=== PATIENT | female | born 1935 | race Hispanic/Latino ===

== ENCOUNTER 2017-01-03 10:09 | Emergency (ER) | payer MEDICARE, MEDICAID ==
[~2017-01-03] VITALS: Ht 160 cm; Wt 59.0 kg
[2017-01-03 09:50] VITALS: BP 125/68
[~2017-01-03 10:09] MED LIST: ACETAMINOP160 MG/5 M GT; ALBUTEROL2.5 MG/3 M INH; AMLODIPINE BESY10 MG GT; ARICEPT5 MG GT; ARICEPT5 MG ORAL; ASCORBIC ACID500 MG GT; ASPIRIN325 MG ORAL; ATIVAN0.5 MG GT; ATIVAN0.5 MG ORAL; ATROVENT HFA12.9 GM IH; BACTRIM-DS1 EA GT; BENADRYL25 MG ORAL; CATAPRES0.1 MG ORAL; CLONIDINE0.1 MG GT; COLACE100 MG GT; ENALAPRIL MALEA20 MG GT; FERROUS SULFAT325 MG GT; FUROSEMIDE20 M1 ORAL; HYDROCHLOROTHIA25 MG ORAL; KEFLEX500 MG ORAL; LIDOCAINE HCL; METOPROLOL SUCC50 MG GT; METOPROLOL TART50 MG ORAL; MILK OF MA400 MG/51 GT; MILK OF MA400 MG/51 ORAL; MULTI VITAMIN1 EACH GT; MULTIVITAMINS1 EAC8 PO; NORCO 5-325 TA1 EAC1 GT; NORCO1 EA ORAL; NORVASC10 MG ORAL; POTASSIUM CHLO20 ME1 ORAL; PROCARDIA XL30 MG PO; PROTONIX40 M2 GT; TYLENOL100 MG/11 PO; TYLENOL500 MG ORAL; VASOTEC20 MG ORAL; VASOTEC20 MG PO; VITAMIN C500 M1 PO
[2017-01-03] MEDS ORDERED: VITAMIN C500 M1 ORAL (10:21)
[2017-01-03] MEDS ORDERED: MILK OF MA400 MG/51 ORAL (10:21)
[2017-01-03] MEDS ORDERED: FERROUS SU220 MG/51 PO (10:21)
[2017-01-03] MEDS ORDERED: ENALAPRIL MALEA20 MG ORAL (10:21)
[2017-01-03] MEDS ORDERED: DONEPEZIL HCL10 MG ORAL (10:34)
[2017-01-03] MEDS ORDERED: NEXIUM40 MG ORAL (10:34)
[2017-01-03] MEDS ORDERED: DOCUSATE SODIU100 M2 GT (10:34)
[2017-01-03] MEDS ORDERED: CRANBERRY450 M3 GT (10:34)
--- NOTE | 2017-01-03 11:45 | Diagnostic Imaging Report ---
Indication: TUBE PLCMT Technique: Supine view of the abdomen after injection of water-soluble contrast into gastrostomy Comparison: Were 17/01/2014 Findings: Contrast opacifies the stomach. No contrast extravasation is demonstrated. The bowel gas pattern is unremarkable. A gastrostomy is a new finding since the previous exam. Previously demonstrated nasogastric tube is no longer evident Impression: Satisfactory position of gastrostomy tube
[2017-01-03 12:16] VITALS: BP 149/77
--- NOTE | 2017-01-03 12:27 | GI Initial Consult Note ---
History of Present Illness General Date patient seen: Jan 03, 2017 Time patient seen: 12:00 Reason for Hospitalization: Malfunctioning Gastric Tube Referring physician: LEIA GOMEZ Reason for Consultation: GT MALFUNCTION Present Illness HPI This is a 78-year-old female from [facility] who presents with GT malfunction and thus we were consulted. Currently, calm in bed and slightly confused. No complaints. REVIEW OF SYSTEMS: Unable to obtain secondary to the patient's confusion. PAST MEDICAL HISTORY: Failure to thrive, weakness, dehydration, UTI, and sepsis. PAST SURGICAL HISTORY: Unknown. Home Meds Active Scripts Cephalexin* (KEFLEX*) 500 Mg Capsule, 500 MG ORAL Q6H, #28 CAP Prov:MARY BURT M.D. 02/02/15 Reported Medications Docusate Sodium (DOCUSATE SODIUM) 100 Mg Tablet, 100 MG GT BID, #30 TAB 0 Refills 01/03/17 Cranberry Fruit Concentrate (CRANBERRY) 450 Mg Tablet, 450 MG GT DAILY, TAB 01/03/17 Donepezil Hcl* (DONEPEZIL HCL*) 10 Mg Tablet, 10 MG ORAL BEDTIME, TAB 01/03/17 Esomeprazole Magnesium (NEXIUM) 40 Mg Capsule.dr, 40 MG ORAL DAILY, CAP 01/03/17 Ascorbic Acid* (VITAMIN C*) 500 Mg Tablet, 500 MG ORAL DAILY, #30 TAB 0 Refills 01/03/17 Ferrous Sulfate (FERROUS SULFATE) 220 Mg/5 Ml Solution, 220 MG PO DAILY 01/03/17 Enalapril Maleate* (ENALAPRIL MALEATE*) 20 Mg Tablet, 20 MG ORAL EVERY 12 HOURS , TAB 01/03/17 Magnesium Hydroxide* (MILK OF MAGNESIA*) 400 Mg/5 Ml Oral.susp, 30 ML ORAL PRN, ML 01/03/17 Trimethoprim/Sulfamethoxazole (Bactrim Ds Tablet) 1 Ea Tab, 1 TAB GT TWICE A DAY for 7 Days, TAB 09/01/13 Pantoprazole Sodium (Protonix) 40 Mg Suspdr.pkt, 40 MG GT ACBREAKFAST, PKT 09/01/13 Magnesium Hydroxide* (MILK OF MAGNESIA*) 400 Mg/5 Ml Oral.susp, 30 ML GT DAILY, ML 09/01/13 Ferrous Sulfate* (FERROUS SULFATE*) 325 Mg Tablet, 325 MG GT DAILY, #30 TAB 0 Refills 08/25/13 Hydrocodone Bit/Acetaminophen 5-325* (NORCO 5-325 TABLET*) 1 Each Tablet, 1 TAB GT Q4H Y for For Pain, TAB 08/25/13 Docusate Sodium* (COLACE*) 100 Mg Capsule, 100 MG GT TWICE A DAY, CAP 08/25/13 Clonidine HCl (Clonidine HCl) 0.1 Mg Tab, 0.1 MG GT q6h PRN for For High Blood Pressure, TAB for SBP>160 or DBP>100 08/25/13 Amlodipine Besylate* (AMLODIPINE BESYLATE*) 10 Mg Tablet, 10 MG GT DAILY, TAB 08/25/13 Lorazepam* (ATIVAN*) 0.5 Mg Tablet, 0.5 MG ORAL Q6HR Y for For Anxiety, TAB 01/15/13 Diphenhydramine Hcl* (BENADRYL*) 25 Mg Capsule, 25 MG ORAL Q4HR Y for Itching, CAP 01/15/13 Hydrocodone/Acetaminophen 5-325* (NORCO 5-325*) 1 Ea Tab, 1 TAB ORAL Q4H Y for For Pain, #30 TAB 01/15/13 Acetaminophen* (TYLENOL*) 500 Mg Tab, 500 MG ORAL Q4HR Y for For Pain, #10 TAB 0 Refills 01/15/13 Clonidine Hcl* (CATAPRES*) 0.1 Mg Tablet, 0.1 MG ORAL EVERY 6 HOURS Y for bp, TAB 01/15/13 Multivitamin With Minerals (MULTIVITAMINS WITH MINERALS*) 1 Each Tablet, 1 EACH PO DAILY, TAB 0 Refills 01/15/13 Amlodipine Besylate (Norvasc) 10 Mg Tab, 10 MG ORAL DAILY, TAB 01/15/13 Metoprolol Tartrate* (METOPROLOL TARTRATE*) 50 Mg Tablet, 50 MG ORAL DAILY, TAB 0 Refills 01/15/13 Furosemide* (LASIX*) 20 Mg Tablet, 20 MG ORAL DAILY, TAB 01/15/13 Enalapril Maleate* (VASOTEC*) 20 Mg Tablet, 40 MG ORAL DAILY, TAB 01/15/13 Donepezil Hcl* (ARICEPT*) 5 Mg Tablet, 5 MG ORAL DAILY for dementia, TAB 01/15/13 Potassium Chloride* (K-DUR*) 20 Meq Tab.er.prt, 20 MEQ ORAL TWICE A DAY for supplement, #14 TAB 0 Refills 01/15/13 Ascorbic Acid* (VITAMIN C*) 500 Mg Tablet, 500 MG PO DAILY for supplement, #30 TAB 0 Refills 01/15/13 Aspirin* (ASPIRIN*) 325 Mg Tablet, 325 MG ORAL DAILY for cva prophylaxis, TAB 01/15/13 Acetaminophen 160MG/5ML* (ACETAMINOPHEN*) 160 Mg/5 Ml Elixir, 500 TAB GT q6h PRN , ML 10/09/12 Lorazepam* (ATIVAN*) 0.5 Mg Tablet, 0.5 MG GT BID Y for For Anxiety, TAB 10/09/12 Multivitamin (MULTI VITAMIN DAILY) 1 Each Tablet, 1 EACH GT DAILY 10/09/12 Metoprolol Succinate* (METOPROLOL SUCCINATE*) 50 Mg Tab.er.24h, 50 MG GT DAILY 10/09/12 Enalapril Maleate* (ENALAPRIL MALEATE*) 20 Mg Tablet, 20 MG GT EVERY 12 HOURS, # 60 TAB 10/09/12 Ascorbic Acid* (ASCORBIC ACID*) 500 Mg Tablet, 500 MG GT DAILY 10/09/12 Donepezil Hcl* (ARICEPT*) 5 Mg Tablet, 5 MG GT BEDTIME, TAB 10/09/12 Med list reviewed/reconciled: Yes Allergies: Coded Allergies: No Known Allergies (Unverified , 10/09/12) Patient History Limited by: medical condition History Provided By: Medical Record Review of Systems All Other Systems: negative except mentioned in HPI Physical Exam Vital Signs Date Time Temp Pulse Resp B/P (MAP) Pulse Ox O2 Delivery O2 Flow Rate FiO2 01/03/17 09:50 98.4 66 20 125/68 97 Room Air Sp02 EP Interpretation: reviewed General Appearance: well appearing, no apparent distress, alert Head: normocephalic EENT: normal ENT inspection Neck: supple Respiratory: normal breath sounds, no respiratory distress Cardiovascular: normal rate Gastrointestinal: gt - non functional Neurologic: alert, responsive Skin: normal inspection, normal color, no rash, warm/dry Lymphatic: normal inspection, no adenopathy GI: Plan Problems: (1) Malfunction of gastrostomy tube (2) Episode of generalized weakness (3) Failure to thrive (4) Anemia Plan GT 20fr replaced at bedside by MD >> okay to use GT site care daily/prn GTFs per dietary last colonoscopy in 2013, repeat in 2018. Seen with Dr. Christian. Thank you for referring this patient. Lalita Bedoya N.P. Jan 03, 2017 12:27
--- NOTE | 2017-01-03 13:00 | Emergency Room Report ---
History of Present Illness General Chief Complaint: Malfunctioning Gastric Tube Source: Medical Record Present Illness HPI Patient 81-year-old female brought in by EMS after G-tube malfunctioning patient was noted to have leaking for G-tube tubing.. There is no recent fever. Patient not been vomiting. The patient G-tube dependent. The patient was sent for G-tube replacement. Allergies: Coded Allergies: No Known Allergies (Unverified , 10/09/12) Patient History Past Medical History: see triage record Reviewed Nursing Documentation: PMH: Agreed, PSxH: Agreed Nursing Documentation-PMH Past Medical History Deferred: Pt Cognitively Impaired Hx Cardiac Problems: Yes Hx Hypertension: Yes Hx Pacemaker: No Hx COPD: No - chf Hx Cancer: No Hx Gastrointestinal Problems: Yes - G TUBE Hx Neurological Problems: No - ENCEPHALOPATHY Hx Cerebrovascular Accident: Yes Hx Transient Ischemic Attacks: Yes Hx Dementia: Yes Hx Alzheimer's Disease: No Hx Parkinson's Disease: No Hx Meningitis: No Hx Encephalitis: No Hx Seizures: No Hx Epilepsy: No Hx Multiple Sclerosis: No Hx Cerebral Palsy: No Hx Amyotrophic Lat Sclerosis: No Hx Guillian-[place]aur[place] Syndrome: No Hx Paralysis: No Hx Peripheral Neuropathy: No Hx Spinal Cord Injury: No Hx Head Trauma: No Hx Traumatic Brain Injury: No Hx Memory Loss: No Hx Concentration Difficulty: No Hx Speech Problem: No Hx Tremors: No Hx Vertigo: No Hx Dizziness: No Hx Syncope: No Hx Headaches: No Hx Aphasia: No Hx Dysphasia: No Hx Numbness: No Hx Weakness: No Hx Fatigue: No Hx Neurologic Surgery: No Hx Brain Shunt: No Review of Systems All Other Systems: limited - by mental status Physical Exam Vital Signs Date Time Temp Pulse Resp B/P (MAP) Pulse Ox O2 Delivery O2 Flow Rate FiO2 01/03/17 09:50 98.4 66 20 125/68 97 Room Air General Appearance: no apparent distress, alert, non-toxic Neck: limited range of motion Respiratory: lungs clear, normal breath sounds Cardiovascular #1: normal peripheral pulses, regular rate, rhythm Gastrointestinal: non tender, soft, no mass, other - gtube site without erythema Neurologic: normal inspection, alert, oriented x3, responsive, sales professional III-XII nml as tested Skin: normal inspection, normal color, no rash Medical Decision Making Diagnostic Impression: Primary Impression: Malfunction of gastrostomy tube ER Course Patient presented for G-tube replacement. I was initially unable to remove the G-tube inject consult was obtained . Gastrostomy tube was replaced with sterile technique by GI. Post procedure x-ray showed adequate gastrostomy tube placement. Patient tolerated well without complications. The patient was discharged back to long term. Patient was return for persistent vomiting, other concerns. Last Vital Signs Date Time Temp Pulse Resp B/P (MAP) Pulse Ox O2 Delivery O2 Flow Rate FiO2 01/03/17 12:16 98.4 64 20 149/77 100 Room Air Status: improved Disposition: [facility] Condition: Improved Referrals: DARA WHITTAKER (PCP) Patient Instructions: Gastrostomy Tube Home Guide, Adult Jeremiah Friedman Jan 03, 2017 13:00
== END 2017-01-03 12:18 ==
LOC: MERGE 10:09 → EDBD 10:09 → EMR 11:08
DX: K94.23 Gastrostomy malfunction (principal); I10 Essential (primary) hypertension; F03.90 Unspecified dementia, unspecified severity, without behavioral disturbance, psychotic disturbance, mood disturbance, and anxiety; Z86.73 Personal history of transient ischemic attack (TIA), and cerebral infarction without residual deficits
CPT/HCPCS: 43760; 74000; 99284; Q9963

== ENCOUNTER 2018-09-08 08:02 | Inpatient (IN) | payer MEDICARE, MEDICAID ==
[~2018-09-08] VITALS: Ht 157.5 cm; Wt 55.5 kg
[~2018-09-08 08:02] MED LIST changes: +CRANBERRY450 M3 GT; +DOCUSATE SODIU100 M2 GT; +DONEPEZIL HCL10 MG ORAL; +ENALAPRIL MALEA20 MG ORAL; +FERROUS SU220 MG/51 PO; +NEXIUM40 MG ORAL; +VITAMIN C500 M1 ORAL
[2018-09-08 08:10] VITALS: BP 96/70
--- NOTE | 2018-09-08 08:22 | NUR ---
ED Nurse Note: Pt KATIAA from [facility] due to fever since this morning, 650mg of Tylenol given by facility staffs. Temperature 101.2F rectal upon arrival. Pt AOx1 baseline, responds to pain, other VSS troy. Pt came in with G-tube. Open wound noted on R sided 2nd toe,bandaged. Will cont to monitor.
--- NOTE | 2018-09-08 08:50 | Emergency Room Report ---
History of Present Illness General Chief Complaint: Fever Source: Medical Record, EMS Present Illness HPI Patient was sent from nursing facility with reports of fever Patient herself has significant dementia and is not able to provide history This does limit the history of present illness significantly unknown regarding vomiting or diarrhea There was no reports of cough Patient has had bladder infections in the past Also appears debilitated with contractures And consideration for deep ulcerations Allergies: Coded Allergies: No Known Allergies (Unverified , 10/09/12) Patient History Limited by: medical condition Past Medical History: see triage record Pertinent Family History: unable to obtain Last Menstrual Period: menopause Now: No Reviewed Nursing Documentation: PMH: Agreed; PSxH: Agreed Nursing Documentation-PMH Hx Cardiac Problems: Yes Hx Hypertension: Yes Hx Pacemaker: No Hx COPD: No - chf Hx Cancer: No Hx Gastrointestinal Problems: Yes - wt loss, failure to thrive with GI Tube Hx Dialysis: Yes - KIDNEY PROBLEM Hx Neurological Problems: Yes Hx Transient Ischemic Attacks: Yes Hx Dementia: Yes Hx Alzheimer's Disease: No Hx Parkinson's Disease: No Hx Meningitis: No Hx Encephalitis: No Hx Seizures: No Hx Epilepsy: No Hx Multiple Sclerosis: No Hx Cerebral Palsy: No Hx Amyotrophic Lat Sclerosis: No Hx Guillian-[place] Syndrome: No Hx Paralysis: No Hx Peripheral Neuropathy: No Hx Spinal Cord Injury: No Hx Head Trauma: No Hx Traumatic Brain Injury: No Hx Memory Loss: Yes Hx Concentration Difficulty: No Hx Speech Problem: No Hx Tremors: No Hx Vertigo: No Hx Dizziness: No Hx Syncope: Yes Hx Headaches: No Hx Aphasia: No Hx Dysphasia: No Hx Numbness: No Hx Weakness: No Hx Fatigue: No Hx Neurologic Surgery: No Hx Brain Shunt: No Review of Systems All Other Systems: limited - Other than the ones mentioned in the history of present illness all others are reviewed however they do stay limited due to the patient's mental status Physical Exam Vital Signs Date Time Temp Pulse Resp B/P (MAP) Pulse Ox O2 Delivery O2 Flow Rate FiO2 09/08/18 08:02 101.1 88 21 97 Room Air 09/08/18 08:10 96/70 Sp02 EP Interpretation: reviewed, normal General Appearance: no apparent distress Head: normocephalic, atraumatic Eyes: bilateral eye PERRL, bilateral eye EOMI ENT: dry mucus membranes Neck: supple Respiratory: no retraction, no accessory muscle use, crackles - Bilaterally Cardiovascular #1: regular rate, rhythm Gastrointestinal: non tender, other - Feeding tube in place Musculoskeletal: other - Patient contracted moves upper extremity towards stimuli Neurologic: responsive Skin: other - Several areas of breakdown also involving left dorsal second toe Lymphatic: no adenopathy Medical Decision Making Diagnostic Impression: Primary Impression: Fever Additional Impressions: Sepsis Elevated troponin ER Course Patient is a fairly complex patient with multiple differential to consideration including but not limited to cardiac cardiopulmonary , infectious , sepsis and vascular emergencies Patient's urine sample that show infectious process Troponin is mildly elevated Patient is initiated on IV hydration and antibiotics And will have further inpatient care Labs Test 09/08/18 08:45 09/08/18 09:00 White Blood Count 11.9 K/UL (4.8-10.8) Red Blood Count 3.99 M/UL (4.20-5.40) Hemoglobin 10.8 G/DL (12.0-16.0) Hematocrit 33.7 % (37.0-47.0) Mean Corpuscular Volume 85 FL (80-99) Mean Corpuscular Hemoglobin 27.1 PG (27.0-31.0) Mean Corpuscular Hemoglobin Concent 32.1 G/DL (32.0-36.0) Red Cell Distribution Width 15.2 % (11.6-14.8) Platelet Count 261 K/UL (150-450) Mean Platelet Volume 7.2 FL (6.5-10.1) Neutrophils (%) (Auto) 74.2 % (45.0-75.0) Lymphocytes (%) (Auto) 12.5 % (20.0-45.0) Monocytes (%) (Auto) 12.2 % (1.0-10.0) Eosinophils (%) (Auto) 0.3 % (0.0-3.0) Basophils (%) (Auto) 0.8 % (0.0-2.0) Sodium Level 138 MMOL/L (136-145) Potassium Level 4.4 MMOL/L (3.5-5.1) Chloride Level 104 MMOL/L (98-107) Carbon Dioxide Level 24 MMOL/L (21-32) Anion Gap 10 mmol/L (5-15) Blood Urea Nitrogen 46 mg/dL (7-18) Creatinine 1.4 MG/DL (0.55-1.30) Estimat Glomerular Filtration Rate mL/min (>60) Glucose Level 124 MG/DL (74-106) Lactic Acid Level 1.40 mmol/L (0.4-2.0) Calcium Level 8.7 MG/DL (8.5-10.1) Total Bilirubin 0.5 MG/DL (0.2-1.0) Aspartate Amino Transf (AST/SGOT) 25 U/L (15-37) Alanine Aminotransferase (ALT/SGPT) 18 U/L (12-78) Alkaline Phosphatase 113 U/L (46-116) Total Creatine Kinase 70 U/L (26-308) Creatine Kinase MB 0.8 NG/ML (0.0-3.6) Creatine Kinase MB Relative Index 1.1 Troponin I 0.058 ng/mL (0.000-0.056) Total Protein 7.6 G/DL (6.4-8.2) Albumin 2.5 G/DL (3.4-5.0) Globulin 5.1 g/dL Albumin/Globulin Ratio 0.5 (1.0-2.7) Urine Color Yellow Urine Appearance Clear Urine pH 6.5 (4.5-8.0) Urine Specific [place] 1.010 (1.005-1.035) Urine Protein 2+ (NEGATIVE) Urine Glucose (UA) Negative (NEGATIVE) Urine Ketones Negative (NEGATIVE) Urine Blood 3+ (NEGATIVE) Urine Nitrite Positive (NEGATIVE) Urine Bilirubin Negative (NEGATIVE) Urine Urobilinogen Normal MG/DL (0.0-1.0) Urine Leukocyte Esterase 3+ (NEGATIVE) Urine RBC 2-4 /HPF (0 - 2) Urine WBC 20-30 /HPF (0 - 2) Urine Squamous Epithelial Cells Few /LPF (NONE/OCC) Urine Bacteria Moderate /HPF (NONE) Rhythm Strip Diag. Results EP Interpretation: yes Rate: 80 Rhythm: NSR, no PVC's, no ectopy Chest X-Ray Diagnostic Results Chest X-Ray Diagnostic Results : Chest X-Ray Ordered: Yes # of Views/Limited/Complete: 1 View Indication: Chest Pain EP Interpretation: Yes Interpretation: no consolidation, no pneumothorax, other - Some congestion bilateral lower lobe mildly increased in the left side Impression: Other - Question mild congestion versus other increased marking left lower lobe Electronically Signed by: Chris Zurita DO Last Vital Signs Date Time Temp Pulse Resp B/P (MAP) Pulse Ox O2 Delivery O2 Flow Rate FiO2 09/08/18 08:22 90 20 Room Air 09/08/18 08:10 101.2 96/70 98 Status: improved Disposition: ADMITTED INPATIENT Condition: Serious Referrals: Guevara Lala DO (PCP) Chris Zurita DO September 08, 2018 08:49
--- NOTE | 2018-09-08 08:50 | NUR ---
ED Nurse Note: X-ray tech at bedside for imaging.
--- NOTE | 2018-09-08 09:00 | NUR ---
ED Nurse Note: Blood, urine, and swabs collected and sent to lab.
[2018-09-08 09:09] LABS: BASOPHILS % (AUTO) 0.8 % (0.0-2.0); EOSINOPHILS % (AUTO) 0.3 % (0.0-3.0); HEMATOCRIT 33.7 % (37.0-47.0); HEMOGLOBIN 10.8 G/DL (12.0-16.0); LYMPHOCYTES % (AUTO) 12.5 % (20.0-45.0); MEAN CORPUSCULAR VOLUME 85 FL (80-99); MONOCYTES % (AUTO) 12.2 % (1.0-10.0); NEUTROPHILS % (AUTO) 74.2 % (45.0-75.0); PLATELET COUNT 261 K/UL (150-450); RED BLOOD COUNT 3.99 M/UL (4.20-5.40); RED CELL DISTRIBUTION WIDTH 15.2 % (11.6-14.8); WHITE BLOOD COUNT 11.9 K/UL (4.8-10.8)
[2018-09-08 09:19] LABS: ANION GAP 10 mmol/L (5-15); BLOOD UREA NITROGEN 46 mg/dL (7-18); CALCIUM 8.7 MG/DL (8.5-10.1); CARBON DIOXIDE 24 MMOL/L (21-32); CHLORIDE 104 MMOL/L (98-107); CREATININE 1.4 MG/DL (0.55-1.30); POTASSIUM 4.4 MMOL/L (3.5-5.1); SODIUM 138 MMOL/L (136-145)
[2018-09-08 09:28] LABS: APPEARANCE,URINE CLEAR; BILIRUBIN, URINE NEGATIVE (NEGATIVE); GLUCOSE, URINE (UA) NEGATIVE (NEGATIVE); KETONES,URINE NEGATIVE (NEGATIVE); LEUKOCYTE ESTERASE ,URINE 3+ (NEGATIVE); NITRITE,URINE POSITIVE (NEGATIVE); PH,URINE 6.5 (4.5-8.0); PROTEIN,URINE 2+ (NEGATIVE); UROBILINOGEN,URINE NORMAL MG/DL (0.0-1.0)
[2018-09-08 09:33] LABS: ALANINE AMINOTRANSFERASE 18 U/L (12-78); ALBUMIN 2.5 G/DL (3.4-5.0); ALBUMIN/GLOBULIN RATIO 0.5 (1.0-2.7); ALKALINE PHOSPHATASE 113 U/L (46-116); ASPARTATE AMINO TRANSFERASE 25 U/L (15-37); BILIRUBIN,TOTAL 0.5 MG/DL (0.2-1.0); CKMB 0.8 NG/ML (0.0-3.6); CREATINE KINASE 70 U/L (26-308)
[2018-09-08 09:36] LABS: COLOR,URINE YELLOW
[2018-09-08] MEDS ORDERED: cefTRIAXone 1 GM in D5W 55 ML IVPB ONE (10:00)
--- NOTE | 2018-09-08 10:04 | NUR ---
ED Nurse Note: Grand daughter called and got update on patients: Kingsley Mihir [phone]
[2018-09-08 10:14] VITALS: BP 110/42
[2018-09-08] MEDS ORDERED: Acetaminophen 650 MG SUPP RECTAL PRN (10:15)
--- NOTE | 2018-09-08 10:16 | NUR ---
ED Nurse Note: Report givent to MARCELINA Hays. VSS. Tylenol per rectum given. Patient transpoted to 236-2 via gurney. On Room air, sating at 100%. No signs of distress.
--- NOTE | 2018-09-08 10:34 | Diagnostic Imaging Report ---
EXAM: XR Chest, 1 View CLINICAL HISTORY: Chest pain TECHNIQUE: Frontal view of the chest. COMPARISON: Chest x-ray dated 02/02/15 FINDINGS: Lungs: Mildly increased perihilar interstitial markings. The lungs are otherwise clear without focal consolidation. Pleural space: Unremarkable. The costophrenic angles are sharp. No visible pneumothorax. Heart: Unremarkable. No cardiomegaly. Mediastinum: Unremarkable. Bones/joints: Unremarkable. Vasculature: Atherosclerotic calcifications are noted within the aortic arch. Tubes, lines and devices: EKG leads overlie the thorax. IMPRESSION: Mildly increased perihilar interstitial markings. This is nonspecific but may suggest mild bronchitis or a mild interstitial pneumonitis. No focal consolidation.
--- NOTE | 2018-09-08 10:40 | NUR ---
NURSE NOTES: Report received from MARCELINA Craft from ED. Patient arrived to unit via gurney accompanied with RN. Patient is alert and awake but just mumbling. No s/s of pain at this time. No distress noted in room air. No belonging noted. IV site intact and patent. Vitals checked. Skin assessment done and noted with sacral redness, right 2nd toe open wound, and bilateral heels DTI. Wound photo taken and uploaded. traffic monitor specialist applied to the patient. Bed in lowest position. Call light within reach. Will continue to monitor. Called and left message to Dr. Lala for admission orders.
--- NOTE | 2018-09-08 11:14 | NUR ---
CASE MANAGEMENT: INITIAL REVIEW 83 YO F BIBA FROM [facility] CC: FEVER PMHx: HTN. GTUBE. DEMENTIA. SI:SEPSIS. T 101.1 HR 88 RR 21 B/P 96/70 SATS 97% ON RA WBC 11.9 BUN 46 CR 1.4 GLU 124 TROPONIN 0.058 IS:CEFTRIAXONE IV X1 NS BOLUS X1 PATIENT ADMITTED TO SDU 09/08/2018 @ 0911 DCP: PATIENT TO BE DISCHARGED TO SNF ONCE MEDICALLY CLEARED. PLAN OF CARE: ID CONSULT
[2018-09-08 11:27] VITALS: BP 128/48
[2018-09-08] MEDS ORDERED: LORazepam 0.5mg tab ORAL PRN (12:00)
[2018-09-08] MEDS ORDERED: Miralax 17gm pkt ORAL PRN (12:00)
[2018-09-08] MEDS ORDERED: Albuterol/Ipratropium 3ml neb HHN PRN (12:00)
[2018-09-08] MEDS ORDERED: Morphine Sulfate 2mg/ml Inj(IV/IM USE ONLY) IVP PRN (12:00)
[2018-09-08] MEDS ORDERED: Nitroglycerin Subl 0.4mg tab SL PRN (12:15)
--- NOTE | 2018-09-08 12:30 | History and Physical Report ---
DATE OF ADMISSION: 09/08/2018 TIME SEEN: 8 a.m. CONSULTANTS: 1. Russell Ferraro M.D. 2. Dajuan Lam M.D. CHIEF COMPLAINTS: Fever, sepsis, shock, lethargy, altered mental status. BRIEF HISTORY: This is an 83-year-old female from [facility], presents this morning with history of increased fever, lethargy, and confusion. The patient was given Tylenol one dose and transferred to [facility]. Currently, lethargic in bed, not really responding to questions. REVIEW OF SYSTEMS: Unavailable. PAST MEDICAL HISTORY: Include altered mental status, failure to thrive, dementia, and anemia. PAST SURGICAL HISTORY: G-tube. MEDICATIONS: I will obtain med list shortly. ALLERGIES: Denies. SOCIAL HISTORY: No smoking. No alcohol. No intravenous drug abuse. FAMILY HISTORY: Noncontributory. PHYSICAL EXAMINATION: GENERAL: Lethargic in bed, not responding to questions. VITAL SIGNS: Temperature is 101.2, pulse 90, respirations 20, and blood pressure 96/70. CARDIOVASCULAR: No murmur. LUNGS: Poor air exchange. ABDOMEN: Bowel sounds distant. EXTREMITIES: No cyanosis, clubbing, or edema. NEUROLOGIC: The patient is flaccid in bed, not really follow directions. LABORATORY DATA: Laboratories at this time are pending. ASSESSMENT: Fever, sepsis, shock, altered mental status, lethargy, dementia, anemia, and history of G-tube. PLAN: Considering the patient's age and condition, we will admit. We will check the laboratories shortly and consult ID and Pulmonary. Antibiotics per Infectious Disease. Dietary followup. Resume home medications. CBC and BMP in the morning. PT and dietary evaluation. We will continue to follow this patient medically. Guevara Lala D.O. DR: MERCEDES JOB#: [id number] CC:
[2018-09-08] MEDS ORDERED: Vancomycin 1gm/D5W 275ml IVPB ONE ×2 (13:00)
[2018-09-08] MEDS: Cefepime 1gm/D5W 55ml IVPB SCH ×2 (15:10)
[2018-09-08 15:55] VITALS: BP 142/66
--- NOTE | 2018-09-08 18:34 | Consultation ---
History of Present Illness General Date patient seen: September 08, 2018 Chief Complaint: Fever Present Illness HPI 83 year old female with multiple medical comorbidities who is a assisted resident recently noted to be febrile, change in mental status, more unresponsive, abnormal labs and admitted to [facility] [place] for care and management. On admission noted to have multiple wounds requiring care. noted to have leukocytosis. noted to have open wound of foot/toe. surgery called to evaluate and assist with care/management. patient seen, chart reviewed, patient examined. Allergies: Coded Allergies: No Known Allergies (Unverified , 10/09/12) Medication History Scheduled Acetaminophen 160MG/5ML* (Acetaminophen*), 500 TAB GT q6h PRN, (Reported) Amlodipine Besylate (Norvasc), 10 MG ORAL DAILY, (Reported) Amlodipine Besylate* (Amlodipine Besylate*), 10 MG GT DAILY, (Reported) Ascorbic Acid* (Ascorbic Acid*), 500 MG GT DAILY, (Reported) Ascorbic Acid* (Vitamin C*), 500 MG PO DAILY, (Reported) Ascorbic Acid* (Vitamin C*), 500 MG ORAL DAILY, (Reported) Aspirin* (Aspirin*), 325 MG ORAL DAILY, (Reported) Cephalexin* (Keflex*), 500 MG ORAL Q6H Clonidine HCl (Clonidine HCl), 0.1 MG GT q6h PRN, (Reported) Cranberry Fruit Concentrate (Cranberry), 450 MG GT DAILY, (Reported) Docusate Sodium (Docusate Sodium), 100 MG GT BID, (Reported) Docusate Sodium* (Colace*), 100 MG GT TWICE A DAY, (Reported) Donepezil Hcl* (Aricept*), 5 MG GT BEDTIME, (Reported) Donepezil Hcl* (Aricept*), 5 MG ORAL DAILY, (Reported) Donepezil Hcl* (Donepezil Hcl*), 10 MG ORAL BEDTIME, (Reported) Enalapril Maleate* (Enalapril Maleate*), 20 MG GT EVERY 12 HOURS, (Reported) Enalapril Maleate* (Vasotec*), 40 MG ORAL DAILY, (Reported) Enalapril Maleate* (Enalapril Maleate*), 20 MG ORAL EVERY 12 HOURS, (Reported) Esomeprazole Magnesium (Nexium), 40 MG ORAL DAILY, (Reported) Ferrous Sulfate (Ferrous Sulfate), 220 MG PO DAILY, (Reported) Ferrous Sulfate* (Ferrous Sulfate*), 325 MG GT DAILY, (Reported) Furosemide* (Lasix*), 20 MG ORAL DAILY, (Reported) Magnesium Hydroxide* (Milk Of Magnesia*), 30 ML GT DAILY, (Reported) Magnesium Hydroxide* (Milk Of Magnesia*), 30 ML ORAL PRN, (Reported) Metoprolol Succinate* (Metoprolol Succinate*), 50 MG GT DAILY, (Reported) Metoprolol Tartrate* (Metoprolol Tartrate*), 50 MG ORAL DAILY, (Reported) Multivitamin (Multi Vitamin Daily), 1 EACH GT DAILY, (Reported) Multivitamin With Minerals (Multivitamins With Minerals*), 1 EACH PO DAILY, ( Reported) Pantoprazole Sodium (Protonix), 40 MG GT ACBREAKFAST, (Reported) Potassium Chloride* (K-Dur*), 20 MEQ ORAL TWICE A DAY, (Reported) Trimethoprim/Sulfamethoxazole (Bactrim Ds Tablet), 1 TAB GT TWICE A DAY, ( Reported) Scheduled PRN Acetaminophen* (Tylenol*), 500 MG ORAL Q4HR PRN for For Pain, (Reported) Clonidine Hcl* (Catapres*), 0.1 MG ORAL EVERY 6 HOURS PRN for bp, (Reported) Diphenhydramine Hcl* (Benadryl*), 25 MG ORAL Q4HR PRN for Itching, (Reported) Hydrocodone Bit/Acetaminophen 5-325* (Rainbow 5-325 Tablet*), 1 TAB GT Q4H PRN for For Pain, (Reported) Hydrocodone/Acetaminophen 5-325* (Rainbow 5-325*), 1 TAB ORAL Q4H PRN for For Pain , (Reported) Lorazepam* (Ativan*), 0.5 MG GT BID PRN for For Anxiety, (Reported) Lorazepam* (Ativan*), 0.5 MG ORAL Q6HR PRN for For Anxiety, (Reported) Patient History Limited by: medical condition History Provided By: Medical Record, PMD Healthcare decision maker Resuscitation status Full Code Advanced Directive on File Past Medical/Surgical History Past Medical/Surgical History: (1) ams (2) r/o cva vs tia (3) Weakness (4) UTI (urinary tract infection) (5) Altered level of consciousness (6) Failure to thrive (7) Weakness (8) Migration of GT (9) Dehydration (10) Dementia (11) Hyponatremia (12) Diverticulosis (13) BENJAMIN (acute kidney injury) (14) Anemia (15) Failure to thrive (16) Episode of generalized weakness (17) Malfunction of gastrostomy tube (18) Fever (19) Sepsis (20) Elevated troponin Review of Systems ROS Narrative cannot obtain given medical condition Physical Exam General Appearance: no apparent distress Lines, tubes and drains: peripheral HEENT: mucous membranes moist Neck: normal inspection Respiratory/Chest: no respiratory distress, no accessory muscle use, decreased breath sounds Cardiovascular/Chest: normal rate Abdomen: soft, no organomegaly, no mass, other Extremities: normal capillary refill, other Skin Exam: warm/dry Last 24 Hour Vital Signs Date Time Temp Pulse Resp B/P (MAP) Pulse Ox O2 Delivery O2 Flow Rate FiO2 09/08/18 15:55 99.0 88 20 142/66 (91) 100 09/08/18 15:39 83 09/08/18 12:00 79 09/08/18 11:47 Room Air 09/08/18 11:27 98.2 82 20 128/48 (74) 98 09/08/18 10:40 81 09/08/18 10:16 83 20 110/42 97 Room Air 09/08/18 10:14 83 20 110/42 97 Room Air 09/08/18 08:22 90 20 Room Air 09/08/18 08:10 101.2 90 20 96/70 98 Room Air 09/08/18 08:02 101.1 88 21 97 Room Air Laboratory Tests Test 09/08/18 08:45 09/08/18 09:00 White Blood Count 11.9 K/UL (4.8-10.8) H Red Blood Count 3.99 M/UL (4.20-5.40) L Hemoglobin 10.8 G/DL (12.0-16.0) L Hematocrit 33.7 % (37.0-47.0) L Mean Corpuscular Volume 85 FL (80-99) Mean Corpuscular Hemoglobin 27.1 PG (27.0-31.0) Mean Corpuscular Hemoglobin Concent 32.1 G/DL (32.0-36.0) Red Cell Distribution Width 15.2 % (11.6-14.8) H Platelet Count 261 K/UL (150-450) Mean Platelet Volume 7.2 FL (6.5-10.1) Neutrophils (%) (Auto) 74.2 % (45.0-75.0) Lymphocytes (%) (Auto) 12.5 % (20.0-45.0) L Monocytes (%) (Auto) 12.2 % (1.0-10.0) H Eosinophils (%) (Auto) 0.3 % (0.0-3.0) Basophils (%) (Auto) 0.8 % (0.0-2.0) Sodium Level 138 MMOL/L (136-145) Potassium Level 4.4 MMOL/L (3.5-5.1) Chloride Level 104 MMOL/L (98-107) Carbon Dioxide Level 24 MMOL/L (21-32) Anion Gap 10 mmol/L (5-15) Blood Urea Nitrogen 46 mg/dL (7-18) H Creatinine 1.4 MG/DL (0.55-1.30) H Estimat Glomerular Filtration Rate mL/min (>60) Glucose Level 124 MG/DL (74-106) H Lactic Acid Level 1.40 mmol/L (0.4-2.0) Calcium Level 8.7 MG/DL (8.5-10.1) Total Bilirubin 0.5 MG/DL (0.2-1.0) Aspartate Amino Transf (AST/SGOT) 25 U/L (15-37) Alanine Aminotransferase (ALT/SGPT) 18 U/L (12-78) Alkaline Phosphatase 113 U/L (46-116) Total Creatine Kinase 70 U/L (26-308) Creatine Kinase MB 0.8 NG/ML (0.0-3.6) Creatine Kinase MB Relative Index 1.1 Troponin I 0.058 ng/mL (0.000-0.056) Total Protein 7.6 G/DL (6.4-8.2) Albumin 2.5 G/DL (3.4-5.0) L Globulin 5.1 g/dL Albumin/Globulin Ratio 0.5 (1.0-2.7) L Urine Color Yellow Urine Appearance Clear Urine pH 6.5 (4.5-8.0) Urine Specific [place] 1.010 (1.005-1.035) Urine Protein 2+ (NEGATIVE) H Urine Glucose (UA) Negative (NEGATIVE) Urine Ketones Negative (NEGATIVE) Urine Blood 3+ (NEGATIVE) H Urine Nitrite Positive (NEGATIVE) H Urine Bilirubin Negative (NEGATIVE) Urine Urobilinogen Normal MG/DL (0.0-1.0) Urine Leukocyte Esterase 3+ (NEGATIVE) H Urine RBC 2-4 /HPF (0 - 2) H Urine WBC 20-30 /HPF (0 - 2) H Urine Squamous Epithelial Cells Few /LPF (NONE/OCC) Urine Bacteria Moderate /HPF (NONE) H Height (Feet): 5 Height (Inches): 2.00 Weight (Pounds): 120 Medications Current Medications Medications (Trade) Dose Ordered Sig/Khoa Route PRN Reason Start Time Stop Time Status Last Admin Dose Admin Acetaminophen (Tylenol) 650 mg Q4H PRN ORAL T>100.5 09/08/18 12:00 10/08/18 11:59 Albuterol/ Ipratropium (Albuterol/ Ipratropium) 3 ml Q4H PRN HHN Shortness of Breath 09/08/18 12:00 09/13/18 11:59 Cefepime HCl 1 gm/ Dextrose 55 ml @ 110 mls/hr Q24H IVPB 09/08/18 14:00 09/15/18 13:59 09/08/18 15:10 Donepezil HCl (Aricept) 5 mg BEDTIME ORAL 09/08/18 21:00 10/08/18 20:59 Heparin Sodium (Porcine) (Heparin 5000 units/ml) 5,000 units EVERY 12 HOURS SUBQ 09/08/18 21:00 10/08/18 20:59 Lorazepam (Ativan) 0.5 mg Q6H PRN ORAL For Anxiety 09/08/18 12:00 09/15/18 11:59 Morphine Sulfate (Morphine Sulfate) 2 mg Q4H PRN IVP PAIN 4-10 09/08/18 12:00 09/15/18 11:59 Nitroglycerin (Ntg) 0.4 mg Q5MIN X 3 DOSES PRN SL Prn Chest Pain 09/08/18 12:15 10/08/18 12:14 Ondansetron HCl (Zofran) 4 mg Q6H PRN IVP Nausea & Vomiting 09/08/18 12:00 10/08/18 11:59 Polyethylene Glycol (Miralax) 17 gm DAILYPRN PRN ORAL Constipation 09/08/18 12:00 10/08/18 11:59 Temazepam (Restoril) 15 mg HSPRN PRN ORAL Insomnia 09/08/18 21:00 09/15/18 20:59 Vancomycin HCl (Vanco rx to dose) 1 ea DAILY PRN MISC . 09/08/18 12:00 10/08/18 11:59 Vancomycin HCl 500 mg/Dextrose 110 ml @ 110 mls/hr Q24H IVPB 09/09/18 13:00 09/14/18 12:59 Assessment/Plan Problem List: (1) Fever Assessment & Plan: low grade fevers leukocytosis on Abx as per ID trend labs ICD Codes: R50.9 - Fever, unspecified SNOMED: 001235294 (2) Sepsis ICD Codes: A41.9 - Sepsis SNOMED: 79261347 (3) Elevated troponin ICD Codes: R74.8 - Abnormal levels of other serum enzymes SNOMED: 905245796, 985989074, 036246318 (4) Dehydration (5) Anemia ICD Codes: D64.9 - Anemia SNOMED: 547991190 (6) Dementia ICD Codes: F03.90 - Dementia SNOMED: 48688927 (7) Diverticulosis ICD Codes: K57.90 - Diverticulosis SNOMED: 496435232 (8) Failure to thrive (9) Failure to thrive Assessment & Plan: cont feeds as per nutritional guide ICD Codes: R62.51 - Failure to thrive (child) SNOMED: 26609017 (10) Hyponatremia (11) Weakness (12) Weakness ICD Codes: R53.1 - Weakness SNOMED: 29563058 (13) UTI (urinary tract infection) (14) Altered level of consciousness ICD Codes: R40.4 - Transient alteration of awareness SNOMED: 0242549 (15) BENJAMIN (acute kidney injury) Assessment & Plan: IV fluids seems dehydrated hold nephrotoxic meds ICD Codes: N17.9 - BENJAMIN (acute kidney injury) SNOMED: 78851537 (16) Malfunction of gastrostomy tube ICD Codes: K94.23 - Gastrostomy malfunction SNOMED: 292766477 (17) Episode of generalized weakness ICD Codes: R53.1 - Weakness SNOMED: 13943218 (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 -plain films ordered -Xeroform dressing and gauze followed by kerlix wrap for now ICD Codes: L03.119 - Cellulitis of unspecified part of limb; L02.619 - Cutaneous abscess of unspecified foot SNOMED: 608992336, 453325414, 911811664 (22) Decubitus skin ulcer Assessment & Plan: patient presented from assisted with multiple wounds sacral / buttock erythema identified right second ray with open wound and cellulitis right and left heel boggy and soft Tx plan: apply skin protectant to sacral / buttock area, cover with foam dressing, change q3days Xeroform dressing and gauze followed by kerlix wrap to right toe heel protectors off load heels with pillow turn q2 air mattress ICD Codes: L89.90 - Pressure ulcer of unspecified site, unspecified stage SNOMED: 079774255 Pb Ojeda September 08, 2018 18:34
--- NOTE | 2018-09-08 19:05 | NUR ---
NURSE NOTES: Pt report received from Lis HEWITT. Pt appears to be resting comfortably in bed, no signs and symptoms of distress noted. Pt is alert and oriented times 1. Pt has a hall monitor on active and working, no signs and symptoms of acute cardiac distress noted. Pt saturating well at 99% on room air, no acute sign and symptoms of acute respiratory distress noted at the moment. Pt has a G tube noted running at 30cc/hr patent and able to flush, no complications noted to site or tubing. Pt has a L hand 20 G noted, able to flush no abnormalities noted. Pt has a pure wick, able to suction, no complications noted to site or tubing. All safety precautions are in place, such as bed is at lowest position, call light is within easy reach, bed rails are up times 3, bed alarm active and armed. will continue plan of care.
--- NOTE | 2018-09-08 19:17 | NUR ---
HAND-OFF: Report given to MARCELINA Lua. patient is in stable condition.
[2018-09-08 20:00] VITALS: BP 122/47
[2018-09-08] MEDS: Heparin 5000 units/ml inj SUBQ SCH (20:19)
[2018-09-08] MEDS: Donepezil 5mg Tab ORAL SCH (20:19)
[2018-09-08] MEDS ORDERED: Cefepime HCl 2 GM in D5W 110 ML IV SCH (21:00)
[2018-09-09] VITALS: BP 142/66
[2018-09-09] MEDS ORDERED: Vancomycin 1 GM in D5W 275 ML IV SCH (00:30)
[2018-09-09 04:00] VITALS: BP 133/55
[2018-09-09 04:56] LABS: BASOPHILS % (AUTO) 0.8 % (0.0-2.0); EOSINOPHILS % (AUTO) 1.3 % (0.0-3.0); HEMATOCRIT 34.8 % (37.0-47.0); HEMOGLOBIN 11.4 G/DL (12.0-16.0); LYMPHOCYTES % (AUTO) 16.2 % (20.0-45.0); MEAN CORPUSCULAR VOLUME 85 FL (80-99); MONOCYTES % (AUTO) 9.7 % (1.0-10.0); NEUTROPHILS % (AUTO) 72.1 % (45.0-75.0); PLATELET COUNT 255 K/UL (150-450); RED CELL DISTRIBUTION WIDTH 15.5 % (11.6-14.8); WHITE BLOOD COUNT 10.8 K/UL (4.8-10.8)
[2018-09-09 05:23] LABS: ALANINE AMINOTRANSFERASE 18 U/L (12-78); ALBUMIN 2.4 G/DL (3.4-5.0); ALBUMIN/GLOBULIN RATIO 0.5 (1.0-2.7); ALKALINE PHOSPHATASE 120 U/L (46-116); ANION GAP 8 mmol/L (5-15); ASPARTATE AMINO TRANSFERASE 29 U/L (15-37); BILIRUBIN,TOTAL 0.5 MG/DL (0.2-1.0); BLOOD UREA NITROGEN 31 mg/dL (7-18); CALCIUM 8.5 MG/DL (8.5-10.1); CARBON DIOXIDE 24 MMOL/L (21-32); CHLORIDE 103 MMOL/L (98-107); CREATININE 1.1 MG/DL (0.55-1.30); POTASSIUM 4.4 MMOL/L (3.5-5.1); SODIUM 135 MMOL/L (136-145)
--- NOTE | 2018-09-09 07:15 | NUR ---
NURSE NOTES: RECEIVED BED SIDE REPORT FROM ELYSIA HEWITT OF NOC SHIFT.RECEIVED PT WITH HOB ELEVATED 45 DEGREE ,,EYES OPENS WITH VERBAL COMMANDS.PT WITH GT PATENT RECEIVING GEVITY 1.2 @ 50CC/HRS TOLERATING WELL ,NO RESIDUAL NOTED AT THIS TIME. FULL BODY ASSESSMENT DONE.PT REPOSITIONED IN BED Q 2HRS TO PROVIDE COMFORT AND TO PREVENT FURTHER SKIN BREAK DOWN.NO ACUTE DISTRESS NOTED AT THIS TIME.WILL CONT TO MONITOR.
--- NOTE | 2018-09-09 07:42 | NUR ---
HAND-OFF: Report given to STACEY HEWITT.
[2018-09-09 08:00] VITALS: BP 123/61
--- NOTE | 2018-09-09 08:50 | NUR ---
RADIOLOGY DEPT.,CHEST X-RAY DONE.-P.DYE
[2018-09-09] MEDS: Heparin 5000 units/ml inj SUBQ SCH ×2 (09:41→21:03)
--- NOTE | 2018-09-09 09:44 | NUR ---
RD ASSESSMENT & RECOMMENDATIONS SEE CARE ACTIVITY FOR COMPLETE ASSESSMENT DAILY ESTIMATED NEEDS: Needs based on Sepsis, wounds 54.5kg 25-35 kcals/kg 9710-8508 total kcals 1.25-2 g protein/kg 68-109 g total protein 25-30 mL/kg 5831-3855 total fluid mLs NUTRITION DIAGNOSIS: 1) Increased kcal and pro needs r/t wound healing as evidenced by pt w/ open R toe wound, bone exposed, sacral / buttock erythema, and BL heel boggy. 2) Swallowing difficulty r/t dysphagia as evidenced by pt is GT dep. ENTERAL NUTRITION RECOMMENDATIONS: Maintain Jevity 1.2 @60ml/hr x24 hrs as tolerated to provide 1440ml, 1728 kcal, 80g pro, 1163ml free H2O - As tolerated advance TF 10ml/hr q4-6 hrs to goal - Flush per MD/ HOB over 30 degrees ------- ADDITIONAL RECOMMENDATIONS: 1) Obtain a CALIBRATED bed scale wt 2) TF recs as above 3) Monitor lytes daily, replete as needed 4) Monitor BG, need for carb control formula 5) Wound care: add STEPHANIE BID via GT + Vit C 250mg daily
[2018-09-09 12:00] VITALS: BP 138/71
--- NOTE | 2018-09-09 12:07 | Diagnostic Imaging Report ---
Indication: Dyspnea Comparison: 09/08/2018 A single view chest radiograph was obtained. Findings: There is no significant change. The heart is enlarged. Pulmonary vascularity is within normal limits. There is some prominence of the pulmonary interstitium again demonstrated. This may be chronic. Mild degree of pneumonitis or interstitial edema is not excluded. Please correlate clinically IMPRESSION: Some interstitial prominence, acuity indeterminate. No change from the prior exam
--- NOTE | 2018-09-09 12:20 | General Progress Note ---
Assessment/Plan Problem List: (1) Fever ICD Codes: R50.9 - Fever, unspecified SNOMED: 837105999 (2) Sepsis ICD Codes: A41.9 - Sepsis SNOMED: 63421965 (3) Dementia ICD Codes: F03.90 - Dementia SNOMED: 57085616 (4) Weakness ICD Codes: R53.1 - Weakness SNOMED: 93811257 (5) ams Status: unchanged Assessment/Plan: pt diet abx resume med psyc and neuro eval Subjective Constitutional: Reports: weakness Allergies: Coded Allergies: No Known Allergies (Unverified , 10/09/12) All Systems: reviewed and negative except above Subjective sleepy calm in bed Objective Last 24 Hour Vital Signs Date Time Temp Pulse Resp B/P (MAP) Pulse Ox O2 Delivery O2 Flow Rate FiO2 09/09/18 09:00 82 09/09/18 09:00 Room Air 09/09/18 08:36 84 18 Room Air 21 09/09/18 08:00 97.5 83 18 123/61 (81) 98 09/09/18 04:00 98.2 80 16 133/55 (81) 99 09/09/18 04:00 78 09/09/18 00:00 97.9 82 16 142/66 (91) 100 09/09/18 00:00 77 09/08/18 21:00 Room Air 09/08/18 20:00 98.0 92 17 122/47 (72) 100 09/08/18 20:00 86 09/08/18 19:39 88 20 Room Air 21 09/08/18 15:55 99.0 88 20 142/66 (91) 100 09/08/18 15:39 83 Intake and Output 09/08/18 09/09/18 19:00 07:00 Intake Total 640.000 ml 800 ml Output Total 600 ml Balance 640.000 ml 200 ml Intake Free Water 130 ml 300 ml IV Total 330.000 ml Tube Feeding 180 ml 500 ml Output Urine Total 600 ml # Voids 4 Laboratory Tests 09/09/18 03:45: White Blood Count 10.8, Red Blood Count 4.10L, Hemoglobin 11.4L, Hematocrit 34.8L, Mean Corpuscular Volume 85, Mean Corpuscular Hemoglobin 27.7, Mean Corpuscular Hemoglobin Concent 32.7, Red Cell Distribution Width 15.5H, Platelet Count 255, Mean Platelet Volume 6.9, Neutrophils (%) (Auto) 72.1, Lymphocytes (%) (Auto) 16.2L, Monocytes (%) (Auto) 9.7, Eosinophils (%) (Auto) 1.3, Basophils (%) (Auto) 0.8, Sodium Level 135L, Potassium Level 4.4, Chloride Level 103, Carbon Dioxide Level 24, Anion Gap 8, Blood Urea Nitrogen 31H, Creatinine 1.1, Estimat Glomerular Filtration Rate , Glucose Level 106, Calcium Level 8.5, Total Bilirubin 0.5, Aspartate Amino Transf (AST/SGOT) 29, Alanine Aminotransferase (ALT/SGPT) 18, Alkaline Phosphatase 120H, Total Protein 7.5, Albumin 2.4L, Globulin 5.1, Albumin/Globulin Ratio 0.5L Height (Feet): 5 Height (Inches): 2.00 Weight (Pounds): 120 General Appearance: lethargic EENT: normal ENT inspection Neck: normal alignment Cardiovascular: normal peripheral pulses, normal rate, regular rhythm Respiratory/Chest: chest wall non-tender, lungs clear, normal breath sounds Abdomen: normal bowel sounds, non tender, soft Extremities: normal inspection Edema: no edema noted Arm (L), no edema noted Arm (R), no edema noted Leg (L), no edema noted Leg (R), no edema noted Pedal (L), no edema noted Pedal (R), no edema noted Generalized Neurologic: motor weakness Skin: normal pigmentation, warm/dry Guevara Lala DO September 09, 2018 12:20
[2018-09-09] MEDS: Vancomycin 500mg/D5W 110ml IVPB SCH ×2 (12:31)
--- NOTE | 2018-09-09 12:53 | Consultation ---
History of Present Illness General Date patient seen: September 09, 2018 Chief Complaint: Fever Reason for Consultation: inpatient management Present Illness HPI 83 year old female with hx of HTN, CHF, on Laisx, advanced Dementia, Gtube feeding, contracted, snf resident brought in from nursing facility with reports of fever Patient herself has significant dementia and is not able to provide history. Also appears debilitated with contractures. She was febrile and had ATN as well. She is admitted to [facility] b/o sepsis. Allergies: Coded Allergies: No Known Allergies (Unverified , 10/09/12) Medication History Scheduled Acetaminophen 160MG/5ML* (Acetaminophen*), 500 TAB GT q6h PRN, (Reported) Amlodipine Besylate (Norvasc), 10 MG ORAL DAILY, (Reported) Amlodipine Besylate* (Amlodipine Besylate*), 10 MG GT DAILY, (Reported) Ascorbic Acid* (Ascorbic Acid*), 500 MG GT DAILY, (Reported) Ascorbic Acid* (Vitamin C*), 500 MG PO DAILY, (Reported) Ascorbic Acid* (Vitamin C*), 500 MG ORAL DAILY, (Reported) Aspirin* (Aspirin*), 325 MG ORAL DAILY, (Reported) Cephalexin* (Keflex*), 500 MG ORAL Q6H Clonidine HCl (Clonidine HCl), 0.1 MG GT q6h PRN, (Reported) Cranberry Fruit Concentrate (Cranberry), 450 MG GT DAILY, (Reported) Docusate Sodium (Docusate Sodium), 100 MG GT BID, (Reported) Docusate Sodium* (Colace*), 100 MG GT TWICE A DAY, (Reported) Donepezil Hcl* (Aricept*), 5 MG GT BEDTIME, (Reported) Donepezil Hcl* (Aricept*), 5 MG ORAL DAILY, (Reported) Donepezil Hcl* (Donepezil Hcl*), 10 MG ORAL BEDTIME, (Reported) Enalapril Maleate* (Enalapril Maleate*), 20 MG GT EVERY 12 HOURS, (Reported) Enalapril Maleate* (Vasotec*), 40 MG ORAL DAILY, (Reported) Enalapril Maleate* (Enalapril Maleate*), 20 MG ORAL EVERY 12 HOURS, (Reported) Esomeprazole Magnesium (Nexium), 40 MG ORAL DAILY, (Reported) Ferrous Sulfate (Ferrous Sulfate), 220 MG PO DAILY, (Reported) Ferrous Sulfate* (Ferrous Sulfate*), 325 MG GT DAILY, (Reported) Furosemide* (Lasix*), 20 MG ORAL DAILY, (Reported) Magnesium Hydroxide* (Milk Of Magnesia*), 30 ML GT DAILY, (Reported) Magnesium Hydroxide* (Milk Of Magnesia*), 30 ML ORAL PRN, (Reported) Metoprolol Succinate* (Metoprolol Succinate*), 50 MG GT DAILY, (Reported) Metoprolol Tartrate* (Metoprolol Tartrate*), 50 MG ORAL DAILY, (Reported) Multivitamin (Multi Vitamin Daily), 1 EACH GT DAILY, (Reported) Multivitamin With Minerals (Multivitamins With Minerals*), 1 EACH PO DAILY, ( Reported) Pantoprazole Sodium (Protonix), 40 MG GT ACBREAKFAST, (Reported) Potassium Chloride* (K-Dur*), 20 MEQ ORAL TWICE A DAY, (Reported) Trimethoprim/Sulfamethoxazole (Bactrim Ds Tablet), 1 TAB GT TWICE A DAY, ( Reported) Scheduled PRN Acetaminophen* (Tylenol*), 500 MG ORAL Q4HR PRN for For Pain, (Reported) Clonidine Hcl* (Catapres*), 0.1 MG ORAL EVERY 6 HOURS PRN for bp, (Reported) Diphenhydramine Hcl* (Benadryl*), 25 MG ORAL Q4HR PRN for Itching, (Reported) Hydrocodone Bit/Acetaminophen 5-325* ([place] 5-325 Tablet*), 1 TAB GT Q4H PRN for For Pain, (Reported) Hydrocodone/Acetaminophen 5-325* ([place] 5-325*), 1 TAB ORAL Q4H PRN for For Pain , (Reported) Lorazepam* (Ativan*), 0.5 MG GT BID PRN for For Anxiety, (Reported) Lorazepam* (Ativan*), 0.5 MG ORAL Q6HR PRN for For Anxiety, (Reported) Patient History Healthcare decision maker Resuscitation status Full Code Advanced Directive on File Past Medical/Surgical History Past Medical/Surgical History: (1) History of hypertension (2) Limited mobility in bed (3) Flexion contractures (4) Severe protein-calorie malnutrition (5) Feeding by G-tube (6) Dementia Review of Systems All Other Systems: negative except mentioned in HPI Physical Exam General Appearance: cachetic, thin Lines, tubes and drains: peripheral HEENT: normocephalic, atraumatic Neck: non-tender, supple Respiratory/Chest: chest wall non-tender, lungs clear Breasts: no masses Cardiovascular/Chest: normal peripheral pulses Abdomen: normal bowel sounds Genitourinary/Rectal: normal genital exam Last 24 Hour Vital Signs Date Time Temp Pulse Resp B/P (MAP) Pulse Ox O2 Delivery O2 Flow Rate FiO2 09/09/18 09:00 82 09/09/18 09:00 Room Air 09/09/18 08:36 84 18 Room Air 21 09/09/18 08:00 97.5 83 18 123/61 (81) 98 09/09/18 04:00 98.2 80 16 133/55 (81) 99 09/09/18 04:00 78 09/09/18 00:00 97.9 82 16 142/66 (91) 100 09/09/18 00:00 77 09/08/18 21:00 Room Air 09/08/18 20:00 98.0 92 17 122/47 (72) 100 09/08/18 20:00 86 09/08/18 19:39 88 20 Room Air 21 09/08/18 15:55 99.0 88 20 142/66 (91) 100 09/08/18 15:39 83 Intake and Output 09/08/18 09/09/18 19:00 07:00 Intake Total 640.000 ml 800 ml Output Total 600 ml Balance 640.000 ml 200 ml Intake Free Water 130 ml 300 ml IV Total 330.000 ml Tube Feeding 180 ml 500 ml Output Urine Total 600 ml # Voids 4 Laboratory Tests Test 09/09/18 03:45 White Blood Count 10.8 K/UL (4.8-10.8) Red Blood Count 4.10 M/UL (4.20-5.40) L Hemoglobin 11.4 G/DL (12.0-16.0) L Hematocrit 34.8 % (37.0-47.0) L Mean Corpuscular Volume 85 FL (80-99) Mean Corpuscular Hemoglobin 27.7 PG (27.0-31.0) Mean Corpuscular Hemoglobin Concent 32.7 G/DL (32.0-36.0) Red Cell Distribution Width 15.5 % (11.6-14.8) H Platelet Count 255 K/UL (150-450) Mean Platelet Volume 6.9 FL (6.5-10.1) Neutrophils (%) (Auto) 72.1 % (45.0-75.0) Lymphocytes (%) (Auto) 16.2 % (20.0-45.0) L Monocytes (%) (Auto) 9.7 % (1.0-10.0) Eosinophils (%) (Auto) 1.3 % (0.0-3.0) Basophils (%) (Auto) 0.8 % (0.0-2.0) Sodium Level 135 MMOL/L (136-145) L Potassium Level 4.4 MMOL/L (3.5-5.1) Chloride Level 103 MMOL/L (98-107) Carbon Dioxide Level 24 MMOL/L (21-32) Anion Gap 8 mmol/L (5-15) Blood Urea Nitrogen 31 mg/dL (7-18) H Creatinine 1.1 MG/DL (0.55-1.30) Estimat Glomerular Filtration Rate mL/min (>60) Glucose Level 106 MG/DL (74-106) Calcium Level 8.5 MG/DL (8.5-10.1) Total Bilirubin 0.5 MG/DL (0.2-1.0) Aspartate Amino Transf (AST/SGOT) 29 U/L (15-37) Alanine Aminotransferase (ALT/SGPT) 18 U/L (12-78) Alkaline Phosphatase 120 U/L (46-116) H Total Protein 7.5 G/DL (6.4-8.2) Albumin 2.4 G/DL (3.4-5.0) L Globulin 5.1 g/dL Albumin/Globulin Ratio 0.5 (1.0-2.7) L Height (Feet): 5 Height (Inches): 2.00 Weight (Pounds): 120 Medications Current Medications Medications (Trade) Dose Ordered Sig/Khoa Route PRN Reason Start Time Stop Time Status Last Admin Dose Admin Acetaminophen (Tylenol) 650 mg Q4H PRN ORAL T>100.5 09/08/18 12:00 10/08/18 11:59 Albuterol/ Ipratropium (Albuterol/ Ipratropium) 3 ml Q4H PRN HHN Shortness of Breath 09/08/18 12:00 09/13/18 11:59 Cefepime HCl 1 gm/ Dextrose 55 ml @ 110 mls/hr Q24H IVPB 09/08/18 14:00 09/15/18 13:59 09/08/18 15:10 Donepezil HCl (Aricept) 5 mg BEDTIME ORAL 09/08/18 21:00 10/08/18 20:59 09/08/18 20:19 Heparin Sodium (Porcine) (Heparin 5000 units/ml) 5,000 units EVERY 12 HOURS SUBQ 09/08/18 21:00 10/08/18 20:59 09/09/18 09:41 Lorazepam (Ativan) 0.5 mg Q6H PRN ORAL For Anxiety 09/08/18 12:00 09/15/18 11:59 Morphine Sulfate (Morphine Sulfate) 2 mg Q4H PRN IVP PAIN 4-10 09/08/18 12:00 09/15/18 11:59 Nitroglycerin (Ntg) 0.4 mg Q5MIN X 3 DOSES PRN SL Prn Chest Pain 09/08/18 12:15 10/08/18 12:14 Ondansetron HCl (Zofran) 4 mg Q6H PRN IVP Nausea & Vomiting 09/08/18 12:00 10/08/18 11:59 Polyethylene Glycol (Miralax) 17 gm DAILYPRN PRN ORAL Constipation 09/08/18 12:00 10/08/18 11:59 Temazepam (Restoril) 15 mg HSPRN PRN ORAL Insomnia 09/08/18 21:00 09/15/18 20:59 Vancomycin HCl (Vanco rx to dose) 1 ea DAILY PRN MISC . 09/08/18 12:00 10/08/18 11:59 Vancomycin HCl 500 mg/Dextrose 110 ml @ 110 mls/hr Q24H IVPB 09/09/18 13:00 09/14/18 12:59 09/09/18 12:31 Assessment/Plan Problem List: (1) Sepsis ICD Codes: A41.9 - Sepsis SNOMED: 33006132 (2) ATN (acute tubular necrosis) ICD Codes: N17.0 - Acute kidney failure with tubular necrosis SNOMED: 53428838 (3) UTI (urinary tract infection) (4) Decubitus skin ulcer ICD Codes: L89.90 - Pressure ulcer of unspecified site, unspecified stage SNOMED: 672596177 (5) Severe protein-calorie malnutrition ICD Codes: E43 - Unspecified severe protein-calorie malnutrition SNOMED: 547291213, 377818343, 785928732 (6) Dementia ICD Codes: F03.90 - Dementia SNOMED: 14187199 (7) Limited mobility in bed SNOMED: 010514075 (8) Feeding by G-tube ICD Codes: Z93.1 - Gastrostomy status SNOMED: 033888057, 721402290, 925798728 (9) History of hypertension ICD Codes: Z86.79 - Personal history of other diseases of the circulatory system SNOMED: 526701863 (10) Flexion contractures ICD Codes: M24.50 - Contracture, unspecified joint SNOMED: 55096055, 400135371 Assessment/Plan: thomas culture IV fluids check electrolytes ID evaluation dvt prophylaxis resume Gtube feeding dvt prophylaxis. Dajuan Lam MD September 09, 2018 12:53
--- NOTE | 2018-09-09 13:50 | NUR ---
NURSE NOTES:WOUND CARE NOTES:Pt presented on admission with ulcer R 2nd metatarsal. R 2nd metatarsal noted to have dark brown discoloration and toe is clubbed . full thickness ulcer noted to dorsal aspect (L)1cm x (W)1.7cm. Base of wound moist -viable ,(+) maceration at borders .No odor or exudate noted. Non-blanchable erythema with fluctuance extending from posterior R heel into plantar aspect .Pt yells out when heel minimally palpated .Periwound without erythema induration or fluctuance.(L)4.5cm x (W)5cm. L heel is boggy with non-blanchable erythema .Pt did not exhibit any distress when L heel palpated(L)3cm x (W)4cm. Sacrum presents with pink epithelial that is dry and non-tender when minimally palpated. Tx.Plan: Cleanse wound R 2nd metatarsal with Saline. Apply Xeroform .Cover with Optifoam drsg. Change Daily and prn. Apply Moisture Barrier paste to sacrum . Cover with Optifoam drsg. Change every 3 days and prn. Apply Cavilon Skin Barrier to R and L heels. Cover each heel with Optifoam drsgs .Change every 7 days and prn. Reposition at least every 2hours or as tolerated. Off-load heels with pillow.
[2018-09-09] MEDS: Cefepime 1gm/D5W 55ml IVPB SCH ×2 (14:25)
--- NOTE | 2018-09-09 14:31 | NUR ---
P.T Note: Order received. Chart reviewed. P.T evaluation completed. Pt is alert, O x 1, inconsistently follows simple one step commands. Pt presented tightness and mild contractures of shoulders, B hands, hips and knees. Pt is completely dependent with ADL's /functional mobilities and self care tasks. Pt already baseline dependent with functional mobilities and not a candidate for skilled P.T services. Recommend DC to prior living arrangement for comfort and care. DC P.T services. Thank you for this referral.
[2018-09-09 16:00] VITALS: BP 132/68
--- NOTE | 2018-09-09 17:15 | Surgery Progress Note ---
Surgery Progress Note Subjective Additional Comments no acute events. resting comfortable. labs noted. exam unchanged. Objective Last 24 Hour Vital Signs Date Time Temp Pulse Resp B/P (MAP) Pulse Ox O2 Delivery O2 Flow Rate FiO2 09/09/18 16:00 93 09/09/18 12:00 100 09/09/18 12:00 98.8 89 19 138/71 (93) 98 09/09/18 09:00 82 09/09/18 09:00 Room Air 09/09/18 08:36 84 18 Room Air 21 09/09/18 08:00 97.5 83 18 123/61 (81) 98 09/09/18 04:00 98.2 80 16 133/55 (81) 99 09/09/18 04:00 78 09/09/18 00:00 97.9 82 16 142/66 (91) 100 09/09/18 00:00 77 09/08/18 21:00 Room Air 09/08/18 20:00 98.0 92 17 122/47 (72) 100 09/08/18 20:00 86 09/08/18 19:39 88 20 Room Air 21 I&O Intake and Output 09/08/18 09/09/18 19:00 07:00 Intake Total 640.000 ml 800 ml Output Total 600 ml Balance 640.000 ml 200 ml Intake Free Water 130 ml 300 ml IV Total 330.000 ml Tube Feeding 180 ml 500 ml Output Urine Total 600 ml # Voids 4 Dressing: dry Wound: clean Drains: other Cardiovascular: RSR Respiratory: clear Abdomen: flat, present bowel sounds, non-distended Extremities: no tenderness, no cyanosis Laboratory Tests Test 09/09/18 03:45 White Blood Count 10.8 K/UL (4.8-10.8) Red Blood Count 4.10 M/UL (4.20-5.40) L Hemoglobin 11.4 G/DL (12.0-16.0) L Hematocrit 34.8 % (37.0-47.0) L Mean Corpuscular Volume 85 FL (80-99) Mean Corpuscular Hemoglobin 27.7 PG (27.0-31.0) Mean Corpuscular Hemoglobin Concent 32.7 G/DL (32.0-36.0) Red Cell Distribution Width 15.5 % (11.6-14.8) H Platelet Count 255 K/UL (150-450) Mean Platelet Volume 6.9 FL (6.5-10.1) Neutrophils (%) (Auto) 72.1 % (45.0-75.0) Lymphocytes (%) (Auto) 16.2 % (20.0-45.0) L Monocytes (%) (Auto) 9.7 % (1.0-10.0) Eosinophils (%) (Auto) 1.3 % (0.0-3.0) Basophils (%) (Auto) 0.8 % (0.0-2.0) Sodium Level 135 MMOL/L (136-145) L Potassium Level 4.4 MMOL/L (3.5-5.1) Chloride Level 103 MMOL/L (98-107) Carbon Dioxide Level 24 MMOL/L (21-32) Anion Gap 8 mmol/L (5-15) Blood Urea Nitrogen 31 mg/dL (7-18) H Creatinine 1.1 MG/DL (0.55-1.30) Estimat Glomerular Filtration Rate mL/min (>60) Glucose Level 106 MG/DL (74-106) Calcium Level 8.5 MG/DL (8.5-10.1) Total Bilirubin 0.5 MG/DL (0.2-1.0) Aspartate Amino Transf (AST/SGOT) 29 U/L (15-37) Alanine Aminotransferase (ALT/SGPT) 18 U/L (12-78) Alkaline Phosphatase 120 U/L (46-116) H Total Protein 7.5 G/DL (6.4-8.2) Albumin 2.4 G/DL (3.4-5.0) L Globulin 5.1 g/dL Albumin/Globulin Ratio 0.5 (1.0-2.7) L Plan Problems: (1) Sepsis Assessment & Plan: on IV Abx labs improved AM labs ordered (2) Anemia (3) Dementia (4) Diverticulosis (5) Failure to thrive Assessment & Plan: cont feeds as per nutritional guide (6) Hyponatremia (7) UTI (urinary tract infection) (8) Cellulitis and abscess of foot Assessment & Plan: right foot second ray with distal open wound with exposed bone, periwound erythema and cellulitis. -plain films ordered -Xeroform dressing and gauze followed by kerlix wrap for now (9) Decubitus skin ulcer Assessment & Plan: patient presented from longterm with multiple wounds sacral / buttock erythema identified right second ray with open wound and cellulitis right and left heel boggy and soft Tx plan: apply skin protectant to sacral / buttock area, cover with foam dressing, change q3days Xeroform dressing and gauze followed by kerlix wrap to right toe heel protectors off load heels with pillow turn q2 air mattress Pb Ojeda September 09, 2018 17:15
--- NOTE | 2018-09-09 19:16 | Consultation ---
History of Present Illness General Date patient seen: September 09, 2018 Chief Complaint: Fever Reason for Consultation: inpatient management Present Illness HPI 83 y/o F with hx of HTN, CHF, advanced Dementia, TIA, dysphagia/FTT s/p Gtube, contracted, multiple decubiti wounds, care home resident presents to ED On with fever, leukocytosis, lethargy and BENJAMIN. No cough Allergies: Coded Allergies: No Known Allergies (Unverified , 10/09/12) Medication History Scheduled Acetaminophen 160MG/5ML* (Acetaminophen*), 500 TAB GT q6h PRN, (Reported) Amlodipine Besylate (Norvasc), 10 MG ORAL DAILY, (Reported) Amlodipine Besylate* (Amlodipine Besylate*), 10 MG GT DAILY, (Reported) Ascorbic Acid* (Ascorbic Acid*), 500 MG GT DAILY, (Reported) Ascorbic Acid* (Vitamin C*), 500 MG PO DAILY, (Reported) Ascorbic Acid* (Vitamin C*), 500 MG ORAL DAILY, (Reported) Aspirin* (Aspirin*), 325 MG ORAL DAILY, (Reported) Cephalexin* (Keflex*), 500 MG ORAL Q6H Clonidine HCl (Clonidine HCl), 0.1 MG GT q6h PRN, (Reported) Cranberry Fruit Concentrate (Cranberry), 450 MG GT DAILY, (Reported) Docusate Sodium (Docusate Sodium), 100 MG GT BID, (Reported) Docusate Sodium* (Colace*), 100 MG GT TWICE A DAY, (Reported) Donepezil Hcl* (Aricept*), 5 MG GT BEDTIME, (Reported) Donepezil Hcl* (Aricept*), 5 MG ORAL DAILY, (Reported) Donepezil Hcl* (Donepezil Hcl*), 10 MG ORAL BEDTIME, (Reported) Enalapril Maleate* (Enalapril Maleate*), 20 MG GT EVERY 12 HOURS, (Reported) Enalapril Maleate* (Vasotec*), 40 MG ORAL DAILY, (Reported) Enalapril Maleate* (Enalapril Maleate*), 20 MG ORAL EVERY 12 HOURS, (Reported) Esomeprazole Magnesium (Nexium), 40 MG ORAL DAILY, (Reported) Ferrous Sulfate (Ferrous Sulfate), 220 MG PO DAILY, (Reported) Ferrous Sulfate* (Ferrous Sulfate*), 325 MG GT DAILY, (Reported) Furosemide* (Lasix*), 20 MG ORAL DAILY, (Reported) Magnesium Hydroxide* (Milk Of Magnesia*), 30 ML GT DAILY, (Reported) Magnesium Hydroxide* (Milk Of Magnesia*), 30 ML ORAL PRN, (Reported) Metoprolol Succinate* (Metoprolol Succinate*), 50 MG GT DAILY, (Reported) Metoprolol Tartrate* (Metoprolol Tartrate*), 50 MG ORAL DAILY, (Reported) Multivitamin (Multi Vitamin Daily), 1 EACH GT DAILY, (Reported) Multivitamin With Minerals (Multivitamins With Minerals*), 1 EACH PO DAILY, ( Reported) Pantoprazole Sodium (Protonix), 40 MG GT ACBREAKFAST, (Reported) Potassium Chloride* (K-Dur*), 20 MEQ ORAL TWICE A DAY, (Reported) Trimethoprim/Sulfamethoxazole (Bactrim Ds Tablet), 1 TAB GT TWICE A DAY, ( Reported) Scheduled PRN Acetaminophen* (Tylenol*), 500 MG ORAL Q4HR PRN for For Pain, (Reported) Clonidine Hcl* (Catapres*), 0.1 MG ORAL EVERY 6 HOURS PRN for bp, (Reported) Diphenhydramine Hcl* (Benadryl*), 25 MG ORAL Q4HR PRN for Itching, (Reported) Hydrocodone Bit/Acetaminophen 5-325* ([place] 5-325 Tablet*), 1 TAB GT Q4H PRN for For Pain, (Reported) Hydrocodone/Acetaminophen 5-325* ([place] 5-325*), 1 TAB ORAL Q4H PRN for For Pain , (Reported) Lorazepam* (Ativan*), 0.5 MG GT BID PRN for For Anxiety, (Reported) Lorazepam* (Ativan*), 0.5 MG ORAL Q6HR PRN for For Anxiety, (Reported) Patient History Healthcare decision maker Resuscitation status Full Code Advanced Directive on File Patient History Narrative Pmhx: as above Shx: No smoking. No alcohol. No intravenous drug abuse. Fhx: non contributory Review of Systems All Other Systems: negative except mentioned in HPI Physical Exam Physical Exam Narrative GENERAL: Lethargic in bed, not responding to questions. CARDIOVASCULAR: No murmur. LUNGS: Poor air exchange. ABDOMEN: Bowel sounds distant. EXTREMITIES: No cyanosis, clubbing, or edema. NEUROLOGIC: The patient is flaccid in bed, not really follow directions. Last 24 Hour Vital Signs Date Time Temp Pulse Resp B/P (MAP) Pulse Ox O2 Delivery O2 Flow Rate FiO2 09/09/18 16:00 99.5 97 18 132/68 (89) 99 09/09/18 16:00 93 09/09/18 12:00 100 09/09/18 12:00 98.8 89 19 138/71 (93) 98 09/09/18 09:00 82 09/09/18 09:00 Room Air 09/09/18 08:36 84 18 Room Air 21 09/09/18 08:00 97.5 83 18 123/61 (81) 98 09/09/18 04:00 98.2 80 16 133/55 (81) 99 09/09/18 04:00 78 09/09/18 00:00 97.9 82 16 142/66 (91) 100 09/09/18 00:00 77 09/08/18 21:00 Room Air 09/08/18 20:00 98.0 92 17 122/47 (72) 100 09/08/18 20:00 86 09/08/18 19:39 88 20 Room Air 21 Intake and Output 09/08/18 09/09/18 19:00 07:00 Intake Total 640.000 ml 800 ml Output Total 600 ml Balance 640.000 ml 200 ml Intake Free Water 130 ml 300 ml IV Total 330.000 ml Tube Feeding 180 ml 500 ml Output Urine Total 600 ml # Voids 4 Laboratory Tests Test 09/09/18 03:45 White Blood Count 10.8 K/UL (4.8-10.8) Red Blood Count 4.10 M/UL (4.20-5.40) L Hemoglobin 11.4 G/DL (12.0-16.0) L Hematocrit 34.8 % (37.0-47.0) L Mean Corpuscular Volume 85 FL (80-99) Mean Corpuscular Hemoglobin 27.7 PG (27.0-31.0) Mean Corpuscular Hemoglobin Concent 32.7 G/DL (32.0-36.0) Red Cell Distribution Width 15.5 % (11.6-14.8) H Platelet Count 255 K/UL (150-450) Mean Platelet Volume 6.9 FL (6.5-10.1) Neutrophils (%) (Auto) 72.1 % (45.0-75.0) Lymphocytes (%) (Auto) 16.2 % (20.0-45.0) L Monocytes (%) (Auto) 9.7 % (1.0-10.0) Eosinophils (%) (Auto) 1.3 % (0.0-3.0) Basophils (%) (Auto) 0.8 % (0.0-2.0) Sodium Level 135 MMOL/L (136-145) L Potassium Level 4.4 MMOL/L (3.5-5.1) Chloride Level 103 MMOL/L (98-107) Carbon Dioxide Level 24 MMOL/L (21-32) Anion Gap 8 mmol/L (5-15) Blood Urea Nitrogen 31 mg/dL (7-18) H Creatinine 1.1 MG/DL (0.55-1.30) Estimat Glomerular Filtration Rate mL/min (>60) Glucose Level 106 MG/DL (74-106) Calcium Level 8.5 MG/DL (8.5-10.1) Total Bilirubin 0.5 MG/DL (0.2-1.0) Aspartate Amino Transf (AST/SGOT) 29 U/L (15-37) Alanine Aminotransferase (ALT/SGPT) 18 U/L (12-78) Alkaline Phosphatase 120 U/L (46-116) H Total Protein 7.5 G/DL (6.4-8.2) Albumin 2.4 G/DL (3.4-5.0) L Globulin 5.1 g/dL Albumin/Globulin Ratio 0.5 (1.0-2.7) L Height (Feet): 5 Height (Inches): 2.00 Weight (Pounds): 120 Medications Current Medications Medications (Trade) Dose Ordered Sig/Khoa Route PRN Reason Start Time Stop Time Status Last Admin Dose Admin Acetaminophen (Tylenol) 650 mg Q4H PRN ORAL T>100.5 09/08/18 12:00 10/08/18 11:59 Albuterol/ Ipratropium (Albuterol/ Ipratropium) 3 ml Q4H PRN HHN Shortness of Breath 09/08/18 12:00 09/13/18 11:59 Cefepime HCl 1 gm/ Dextrose 55 ml @ 110 mls/hr Q24H IVPB 09/08/18 14:00 09/15/18 13:59 09/09/18 14:25 Donepezil HCl (Aricept) 5 mg BEDTIME ORAL 09/08/18 21:00 10/08/18 20:59 09/08/18 20:19 Heparin Sodium (Porcine) (Heparin 5000 units/ml) 5,000 units EVERY 12 HOURS SUBQ 09/08/18 21:00 10/08/18 20:59 09/09/18 09:41 Lorazepam (Ativan) 0.5 mg Q6H PRN ORAL For Anxiety 09/08/18 12:00 09/15/18 11:59 Morphine Sulfate (Morphine Sulfate) 2 mg Q4H PRN IVP PAIN 4-10 09/08/18 12:00 09/15/18 11:59 Nitroglycerin (Ntg) 0.4 mg Q5MIN X 3 DOSES PRN SL Prn Chest Pain 09/08/18 12:15 10/08/18 12:14 Ondansetron HCl (Zofran) 4 mg Q6H PRN IVP Nausea & Vomiting 09/08/18 12:00 10/08/18 11:59 Polyethylene Glycol (Miralax) 17 gm DAILYPRN PRN ORAL Constipation 09/08/18 12:00 10/08/18 11:59 Temazepam (Restoril) 15 mg HSPRN PRN ORAL Insomnia 09/08/18 21:00 09/15/18 20:59 Vancomycin HCl (Vanco rx to dose) 1 ea DAILY PRN MISC . 09/08/18 12:00 10/08/18 11:59 Vancomycin HCl 500 mg/Dextrose 110 ml @ 110 mls/hr Q24H IVPB 09/09/18 13:00 09/14/18 12:59 09/09/18 12:31 Assessment/Plan Assessment/Plan: Abx: IV Vancomcyin 09/08- Cefepime 09/08- Ceftriaxone x1 09/08 Assessment: Sepsis- likely 2ry to UTI -u/a wbc 20-30, nit +, leuk +3; ucx p -CXR: Mildly increased perihilar interstitial markings. This is nonspecific but may suggest mild bronchitis or a mild interstitial pneumonitis. No focal consolidation. Fever, improving Leukocytosis, SP R 2nd toe open wound w/ exposed bone- likely chronic OM HTN CHF advanced Dementia TIA dysphagia/FTT s/p Gtube contracted multiple decubiti wounds care home resident Plan: -Continue empiric Cefepime #2 and IV Vancomycin #2 pending cultures -f/u cx -Monitor CBC/CMP, temperatures -wound care per surgical team -aspiration precautions -ESR, CRP am Thank you for this consultation. Will continue to follow along with you. Discussed with MARCELINA. Salud Atwood M.D. September 09, 2018 19:16
--- NOTE | 2018-09-09 19:20 | NUR ---
HAND-OFF: Report given to .DIVYA HEWITT.
--- NOTE | 2018-09-09 19:23 | Consultation ---
History of Present Illness General Date patient seen: September 09, 2018 Chief Complaint: AMS Present Illness HPI Marian Katz an 83-year-old female from [facility], with a history of dementia and LE contracture, who presents with history of increased fever, lethargy, and confusion. The patient was given Tylenol one dose and transferred to [facility]. She is currently lethargic and disoriented but follows midline commands in [place]. Allergies: Coded Allergies: No Known Allergies (Unverified , 10/09/12) Medication History Scheduled Acetaminophen 160MG/5ML* (Acetaminophen*), 500 TAB GT q6h PRN, (Reported) Amlodipine Besylate (Norvasc), 10 MG ORAL DAILY, (Reported) Amlodipine Besylate* (Amlodipine Besylate*), 10 MG GT DAILY, (Reported) Ascorbic Acid* (Ascorbic Acid*), 500 MG GT DAILY, (Reported) Ascorbic Acid* (Vitamin C*), 500 MG PO DAILY, (Reported) Ascorbic Acid* (Vitamin C*), 500 MG ORAL DAILY, (Reported) Aspirin* (Aspirin*), 325 MG ORAL DAILY, (Reported) Cephalexin* (Keflex*), 500 MG ORAL Q6H Clonidine HCl (Clonidine HCl), 0.1 MG GT q6h PRN, (Reported) Cranberry Fruit Concentrate (Cranberry), 450 MG GT DAILY, (Reported) Docusate Sodium (Docusate Sodium), 100 MG GT BID, (Reported) Docusate Sodium* (Colace*), 100 MG GT TWICE A DAY, (Reported) Donepezil Hcl* (Aricept*), 5 MG GT BEDTIME, (Reported) Donepezil Hcl* (Aricept*), 5 MG ORAL DAILY, (Reported) Donepezil Hcl* (Donepezil Hcl*), 10 MG ORAL BEDTIME, (Reported) Enalapril Maleate* (Enalapril Maleate*), 20 MG GT EVERY 12 HOURS, (Reported) Enalapril Maleate* (Vasotec*), 40 MG ORAL DAILY, (Reported) Enalapril Maleate* (Enalapril Maleate*), 20 MG ORAL EVERY 12 HOURS, (Reported) Esomeprazole Magnesium (Nexium), 40 MG ORAL DAILY, (Reported) Ferrous Sulfate (Ferrous Sulfate), 220 MG PO DAILY, (Reported) Ferrous Sulfate* (Ferrous Sulfate*), 325 MG GT DAILY, (Reported) Furosemide* (Lasix*), 20 MG ORAL DAILY, (Reported) Magnesium Hydroxide* (Milk Of Magnesia*), 30 ML GT DAILY, (Reported) Magnesium Hydroxide* (Milk Of Magnesia*), 30 ML ORAL PRN, (Reported) Metoprolol Succinate* (Metoprolol Succinate*), 50 MG GT DAILY, (Reported) Metoprolol Tartrate* (Metoprolol Tartrate*), 50 MG ORAL DAILY, (Reported) Multivitamin (Multi Vitamin Daily), 1 EACH GT DAILY, (Reported) Multivitamin With Minerals (Multivitamins With Minerals*), 1 EACH PO DAILY, ( Reported) Pantoprazole Sodium (Protonix), 40 MG GT ACBREAKFAST, (Reported) Potassium Chloride* (K-Dur*), 20 MEQ ORAL TWICE A DAY, (Reported) Trimethoprim/Sulfamethoxazole (Bactrim Ds Tablet), 1 TAB GT TWICE A DAY, ( Reported) Scheduled PRN Acetaminophen* (Tylenol*), 500 MG ORAL Q4HR PRN for For Pain, (Reported) Clonidine Hcl* (Catapres*), 0.1 MG ORAL EVERY 6 HOURS PRN for bp, (Reported) Diphenhydramine Hcl* (Benadryl*), 25 MG ORAL Q4HR PRN for Itching, (Reported) Hydrocodone Bit/Acetaminophen 5-325* ([place] 5-325 Tablet*), 1 TAB GT Q4H PRN for For Pain, (Reported) Hydrocodone/Acetaminophen 5-325* ([place] 5-325*), 1 TAB ORAL Q4H PRN for For Pain , (Reported) Lorazepam* (Ativan*), 0.5 MG GT BID PRN for For Anxiety, (Reported) Lorazepam* (Ativan*), 0.5 MG ORAL Q6HR PRN for For Anxiety, (Reported) Patient History Limited by: medical condition History Provided By: Medical Record Healthcare decision maker Resuscitation status Full Code Advanced Directive on File Review of Systems All Other Systems: negative except mentioned in HPI Physical Exam General Appearance: WD/WN, no apparent distress, lethargic, thin Lines, tubes and drains: peripheral HEENT: normocephalic, atraumatic, anicteric, mucous membranes moist, PERRL, EOMI, pharynx normal, supple, no JVD Neck: non-tender, normal alignment, normal inspection Respiratory/Chest: no respiratory distress, no accessory muscle use Extremities: no calf tenderness, normal capillary refill, non-pitting, no edema , no cyanosis, other Skin Exam: normal pigmentation, warm/dry Neurologic: disoriented, other Physical Exam Narrative Dementia and contracture at baseline. Exam is lethargic but patient is able to w /d, even minimally in all four extremities with no apparent focal weakness. She follows midline commands currently but does not track or follow other commands at this time. Pupils PERRL. Last 24 Hour Vital Signs Date Time Temp Pulse Resp B/P (MAP) Pulse Ox O2 Delivery O2 Flow Rate FiO2 09/09/18 16:00 99.5 97 18 132/68 (89) 99 09/09/18 16:00 93 09/09/18 12:00 100 09/09/18 12:00 98.8 89 19 138/71 (93) 98 09/09/18 09:00 82 09/09/18 09:00 Room Air 09/09/18 08:36 84 18 Room Air 21 09/09/18 08:00 97.5 83 18 123/61 (81) 98 09/09/18 04:00 98.2 80 16 133/55 (81) 99 09/09/18 04:00 78 09/09/18 00:00 97.9 82 16 142/66 (91) 100 09/09/18 00:00 77 09/08/18 21:00 Room Air 09/08/18 20:00 98.0 92 17 122/47 (72) 100 09/08/18 20:00 86 09/08/18 19:39 88 20 Room Air 21 Intake and Output 09/08/18 09/09/18 19:00 07:00 Intake Total 640.000 ml 800 ml Output Total 600 ml Balance 640.000 ml 200 ml Intake Free Water 130 ml 300 ml IV Total 330.000 ml Tube Feeding 180 ml 500 ml Output Urine Total 600 ml # Voids 4 Laboratory Tests Test 09/09/18 03:45 White Blood Count 10.8 K/UL (4.8-10.8) Red Blood Count 4.10 M/UL (4.20-5.40) L Hemoglobin 11.4 G/DL (12.0-16.0) L Hematocrit 34.8 % (37.0-47.0) L Mean Corpuscular Volume 85 FL (80-99) Mean Corpuscular Hemoglobin 27.7 PG (27.0-31.0) Mean Corpuscular Hemoglobin Concent 32.7 G/DL (32.0-36.0) Red Cell Distribution Width 15.5 % (11.6-14.8) H Platelet Count 255 K/UL (150-450) Mean Platelet Volume 6.9 FL (6.5-10.1) Neutrophils (%) (Auto) 72.1 % (45.0-75.0) Lymphocytes (%) (Auto) 16.2 % (20.0-45.0) L Monocytes (%) (Auto) 9.7 % (1.0-10.0) Eosinophils (%) (Auto) 1.3 % (0.0-3.0) Basophils (%) (Auto) 0.8 % (0.0-2.0) Sodium Level 135 MMOL/L (136-145) L Potassium Level 4.4 MMOL/L (3.5-5.1) Chloride Level 103 MMOL/L (98-107) Carbon Dioxide Level 24 MMOL/L (21-32) Anion Gap 8 mmol/L (5-15) Blood Urea Nitrogen 31 mg/dL (7-18) H Creatinine 1.1 MG/DL (0.55-1.30) Estimat Glomerular Filtration Rate mL/min (>60) Glucose Level 106 MG/DL (74-106) Calcium Level 8.5 MG/DL (8.5-10.1) Total Bilirubin 0.5 MG/DL (0.2-1.0) Aspartate Amino Transf (AST/SGOT) 29 U/L (15-37) Alanine Aminotransferase (ALT/SGPT) 18 U/L (12-78) Alkaline Phosphatase 120 U/L (46-116) H Total Protein 7.5 G/DL (6.4-8.2) Albumin 2.4 G/DL (3.4-5.0) L Globulin 5.1 g/dL Albumin/Globulin Ratio 0.5 (1.0-2.7) L Height (Feet): 5 Height (Inches): 2.00 Weight (Pounds): 120 Medications Current Medications Medications (Trade) Dose Ordered Sig/Khoa Route PRN Reason Start Time Stop Time Status Last Admin Dose Admin Acetaminophen (Tylenol) 650 mg Q4H PRN ORAL T>100.5 09/08/18 12:00 10/08/18 11:59 Albuterol/ Ipratropium (Albuterol/ Ipratropium) 3 ml Q4H PRN HHN Shortness of Breath 09/08/18 12:00 09/13/18 11:59 Cefepime HCl 1 gm/ Dextrose 55 ml @ 110 mls/hr Q24H IVPB 09/08/18 14:00 09/15/18 13:59 09/09/18 14:25 Donepezil HCl (Aricept) 5 mg BEDTIME ORAL 09/08/18 21:00 10/08/18 20:59 09/08/18 20:19 Heparin Sodium (Porcine) (Heparin 5000 units/ml) 5,000 units EVERY 12 HOURS SUBQ 09/08/18 21:00 10/08/18 20:59 09/09/18 09:41 Lorazepam (Ativan) 0.5 mg Q6H PRN ORAL For Anxiety 09/08/18 12:00 09/15/18 11:59 Morphine Sulfate (Morphine Sulfate) 2 mg Q4H PRN IVP PAIN 4-10 09/08/18 12:00 09/15/18 11:59 Nitroglycerin (Ntg) 0.4 mg Q5MIN X 3 DOSES PRN SL Prn Chest Pain 09/08/18 12:15 10/08/18 12:14 Ondansetron HCl (Zofran) 4 mg Q6H PRN IVP Nausea & Vomiting 09/08/18 12:00 10/08/18 11:59 Polyethylene Glycol (Miralax) 17 gm DAILYPRN PRN ORAL Constipation 09/08/18 12:00 10/08/18 11:59 Temazepam (Restoril) 15 mg HSPRN PRN ORAL Insomnia 09/08/18 21:00 09/15/18 20:59 Vancomycin HCl (Vanco rx to dose) 1 ea DAILY PRN MISC . 09/08/18 12:00 10/08/18 11:59 Vancomycin HCl 500 mg/Dextrose 110 ml @ 110 mls/hr Q24H IVPB 09/09/18 13:00 09/14/18 12:59 09/09/18 12:31 Assessment/Plan Problem List: (1) History of hypertension ICD Codes: Z86.79 - Personal history of other diseases of the circulatory system SNOMED: 075471925 (2) Flexion contractures ICD Codes: M24.50 - Contracture, unspecified joint SNOMED: 52693569, 355611859 (3) Limited mobility in bed SNOMED: 636969846 (4) ATN (acute tubular necrosis) ICD Codes: N17.0 - Acute kidney failure with tubular necrosis SNOMED: 62710213 (5) Sepsis ICD Codes: A41.9 - Sepsis SNOMED: 92406648 (6) Anemia ICD Codes: D64.9 - Anemia SNOMED: 661906537 (7) Dementia ICD Codes: F03.90 - Dementia SNOMED: 32283449 (8) Diverticulosis ICD Codes: K57.90 - Diverticulosis SNOMED: 731420922 (9) Failure to thrive ICD Codes: R62.51 - Failure to thrive (child) SNOMED: 90055970 (10) Hyponatremia (11) UTI (urinary tract infection) (12) Cellulitis and abscess of foot ICD Codes: L03.119 - Cellulitis of unspecified part of limb; L02.619 - Cutaneous abscess of unspecified foot SNOMED: 054277052, 740300596, 519242336 Status: stable Assessment/Plan: Recommend Q4 hour neuro obs Na 135-145 IVH Evaluate ability to feed self PEG/NG? Abx for UTI OOB as able with PT- even in chair HgB>8 recommended and treat causes of anemia Swallow study MRI Brain Cassandra Chang N.P. September 09, 2018 19:23
--- NOTE | 2018-09-09 19:30 | NUR ---
NURSE NOTES: Received pt in no acute distress;awake,alert but non verbal. Opens eyes spontaneously. HOB elevated, all four extremities contracted. Localizes pain. No respiratory distress, on RA, sats 99%. No cough chest sounds diminished. GT intact with TF of Jevity running at 50ml/h with 0 residuals. skin sl hot to touch, temp 100.1 axillary. PIV site on left hand dislodged. Purewick in place, urine light nellie. NSR, BP stable. Neuro GIS PROFESSOR here, saw pt as well ID , Dr Atwood.
[2018-09-09 20:00] VITALS: BP 128/53
--- NOTE | 2018-09-09 20:00 | NUR ---
NURSE NOTES: Reinserted a new HL on RFA using g22 angiocath. Janelle called and updated on pt's condition.
[2018-09-09] MEDS: Donepezil 5mg Tab ORAL SCH (21:03)
[2018-09-10] VITALS: BP 131/66
--- NOTE | 2018-09-10 | NUR ---
NURSE NOTES: Sleeping, HOB elevated. HL intact. Temp 100.2 axillary. GTF continues at 50ml/h. BP stable.
[2018-09-10 04:00] VITALS: BP 127/59
--- NOTE | 2018-09-10 04:00 | NUR ---
NURSE NOTES: Had 1 mod amt of soft stools. Complete bath given. Replaced optifoam at the buttock area. Skin intact but sl reddish, blanchable. GT site dressing changed. small bleeding noted on the exit site. HL patent. GTF increased to goal of 60ml/h.
[2018-09-10 04:57] LABS: BASOPHILS % (AUTO) 1.2 % (0.0-2.0); EOSINOPHILS % (AUTO) 1.3 % (0.0-3.0); HEMATOCRIT 33.1 % (37.0-47.0); HEMOGLOBIN 10.8 G/DL (12.0-16.0); LYMPHOCYTES % (AUTO) 15.1 % (20.0-45.0); MEAN CORPUSCULAR VOLUME 84 FL (80-99); MONOCYTES % (AUTO) 7.4 % (1.0-10.0); NEUTROPHILS % (AUTO) 74.9 % (45.0-75.0); PLATELET COUNT 271 K/UL (150-450); RED BLOOD COUNT 3.92 M/UL (4.20-5.40); WHITE BLOOD COUNT 9.8 K/UL (4.8-10.8)
[2018-09-10 05:17] LABS: ANION GAP 11 mmol/L (5-15); BLOOD UREA NITROGEN 35 mg/dL (7-18); CALCIUM 8.8 MG/DL (8.5-10.1); CARBON DIOXIDE 23 MMOL/L (21-32); CHLORIDE 102 MMOL/L (98-107); CREATININE 1.1 MG/DL (0.55-1.30); POTASSIUM 4.5 MMOL/L (3.5-5.1); SODIUM 136 MMOL/L (136-145)
--- NOTE | 2018-09-10 07:24 | NUR ---
HAND-OFF: Report given to Ashley Avila RN.
--- NOTE | 2018-09-10 07:25 | NUR ---
NURSE NOTES: Report received from Danilo Rivera RN.Pt resting in bed asleep,noted no resp distress,on RA,no signs of pain or discomfort,SR loon the monitor ,GTF Jevity 1.2 at 60 ml/hr,no residual noted,with Pure wick in placed,draining yellow urine,HL to RFA intact,skin warm and dry,SR up x2 HOB elevated ,bed lock in lowest position,will continue with plans of care.
[2018-09-10 08:00] VITALS: BP 122/55
--- NOTE | 2018-09-10 09:00 | NUR ---
NURSE NOTES: Pt turned and repositioned,oral care done,kept dry and clean.
--- NOTE | 2018-09-10 09:08 | NUR ---
RADIOLOGY DEPT., RIGHT FOOT X-RAY DONE.-P.DYE
[2018-09-10] MEDS: Heparin 5000 units/ml inj SUBQ SCH ×2 (09:10→21:19)
--- NOTE | 2018-09-10 09:46 | Diagnostic Imaging Report ---
Indication: Abscess and infection. Foot pain Comparison: None Findings: 2 views of the right foot were obtained. Limited evaluation of the toes. There are bandages over the second ray. There is severe osteopenia. No obvious soft tissue air identified. There is soft tissue swelling of the second toe. No obvious erosion identified. Hammertoe deformities noted. IMPRESSION: Very limited evaluation. No obvious plain film evidence for osteomyelitis or gas gangrene. Consider MRI.
--- NOTE | 2018-09-10 10:38 | Pulmonology Progress Note ---
Assessment/Plan Problems: (1) Sepsis (2) ATN (acute tubular necrosis) (3) UTI (urinary tract infection) (4) Decubitus skin ulcer (5) Severe protein-calorie malnutrition (6) Dementia (7) Limited mobility in bed (8) Feeding by G-tube (9) History of hypertension (10) Flexion contractures Assessment/Plan thomas culture IV fluids check electrolytes ID evaluation dvt prophylaxis resume Gtube feeding dvt prophylaxis. Subjective ROS Limited/Unobtainable: No Constitutional: Reports: no symptoms HEENT: Repors: no symptoms Respiratory: Reports: no symptoms Allergies: Coded Allergies: No Known Allergies (Unverified , 10/09/12) Objective Last 24 Hour Vital Signs Date Time Temp Pulse Resp B/P (MAP) Pulse Ox O2 Delivery O2 Flow Rate FiO2 09/10/18 08:00 98.6 92 26 122/55 (77) 97 09/10/18 04:00 98 09/10/18 04:00 Room Air 09/10/18 04:00 99.1 97 24 127/59 (81) 99 09/10/18 04:00 96 09/10/18 00:00 100.2 101 24 131/66 (87) 98 09/10/18 00:00 Room Air 09/10/18 00:00 101 09/09/18 20:00 96 09/09/18 20:00 100.1 96 20 128/53 (78) 99 09/09/18 20:00 90 18 Room Air 21 09/09/18 20:00 Room Air 09/09/18 16:00 99.5 97 18 132/68 (89) 99 09/09/18 16:00 93 09/09/18 12:00 100 09/09/18 12:00 98.8 89 19 138/71 (93) 98 Intake and Output 09/09/18 09/10/18 19:00 07:00 Intake Total 1015 ml 510 ml Output Total 1000 ml 300 ml Balance 15 ml 210 ml Intake Free Water 250 ml 0 ml IV Total 165 ml Tube Feeding 600 ml 510 ml Output Urine Total 1000 ml 300 ml # Bowel Movements 3 General Appearance: WD/WN HEENT: normocephalic, atraumatic Respiratory/Chest: chest wall non-tender, lungs clear Breasts: no masses Cardiovascular: normal rate Abdomen: normal bowel sounds, soft, non tender Genitourinary: normal external genitalia Extremities: no clubbing Skin: no rash Neurologic/Psychiatric: hris coordinator II-XII grossly normal Microbiology Date/Time Source Procedure Growth Status 09/08/18 09:00 Blood Blood Culture - Preliminary NO GROWTH AFTER 24 HOURS Resulted 09/08/18 08:45 Blood Blood Culture - Preliminary NO GROWTH AFTER 24 HOURS Resulted 09/08/18 08:45 Nasal Nares MRSA Culture - Final NO METHICILLIN RESISTANT STAPH AUREUS... Complete 09/08/18 09:00 Urine,Clean Catch Urine Culture - Preliminary Gram Negative Bacillus 1 Gram Positive Cocci Resulted 09/08/18 08:45 Rectum VRE Culture - Final NO VANCOMYCIN RESISTANT ENTEROCOCCUS ... Complete 09/08/18 08:45 Rectum - Final NO CARBAPENEM-RESISTANT ENTEROBACTERI... Complete Laboratory Tests 09/10/18 03:30: White Blood Count 9.8, Red Blood Count 3.92L, Hemoglobin 10.8L, Hematocrit 33.1L , Mean Corpuscular Volume 84, Mean Corpuscular Hemoglobin 27.6, Mean Corpuscular Hemoglobin Concent 32.7, Red Cell Distribution Width 15.0H, Platelet Count 271, Mean Platelet Volume 7.3, Neutrophils (%) (Auto) 74.9, Lymphocytes (%) (Auto) 15.1L, Monocytes (%) (Auto) 7.4, Eosinophils (%) (Auto) 1.3, Basophils (%) (Auto) 1.2, Erythrocyte Sedimentation Rate 105H, Sodium Level 136, Potassium Level 4.5, Chloride Level 102, Carbon Dioxide Level 23, Anion Gap 11, Blood Urea Nitrogen 35H, Creatinine 1.1, Estimat Glomerular Filtration Rate , Glucose Level 124H, Calcium Level 8.8, C-Reactive Protein, Quantitative 14.7H Current Medications Medications (Trade) Dose Ordered Sig/Khoa Route PRN Reason Start Time Stop Time Status Last Admin Dose Admin Acetaminophen (Tylenol) 650 mg Q4H PRN ORAL T>100.5 09/08/18 12:00 10/08/18 11:59 Albuterol/ Ipratropium (Albuterol/ Ipratropium) 3 ml Q4H PRN HHN Shortness of Breath 09/08/18 12:00 09/13/18 11:59 Cefepime HCl 1 gm/ Dextrose 55 ml @ 110 mls/hr Q24H IVPB 09/08/18 14:00 09/15/18 13:59 09/09/18 14:25 Donepezil HCl (Aricept) 5 mg BEDTIME ORAL 09/08/18 21:00 10/08/18 20:59 09/09/18 21:03 Heparin Sodium (Porcine) (Heparin 5000 units/ml) 5,000 units EVERY 12 HOURS SUBQ 09/08/18 21:00 10/08/18 20:59 09/10/18 09:10 Lorazepam (Ativan) 0.5 mg Q6H PRN ORAL For Anxiety 09/08/18 12:00 09/15/18 11:59 Morphine Sulfate (Morphine Sulfate) 2 mg Q4H PRN IVP PAIN 4-10 09/08/18 12:00 09/15/18 11:59 Nitroglycerin (Ntg) 0.4 mg Q5MIN X 3 DOSES PRN SL Prn Chest Pain 09/08/18 12:15 10/08/18 12:14 Ondansetron HCl (Zofran) 4 mg Q6H PRN IVP Nausea & Vomiting 09/08/18 12:00 10/08/18 11:59 Polyethylene Glycol (Miralax) 17 gm DAILYPRN PRN ORAL Constipation 09/08/18 12:00 10/08/18 11:59 Temazepam (Restoril) 15 mg HSPRN PRN ORAL Insomnia 09/08/18 21:00 09/15/18 20:59 Vancomycin HCl (Vanco rx to dose) 1 ea DAILY PRN MISC . 09/08/18 12:00 10/08/18 11:59 Vancomycin HCl 500 mg/Dextrose 110 ml @ 110 mls/hr Q24H IVPB 09/09/18 13:00 09/14/18 12:59 09/09/18 12:31 Dajuan Lam MD September 10, 2018 10:38
--- NOTE | 2018-09-10 11:02 | Infectious Diseases Prog Note ---
Assessment/Plan Assessment/Plan Abx: IV Vancomcyin 09/08- Cefepime 09/08- Ceftriaxone x1 09/08 Assessment: Sepsis- likely 2ry to UTI -u/a wbc 20-30, nit +, leuk +3; ucx >100k GNR, >100k GPC -CXR: Mildly increased perihilar interstitial markings. This is nonspecific but may suggest mild bronchitis or a mild interstitial pneumonitis. No focal consolidation. 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 No obvious plain film evidence for osteomyelitis or gas gangrene. Consider MRI. HTN CHF advanced Dementia TIA dysphagia/FTT s/p Gtube contracted multiple decubiti wounds alf resident Plan: -Continue empiric Cefepime #3 and IV Vancomycin #3 pending cultures -09/08 SP Ceftriaxone x1 -f/u cx -Monitor CBC/CMP, temperatures -wound care per surgical team -aspiration precautions Thank you for this consultation. Will continue to follow along with you. Discussed with RN. Subjective Allergies: Coded Allergies: No Known Allergies (Unverified , 10/09/12) Subjective Tm 100.2 no leuokocytosis Bcx NTD Objective Vital Signs Last 24 Hour Vital Signs Date Time Temp Pulse Resp B/P (MAP) Pulse Ox O2 Delivery O2 Flow Rate FiO2 09/10/18 08:00 98.6 92 26 122/55 (77) 97 09/10/18 04:00 98 09/10/18 04:00 Room Air 09/10/18 04:00 99.1 97 24 127/59 (81) 99 09/10/18 04:00 96 09/10/18 00:00 100.2 101 24 131/66 (87) 98 09/10/18 00:00 Room Air 09/10/18 00:00 101 09/09/18 20:00 96 09/09/18 20:00 100.1 96 20 128/53 (78) 99 09/09/18 20:00 90 18 Room Air 21 09/09/18 20:00 Room Air 09/09/18 16:00 99.5 97 18 132/68 (89) 99 09/09/18 16:00 93 09/09/18 12:00 100 09/09/18 12:00 98.8 89 19 138/71 (93) 98 Height (Feet): 5 Height (Inches): 2.00 Weight (Pounds): 120 Objective GENERAL: Lethargic in bed, not responding to questions. CARDIOVASCULAR: No murmur. LUNGS: Poor air exchange. ABDOMEN: Bowel sounds distant. EXTREMITIES: No cyanosis, clubbing, or edema. NEUROLOGIC: The patient is flaccid in bed, not really follow directions. Microbiology Date/Time Source Procedure Growth Status 09/08/18 09:00 Blood Blood Culture - Preliminary NO GROWTH AFTER 24 HOURS Resulted 09/08/18 08:45 Blood Blood Culture - Preliminary NO GROWTH AFTER 24 HOURS Resulted 09/08/18 08:45 Nasal Nares MRSA Culture - Final NO METHICILLIN RESISTANT STAPH AUREUS... Complete 09/08/18 09:00 Urine,Clean Catch Urine Culture - Preliminary Gram Negative Bacillus 1 Gram Positive Cocci Resulted 09/08/18 08:45 Rectum VRE Culture - Final NO VANCOMYCIN RESISTANT ENTEROCOCCUS ... Complete 09/08/18 08:45 Rectum - Final NO CARBAPENEM-RESISTANT ENTEROBACTERI... Complete Laboratory Tests Test 09/10/18 03:30 White Blood Count 9.8 K/UL (4.8-10.8) Red Blood Count 3.92 M/UL (4.20-5.40) L Hemoglobin 10.8 G/DL (12.0-16.0) L Hematocrit 33.1 % (37.0-47.0) L Mean Corpuscular Volume 84 FL (80-99) Mean Corpuscular Hemoglobin 27.6 PG (27.0-31.0) Mean Corpuscular Hemoglobin Concent 32.7 G/DL (32.0-36.0) Red Cell Distribution Width 15.0 % (11.6-14.8) H Platelet Count 271 K/UL (150-450) Mean Platelet Volume 7.3 FL (6.5-10.1) Neutrophils (%) (Auto) 74.9 % (45.0-75.0) Lymphocytes (%) (Auto) 15.1 % (20.0-45.0) L Monocytes (%) (Auto) 7.4 % (1.0-10.0) Eosinophils (%) (Auto) 1.3 % (0.0-3.0) Basophils (%) (Auto) 1.2 % (0.0-2.0) Erythrocyte Sedimentation Rate 105 MM/HR (0-30) H Sodium Level 136 MMOL/L (136-145) Potassium Level 4.5 MMOL/L (3.5-5.1) Chloride Level 102 MMOL/L (98-107) Carbon Dioxide Level 23 MMOL/L (21-32) Anion Gap 11 mmol/L (5-15) Blood Urea Nitrogen 35 mg/dL (7-18) H Creatinine 1.1 MG/DL (0.55-1.30) Estimat Glomerular Filtration Rate mL/min (>60) Glucose Level 124 MG/DL (74-106) H Calcium Level 8.8 MG/DL (8.5-10.1) Troponin I 0.019 ng/mL (0.000-0.056) C-Reactive Protein, Quantitative 14.7 mg/dL (0.00-0.90) H Current Medications Medications (Trade) Dose Ordered Sig/Khoa Route PRN Reason Start Time Stop Time Status Last Admin Dose Admin Acetaminophen (Tylenol) 650 mg Q4H PRN ORAL T>100.5 09/08/18 12:00 10/08/18 11:59 Albuterol/ Ipratropium (Albuterol/ Ipratropium) 3 ml Q4H PRN HHN Shortness of Breath 09/08/18 12:00 09/13/18 11:59 Cefepime HCl 1 gm/ Dextrose 55 ml @ 110 mls/hr Q24H IVPB 09/08/18 14:00 09/15/18 13:59 09/09/18 14:25 Donepezil HCl (Aricept) 5 mg BEDTIME ORAL 09/08/18 21:00 10/08/18 20:59 09/09/18 21:03 Heparin Sodium (Porcine) (Heparin 5000 units/ml) 5,000 units EVERY 12 HOURS SUBQ 09/08/18 21:00 10/08/18 20:59 09/10/18 09:10 Lorazepam (Ativan) 0.5 mg Q6H PRN ORAL For Anxiety 09/08/18 12:00 09/15/18 11:59 Morphine Sulfate (Morphine Sulfate) 2 mg Q4H PRN IVP PAIN 4-10 09/08/18 12:00 09/15/18 11:59 Nitroglycerin (Ntg) 0.4 mg Q5MIN X 3 DOSES PRN SL Prn Chest Pain 09/08/18 12:15 10/08/18 12:14 Ondansetron HCl (Zofran) 4 mg Q6H PRN IVP Nausea & Vomiting 09/08/18 12:00 10/08/18 11:59 Polyethylene Glycol (Miralax) 17 gm DAILYPRN PRN ORAL Constipation 09/08/18 12:00 10/08/18 11:59 Temazepam (Restoril) 15 mg HSPRN PRN ORAL Insomnia 09/08/18 21:00 09/15/18 20:59 Vancomycin HCl (Vanco rx to dose) 1 ea DAILY PRN MISC . 09/08/18 12:00 10/08/18 11:59 Vancomycin HCl 500 mg/Dextrose 110 ml @ 110 mls/hr Q24H IVPB 09/09/18 13:00 09/14/18 12:59 09/09/18 12:31 Salud Atwood M.D. September 10, 2018 11:02
[2018-09-10 12:00] VITALS: BP 105/56
--- NOTE | 2018-09-10 13:00 | NUR ---
NURSE NOTES: Pt stable noted distress family members at bedside.
[2018-09-10] MEDS: Cefepime 1gm/D5W 55ml IVPB SCH ×2 (14:18)
[2018-09-10] MEDS: Vancomycin 500mg/D5W 110ml IVPB SCH ×2 (14:18)
--- NOTE | 2018-09-10 14:40 | Neurology Progress Note ---
Interim History Interim History ROS Limited/Unobtainable: Yes Complaints: AMS Events: None reported Review of Systems Neuro Review of Systems Less responsive today to examination. All Systems: reviewed and negative except above Objective Physical Exam Last Vital Signs Date Time Temp Pulse Resp B/P (MAP) Pulse Ox O2 Delivery O2 Flow Rate FiO2 09/10/18 12:00 Room Air 09/10/18 08:00 98.6 92 26 122/55 (77) 97 09/09/18 20:00 21 Laboratory Tests Test 09/10/18 03:30 09/10/18 12:00 White Blood Count 9.8 K/UL (4.8-10.8) Red Blood Count 3.92 M/UL (4.20-5.40) L Hemoglobin 10.8 G/DL (12.0-16.0) L Hematocrit 33.1 % (37.0-47.0) L Mean Corpuscular Volume 84 FL (80-99) Mean Corpuscular Hemoglobin 27.6 PG (27.0-31.0) Mean Corpuscular Hemoglobin Concent 32.7 G/DL (32.0-36.0) Red Cell Distribution Width 15.0 % (11.6-14.8) H Platelet Count 271 K/UL (150-450) Mean Platelet Volume 7.3 FL (6.5-10.1) Neutrophils (%) (Auto) 74.9 % (45.0-75.0) Lymphocytes (%) (Auto) 15.1 % (20.0-45.0) L Monocytes (%) (Auto) 7.4 % (1.0-10.0) Eosinophils (%) (Auto) 1.3 % (0.0-3.0) Basophils (%) (Auto) 1.2 % (0.0-2.0) Erythrocyte Sedimentation Rate 105 MM/HR (0-30) H Sodium Level 136 MMOL/L (136-145) Potassium Level 4.5 MMOL/L (3.5-5.1) Chloride Level 102 MMOL/L (98-107) Carbon Dioxide Level 23 MMOL/L (21-32) Anion Gap 11 mmol/L (5-15) Blood Urea Nitrogen 35 mg/dL (7-18) H Creatinine 1.1 MG/DL (0.55-1.30) Estimat Glomerular Filtration Rate mL/min (>60) Glucose Level 124 MG/DL (74-106) H Calcium Level 8.8 MG/DL (8.5-10.1) Troponin I 0.019 ng/mL (0.000-0.056) C-Reactive Protein, Quantitative 14.7 mg/dL (0.00-0.90) H Vancomycin Level Trough 9.3 ug/mL (5.0-12.0) Neurologic Exam Mental Status: other Speech: other Language: other Cranial Nerve II: no papilledema, other Cranial Nerves III, IV, : PERRLA Cranial Nerve VII: no facial asymmetry Cranial Nerve VIII: normal hearing Cranial Nerve IX: normal palate elevation Cranial Nerve XI: SCM symmetric Cranial Nerve XII: tongue midline Motor System: other Sensory: other Impression/Recommendations Problems: (1) History of hypertension (2) Flexion contractures (3) Limited mobility in bed (4) ATN (acute tubular necrosis) (5) Sepsis (6) Anemia (7) Dementia Assessment & Plan: Continue home dose of Aricept (8) Diverticulosis (9) Failure to thrive (10) Hyponatremia (11) UTI (urinary tract infection) (12) Cellulitis and abscess of foot Status: stable Recommendations MRI pending results release - taken today Continue Q4 hour obs IV Hydration Empiric Abx for UTI Culture Urine SBP<140 Consider NG/Enteral feeding Maintain normoglycemia with ISS - commence enteral feeding Cassandra Chang N.P. September 10, 2018 14:40
--- NOTE | 2018-09-10 15:08 | General Progress Note ---
Assessment/Plan Problem List: (1) Sepsis ICD Codes: A41.9 - Sepsis SNOMED: 06415297 (2) Dementia ICD Codes: F03.90 - Dementia SNOMED: 17408240 Status: unchanged Assessment/Plan: pt diet abx resume med psyc and neuro eval cbc bmp am Subjective Constitutional: Reports: weakness Allergies: Coded Allergies: No Known Allergies (Unverified , 10/09/12) All Systems: reviewed and negative except above Subjective sleepy calm in bed Objective Last 24 Hour Vital Signs Date Time Temp Pulse Resp B/P (MAP) Pulse Ox O2 Delivery O2 Flow Rate FiO2 09/10/18 12:00 Room Air 09/10/18 08:00 Room Air 09/10/18 08:00 98.6 92 26 122/55 (77) 97 09/10/18 08:00 86 09/10/18 04:00 98 09/10/18 04:00 Room Air 09/10/18 04:00 99.1 97 24 127/59 (81) 99 09/10/18 04:00 96 09/10/18 00:00 100.2 101 24 131/66 (87) 98 09/10/18 00:00 Room Air 09/10/18 00:00 101 09/09/18 20:00 96 09/09/18 20:00 100.1 96 20 128/53 (78) 99 09/09/18 20:00 90 18 Room Air 21 09/09/18 20:00 Room Air 09/09/18 16:00 99.5 97 18 132/68 (89) 99 09/09/18 16:00 93 Intake and Output 09/09/18 09/10/18 19:00 07:00 Intake Total 1015 ml 510 ml Output Total 1000 ml 300 ml Balance 15 ml 210 ml Intake Free Water 250 ml 0 ml IV Total 165 ml Tube Feeding 600 ml 510 ml Output Urine Total 1000 ml 300 ml # Bowel Movements 3 Laboratory Tests 09/10/18 03:30: White Blood Count 9.8, Red Blood Count 3.92L, Hemoglobin 10.8L, Hematocrit 33.1L , Mean Corpuscular Volume 84, Mean Corpuscular Hemoglobin 27.6, Mean Corpuscular Hemoglobin Concent 32.7, Red Cell Distribution Width 15.0H, Platelet Count 271, Mean Platelet Volume 7.3, Neutrophils (%) (Auto) 74.9, Lymphocytes (%) (Auto) 15.1L, Monocytes (%) (Auto) 7.4, Eosinophils (%) (Auto) 1.3, Basophils (%) (Auto) 1.2, Erythrocyte Sedimentation Rate 105H, Sodium Level 136, Potassium Level 4.5, Chloride Level 102, Carbon Dioxide Level 23, Anion Gap 11, Blood Urea Nitrogen 35H, Creatinine 1.1, Estimat Glomerular Filtration Rate , Glucose Level 124H, Calcium Level 8.8, Troponin I 0.019, C- Reactive Protein, Quantitative 14.7H 09/10/18 12:00: Vancomycin Level Trough 9.3 Height (Feet): 5 Height (Inches): 2.00 Weight (Pounds): 120 General Appearance: lethargic EENT: normal ENT inspection Neck: normal alignment Cardiovascular: normal peripheral pulses, normal rate, regular rhythm Respiratory/Chest: chest wall non-tender, lungs clear, normal breath sounds Abdomen: normal bowel sounds, non tender, soft Extremities: normal inspection Edema: no edema noted Arm (L), no edema noted Arm (R), no edema noted Leg (L), no edema noted Leg (R), no edema noted Pedal (L), no edema noted Pedal (R), no edema noted Generalized Neurologic: motor weakness Skin: normal pigmentation, warm/dry Guevara Lala DO September 10, 2018 15:08
--- NOTE | 2018-09-10 15:29 | Surgery Progress Note ---
Surgery Progress Note Subjective Additional Comments no acute events. comfortable. labs noted. Objective Last 24 Hour Vital Signs Date Time Temp Pulse Resp B/P (MAP) Pulse Ox O2 Delivery O2 Flow Rate FiO2 09/10/18 12:00 Room Air 09/10/18 08:00 Room Air 09/10/18 08:00 98.6 92 26 122/55 (77) 97 09/10/18 08:00 86 09/10/18 04:00 98 09/10/18 04:00 Room Air 09/10/18 04:00 99.1 97 24 127/59 (81) 99 09/10/18 04:00 96 09/10/18 00:00 100.2 101 24 131/66 (87) 98 09/10/18 00:00 Room Air 09/10/18 00:00 101 09/09/18 20:00 96 09/09/18 20:00 100.1 96 20 128/53 (78) 99 09/09/18 20:00 90 18 Room Air 21 09/09/18 20:00 Room Air 09/09/18 16:00 99.5 97 18 132/68 (89) 99 09/09/18 16:00 93 I&O Intake and Output 09/09/18 09/10/18 19:00 07:00 Intake Total 1015 ml 510 ml Output Total 1000 ml 300 ml Balance 15 ml 210 ml Intake Free Water 250 ml 0 ml IV Total 165 ml Tube Feeding 600 ml 510 ml Output Urine Total 1000 ml 300 ml # Bowel Movements 3 Drains: none Cardiovascular: RSR Respiratory: clear, decreased breath sounds Abdomen: soft, non-tender, non-distended, decreased bowel sounds Extremities: no cyanosis Laboratory Tests Test 09/10/18 03:30 09/10/18 12:00 White Blood Count 9.8 K/UL (4.8-10.8) Red Blood Count 3.92 M/UL (4.20-5.40) L Hemoglobin 10.8 G/DL (12.0-16.0) L Hematocrit 33.1 % (37.0-47.0) L Mean Corpuscular Volume 84 FL (80-99) Mean Corpuscular Hemoglobin 27.6 PG (27.0-31.0) Mean Corpuscular Hemoglobin Concent 32.7 G/DL (32.0-36.0) Red Cell Distribution Width 15.0 % (11.6-14.8) H Platelet Count 271 K/UL (150-450) Mean Platelet Volume 7.3 FL (6.5-10.1) Neutrophils (%) (Auto) 74.9 % (45.0-75.0) Lymphocytes (%) (Auto) 15.1 % (20.0-45.0) L Monocytes (%) (Auto) 7.4 % (1.0-10.0) Eosinophils (%) (Auto) 1.3 % (0.0-3.0) Basophils (%) (Auto) 1.2 % (0.0-2.0) Erythrocyte Sedimentation Rate 105 MM/HR (0-30) H Sodium Level 136 MMOL/L (136-145) Potassium Level 4.5 MMOL/L (3.5-5.1) Chloride Level 102 MMOL/L (98-107) Carbon Dioxide Level 23 MMOL/L (21-32) Anion Gap 11 mmol/L (5-15) Blood Urea Nitrogen 35 mg/dL (7-18) H Creatinine 1.1 MG/DL (0.55-1.30) Estimat Glomerular Filtration Rate mL/min (>60) Glucose Level 124 MG/DL (74-106) H Calcium Level 8.8 MG/DL (8.5-10.1) Troponin I 0.019 ng/mL (0.000-0.056) C-Reactive Protein, Quantitative 14.7 mg/dL (0.00-0.90) H Vancomycin Level Trough 9.3 ug/mL (5.0-12.0) Plan Problems: (1) Sepsis Assessment & Plan: on IV Abx labs improved AM labs ordered (2) Anemia (3) Dementia (4) Diverticulosis (5) Failure to thrive Assessment & Plan: DAILY ESTIMATED NEEDS: Needs based on Sepsis, wounds 54.5kg 25-35 kcals/kg 2551-6950 total kcals 1.25-2 g protein/kg 68-109 g total protein 25-30 mL/kg 7086-8583 total fluid mLs NUTRITION DIAGNOSIS: 1) Increased kcal and pro needs r/t wound healing as evidenced by pt w/ open R toe wound, bone exposed, sacral / buttock erythema, and BL heel boggy. 2) Swallowing difficulty r/t dysphagia as evidenced by pt is GT dep. ENTERAL NUTRITION RECOMMENDATIONS: Maintain Jevity 1.2 @60ml/hr x24 hrs as tolerated to provide 1440ml, 1728 kcal, 80g pro, 1163ml free H2O - As tolerated advance TF 10ml/hr q4-6 hrs to goal - Flush per MD/ HOB over 30 degrees ------- ADDITIONAL RECOMMENDATIONS: 1) Obtain a CALIBRATED bed scale wt 2) TF recs as above 3) Monitor lytes daily, replete as needed 4) Monitor BG, need for carb control formula 5) Wound care: add STEPHANIE BID via GT + Vit C 250mg daily (6) Hyponatremia (7) UTI (urinary tract infection) (8) Cellulitis and abscess of foot Assessment & Plan: right foot second ray with distal open wound with exposed bone, periwound erythema and cellulitis. -plain films ordered -Xeroform dressing and gauze followed by kerlix wrap for now (9) Decubitus skin ulcer Assessment & Plan: patient presented from [facility] with multiple wounds sacral / buttock erythema identified right second ray with open wound and cellulitis right and left heel boggy and soft Tx plan: apply skin protectant to sacral / buttock area, cover with foam dressing, change q3days Xeroform dressing and gauze followed by kerlix wrap to right toe heel protectors off load heels with pillow turn q2 air mattress Pb Ojeda September 10, 2018 15:28
[2018-09-10 16:00] VITALS: BP 114/59
[2018-09-10] MEDS ORDERED: Nitroglycerin Subl 0.4mg tab SL PRN (17:50)
[2018-09-10] MEDS ORDERED: Miralax 17gm pkt ORAL PRN (17:50)
[2018-09-10] MEDS ORDERED: Albuterol/Ipratropium 3ml neb HHN PRN (17:50)
[2018-09-10] MEDS ORDERED: LORazepam 0.5mg tab ORAL PRN (17:50)
[2018-09-10] MEDS ORDERED: Morphine Sulfate 2mg/ml Inj(IV/IM USE ONLY) IVP PRN (17:50)
--- NOTE | 2018-09-10 18:00 | NUR ---
TRANSFER TO FLOOR: Patient transferred to [facility] [id number], per bed awake,alert in no resp distress. Report given to Fiona ORELLANA RN. Belongings and medications given to receiving RN. . Family and or S/O informed of transfer.
--- NOTE | 2018-09-10 18:45 | NUR ---
NURSE NOTES: Received patient from [facility]. skin assessment done and piture taken, no belongings, GT intact, patent and IV intact. Bed is in lowest position AND LOCKED. cALL LIGHT WITHIN REACH. Will continue plan of care.
--- NOTE | 2018-09-10 19:22 | NUR ---
NURSE NOTES: RN endorsed to the next shift to follow up with MRI for MRI of brain.
--- NOTE | 2018-09-10 19:22 | NUR ---
HAND-OFF: Report given to Amy.
--- NOTE | 2018-09-10 19:57 | NUR ---
NURSE NOTES: Received report from Fiona Soto RN. Patient A&Ox1. On room air, no signs of distress or labored breathing. IV intact, patent, and running TKO. G-tube intact , patent, and infusing fluids. Bed in lowest position. Will continue with plan of care.
[2018-09-10 20:00] VITALS: BP 116/54
[2018-09-10] MEDS: Donepezil 5mg Tab ORAL SCH (21:19)
[2018-09-11] VITALS (8 sets, daily range): BP systolic 98–125; BP diastolic 49–71
--- NOTE | 2018-09-11 02:58 | Neurology Progress Note ---
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 Review of Systems All Systems: reviewed and negative except above Objective Physical Exam Last Vital Signs Date Time Temp Pulse Resp B/P (MAP) Pulse Ox O2 Delivery O2 Flow Rate FiO2 09/10/18 21:00 Room Air 09/10/18 20:00 99.2 83 20 116/54 (74) 98 09/09/18 20:00 21 Laboratory Tests Test 09/10/18 03:30 09/10/18 12:00 White Blood Count 9.8 K/UL (4.8-10.8) Red Blood Count 3.92 M/UL (4.20-5.40) L Hemoglobin 10.8 G/DL (12.0-16.0) L Hematocrit 33.1 % (37.0-47.0) L Mean Corpuscular Volume 84 FL (80-99) Mean Corpuscular Hemoglobin 27.6 PG (27.0-31.0) Mean Corpuscular Hemoglobin Concent 32.7 G/DL (32.0-36.0) Red Cell Distribution Width 15.0 % (11.6-14.8) H Platelet Count 271 K/UL (150-450) Mean Platelet Volume 7.3 FL (6.5-10.1) Neutrophils (%) (Auto) 74.9 % (45.0-75.0) Lymphocytes (%) (Auto) 15.1 % (20.0-45.0) L Monocytes (%) (Auto) 7.4 % (1.0-10.0) Eosinophils (%) (Auto) 1.3 % (0.0-3.0) Basophils (%) (Auto) 1.2 % (0.0-2.0) Erythrocyte Sedimentation Rate 105 MM/HR (0-30) H Sodium Level 136 MMOL/L (136-145) Potassium Level 4.5 MMOL/L (3.5-5.1) Chloride Level 102 MMOL/L (98-107) Carbon Dioxide Level 23 MMOL/L (21-32) Anion Gap 11 mmol/L (5-15) Blood Urea Nitrogen 35 mg/dL (7-18) H Creatinine 1.1 MG/DL (0.55-1.30) Estimat Glomerular Filtration Rate mL/min (>60) Glucose Level 124 MG/DL (74-106) H Calcium Level 8.8 MG/DL (8.5-10.1) Troponin I 0.019 ng/mL (0.000-0.056) C-Reactive Protein, Quantitative 14.7 mg/dL (0.00-0.90) H Vancomycin Level Trough 9.3 ug/mL (5.0-12.0) Neurologic Exam Mental Status: other Speech: other Language: other Cranial Nerve II: no papilledema, other Cranial Nerves III, IV, : PERRLA Cranial Nerve VII: no facial asymmetry Cranial Nerve VIII: normal hearing Cranial Nerve IX: normal palate elevation Cranial Nerve XI: SCM symmetric Cranial Nerve XII: tongue midline Motor System: other Sensory: other Impression/Recommendations Problems: (1) History of hypertension (2) Flexion contractures (3) Limited mobility in bed (4) ATN (acute tubular necrosis) (5) Sepsis (6) Anemia (7) Dementia Assessment & Plan: Continue home dose of Aricept (8) Diverticulosis (9) Failure to thrive (10) Hyponatremia (11) UTI (urinary tract infection) (12) Cellulitis and abscess of foot Status: unchanged Recommendations 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 Moderate generalized atrophy of the brain. Continue Q4 hour obs IV Hydration Empiric Abx for UTI Culture Urine SBP<140 Maintain normoglycemia with ISS - commence enteral feeding Start ASA 81mg per NG Start Atrovastatin 40mg NG QD Check lipids Cassandra Chang N.P. September 11, 2018 02:58
[2018-09-11 07:11] LABS: BASOPHILS % (AUTO) 1.5 % (0.0-2.0); EOSINOPHILS % (AUTO) 5.2 % (0.0-3.0); HEMATOCRIT 31.5 % (37.0-47.0); HEMOGLOBIN 10.3 G/DL (12.0-16.0); LYMPHOCYTES % (AUTO) 17.8 % (20.0-45.0); MEAN CORPUSCULAR VOLUME 85 FL (80-99); MONOCYTES % (AUTO) 9.8 % (1.0-10.0); NEUTROPHILS % (AUTO) 65.9 % (45.0-75.0); PLATELET COUNT 280 K/UL (150-450); RED BLOOD COUNT 3.72 M/UL (4.20-5.40); RED CELL DISTRIBUTION WIDTH 15.3 % (11.6-14.8); WHITE BLOOD COUNT 7.9 K/UL (4.8-10.8)
[2018-09-11 07:35] LABS: ANION GAP 10 mmol/L (5-15); BLOOD UREA NITROGEN 42 mg/dL (7-18); CALCIUM 8.8 MG/DL (8.5-10.1); CARBON DIOXIDE 24 MMOL/L (21-32); CHLORIDE 103 MMOL/L (98-107); CREATININE 1.1 MG/DL (0.55-1.30); POTASSIUM 4.4 MMOL/L (3.5-5.1); SODIUM 137 MMOL/L (136-145)
--- NOTE | 2018-09-11 07:47 | NUR ---
HAND-OFF: Report given to Fiona Soto RN.
--- NOTE | 2018-09-11 07:50 | NUR ---
NURSE NOTES: Received patient in bed, arousable to shaking, breathing is even and unlabored. No s/s of pain or discomfort per FLACC.GT intact, patient. Tolerating with GT feeding. HOB elevated. IV intact, bed is in lowest position and locked. Will continue plan of care.
--- NOTE | 2018-09-11 08:00 | Consultation ---
DATE OF CONSULTATION: 09/10/2018 PSYCHOTHERAPY CONSULTATION PROGRESS NOTE CONSULTING PHYSICIAN: Taz Dennis PsyD. TREATING ATTENDING PHYSICIAN: Guevara Lala D.O. HISTORY OF PRESENT ILLNESS: The patient is an 83-year-old female patient. She is from [facility]. The patient was brought into the hospital for sepsis. The patient's family member was at her bedside and was able to provide an extensive history for this patient including an extensive chart. The patient is a very poor historian. At this time, the patient is unable to provide any logical viable information. The patient's family member states the patient does have a possible history of dementia and for these reasons, she has been unable to provide information. She is very confused and disorganized. There is no indication of suicidal or homicidal thoughts of ideation. There is no indication for auditory or visual hallucinations for this patient. The patient is mumbling to herself and is able to recognize the family member. Family member states that the patient has had a history of dementia and this is her baseline at this time. The patient has no logical or viable plan for self-care, requires assistance with nursing staff. The patient is very confused, disorganized, alert and oriented to person only. PAST MEDICAL HISTORY: History of hypertension, CHF, TIA, G-tube. ALLERGIES: No known drug allergies. SUBSTANCE ABUSE HISTORY: The patient denies history of alcohol use, illicit substance use, or smoking cigarettes. PSYCHIATRIC HISTORY: The patient has a history of dementia and has been treated with psychotropic medications in the past. According to family members, family could not recall the specific medications. MENTAL STATUS EXAMINATION: The patient is alert and oriented to person. Mood is dysphoric. Affect blunted. Thought process, disoriented. Content confused. She has poor attention and concentration. Poor insight and judgment, impulse control. DIAGNOSIS: Rule out major neurocognitive disorder, Alzheimer's type without behavioral disturbances. PLAN: I assessed this patient: 1. I provided the patient with reality orientation, which is focused on improving cognitive function of the patient who is confused and disorganized. Oriented to person, place, time, and situation. 2. Provided the patient with supportive psychotherapy the patient is very confused, disorganized, and poor historian at this time. Family member is at the bedside. Plan is to maintain compliance and reality orientation. This clinician has reviewed the patient's chart. Discussed treatment with treatment team. Psychotherapy provided to this patient, 45 minutes. Taz Dennis PsyD. DR: Pavan JOB#: [id number] CC:
[2018-09-11] MEDS: Heparin 5000 units/ml inj SUBQ SCH ×2 (09:26→20:58)
--- NOTE | 2018-09-11 11:30 | NUR ---
NURSE NOTES: inserted new IV on right hand. No s/ s of infection on IV removal site.
--- NOTE | 2018-09-11 12:35 | NUR ---
CHARGE NURSE NOTES: RELAYED MRI RESULT VERBALIZED BY ZARA AYERS, 2 MM INFARCT IN BRAIN TO DR. WHITTAKER AND DR. ALVAREZ. NO NEW ORDER AT THIS TIME
--- NOTE | 2018-09-11 12:52 | Pulmonology Progress Note ---
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 Subjective ROS Limited/Unobtainable: No Constitutional: Reports: no symptoms HEENT: Repors: no symptoms Allergies: Coded Allergies: No Known Allergies (Unverified , 10/09/12) Objective Last 24 Hour Vital Signs Date Time Temp Pulse Resp B/P (MAP) Pulse Ox O2 Delivery O2 Flow Rate FiO2 09/11/18 12:00 98.9 85 24 124/59 (80) 97 09/11/18 09:00 Room Air 09/11/18 08:00 99.4 88 22 122/65 (84) 99 09/11/18 06:30 89 117/55 (75) 09/11/18 04:00 98.1 88 21 98/49 (65) 99 09/11/18 00:00 98.8 87 20 105/56 (72) 97 09/10/18 21:00 Room Air 09/10/18 20:00 99.2 83 20 116/54 (74) 98 09/10/18 16:00 92 09/10/18 16:00 Room Air 09/10/18 16:00 99.0 88 22 114/59 (77) 98 Intake and Output 09/10/18 09/11/18 19:00 07:00 Intake Total 920 ml 805 ml Output Total 400 ml Balance 520 ml 805 ml Intake Free Water 200 ml 145 ml Tube Feeding 720 ml 660 ml Output Urine Total 400 ml # Voids 2 # Bowel Movements 2 General Appearance: WD/WN HEENT: normocephalic, atraumatic Respiratory/Chest: chest wall non-tender, lungs clear Cardiovascular: normal peripheral pulses, normal rate Abdomen: normal bowel sounds, no organomegaly Genitourinary: normal external genitalia Extremities: no cyanosis Skin: no lesions Laboratory Tests 09/11/18 05:50: White Blood Count 7.9, Red Blood Count 3.72L, Hemoglobin 10.3L, Hematocrit 31.5L , Mean Corpuscular Volume 85, Mean Corpuscular Hemoglobin 27.7, Mean Corpuscular Hemoglobin Concent 32.7, Red Cell Distribution Width 15.3H, Platelet Count 280, Mean Platelet Volume 7.1, Neutrophils (%) (Auto) 65.9, Lymphocytes (%) (Auto) 17.8L, Monocytes (%) (Auto) 9.8, Eosinophils (%) (Auto) 5.2H, Basophils (%) (Auto) 1.5, Sodium Level 137, Potassium Level 4.4, Chloride Level 103, Carbon Dioxide Level 24, Anion Gap 10, Blood Urea Nitrogen 42H, Creatinine 1.1, Estimat Glomerular Filtration Rate , Glucose Level 126H, Hemoglobin A1c 5.1, Calcium Level 8.8, Thyroid Stimulating Hormone (TSH) 2.369 Current Medications Medications (Trade) Dose Ordered Sig/Khoa Route PRN Reason Start Time Stop Time Status Last Admin Dose Admin Acetaminophen (Tylenol) 650 mg Q4H PRN ORAL T>100.5 09/10/18 17:49 10/10/18 17:48 Albuterol/ Ipratropium (Albuterol/ Ipratropium) 3 ml Q4H PRN HHN Shortness of Breath 09/10/18 17:50 09/15/18 17:49 Cefepime HCl 1 gm/ Dextrose 55 ml @ 110 mls/hr Q24H IVPB 09/11/18 14:00 09/15/18 13:59 Donepezil HCl (Aricept) 5 mg BEDTIME ORAL 09/10/18 21:00 10/08/18 20:59 09/10/18 21:19 Heparin Sodium (Porcine) (Heparin 5000 units/ml) 5,000 units EVERY 12 HOURS SUBQ 09/10/18 21:00 10/08/18 20:59 09/11/18 09:26 Lorazepam (Ativan) 0.5 mg Q6H PRN ORAL For Anxiety 09/10/18 17:50 09/17/18 17:49 09/10/18 19:49 Morphine Sulfate (Morphine Sulfate) 2 mg Q4H PRN IVP PAIN 4-10 09/10/18 17:50 09/17/18 17:49 Nitroglycerin (Ntg) 0.4 mg Q5MIN X 3 DOSES PRN SL Prn Chest Pain 09/10/18 17:50 10/10/18 17:49 Ondansetron HCl (Zofran) 4 mg Q6H PRN IVP Nausea & Vomiting 09/10/18 17:50 10/10/18 17:49 Polyethylene Glycol (Miralax) 17 gm DAILYPRN PRN ORAL Constipation 09/10/18 17:50 10/10/18 17:49 Temazepam (Restoril) 15 mg HSPRN PRN ORAL Insomnia 09/10/18 17:50 09/17/18 17:49 Vancomycin HCl (Vanco rx to dose) 1 ea DAILY PRN MISC . 09/11/18 09:00 10/08/18 11:59 Vancomycin HCl 500 mg/Dextrose 110 ml @ 110 mls/hr Q24H IVPB 09/11/18 13:00 09/14/18 12:59 Dajuan Lam MD September 11, 2018 12:52
[2018-09-11] MEDS ORDERED: Vancomycin 500 MG in D5W 110 ML IVPB SCH (13:00)
--- NOTE | 2018-09-11 13:53 | Diagnostic Imaging Report ---
Indication: Altered mental status Technique: The head was imaged in a 1.5 Jerrica magnet. Sequences obtained include sagittal and axial T1 FLAIR, axial T2 fast spin echo with fat saturation, axial T2 FLAIR, diffusion and ADC map. Comparison: None There is a punctate 2 mm focus of diffusion restriction in the right caudate consistent with the small vessel infarct acute in age. There is no associated edema. Moderate global atrophy of the cerebrum and cerebellum noted with prominence of the CSF spaces within the brain. There is no abnormal extra-axial collection, edema, mass effect or hemorrhage. Corpus callosum and sella appear unremarkable. Osseous bone marrow signal appears normal for age. 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 Moderate generalized atrophy of the brain. Findings conveyed to the floor nurse on 4 E. at 09/11/18, 11:00 am. The consulting neurologist will be notified. The study was ordered as a routine examination.
[2018-09-11] MEDS ORDERED: Cefepime HCl 1 GM in D5W 55 ML IVPB SCH (14:00)
--- NOTE | 2018-09-11 14:24 | NUR ---
S[employer] SI:SEPSIS . ANEMIA . 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
--- NOTE | 2018-09-11 14:41 | General Progress Note ---
Assessment/Plan Problem List: (1) Sepsis ICD Codes: A41.9 - Sepsis SNOMED: 26846974 (2) Dementia ICD Codes: F03.90 - Dementia SNOMED: 93344530 (3) CVA (cerebral vascular accident) ICD Codes: I63.9 - Cerebral infarction, unspecified SNOMED: 652871478 (4) Fever ICD Codes: R50.9 - Fever, unspecified SNOMED: 496818211 (5) Shock ICD Codes: R57.9 - Shock, unspecified SNOMED: 61951609 Status: unchanged Assessment/Plan: pt diet abx resume med psyc and neuro eval cbc bmp am Subjective Constitutional: Reports: weakness Allergies: Coded Allergies: No Known Allergies (Unverified , 10/09/12) All Systems: reviewed and negative except above Subjective sleepy calm in bed Objective Last 24 Hour Vital Signs Date Time Temp Pulse Resp B/P (MAP) Pulse Ox O2 Delivery O2 Flow Rate FiO2 09/11/18 12:00 98.9 85 24 124/59 (80) 97 09/11/18 09:00 Room Air 09/11/18 08:00 99.4 88 22 122/65 (84) 99 09/11/18 06:30 89 117/55 (75) 09/11/18 04:00 98.1 88 21 98/49 (65) 99 09/11/18 00:00 98.8 87 20 105/56 (72) 97 09/10/18 21:00 Room Air 09/10/18 20:00 99.2 83 20 116/54 (74) 98 09/10/18 16:00 92 09/10/18 16:00 Room Air 09/10/18 16:00 99.0 88 22 114/59 (77) 98 Intake and Output 09/10/18 09/11/18 19:00 07:00 Intake Total 920 ml 805 ml Output Total 400 ml Balance 520 ml 805 ml Intake Free Water 200 ml 145 ml Tube Feeding 720 ml 660 ml Output Urine Total 400 ml # Voids 2 # Bowel Movements 2 Laboratory Tests 09/11/18 05:50: White Blood Count 7.9, Red Blood Count 3.72L, Hemoglobin 10.3L, Hematocrit 31.5L , Mean Corpuscular Volume 85, Mean Corpuscular Hemoglobin 27.7, Mean Corpuscular Hemoglobin Concent 32.7, Red Cell Distribution Width 15.3H, Platelet Count 280, Mean Platelet Volume 7.1, Neutrophils (%) (Auto) 65.9, Lymphocytes (%) (Auto) 17.8L, Monocytes (%) (Auto) 9.8, Eosinophils (%) (Auto) 5.2H, Basophils (%) (Auto) 1.5, Sodium Level 137, Potassium Level 4.4, Chloride Level 103, Carbon Dioxide Level 24, Anion Gap 10, Blood Urea Nitrogen 42H, Creatinine 1.1, Estimat Glomerular Filtration Rate , Glucose Level 126H, Hemoglobin A1c 5.1, Calcium Level 8.8, Thyroid Stimulating Hormone (TSH) 2.369 Height (Feet): 5 Height (Inches): 2.00 Weight (Pounds): 122 General Appearance: lethargic EENT: normal ENT inspection Neck: normal alignment Cardiovascular: normal peripheral pulses, normal rate, regular rhythm Respiratory/Chest: chest wall non-tender, lungs clear, normal breath sounds Abdomen: normal bowel sounds, non tender, soft Extremities: normal inspection Edema: no edema noted Arm (L), no edema noted Arm (R), no edema noted Leg (L), no edema noted Leg (R), no edema noted Pedal (L), no edema noted Pedal (R), no edema noted Generalized Neurologic: motor weakness Skin: normal pigmentation, warm/dry Guevara Lala DO September 11, 2018 14:41
--- NOTE | 2018-09-11 15:32 | NUR ---
ST NOTE: BEDSIDE SWALLOW EVAL RECEIVED BEDSIDE SWALLOW EVAL ORDER CHART REVIEWED PRIOR THE EVALUATION REFERRED BY NEURO Everardo MYESHA PT IS A 83-YEAR-OLD FEMALE WHO WAS ADMITTED FOR AMS AND FEVER(101). PT RESIDES AT [facility], PER PT'S CHART, PT WAS RECEIVING G-TUBE FEEDING WELL PUREE DIET(ORAL GRAT) TID. PER BRAIN MRI ON 09/10/18: 2MM ACUTE SMALL VESSEL CVA INVOLVING THE R CAUDATE; AND MODERATE GENERALIZED ATROPHY OF THE BRAIN. MEDICAL HISTORY RELATED TO DYSPHAGIA, INCLUDED: VAS DEMENTIA, GERD, HTN, TIA/CVA, FAILURE TO THRIVE, CARDIAC DISORDER. PER PT'S POLST: FULL CODE, FULL TREATMENT, OKAY FOR LONG-TERM ARTIFICIAL NUTRITION, INCLUDING FEEDING TUBES. CURRENT STATUS: PT SEEN AT BEDSIDE IN PM. PT LETHARGIC EVEN GIVEN MAX CUES(CHEST RUB), UNABLE TO FOLLOW DIRECTION. AT LEAST MILD TO MODERATE OR WORSENED OROPHARYNGEAL DYSPHAGIA HAS HIGH RISK FOR (SILENT)ASPIRATION SECONDARY TO PT HAS H/O CVA, VAS DEMENTIA AND ACUTE CVA. RECOMMENDATIONS: 1. CONTINUE LONG-TERM NONORAL FEEDING MEANS TO MEET NUTRITION AND HYDRATION NEEDS. 2. CONTINUE NPO WITH AGGRESSIVE ORAL CARE 3. MODIFIED BARIUM SWALLOW STUDY WHEN PT IS MORE ALERT. POSTED NPO SIGN. D/W RNJOHN
--- NOTE | 2018-09-11 16:49 | Surgery Progress Note ---
Surgery Progress Note Subjective Additional Comments no acute events. comfortable. stable. dressings changed. labs noted Objective Last 24 Hour Vital Signs Date Time Temp Pulse Resp B/P (MAP) Pulse Ox O2 Delivery O2 Flow Rate FiO2 09/11/18 12:00 98.9 85 24 124/59 (80) 97 09/11/18 09:00 Room Air 09/11/18 08:11 85 18 Room Air 21 09/11/18 08:00 99.4 88 22 122/65 (84) 99 09/11/18 06:30 89 117/55 (75) 09/11/18 04:00 98.1 88 21 98/49 (65) 99 09/11/18 00:00 98.8 87 20 105/56 (72) 97 09/10/18 21:00 Room Air 09/10/18 20:00 99.2 83 20 116/54 (74) 98 I&O Intake and Output 09/10/18 09/11/18 19:00 07:00 Intake Total 920 ml 805 ml Output Total 400 ml Balance 520 ml 805 ml Intake Free Water 200 ml 145 ml Tube Feeding 720 ml 660 ml Output Urine Total 400 ml # Voids 2 # Bowel Movements 2 Dressing: other Wound: clean, other Drains: other Cardiovascular: RSR Respiratory: decreased breath sounds Abdomen: soft, present bowel sounds, non-distended Extremities: no cyanosis Laboratory Tests Test 09/11/18 05:50 White Blood Count 7.9 K/UL (4.8-10.8) Red Blood Count 3.72 M/UL (4.20-5.40) L Hemoglobin 10.3 G/DL (12.0-16.0) L Hematocrit 31.5 % (37.0-47.0) L Mean Corpuscular Volume 85 FL (80-99) Mean Corpuscular Hemoglobin 27.7 PG (27.0-31.0) Mean Corpuscular Hemoglobin Concent 32.7 G/DL (32.0-36.0) Red Cell Distribution Width 15.3 % (11.6-14.8) H Platelet Count 280 K/UL (150-450) Mean Platelet Volume 7.1 FL (6.5-10.1) Neutrophils (%) (Auto) 65.9 % (45.0-75.0) Lymphocytes (%) (Auto) 17.8 % (20.0-45.0) L Monocytes (%) (Auto) 9.8 % (1.0-10.0) Eosinophils (%) (Auto) 5.2 % (0.0-3.0) H Basophils (%) (Auto) 1.5 % (0.0-2.0) Sodium Level 137 MMOL/L (136-145) Potassium Level 4.4 MMOL/L (3.5-5.1) Chloride Level 103 MMOL/L (98-107) Carbon Dioxide Level 24 MMOL/L (21-32) Anion Gap 10 mmol/L (5-15) Blood Urea Nitrogen 42 mg/dL (7-18) H Creatinine 1.1 MG/DL (0.55-1.30) Estimat Glomerular Filtration Rate mL/min (>60) Glucose Level 126 MG/DL (74-106) H Hemoglobin A1c 5.1 % (4.3-6.0) Calcium Level 8.8 MG/DL (8.5-10.1) Thyroid Stimulating Hormone (TSH) 2.369 uiU/mL (0.358-3.740) Plan Problems: (1) Sepsis Assessment & Plan: on IV Abx labs improved AM labs ordered (2) Anemia (3) Dementia (4) Diverticulosis (5) Failure to thrive Assessment & Plan: DAILY ESTIMATED NEEDS: Needs based on Sepsis, wounds 54.5kg 25-35 kcals/kg 4780-7296 total kcals 1.25-2 g protein/kg 68-109 g total protein 25-30 mL/kg 5027-0757 total fluid mLs NUTRITION DIAGNOSIS: 1) Increased kcal and pro needs r/t wound healing as evidenced by pt w/ open R toe wound, bone exposed, sacral / buttock erythema, and BL heel boggy. 2) Swallowing difficulty r/t dysphagia as evidenced by pt is GT dep. ENTERAL NUTRITION RECOMMENDATIONS: Maintain Jevity 1.2 @60ml/hr x24 hrs as tolerated to provide 1440ml, 1728 kcal, 80g pro, 1163ml free H2O - As tolerated advance TF 10ml/hr q4-6 hrs to goal - Flush per MD/ HOB over 30 degrees ------- ADDITIONAL RECOMMENDATIONS: 1) Obtain a CALIBRATED bed scale wt 2) TF recs as above 3) Monitor lytes daily, replete as needed 4) Monitor BG, need for carb control formula 5) Wound care: add STEPHANIE BID via GT + Vit C 250mg daily (6) Hyponatremia (7) UTI (urinary tract infection) (8) Cellulitis and abscess of foot Assessment & Plan: right foot second ray with distal open wound with exposed bone, periwound erythema and cellulitis. -plain films ordered - Very limited evaluation. No obvious plain film evidence for osteomyelitis or gas gangrene. Consider MRI. -Xeroform dressing and gauze followed by kerlix wrap for now (9) Decubitus skin ulcer Assessment & Plan: patient [facility] with multiple wounds sacral / buttock erythema identified right second ray with open wound and cellulitis right and left heel boggy and soft Tx plan: apply skin protectant to sacral / buttock area, cover with foam dressing, change q3days Xeroform dressing and gauze followed by kerlix wrap to right toe heel protectors off load heels with pillow turn q2 air mattress Pb Ojeda September 11, 2018 16:49
--- NOTE | 2018-09-11 18:41 | Infectious Diseases Prog Note ---
Assessment/Plan Assessment/Plan Abx: IV Vancomcyin 09/08- Cefepime 09/08- Ceftriaxone x1 09/08 Assessment: Sepsis- likely 2ry to UTI -u/a wbc 20-30, nit +, leuk +3; ucx >100k K. pna (R amp; I nitro; otherwise S) , >100k GBS -CXR: Mildly increased perihilar interstitial markings. This is nonspecific but may suggest mild bronchitis or a mild interstitial pneumonitis. No focal consolidation. -Bcx NTD Fever, improving Leukocytosis, SP Encephalopathy: -Brain MRI: 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 Moderate generalized atrophy of the brain. R 2nd toe open wound w/ exposed bone- likely chronic OM -xray R foot: Very limited evaluation. No obvious plain film evidence for osteomyelitis or gas gangrene. Consider MRI. HTN CHF advanced Dementia TIA dysphagia/FTT s/p Gtube contracted multiple decubiti wounds [facility] Plan: -Switch empiric Cefepime # /-10 to Ceftriaxone for UTI -D/c empiric IV Vancomycin #4 -09/08 SP Ceftriaxone x1 -f/u cx -Monitor CBC/CMP, temperatures -wound care per surgical team -aspiration precautions Thank you for this consultation. Will continue to follow along with you. Discussed with RN. Subjective Allergies: Coded Allergies: No Known Allergies (Unverified , 10/09/12) Subjective afebrile >36hrs no leuokocytosis Bcx NTD Objective Vital Signs Last 24 Hour Vital Signs Date Time Temp Pulse Resp B/P (MAP) Pulse Ox O2 Delivery O2 Flow Rate FiO2 09/11/18 16:00 98.5 93 20 125/71 (89) 96 09/11/18 12:00 98.9 85 24 124/59 (80) 97 09/11/18 09:00 Room Air 09/11/18 08:11 85 18 Room Air 21 09/11/18 08:00 99.4 88 22 122/65 (84) 99 09/11/18 06:30 89 117/55 (75) 09/11/18 04:00 98.1 88 21 98/49 (65) 99 09/11/18 00:00 98.8 87 20 105/56 (72) 97 09/10/18 21:00 Room Air 09/10/18 20:00 99.2 83 20 116/54 (74) 98 Height (Feet): 5 Height (Inches): 2.00 Weight (Pounds): 122 Objective GENERAL: Lethargic in bed, not responding to questions. CARDIOVASCULAR: No murmur. LUNGS: Poor air exchange. ABDOMEN: Bowel sounds distant. EXTREMITIES: No cyanosis, clubbing, or edema. NEUROLOGIC: The patient is flaccid in bed, not really follow directions. Laboratory Tests Test 09/11/18 05:50 White Blood Count 7.9 K/UL (4.8-10.8) Red Blood Count 3.72 M/UL (4.20-5.40) L Hemoglobin 10.3 G/DL (12.0-16.0) L Hematocrit 31.5 % (37.0-47.0) L Mean Corpuscular Volume 85 FL (80-99) Mean Corpuscular Hemoglobin 27.7 PG (27.0-31.0) Mean Corpuscular Hemoglobin Concent 32.7 G/DL (32.0-36.0) Red Cell Distribution Width 15.3 % (11.6-14.8) H Platelet Count 280 K/UL (150-450) Mean Platelet Volume 7.1 FL (6.5-10.1) Neutrophils (%) (Auto) 65.9 % (45.0-75.0) Lymphocytes (%) (Auto) 17.8 % (20.0-45.0) L Monocytes (%) (Auto) 9.8 % (1.0-10.0) Eosinophils (%) (Auto) 5.2 % (0.0-3.0) H Basophils (%) (Auto) 1.5 % (0.0-2.0) Sodium Level 137 MMOL/L (136-145) Potassium Level 4.4 MMOL/L (3.5-5.1) Chloride Level 103 MMOL/L (98-107) Carbon Dioxide Level 24 MMOL/L (21-32) Anion Gap 10 mmol/L (5-15) Blood Urea Nitrogen 42 mg/dL (7-18) H Creatinine 1.1 MG/DL (0.55-1.30) Estimat Glomerular Filtration Rate mL/min (>60) Glucose Level 126 MG/DL (74-106) H Hemoglobin A1c 5.1 % (4.3-6.0) Calcium Level 8.8 MG/DL (8.5-10.1) Thyroid Stimulating Hormone (TSH) 2.369 uiU/mL (0.358-3.740) Current Medications Medications (Trade) Dose Ordered Sig/Khoa Route PRN Reason Start Time Stop Time Status Last Admin Dose Admin Acetaminophen (Tylenol) 650 mg Q4H PRN ORAL T>100.5 09/10/18 17:49 10/10/18 17:48 Albuterol/ Ipratropium (Albuterol/ Ipratropium) 3 ml Q4H PRN HHN Shortness of Breath 09/10/18 17:50 09/15/18 17:49 Cefepime HCl 1 gm/ Dextrose 55 ml @ 110 mls/hr Q24H IVPB 09/11/18 14:00 09/15/18 13:59 09/11/18 16:13 Donepezil HCl (Aricept) 5 mg BEDTIME ORAL 09/10/18 21:00 10/08/18 20:59 09/10/18 21:19 Heparin Sodium (Porcine) (Heparin 5000 units/ml) 5,000 units EVERY 12 HOURS SUBQ 09/10/18 21:00 10/08/18 20:59 09/11/18 09:26 Lorazepam (Ativan) 0.5 mg Q6H PRN ORAL For Anxiety 09/10/18 17:50 09/17/18 17:49 09/10/18 19:49 Morphine Sulfate (Morphine Sulfate) 2 mg Q4H PRN IVP PAIN 4-10 09/10/18 17:50 09/17/18 17:49 Nitroglycerin (Ntg) 0.4 mg Q5MIN X 3 DOSES PRN SL Prn Chest Pain 09/10/18 17:50 10/10/18 17:49 Ondansetron HCl (Zofran) 4 mg Q6H PRN IVP Nausea & Vomiting 09/10/18 17:50 10/10/18 17:49 Polyethylene Glycol (Miralax) 17 gm DAILYPRN PRN ORAL Constipation 09/10/18 17:50 10/10/18 17:49 Temazepam (Restoril) 15 mg HSPRN PRN ORAL Insomnia 09/10/18 17:50 09/17/18 17:49 Vancomycin HCl (Vanco rx to dose) 1 ea DAILY PRN MISC . 09/11/18 09:00 10/08/18 11:59 Vancomycin HCl 500 mg/Dextrose 110 ml @ 110 mls/hr Q24H IVPB 09/11/18 13:00 09/14/18 12:59 09/11/18 14:10 Salud Atwood M.D. September 11, 2018 18:41
[2018-09-11] MEDS ORDERED: METOPROLOL TART50 M1 GT (19:21)
[2018-09-11] MEDS ORDERED: DONEPEZIL HCL10 MG GT (19:21)
[2018-09-11] MEDS ORDERED: FERROUS SU220 MG/53 GT (19:21)
[2018-09-11] MEDS ORDERED: ACETAMINOPHEN325 M1 GT (19:21)
[2018-09-11] MEDS ORDERED: AMLODIPINE BESYL5 MG GT (19:21)
--- NOTE | 2018-09-11 19:29 | NUR ---
HAND-OFF: Report given to Amy.
--- NOTE | 2018-09-11 19:40 | NUR ---
NURSE NOTES: Received report from Fiona Soto RN. Patient sleeping. IV intact, patent, and saline locked. On room air, no signs of distress or labored breathing. G-tube patent, intact, and infusing fluids. HOB above 30 degrees. Bed in lowest position. Will continue with plan of care.
[2018-09-11] MEDS: Donepezil 5mg Tab ORAL SCH (20:57)
[2018-09-12] VITALS: BP 109/59
[2018-09-12 04:00] VITALS: BP 120/68
[2018-09-12 07:03] LABS: ANION GAP 9 mmol/L (5-15); BLOOD UREA NITROGEN 42 mg/dL (7-18); CARBON DIOXIDE 26 MMOL/L (21-32); CHLORIDE 101 MMOL/L (98-107); CREATININE 1.1 MG/DL (0.55-1.30); POTASSIUM 4.6 MMOL/L (3.5-5.1); SODIUM 136 MMOL/L (136-145)
[2018-09-12 07:13] LABS: BASOPHILS % (AUTO) 0.9 % (0.0-2.0); EOSINOPHILS % (AUTO) 5.5 % (0.0-3.0); HEMATOCRIT 32.4 % (37.0-47.0); HEMOGLOBIN 10.6 G/DL (12.0-16.0); LYMPHOCYTES % (AUTO) 15.7 % (20.0-45.0); MEAN CORPUSCULAR VOLUME 84 FL (80-99); MONOCYTES % (AUTO) 8.8 % (1.0-10.0); PLATELET COUNT 310 K/UL (150-450); RED BLOOD COUNT 3.85 M/UL (4.20-5.40); RED CELL DISTRIBUTION WIDTH 15.5 % (11.6-14.8); WHITE BLOOD COUNT 9.4 K/UL (4.8-10.8)
--- NOTE | 2018-09-12 07:26 | NUR ---
HAND-OFF: Report given to MARCELINA Herrera.
[2018-09-12 08:00] VITALS: BP 117/60
--- NOTE | 2018-09-12 08:02 | NUR ---
NURSE NOTES: Patient is arousable to name. Patient has garbled speech. Patient is on room air. HOB is elevated. Tube feeding is running at 60 ml/hr. Side rails upx2, bed is locked, and in lowest position. Will continue to monitor.
[2018-09-12] MEDS: Heparin 5000 units/ml inj SUBQ SCH ×3 (09:00→20:21)
[2018-09-12] MEDS: cefTRIAXone 1 GM in D5W 55 ML IVPB SCH (09:06)
--- NOTE | 2018-09-12 11:57 | Pulmonology Progress Note ---
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 Subjective ROS Limited/Unobtainable: Yes Interval Events: comfortable, not talking Allergies: Coded Allergies: No Known Allergies (Unverified , 10/09/12) Objective Last 24 Hour Vital Signs Date Time Temp Pulse Resp B/P (MAP) Pulse Ox O2 Delivery O2 Flow Rate FiO2 09/12/18 08:30 Room Air 09/12/18 08:00 98.2 86 20 117/60 (79) 97 09/12/18 04:00 98.3 87 19 120/68 (85) 97 09/12/18 00:00 99.6 92 19 109/59 (76) 98 09/11/18 21:00 Room Air 09/11/18 20:24 90 18 Room Air 21 09/11/18 20:00 98.3 91 19 117/62 (80) 97 09/11/18 16:00 98.5 93 20 125/71 (89) 96 09/11/18 12:00 98.9 85 24 124/59 (80) 97 Intake and Output 09/11/18 09/12/18 18:59 06:59 Intake Total 925 ml 830 ml Output Total 250 ml Balance 925 ml 580 ml Intake Free Water 150 ml 110 ml IV Total 55 ml Tube Feeding 720 ml 720 ml Output Urine Total 250 ml # Voids 4 # Bowel Movements 1 General Appearance: WD/WN HEENT: normocephalic, atraumatic Respiratory/Chest: chest wall non-tender, lungs clear Cardiovascular: normal peripheral pulses, normal rate Abdomen: normal bowel sounds, soft, non tender Extremities: no cyanosis, no clubbing Skin: no rash, no lesions Laboratory Tests 09/12/18 05:48: White Blood Count 9.4, Red Blood Count 3.85L, Hemoglobin 10.6L, Hematocrit 32.4L , Mean Corpuscular Volume 84, Mean Corpuscular Hemoglobin 27.6, Mean Corpuscular Hemoglobin Concent 32.7, Red Cell Distribution Width 15.5H, Platelet Count 310, Mean Platelet Volume 6.8, Neutrophils (%) (Auto) 69.0, Lymphocytes (%) (Auto) 15.7L, Monocytes (%) (Auto) 8.8, Eosinophils (%) (Auto) 5.5H, Basophils (%) (Auto) 0.9, Sodium Level 136, Potassium Level 4.6, Chloride Level 101, Carbon Dioxide Level 26, Anion Gap 9, Blood Urea Nitrogen 42H, Creatinine 1.1, Estimat Glomerular Filtration Rate , Glucose Level 105, Calcium Level 9.0 Current Medications Medications (Trade) Dose Ordered Sig/Khoa Route PRN Reason Start Time Stop Time Status Last Admin Dose Admin Acetaminophen (Tylenol) 650 mg Q4H PRN ORAL T>100.5 09/10/18 17:49 10/10/18 17:48 Albuterol/ Ipratropium (Albuterol/ Ipratropium) 3 ml Q4H PRN HHN Shortness of Breath 09/10/18 17:50 09/15/18 17:49 Ceftriaxone Sodium 1 gm/ Dextrose 55 ml @ 110 mls/hr DAILY IVPB 09/12/18 09:00 09/19/18 08:59 09/12/18 09:06 Donepezil HCl (Aricept) 5 mg BEDTIME ORAL 09/10/18 21:00 10/08/18 20:59 09/11/18 20:57 Heparin Sodium (Porcine) (Heparin 5000 units/ml) 5,000 units EVERY 12 HOURS SUBQ 09/10/18 21:00 10/08/18 20:59 09/11/18 20:58 Lorazepam (Ativan) 0.5 mg Q6H PRN ORAL For Anxiety 09/10/18 17:50 09/17/18 17:49 09/10/18 19:49 Morphine Sulfate (Morphine Sulfate) 2 mg Q4H PRN IVP PAIN 4-10 09/10/18 17:50 09/17/18 17:49 Nitroglycerin (Ntg) 0.4 mg Q5MIN X 3 DOSES PRN SL Prn Chest Pain 09/10/18 17:50 10/10/18 17:49 Ondansetron HCl (Zofran) 4 mg Q6H PRN IVP Nausea & Vomiting 5/14/19 17:50 10/10/18 17:49 Polyethylene Glycol (Miralax) 17 gm DAILYPRN PRN ORAL Constipation 09/10/18 17:50 10/10/18 17:49 Temazepam (Restoril) 15 mg HSPRN PRN ORAL Insomnia 09/10/18 17:50 09/17/18 17:49 Dajuan Lam MD September 12, 2018 11:57
[2018-09-12 12:00] VITALS: BP 114/71
--- NOTE | 2018-09-12 12:02 | Infectious Diseases Prog Note ---
Assessment/Plan Assessment/Plan Abx: IV Vancomcyin 09/08- Cefepime 09/08- Ceftriaxone x1 09/08 Assessment: Sepsis; imrpovnig- likely 2ry to UTI -u/a wbc 20-30, nit +, leuk +3; ucx >100k K. pna (R amp; I nitro; otherwise S) , >100k GBS -CXR: Mildly increased perihilar interstitial markings. This is nonspecific but may suggest mild bronchitis or a mild interstitial pneumonitis. No focal consolidation. -Bcx NTD Fever, improving Leukocytosis, SP Encephalopathy: -Brain MRI: 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 Moderate generalized atrophy of the brain. R 2nd toe open wound w/ exposed bone- likely chronic OM -xray R foot: Very limited evaluation. No obvious plain film evidence for osteomyelitis or gas gangrene. Consider MRI. HTN CHF advanced Dementia TIA dysphagia/FTT s/p Gtube contracted multiple decubiti wounds halfway resident Plan: -Cont Ceftriaxone #2 (abx d#09/03-) for UTI -09/11 SP IV Vancomycin #4 , Cefepime #4 -09/08 SP Ceftriaxone x1 -f/u cx -Monitor CBC/CMP, temperatures -wound care per surgical team -aspiration precautions Thank you for this consultation. Will continue to follow along with you. Discussed with RN. Subjective Allergies: Coded Allergies: No Known Allergies (Unverified , 10/09/12) Subjective afebrile >48hrs no leuokocytosis Bcx NTD Objective Vital Signs Last 24 Hour Vital Signs Date Time Temp Pulse Resp B/P (MAP) Pulse Ox O2 Delivery O2 Flow Rate FiO2 09/12/18 08:30 Room Air 09/12/18 08:00 98.2 86 20 117/60 (79) 97 09/12/18 04:00 98.3 87 19 120/68 (85) 97 09/12/18 00:00 99.6 92 19 109/59 (76) 98 09/11/18 21:00 Room Air 09/11/18 20:24 90 18 Room Air 21 09/11/18 20:00 98.3 91 19 117/62 (80) 97 09/11/18 16:00 98.5 93 20 125/71 (89) 96 09/11/18 12:00 98.9 85 24 124/59 (80) 97 Height (Feet): 5 Height (Inches): 2.00 Weight (Pounds): 122 Objective GENERAL: Lethargic in bed, not responding to questions. CARDIOVASCULAR: No murmur. LUNGS: Poor air exchange. ABDOMEN: Bowel sounds distant. EXTREMITIES: No cyanosis, clubbing, or edema. NEUROLOGIC: The patient is flaccid in bed, not really follow directions. Laboratory Tests Test 09/12/18 05:48 White Blood Count 9.4 K/UL (4.8-10.8) Red Blood Count 3.85 M/UL (4.20-5.40) L Hemoglobin 10.6 G/DL (12.0-16.0) L Hematocrit 32.4 % (37.0-47.0) L Mean Corpuscular Volume 84 FL (80-99) Mean Corpuscular Hemoglobin 27.6 PG (27.0-31.0) Mean Corpuscular Hemoglobin Concent 32.7 G/DL (32.0-36.0) Red Cell Distribution Width 15.5 % (11.6-14.8) H Platelet Count 310 K/UL (150-450) Mean Platelet Volume 6.8 FL (6.5-10.1) Neutrophils (%) (Auto) 69.0 % (45.0-75.0) Lymphocytes (%) (Auto) 15.7 % (20.0-45.0) L Monocytes (%) (Auto) 8.8 % (1.0-10.0) Eosinophils (%) (Auto) 5.5 % (0.0-3.0) H Basophils (%) (Auto) 0.9 % (0.0-2.0) Sodium Level 136 MMOL/L (136-145) Potassium Level 4.6 MMOL/L (3.5-5.1) Chloride Level 101 MMOL/L (98-107) Carbon Dioxide Level 26 MMOL/L (21-32) Anion Gap 9 mmol/L (5-15) Blood Urea Nitrogen 42 mg/dL (7-18) H Creatinine 1.1 MG/DL (0.55-1.30) Estimat Glomerular Filtration Rate mL/min (>60) Glucose Level 105 MG/DL (74-106) Calcium Level 9.0 MG/DL (8.5-10.1) Current Medications Medications (Trade) Dose Ordered Sig/Khoa Route PRN Reason Start Time Stop Time Status Last Admin Dose Admin Acetaminophen (Tylenol) 650 mg Q4H PRN ORAL T>100.5 09/10/18 17:49 10/10/18 17:48 Albuterol/ Ipratropium (Albuterol/ Ipratropium) 3 ml Q4H PRN HHN Shortness of Breath 09/10/18 17:50 09/15/18 17:49 Ceftriaxone Sodium 1 gm/ Dextrose 55 ml @ 110 mls/hr DAILY IVPB 09/12/18 09:00 09/19/18 08:59 09/12/18 09:06 Donepezil HCl (Aricept) 5 mg BEDTIME ORAL 09/10/18 21:00 10/08/18 20:59 09/11/18 20:57 Heparin Sodium (Porcine) (Heparin 5000 units/ml) 5,000 units EVERY 12 HOURS SUBQ 09/10/18 21:00 10/08/18 20:59 09/11/18 20:58 Lorazepam (Ativan) 0.5 mg Q6H PRN ORAL For Anxiety 09/10/18 17:50 09/17/18 17:49 09/10/18 19:49 Morphine Sulfate (Morphine Sulfate) 2 mg Q4H PRN IVP PAIN 4-10 09/10/18 17:50 09/17/18 17:49 Nitroglycerin (Ntg) 0.4 mg Q5MIN X 3 DOSES PRN SL Prn Chest Pain 09/10/18 17:50 10/10/18 17:49 Ondansetron HCl (Zofran) 4 mg Q6H PRN IVP Nausea & Vomiting 09/10/18 17:50 10/10/18 17:49 Polyethylene Glycol (Miralax) 17 gm DAILYPRN PRN ORAL Constipation 09/10/18 17:50 10/10/18 17:49 Temazepam (Restoril) 15 mg HSPRN PRN ORAL Insomnia 09/10/18 17:50 09/17/18 17:49 Salud Atwood M.D. September 12, 2018 12:02
--- NOTE | 2018-09-12 13:56 | NUR ---
RD ASSESSMENT & RECOMMENDATIONS SEE CARE ACTIVITY FOR COMPLETE ASSESSMENT DAILY ESTIMATED NEEDS: Needs based on Sepsis, wounds 54.5kg 25-35 kcals/kg 9527-8462 total kcals 1.25-2 g protein/kg 68-109 g total protein 25-30 mL/kg 8920-7802 total fluid mLs NUTRITION DIAGNOSIS: 1) Increased kcal and pro needs r/t wound healing as evidenced by pt w/ open R toe wound, bone exposed, sacral / buttock erythema, and BL heel boggy. 2) Swallowing difficulty r/t dysphagia as evidenced by pt is GT dep. CURRENT TF: Jevity 1.2 @60ml ENTERAL NUTRITION RECOMMENDATIONS: Maintain Jevity 1.2 @60ml/hr x24 hrs as tolerated to provide 1440ml, 1728 kcal, 80g pro, 1163ml free H2O - Maintain current TF order as tolerated - Flush per MD/ HOB over 30 degrees ADDITIONAL RECOMMENDATIONS: 1) Obtain a CALIBRATED bed scale wt, monitor wt trend 2) TF recs as above 3) Monitor lytes daily, replete as needed 4) Monitor BG, need for carb control formula 5) Wound care: add STEPHANIE BID via GT + Vit C 250mg daily
--- NOTE | 2018-09-12 14:03 | NUR ---
NURSE NOTES:WOUND CARE FOLLOW-UP NOTES: Hyperpigmentation without erythema noted to sacrum . Wound R 2nd metatarsal moist -viable,(+) maceration along edges . Small amt non-odorous serous exudate noted. Dark discoloration periwound. R and L heels resolved -both heels are boggy but blanchable.Pt did not exhibit any distress when R or L heel palpated. Tx.Plan:Cleanse R 2nd metatarsal with Saline. Apply Silvasorb Gel.Apply Calcium Alginate.Cover with Optifoam drsg. Change every 3 days and prn.(Confirmed new orders with ) Apply Moisture Barrier to sacrum .Cover with Optifoam drsg. Change every 3 days and prn. Apply Cavilon Skin barrier to R and L heels .Cover each heel with Optifoam drsg. Change every 7 days and prn. Reposition at least every 2hours or as tolerated. Off-load heels with pillow.
--- NOTE | 2018-09-12 14:10 | Neurology Progress Note ---
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 Interim History More alert today and intermittently following commands Review of Systems All Systems: reviewed and negative except above Objective Physical Exam Last Vital Signs Date Time Temp Pulse Resp B/P (MAP) Pulse Ox O2 Delivery O2 Flow Rate FiO2 09/12/18 12:00 97.2 90 20 114/71 (85) 98 09/12/18 08:30 Room Air 09/11/18 20:24 21 Laboratory Tests Test 09/12/18 05:48 White Blood Count 9.4 K/UL (4.8-10.8) Red Blood Count 3.85 M/UL (4.20-5.40) L Hemoglobin 10.6 G/DL (12.0-16.0) L Hematocrit 32.4 % (37.0-47.0) L Mean Corpuscular Volume 84 FL (80-99) Mean Corpuscular Hemoglobin 27.6 PG (27.0-31.0) Mean Corpuscular Hemoglobin Concent 32.7 G/DL (32.0-36.0) Red Cell Distribution Width 15.5 % (11.6-14.8) H Platelet Count 310 K/UL (150-450) Mean Platelet Volume 6.8 FL (6.5-10.1) Neutrophils (%) (Auto) 69.0 % (45.0-75.0) Lymphocytes (%) (Auto) 15.7 % (20.0-45.0) L Monocytes (%) (Auto) 8.8 % (1.0-10.0) Eosinophils (%) (Auto) 5.5 % (0.0-3.0) H Basophils (%) (Auto) 0.9 % (0.0-2.0) Sodium Level 136 MMOL/L (136-145) Potassium Level 4.6 MMOL/L (3.5-5.1) Chloride Level 101 MMOL/L (98-107) Carbon Dioxide Level 26 MMOL/L (21-32) Anion Gap 9 mmol/L (5-15) Blood Urea Nitrogen 42 mg/dL (7-18) H Creatinine 1.1 MG/DL (0.55-1.30) Estimat Glomerular Filtration Rate mL/min (>60) Glucose Level 105 MG/DL (74-106) Calcium Level 9.0 MG/DL (8.5-10.1) Neurologic Exam Mental Status: other Speech: other Language: other Cranial Nerve II: no papilledema, other Cranial Nerves III, IV, : PERRLA Cranial Nerve VII: no facial asymmetry Cranial Nerve VIII: normal hearing Cranial Nerve IX: normal palate elevation Cranial Nerve XI: SCM symmetric Cranial Nerve XII: tongue midline Motor System: other Sensory: other Objective Remains aphasic, but is making noises now. She is contracted at baseline but showing partial strength without obvious focal weakness in both UEs. 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 Moderate generalized atrophy of the brain. Continue Q4 hour obs IV Hydration Empiric Abx for UTI Culture Urine SBP<140 Maintain normoglycemia with ISS -continue enteral feeding TTE Carotid Doppler Bilaterally studies pending Cassandra Chang N.P. September 12, 2018 14:09
--- NOTE | 2018-09-12 14:29 | General Progress Note ---
Assessment/Plan Problem List: (1) Sepsis ICD Codes: A41.9 - Sepsis SNOMED: 32053336 (2) Dementia ICD Codes: F03.90 - Dementia SNOMED: 45385939 (3) CVA (cerebral vascular accident) ICD Codes: I63.9 - Cerebral infarction, unspecified SNOMED: 303978751 (4) Fever ICD Codes: R50.9 - Fever, unspecified SNOMED: 769096093 (5) Shock ICD Codes: R57.9 - Shock, unspecified SNOMED: 00143966 Status: stable, progressing, unchanged Assessment/Plan: pt diet abx resume med psyc and neuro eval cbc bmp am dc plan Subjective Constitutional: Reports: weakness Allergies: Coded Allergies: No Known Allergies (Unverified , 10/09/12) All Systems: reviewed and negative except above Subjective sleepy calm in bed Objective Last 24 Hour Vital Signs Date Time Temp Pulse Resp B/P (MAP) Pulse Ox O2 Delivery O2 Flow Rate FiO2 09/12/18 12:00 97.2 90 20 114/71 (85) 98 09/12/18 08:30 Room Air 09/12/18 08:00 98.2 86 20 117/60 (79) 97 09/12/18 04:00 98.3 87 19 120/68 (85) 97 09/12/18 00:00 99.6 92 19 109/59 (76) 98 09/11/18 21:00 Room Air 09/11/18 20:24 90 18 Room Air 21 09/11/18 20:00 98.3 91 19 117/62 (80) 97 09/11/18 16:00 98.5 93 20 125/71 (89) 96 Intake and Output 09/11/18 09/12/18 19:00 07:00 Intake Total 925 ml 830 ml Output Total 250 ml Balance 925 ml 580 ml Intake Free Water 150 ml 110 ml IV Total 55 ml Tube Feeding 720 ml 720 ml Output Urine Total 250 ml # Voids 4 # Bowel Movements 1 Laboratory Tests 09/12/18 05:48: White Blood Count 9.4, Red Blood Count 3.85L, Hemoglobin 10.6L, Hematocrit 32.4L , Mean Corpuscular Volume 84, Mean Corpuscular Hemoglobin 27.6, Mean Corpuscular Hemoglobin Concent 32.7, Red Cell Distribution Width 15.5H, Platelet Count 310, Mean Platelet Volume 6.8, Neutrophils (%) (Auto) 69.0, Lymphocytes (%) (Auto) 15.7L, Monocytes (%) (Auto) 8.8, Eosinophils (%) (Auto) 5.5H, Basophils (%) (Auto) 0.9, Sodium Level 136, Potassium Level 4.6, Chloride Level 101, Carbon Dioxide Level 26, Anion Gap 9, Blood Urea Nitrogen 42H, Creatinine 1.1, Estimat Glomerular Filtration Rate , Glucose Level 105, Calcium Level 9.0 Height (Feet): 5 Height (Inches): 2.00 Weight (Pounds): 122 General Appearance: lethargic EENT: normal ENT inspection Neck: normal alignment Cardiovascular: normal peripheral pulses, normal rate, regular rhythm Respiratory/Chest: chest wall non-tender, lungs clear, normal breath sounds Abdomen: normal bowel sounds, non tender, soft Extremities: normal inspection Edema: no edema noted Arm (L), no edema noted Arm (R), no edema noted Leg (L), no edema noted Leg (R), no edema noted Pedal (L), no edema noted Pedal (R), no edema noted Generalized Neurologic: motor weakness Skin: normal pigmentation, warm/dry Guevara Lala DO September 12, 2018 14:29
--- NOTE | 2018-09-12 14:38 | Surgery Progress Note ---
Surgery Progress Note Subjective Additional Comments no acute events. exam unchanged. resting comfortable. labs noted. Objective Last 24 Hour Vital Signs Date Time Temp Pulse Resp B/P (MAP) Pulse Ox O2 Delivery O2 Flow Rate FiO2 09/12/18 12:00 97.2 90 20 114/71 (85) 98 09/12/18 08:30 Room Air 09/12/18 08:00 98.2 86 20 117/60 (79) 97 09/12/18 04:00 98.3 87 19 120/68 (85) 97 09/12/18 00:00 99.6 92 19 109/59 (76) 98 09/11/18 21:00 Room Air 09/11/18 20:24 90 18 Room Air 21 09/11/18 20:00 98.3 91 19 117/62 (80) 97 09/11/18 16:00 98.5 93 20 125/71 (89) 96 I&O Intake and Output 09/11/18 09/12/18 19:00 07:00 Intake Total 925 ml 830 ml Output Total 250 ml Balance 925 ml 580 ml Intake Free Water 150 ml 110 ml IV Total 55 ml Tube Feeding 720 ml 720 ml Output Urine Total 250 ml # Voids 4 # Bowel Movements 1 Laboratory Tests Test 09/12/18 05:48 White Blood Count 9.4 K/UL (4.8-10.8) Red Blood Count 3.85 M/UL (4.20-5.40) L Hemoglobin 10.6 G/DL (12.0-16.0) L Hematocrit 32.4 % (37.0-47.0) L Mean Corpuscular Volume 84 FL (80-99) Mean Corpuscular Hemoglobin 27.6 PG (27.0-31.0) Mean Corpuscular Hemoglobin Concent 32.7 G/DL (32.0-36.0) Red Cell Distribution Width 15.5 % (11.6-14.8) H Platelet Count 310 K/UL (150-450) Mean Platelet Volume 6.8 FL (6.5-10.1) Neutrophils (%) (Auto) 69.0 % (45.0-75.0) Lymphocytes (%) (Auto) 15.7 % (20.0-45.0) L Monocytes (%) (Auto) 8.8 % (1.0-10.0) Eosinophils (%) (Auto) 5.5 % (0.0-3.0) H Basophils (%) (Auto) 0.9 % (0.0-2.0) Sodium Level 136 MMOL/L (136-145) Potassium Level 4.6 MMOL/L (3.5-5.1) Chloride Level 101 MMOL/L (98-107) Carbon Dioxide Level 26 MMOL/L (21-32) Anion Gap 9 mmol/L (5-15) Blood Urea Nitrogen 42 mg/dL (7-18) H Creatinine 1.1 MG/DL (0.55-1.30) Estimat Glomerular Filtration Rate mL/min (>60) Glucose Level 105 MG/DL (74-106) Hemoglobin A1c Pending Calcium Level 9.0 MG/DL (8.5-10.1) Triglycerides Level Pending Cholesterol Level Pending LDL Cholesterol Pending HDL Cholesterol Pending Cholesterol/HDL Ratio Pending Plan Problems: (1) Sepsis Assessment & Plan: on IV Abx labs improved AM labs ordered (2) Anemia (3) Dementia (4) Diverticulosis (5) Failure to thrive Assessment & Plan: DAILY ESTIMATED NEEDS: Needs based on Sepsis, wounds 54.5kg 25-35 kcals/kg 5235-4606 total kcals 1.25-2 g protein/kg 68-109 g total protein 25-30 mL/kg 2747-3730 total fluid mLs NUTRITION DIAGNOSIS: 1) Increased kcal and pro needs r/t wound healing as evidenced by pt w/ open R toe wound, bone exposed, sacral / buttock erythema, and BL heel boggy. 2) Swallowing difficulty r/t dysphagia as evidenced by pt is GT dep. ENTERAL NUTRITION RECOMMENDATIONS: Maintain Jevity 1.2 @60ml/hr x24 hrs as tolerated to provide 1440ml, 1728 kcal, 80g pro, 1163ml free H2O - As tolerated advance TF 10ml/hr q4-6 hrs to goal - Flush per MD/ HOB over 30 degrees ------- ADDITIONAL RECOMMENDATIONS: 1) Obtain a CALIBRATED bed scale wt 2) TF recs as above 3) Monitor lytes daily, replete as needed 4) Monitor BG, need for carb control formula 5) Wound care: add STEPHANIE BID via GT + Vit C 250mg daily (6) Hyponatremia (7) UTI (urinary tract infection) (8) Cellulitis and abscess of foot Assessment & Plan: right foot second ray with distal open wound with exposed bone, periwound erythema and cellulitis. -plain films ordered - Very limited evaluation. No obvious plain film evidence for osteomyelitis or gas gangrene. Hyperpigmentation without erythema noted to sacrum . Wound R 2nd metatarsal moist -viable,(+) maceration along edges . Small amt non- odorous serous exudate noted. Dark discoloration periwound. R and L heels resolved -both heels are boggy but blanchable.Pt did not exhibit any distress when R or L heel palpated. Tx.Plan: Cleanse R 2nd metatarsal with Saline. Apply Silvasorb Gel.Apply Calcium Alginate.Cover with Optifoam drsg. Change every 3 days and prn. (9) Decubitus skin ulcer Assessment & Plan: patient presented from [facility] with multiple wounds sacral / buttock erythema identified right second ray with open wound and cellulitis right and left heel boggy and soft Tx plan: apply skin protectant to sacral / buttock area, cover with foam dressing, change q3days Xeroform dressing and gauze followed by kerlix wrap to right toe heel protectors off load heels with pillow turn q2 air mattress Pb Ojeda September 12, 2018 14:38
[2018-09-12 14:43] LABS: CHOLESTEROL 124 MG/DL (< 200); HDL CHOLESTEROL 36 MG/DL (40-60); TRIGLYCERIDES 114 MG/DL (30-150)
[2018-09-12 16:00] VITALS: BP 118/70
--- NOTE | 2018-09-12 19:25 | NUR ---
HAND-OFF: Report given to AUDREY Jorgensen.
--- NOTE | 2018-09-12 19:30 | NUR ---
NURSE NOTES: RECEIVED PATIENT LYING IN BED, NON VERBAL/MUMBLING, ALL NEEDS ANTICIPATED AND MET BY NURSING STAFF, NO SIGNS AND SYMPTOMS OF ACUTE CARDIO RESPIRATORY DISTRESS/SHORTNESS OF BREATH, NO PERIPHERAL EDEMA NOTED. SKIN ASSESSMENT; REDNESS NOTED TO BILATERAL HEELS, RIGHT GREAT TOE REDNESS, RIGHT 2ND TOE OPEN WOUND (OPTIFOAM NOTED TO SACRAL/HEELS/RIGHT 2ND TOE), REPOSITIONED FOR COMFORT/PRESSURE RELIEF. G TUBE INTACT TO MID ABDOMEN, TOLERATING FEEDING, NO GASTRIC RESIDUAL ASPIRATED. ASPIRATION PRECAUTIONS OBSERVED AT ALL TIMES. SIDE RAILS UP X3/BED IN LOWEST POSITION FOR SAFETY. CALL LIGHT WITHIN REACH. FREQUENT ROUNDS FOR SAFETY/NEEDS. NAD.
[2018-09-12 20:00] VITALS: BP 135/70
[2018-09-12] MEDS: Atorvastatin 20mg tab NG SCH (20:18)
[2018-09-12] MEDS: Donepezil 5mg Tab ORAL SCH (20:18)
[2018-09-13] VITALS: BP 93/60
--- NOTE | 2018-09-13 03:46 | Neurology Progress Note ---
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 Interim History Alert and with poorly formed speech due to lack of dentation and prior facial droop. Likely back to baseline at this time. Objective Physical Exam Last Vital Signs Date Time Temp Pulse Resp B/P (MAP) Pulse Ox O2 Delivery O2 Flow Rate FiO2 09/13/18 00:00 99.9 98 20 93/60 (71) 98 09/12/18 22:14 Room Air 21 Laboratory Tests Test 09/12/18 05:48 White Blood Count 9.4 K/UL (4.8-10.8) Red Blood Count 3.85 M/UL (4.20-5.40) L Hemoglobin 10.6 G/DL (12.0-16.0) L Hematocrit 32.4 % (37.0-47.0) L Mean Corpuscular Volume 84 FL (80-99) Mean Corpuscular Hemoglobin 27.6 PG (27.0-31.0) Mean Corpuscular Hemoglobin Concent 32.7 G/DL (32.0-36.0) Red Cell Distribution Width 15.5 % (11.6-14.8) H Platelet Count 310 K/UL (150-450) Mean Platelet Volume 6.8 FL (6.5-10.1) Neutrophils (%) (Auto) 69.0 % (45.0-75.0) Lymphocytes (%) (Auto) 15.7 % (20.0-45.0) L Monocytes (%) (Auto) 8.8 % (1.0-10.0) Eosinophils (%) (Auto) 5.5 % (0.0-3.0) H Basophils (%) (Auto) 0.9 % (0.0-2.0) Sodium Level 136 MMOL/L (136-145) Potassium Level 4.6 MMOL/L (3.5-5.1) Chloride Level 101 MMOL/L (98-107) Carbon Dioxide Level 26 MMOL/L (21-32) Anion Gap 9 mmol/L (5-15) Blood Urea Nitrogen 42 mg/dL (7-18) H Creatinine 1.1 MG/DL (0.55-1.30) Estimat Glomerular Filtration Rate mL/min (>60) Glucose Level 105 MG/DL (74-106) Hemoglobin A1c 5.1 % (4.3-6.0) Calcium Level 9.0 MG/DL (8.5-10.1) Triglycerides Level 114 MG/DL (30-150) Cholesterol Level 124 MG/DL (< 200) LDL Cholesterol 75 mg/dL (<100) HDL Cholesterol 36 MG/DL (40-60) L Cholesterol/HDL Ratio 3.4 (3.3-4.4) Neurologic Exam Mental Status: other Speech: other Language: other Cranial Nerve II: no papilledema, other Cranial Nerves III, IV, : PERRLA Cranial Nerve VII: no facial asymmetry Cranial Nerve VIII: normal hearing Cranial Nerve IX: normal palate elevation Cranial Nerve XI: SCM symmetric Cranial Nerve XII: tongue midline Motor System: other Sensory: other Objective Remains aphasic, but is making noises now. She is contracted at baseline but showing partial strength without obvious focal weakness in both UEs. 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 Moderate generalized atrophy of the brain. Continue Q4 hour obs IV Hydration Empiric Abx for UTI Culture Urine SBP<140 Maintain normoglycemia with ISS -continue enteral feeding TTE Carotid Doppler Bilaterally studies pending Cassandra Chang N.P. September 13, 2018 03:46
[2018-09-13 04:00] VITALS: BP 105/61
--- NOTE | 2018-09-13 06:18 | NUR ---
NURSE NOTES: RESTED WELL, NO SIGNIFICANT CHANGE OF CONDITION NOTED THROUGHOUT THE NIGHT. SAFETY MAINTAINED. NAD.
--- NOTE | 2018-09-13 07:30 | NUR ---
HAND-OFF: Report given to AUDREY STEWART.
[2018-09-13 07:33] LABS: ANION GAP 8 mmol/L (5-15); BLOOD UREA NITROGEN 41 mg/dL (7-18); CALCIUM 9.3 MG/DL (8.5-10.1); CARBON DIOXIDE 27 MMOL/L (21-32); CHLORIDE 102 MMOL/L (98-107); CREATININE 1.1 MG/DL (0.55-1.30); SODIUM 137 MMOL/L (136-145)
[2018-09-13 07:35] LABS: EOSINOPHILS % (AUTO) 4.6 % (0.0-3.0); HEMATOCRIT 34.9 % (37.0-47.0); HEMOGLOBIN 11.4 G/DL (12.0-16.0); LYMPHOCYTES % (AUTO) 13.1 % (20.0-45.0); MEAN CORPUSCULAR VOLUME 84 FL (80-99); MONOCYTES % (AUTO) 9.7 % (1.0-10.0); NEUTROPHILS % (AUTO) 71.6 % (45.0-75.0); PLATELET COUNT 346 K/UL (150-450); RED BLOOD COUNT 4.14 M/UL (4.20-5.40); RED CELL DISTRIBUTION WIDTH 15.3 % (11.6-14.8); WHITE BLOOD COUNT 9.8 K/UL (4.8-10.8)
[2018-09-13 08:00] VITALS: BP 123/60
--- NOTE | 2018-09-13 08:00 | NUR ---
NURSE NOTES: RECEIVED PATIENT LYING IN BED, NON VERBAL, EPISODES OF MUMBLED SPEECH. NO SIGNS AND SYMPTOMS OF ACUTE CARDIO-RESPIRATORY DISTRESS/SHORTNESS OF BREATH, NO PERIPHERAL EDEMA NOTED. REPOSITIONED FOR COMFORT/PRESSURE RELIEF. G TUBE INTACT AND NO GASTRIC RESIDUAL NOTED. TOLERATING FEEDING. ASPIRATION PRECAUTIONS OBSERVED AT ALL TIMES. SIDE RAILS UP X3/BED IN LOWEST POSITION FOR SAFETY. CALL LIGHT WITHIN REACH. FREQUENT ROUNDS FOR SAFETY/NEEDS. WILL CONT TO MONITOR.
--- NOTE | 2018-09-13 08:08 | General Progress Note ---
Assessment/Plan Problem List: (1) Sepsis ICD Codes: A41.9 - Sepsis SNOMED: 22056723 (2) Dementia ICD Codes: F03.90 - Dementia SNOMED: 66064217 (3) CVA (cerebral vascular accident) ICD Codes: I63.9 - Cerebral infarction, unspecified SNOMED: 794830320 (4) Fever ICD Codes: R50.9 - Fever, unspecified SNOMED: 155379228 (5) Shock ICD Codes: R57.9 - Shock, unspecified SNOMED: 81162629 Status: stable, progressing, unchanged Assessment/Plan: pt diet abx resume med psyc and neuro eval dc if clear Subjective Constitutional: Reports: weakness Allergies: Coded Allergies: No Known Allergies (Unverified , 10/09/12) All Systems: reviewed and negative except above Subjective sleepy calm in bed Objective Last 24 Hour Vital Signs Date Time Temp Pulse Resp B/P (MAP) Pulse Ox O2 Delivery O2 Flow Rate FiO2 09/13/18 04:00 98.6 89 18 105/61 (76) 94 09/13/18 00:00 99.9 98 20 93/60 (71) 98 09/12/18 22:14 95 20 Room Air 21 09/12/18 21:00 Room Air 09/12/18 20:00 98.2 97 18 135/70 (91) 98 09/12/18 16:00 98.2 100 20 118/70 (86) 97 09/12/18 12:00 97.2 90 20 114/71 (85) 98 09/12/18 08:30 Room Air Intake and Output 09/12/18 09/13/18 18:59 06:59 Intake Total 920 ml 840 ml Output Total 801 ml 400 ml Balance 119 ml 440 ml Intake Free Water 200 ml 120 ml Tube Feeding 720 ml 720 ml Output Urine Total 800 ml 400 ml Stool Total 1 ml # Voids 6 Laboratory Tests 09/13/18 06:49: White Blood Count 9.8, Red Blood Count 4.14L, Hemoglobin 11.4L, Hematocrit 34.9L , Mean Corpuscular Volume 84, Mean Corpuscular Hemoglobin 27.6, Mean Corpuscular Hemoglobin Concent 32.7, Red Cell Distribution Width 15.3H, Platelet Count 346, Mean Platelet Volume 6.6, Neutrophils (%) (Auto) 71.6, Lymphocytes (%) (Auto) 13.1L, Monocytes (%) (Auto) 9.7, Eosinophils (%) (Auto) 4.6H, Basophils (%) (Auto) 1.0, Sodium Level 137, Potassium Level 5.0, Chloride Level 102, Carbon Dioxide Level 27, Anion Gap 8, Blood Urea Nitrogen 41H, Creatinine 1.1, Estimat Glomerular Filtration Rate , Glucose Level 119H, Calcium Level 9.3 Height (Feet): 5 Height (Inches): 2.00 Weight (Pounds): 122 General Appearance: lethargic EENT: normal ENT inspection Neck: normal alignment Cardiovascular: normal peripheral pulses, normal rate, regular rhythm Respiratory/Chest: chest wall non-tender, lungs clear, normal breath sounds Abdomen: normal bowel sounds, non tender, soft Extremities: normal inspection Edema: no edema noted Arm (L), no edema noted Arm (R), no edema noted Leg (L), no edema noted Leg (R), no edema noted Pedal (L), no edema noted Pedal (R), no edema noted Generalized Neurologic: motor weakness Skin: normal pigmentation, warm/dry Guevara Lala DO September 13, 2018 08:08
[2018-09-13] MEDS: Aspirin EC 81mg tab ORAL SCH (09:02)
[2018-09-13] MEDS: Heparin 5000 units/ml inj SUBQ SCH ×2 (09:11→21:49)
[2018-09-13] MEDS: cefTRIAXone 1 GM in D5W 55 ML IVPB SCH (09:55)
[2018-09-13 12:00] VITALS: BP 120/65
--- NOTE | 2018-09-13 12:56 | Pulmonology Progress Note ---
Assessment/Plan Problems: (1) Sepsis (2) ATN (acute tubular necrosis) (3) UTI (urinary tract infection) (4) Decubitus skin ulcer (5) Severe protein-calorie malnutrition (6) Dementia (7) Limited mobility in bed (8) Feeding by G-tube (9) History of hypertension (10) Flexion contractures Assessment/Plan all reviewed looks comfortable thomas culture, urine has Klebsiella IV fluids check electrolytes dvt prophylaxis resume Gtube feeding dvt prophylaxis. Subjective ROS Limited/Unobtainable: No Constitutional: Reports: no symptoms HEENT: Repors: no symptoms Respiratory: Reports: no symptoms Cardiovascular: Reports: no symptoms Allergies: Coded Allergies: No Known Allergies (Unverified , 10/09/12) Objective Last 24 Hour Vital Signs Date Time Temp Pulse Resp B/P (MAP) Pulse Ox O2 Delivery O2 Flow Rate FiO2 09/13/18 12:00 98.0 82 18 120/65 (83) 95 09/13/18 08:37 Room Air 09/13/18 08:00 97.8 86 18 123/60 (81) 95 09/13/18 04:00 98.6 89 18 105/61 (76) 94 09/13/18 00:00 99.9 98 20 93/60 (71) 98 09/12/18 22:14 95 20 Room Air 21 09/12/18 21:00 Room Air 09/12/18 20:00 98.2 97 18 135/70 (91) 98 09/12/18 16:00 98.2 100 20 118/70 (86) 97 Intake and Output 09/12/18 09/13/18 18:59 06:59 Intake Total 920 ml 840 ml Output Total 801 ml 400 ml Balance 119 ml 440 ml Intake Free Water 200 ml 120 ml Tube Feeding 720 ml 720 ml Output Urine Total 800 ml 400 ml Stool Total 1 ml # Voids 6 General Appearance: WD/WN HEENT: normocephalic, atraumatic Respiratory/Chest: chest wall non-tender, lungs clear Breasts: no masses Cardiovascular: normal peripheral pulses, normal rate Abdomen: normal bowel sounds, soft, non tender Genitourinary: normal external genitalia Extremities: no cyanosis Skin: no rash Neurologic/Psychiatric: insurance examiner II-XII grossly normal Lymphatic: no neck adenopathy Musculoskeletal: normal muscle bulk Laboratory Tests 09/13/18 06:49: White Blood Count 9.8, Red Blood Count 4.14L, Hemoglobin 11.4L, Hematocrit 34.9L , Mean Corpuscular Volume 84, Mean Corpuscular Hemoglobin 27.6, Mean Corpuscular Hemoglobin Concent 32.7, Red Cell Distribution Width 15.3H, Platelet Count 346, Mean Platelet Volume 6.6, Neutrophils (%) (Auto) 71.6, Lymphocytes (%) (Auto) 13.1L, Monocytes (%) (Auto) 9.7, Eosinophils (%) (Auto) 4.6H, Basophils (%) (Auto) 1.0, Sodium Level 137, Potassium Level 5.0, Chloride Level 102, Carbon Dioxide Level 27, Anion Gap 8, Blood Urea Nitrogen 41H, Creatinine 1.1, Estimat Glomerular Filtration Rate , Glucose Level 119H, Calcium Level 9.3 Current Medications Medications (Trade) Dose Ordered Sig/Khoa Route PRN Reason Start Time Stop Time Status Last Admin Dose Admin Acetaminophen (Tylenol) 650 mg Q4H PRN ORAL T>100.5 09/10/18 17:49 10/10/18 17:48 Albuterol/ Ipratropium (Albuterol/ Ipratropium) 3 ml Q4H PRN HHN Shortness of Breath 09/10/18 17:50 09/15/18 17:49 Aspirin (Ecotrin) 81 mg DAILY ORAL 09/13/18 09:00 10/13/18 08:59 09/13/18 09:02 Atorvastatin Calcium (Lipitor) 40 mg BEDTIME NG 09/12/18 21:00 10/12/18 20:59 09/12/18 20:18 Ceftriaxone Sodium 1 gm/ Dextrose 55 ml @ 110 mls/hr DAILY IVPB 09/12/18 09:00 09/19/18 08:59 09/13/18 09:55 Donepezil HCl (Aricept) 5 mg BEDTIME ORAL 09/10/18 21:00 10/08/18 20:59 09/12/18 20:18 Heparin Sodium (Porcine) (Heparin 5000 units/ml) 5,000 units EVERY 12 HOURS SUBQ 09/10/18 21:00 10/08/18 20:59 09/13/18 09:11 Lorazepam (Ativan) 0.5 mg Q6H PRN ORAL For Anxiety 09/10/18 17:50 09/17/18 17:49 09/10/18 19:49 Morphine Sulfate (Morphine Sulfate) 2 mg Q4H PRN IVP PAIN 4-10 09/10/18 17:50 09/17/18 17:49 Nitroglycerin (Ntg) 0.4 mg Q5MIN X 3 DOSES PRN SL Prn Chest Pain 09/10/18 17:50 10/10/18 17:49 Ondansetron HCl (Zofran) 4 mg Q6H PRN IVP Nausea & Vomiting 09/10/18 17:50 10/10/18 17:49 Polyethylene Glycol (Miralax) 17 gm DAILYPRN PRN ORAL Constipation 09/10/18 17:50 10/10/18 17:49 Temazepam (Restoril) 15 mg HSPRN PRN ORAL Insomnia 09/10/18 17:50 09/17/18 17:49 Dajuan Lam MD September 13, 2018 12:56
--- NOTE | 2018-09-13 14:02 | NUR ---
ST NOTE: SWALLOW/SPEECH/LANGUAGE/COGNITIONS STATUS: FOLLOWED UP PT'S CONDITIONS. REVIEWED PT'S CHART. PT SEEN AT BEDSIDE IN PM. MORE AWAKE BUT UNABLE TO MAINTAIN ALERTNESS A PERIOD OF THE TIME(IN AND OUT). PT DID NOT FOLLOW SIMPLE DIRECTIONS. DRY MOUTH WAS NOTED, REDUCED LINGUAL MOVEMENT, SEEMS FLACCID. NOT APPROPRIATE FOR PO TRIAL AT THIS TIME. DISCUSSED WITH CHARGE NURSE, YEIMI AND PT'S NURSEGELY RE: PT'S CONDITIONS. RECOMMENDATIONS: 1. CONTINUE STRICT NPO WITH ORAL CARE 2. CONTINUE LONG-TERM NONORAL FEEDING MEANS TO MEET NUTRITION AND HYDRATION NEEDS. 3. REFER PT TO EVENING OR NIGHT NURSE SUPERVISOR AT DISCHARGE FACILITY RE: SWALLOW TX 4. MODIFIED BARIUM SWALLOW STUDY OP(IF D/C) WHEN PT IS READY TO R/O ANY SILENT ASPIRATION RISK. D/W THE STAFF.
--- NOTE | 2018-09-13 14:25 | NUR ---
NURSE NOTES: Gtube got pulled out by patient. informed Dr. Lam. awaits for a call back. Addendum: 09/13/18 at 1438 by TRISTEN ROTHMAN LVN spoke with Dr Christian and obtained new order. will cont to monitor.
--- NOTE | 2018-09-13 14:47 | NUR ---
DISCHARGE PLANNING DISCHARGE ORDER NOTED Patient has been accepted to; [facility] [address] [place] [address] Bed:306-A Skilled [phone] for Nurse to Nurse report [facility] ETA for transportation: 15:30 Family notify of discharge plans, Lisa Van ( Granddaughter) [phone]
--- NOTE | 2018-09-13 14:52 | NUR ---
NURSE NOTES: patient managed to pulled out gtube. Dr Christian and Dr Lam notified and obtained new order from Dr. christian. patient no acute resp distress noted. kept hob elevated for aspiration precaution. siderails are up x3. kept bed in the lowest position. call light is within reach. will cont to monitor.
[2018-09-13] MEDS ORDERED: Tubing IV Secondary IV ONE (15:58)
[2018-09-13] MEDS ORDERED: NS 275ml ONE (15:58)
[2018-09-13 16:00] VITALS: BP 125/72
--- NOTE | 2018-09-13 16:08 | Surgery Progress Note ---
Surgery Progress Note Subjective Additional Comments no acute events comfortable exam stable labs improved micro with Urine Kleb Objective Last 24 Hour Vital Signs Date Time Temp Pulse Resp B/P (MAP) Pulse Ox O2 Delivery O2 Flow Rate FiO2 09/13/18 12:00 98.0 82 18 120/65 (83) 95 09/13/18 08:37 Room Air 09/13/18 08:00 97.8 86 18 123/60 (81) 95 09/13/18 04:00 98.6 89 18 105/61 (76) 94 09/13/18 00:00 99.9 98 20 93/60 (71) 98 09/12/18 22:14 95 20 Room Air 21 09/12/18 21:00 Room Air 09/12/18 20:00 98.2 97 18 135/70 (91) 98 I&O Intake and Output 09/12/18 09/13/18 19:00 07:00 Intake Total 980 ml 780 ml Output Total 801 ml 400 ml Balance 179 ml 380 ml Intake Free Water 260 ml 60 ml Tube Feeding 720 ml 720 ml Output Urine Total 800 ml 400 ml Stool Total 1 ml # Voids 6 Dressing: saturated Wound: other Drains: other Cardiovascular: RSR Respiratory: decreased breath sounds Abdomen: soft, non-tender, present bowel sounds, non-distended Extremities: no tenderness, no cyanosis Laboratory Tests Test 09/13/18 06:49 White Blood Count 9.8 K/UL (4.8-10.8) Red Blood Count 4.14 M/UL (4.20-5.40) L Hemoglobin 11.4 G/DL (12.0-16.0) L Hematocrit 34.9 % (37.0-47.0) L Mean Corpuscular Volume 84 FL (80-99) Mean Corpuscular Hemoglobin 27.6 PG (27.0-31.0) Mean Corpuscular Hemoglobin Concent 32.7 G/DL (32.0-36.0) Red Cell Distribution Width 15.3 % (11.6-14.8) H Platelet Count 346 K/UL (150-450) Mean Platelet Volume 6.6 FL (6.5-10.1) Neutrophils (%) (Auto) 71.6 % (45.0-75.0) Lymphocytes (%) (Auto) 13.1 % (20.0-45.0) L Monocytes (%) (Auto) 9.7 % (1.0-10.0) Eosinophils (%) (Auto) 4.6 % (0.0-3.0) H Basophils (%) (Auto) 1.0 % (0.0-2.0) Sodium Level 137 MMOL/L (136-145) Potassium Level 5.0 MMOL/L (3.5-5.1) Chloride Level 102 MMOL/L (98-107) Carbon Dioxide Level 27 MMOL/L (21-32) Anion Gap 8 mmol/L (5-15) Blood Urea Nitrogen 41 mg/dL (7-18) H Creatinine 1.1 MG/DL (0.55-1.30) Estimat Glomerular Filtration Rate mL/min (>60) Glucose Level 119 MG/DL (74-106) H Calcium Level 9.3 MG/DL (8.5-10.1) Plan Problems: (1) Sepsis Assessment & Plan: on IV Abx labs improved AM labs ordered (2) Anemia (3) Dementia (4) Diverticulosis (5) Failure to thrive Assessment & Plan: DAILY ESTIMATED NEEDS: Needs based on Sepsis, wounds 54.5kg 25-35 kcals/kg 5098-3692 total kcals 1.25-2 g protein/kg 68-109 g total protein 25-30 mL/kg 7978-1947 total fluid mLs NUTRITION DIAGNOSIS: 1) Increased kcal and pro needs r/t wound healing as evidenced by pt w/ open R toe wound, bone exposed, sacral / buttock erythema, and BL heel boggy. 2) Swallowing difficulty r/t dysphagia as evidenced by pt is GT dep. ENTERAL NUTRITION RECOMMENDATIONS: Maintain Jevity 1.2 @60ml/hr x24 hrs as tolerated to provide 1440ml, 1728 kcal, 80g pro, 1163ml free H2O - As tolerated advance TF 10ml/hr q4-6 hrs to goal - Flush per MD/ HOB over 30 degrees ------- ADDITIONAL RECOMMENDATIONS: 1) Obtain a CALIBRATED bed scale wt 2) TF recs as above 3) Monitor lytes daily, replete as needed 4) Monitor BG, need for carb control formula 5) Wound care: add STEPHANIE BID via GT + Vit C 250mg daily (6) Hyponatremia (7) UTI (urinary tract infection) (8) Cellulitis and abscess of foot Assessment & Plan: right foot second ray with distal open wound with exposed bone, periwound erythema and cellulitis. -plain films ordered - Very limited evaluation. No obvious plain film evidence for osteomyelitis or gas gangrene. Hyperpigmentation without erythema noted to sacrum . Wound R 2nd metatarsal moist -viable,(+) maceration along edges . Small amt non- odorous serous exudate noted. Dark discoloration periwound. R and L heels resolved -both heels are boggy but blanchable.Pt did not exhibit any distress when R or L heel palpated. Tx.Plan: Cleanse R 2nd metatarsal with Saline. Apply Silvasorb Gel.Apply Calcium Alginate.Cover with Optifoam drsg. Change every 3 days and prn. (9) Decubitus skin ulcer Assessment & Plan: patient presented from [facility] with multiple wounds sacral / buttock erythema identified right second ray with open wound and cellulitis right and left heel boggy and soft Tx plan: apply skin protectant to sacral / buttock area, cover with foam dressing, change q3days Xeroform dressing and gauze followed by kerlix wrap to right toe heel protectors off load heels with pillow turn q2 air mattress Pb Ojeda September 13, 2018 16:08
--- NOTE | 2018-09-13 16:17 | Infectious Diseases Prog Note ---
Assessment/Plan Assessment/Plan Assessment: Sepsis; imrpovnig- likely 2ry to UTI -u/a wbc 20-30, nit +, leuk +3; ucx >100k K. pna (R amp; I nitro; otherwise S) , >100k GBS -CXR: Mildly increased perihilar interstitial markings. This is nonspecific but may suggest mild bronchitis or a mild interstitial pneumonitis. No focal consolidation. 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 Moderate generalized atrophy of the brain. R 2nd toe open wound w/ exposed bone- likely chronic OM -xray R foot: Very limited evaluation. No obvious plain film evidence for osteomyelitis or gas gangrene. Consider MRI. HTN CHF advanced Dementia TIA dysphagia/FTT s/p Gtube contracted multiple decubiti wounds longterm resident Plan: -Cont Ceftriaxone #3 (abx d#10/07) for UTI -upon discharge can be transitioned to PO Keflex 500mg bid -09/11 SP IV Vancomycin #4 , Cefepime #4 -09/08 SP Ceftriaxone x1 -f/u cx -Monitor CBC/CMP, temperatures -wound care per surgical team -aspiration precautions Thank you for this consultation. Will continue to follow along with you. Discussed with RN. Subjective Allergies: Coded Allergies: No Known Allergies (Unverified , 10/09/12) Subjective afebrile >72hrs no leuokocytosis Bcx NTD Objective Vital Signs Last 24 Hour Vital Signs Date Time Temp Pulse Resp B/P (MAP) Pulse Ox O2 Delivery O2 Flow Rate FiO2 09/13/18 12:00 98.0 82 18 120/65 (83) 95 09/13/18 08:37 Room Air 09/13/18 08:00 97.8 86 18 123/60 (81) 95 09/13/18 04:00 98.6 89 18 105/61 (76) 94 09/13/18 00:00 99.9 98 20 93/60 (71) 98 09/12/18 22:14 95 20 Room Air 21 09/12/18 21:00 Room Air 09/12/18 20:00 98.2 97 18 135/70 (91) 98 Height (Feet): 5 Height (Inches): 2.00 Weight (Pounds): 122 Objective GENERAL: Lethargic in bed, not responding to questions. CARDIOVASCULAR: No murmur. LUNGS: Poor air exchange. ABDOMEN: Bowel sounds distant. EXTREMITIES: No cyanosis, clubbing, or edema. NEUROLOGIC: The patient is flaccid in bed, not really follow directions. Laboratory Tests Test 09/13/18 06:49 White Blood Count 9.8 K/UL (4.8-10.8) Red Blood Count 4.14 M/UL (4.20-5.40) L Hemoglobin 11.4 G/DL (12.0-16.0) L Hematocrit 34.9 % (37.0-47.0) L Mean Corpuscular Volume 84 FL (80-99) Mean Corpuscular Hemoglobin 27.6 PG (27.0-31.0) Mean Corpuscular Hemoglobin Concent 32.7 G/DL (32.0-36.0) Red Cell Distribution Width 15.3 % (11.6-14.8) H Platelet Count 346 K/UL (150-450) Mean Platelet Volume 6.6 FL (6.5-10.1) Neutrophils (%) (Auto) 71.6 % (45.0-75.0) Lymphocytes (%) (Auto) 13.1 % (20.0-45.0) L Monocytes (%) (Auto) 9.7 % (1.0-10.0) Eosinophils (%) (Auto) 4.6 % (0.0-3.0) H Basophils (%) (Auto) 1.0 % (0.0-2.0) Sodium Level 137 MMOL/L (136-145) Potassium Level 5.0 MMOL/L (3.5-5.1) Chloride Level 102 MMOL/L (98-107) Carbon Dioxide Level 27 MMOL/L (21-32) Anion Gap 8 mmol/L (5-15) Blood Urea Nitrogen 41 mg/dL (7-18) H Creatinine 1.1 MG/DL (0.55-1.30) Estimat Glomerular Filtration Rate mL/min (>60) Glucose Level 119 MG/DL (74-106) H Calcium Level 9.3 MG/DL (8.5-10.1) Current Medications Medications (Trade) Dose Ordered Sig/Khoa Route PRN Reason Start Time Stop Time Status Last Admin Dose Admin Acetaminophen (Tylenol) 650 mg Q4H PRN ORAL T>100.5 09/10/18 17:49 10/10/18 17:48 Albuterol/ Ipratropium (Albuterol/ Ipratropium) 3 ml Q4H PRN HHN Shortness of Breath 09/10/18 17:50 09/15/18 17:49 Aspirin (Ecotrin) 81 mg DAILY ORAL 09/13/18 09:00 10/13/18 08:59 09/13/18 09:02 Atorvastatin Calcium (Lipitor) 40 mg BEDTIME NG 09/12/18 21:00 10/12/18 20:59 09/12/18 20:18 Ceftriaxone Sodium 1 gm/ Dextrose 55 ml @ 110 mls/hr DAILY IVPB 09/12/18 09:00 09/19/18 08:59 09/13/18 09:55 Donepezil HCl (Aricept) 5 mg BEDTIME ORAL 09/10/18 21:00 10/08/18 20:59 09/12/18 20:18 Heparin Sodium (Porcine) (Heparin 5000 units/ml) 5,000 units EVERY 12 HOURS SUBQ 09/10/18 21:00 10/08/18 20:59 09/13/18 09:11 Lorazepam (Ativan) 0.5 mg Q6H PRN ORAL For Anxiety 09/10/18 17:50 09/17/18 17:49 09/10/18 19:49 Morphine Sulfate (Morphine Sulfate) 2 mg Q4H PRN IVP PAIN 4-10 09/10/18 17:50 09/17/18 17:49 Nitroglycerin (Ntg) 0.4 mg Q5MIN X 3 DOSES PRN SL Prn Chest Pain 09/10/18 17:50 10/10/18 17:49 Ondansetron HCl (Zofran) 4 mg Q6H PRN IVP Nausea & Vomiting 09/10/18 17:50 10/10/18 17:49 Polyethylene Glycol (Miralax) 17 gm DAILYPRN PRN ORAL Constipation 09/10/18 17:50 10/10/18 17:49 Temazepam (Restoril) 15 mg HSPRN PRN ORAL Insomnia 09/10/18 17:50 09/17/18 17:49 Salud Atwood M.D. September 13, 2018 16:17
--- NOTE | 2018-09-13 18:03 | NUR ---
NURSE NOTES: IVF INITIATED. TEMP GTUBE INTACT AND KEPT CLAMPED UNTIL GI REPLACED GTUBE IN AM. NO GASTRIC DRAINAGE NOTED. KEPT HOB ELEVATED. NO ACUTE RESP DISTRESS NOTED. WILL CONT TO MONITOR.
--- NOTE | 2018-09-13 19:09 | NUR ---
HAND-OFF: Report given to Silvia.
[2018-09-13 20:00] VITALS: BP 122/65
--- NOTE | 2018-09-13 20:00 | NUR ---
NURSE NOTES: Received patient asleep in bed, no s/s of acute distress. Bilateral soft wrist restraints noted, peripheral pulses strong. G tube feeding stopped until approved by Dr Christian. Fall and safety precautions taken. Purewick draining well.
[2018-09-13] MEDS: Atorvastatin 20mg tab NG SCH (20:55)
[2018-09-13] MEDS: Donepezil 5mg Tab ORAL SCH (20:55)
[2018-09-14] VITALS: BP 133/71
[2018-09-14 04:00] VITALS: BP 132/76
--- NOTE | 2018-09-14 07:00 | NUR ---
NURSE NOTES: Received report from MARCELINA Vega. Pt in bed, nonverbal, A/O x0, awake, moaning, respirations unlabored, consoled by touch, G-tube to be changed by Dr. Christian in AM, bed in lowest position, call light within reach.
--- NOTE | 2018-09-14 07:39 | NUR ---
HAND-OFF: Report given to MARCELINA London.
[2018-09-14 08:00] VITALS: BP 142/75
--- NOTE | 2018-09-14 08:26 | Pulmonology Progress Note ---
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 Sepsis UTI Right second toe open wound with exposed bone, likely chronic osteomyelitis Carotid stenosis Encephalopathy Anemia Advanced dementia Acute tubular necrosis Multiply decub POA Severe protein calorie malnutrition Functional quadriplegia with flexion contracture and limited mobility in bed Dysphagia , feeding by G-tube PLAN OF CARE MS floor O2 prn , titrate to keep sat above 92% neuro follow MRI of the brain with 2 mm acute small vessel CVA involving the right Cadet carotid Doppler with bilateral moderate stenosis 5-60% ICA ASA and statin, lipid panel stable ECHO with pEF and RVSP of 21 Repeated troponin was negative, ECG revealed no acute ischemic changes. No signs of respiratory distress. Minimally elevated troponin was insignificant in this setting, possibly due to acute kidney injury initially versus small acute CVA due to demand ischemia. gentle IV fluids, monitor renal parameters, replete electrolytes as needed abx as per ID recommendation urine CX + Klebsiella, GRS, fever and leukocytosis resolved X-ray right foot no obvious evidence of osteomyelitis or gas gangrene per ID recommendation consider MRI O2 HHN PRN DVT prophylaxis Strict aspiration precaution , G-tube feeding Continue Aricept wound care as per surgeon recommendation dietary eval and protein supplements bowel regimen supportive care case discussed and evaluated by supervising physician Subjective Allergies: Coded Allergies: No Known Allergies (Unverified , 10/09/12) Subjective MRI brain + acute CVA no signs of resp distress . pulse ox stable on RA Objective Last 24 Hour Vital Signs Date Time Temp Pulse Resp B/P (MAP) Pulse Ox O2 Delivery O2 Flow Rate FiO2 09/14/18 08:00 98.2 83 18 142/75 (97) 95 09/14/18 04:00 97.4 75 18 132/76 (94) 98 09/14/18 00:00 97.3 80 18 133/71 (91) 98 09/13/18 23:11 78 20 Room Air 21 09/13/18 21:00 Room Air 09/13/18 20:00 98.2 81 18 122/65 (84) 96 09/13/18 16:00 97.8 85 18 125/72 (89) 95 09/13/18 12:00 98.0 82 18 120/65 (83) 95 09/13/18 08:37 Room Air Intake and Output 09/13/18 09/14/18 19:00 07:00 Intake Total 450 ml 400 ml Output Total 550 ml Balance 450 ml -150 ml Intake Free Water 90 ml IV Total 400 ml Tube Feeding 360 ml Output Urine Total 550 ml # Voids 4 General Appearance: no acute distress, other - elderly bedridden female , aphasic HEENT: normocephalic, atraumatic, anicteric, other Respiratory/Chest: lungs clear - with moderate air exchange Cardiovascular: normal peripheral pulses, normal rate Abdomen: soft, non tender, non distended Extremities: no edema, pedal pulses normal Neurologic/Psychiatric: abnormal gait - bedridden , other - partial strength without obvious focal weakness in both UEs, aphasic Musculoskeletal: atrophy - BLE Current Medications Medications (Trade) Dose Ordered Sig/Khoa Route PRN Reason Start Time Stop Time Status Last Admin Dose Admin Acetaminophen (Tylenol) 650 mg Q4H PRN ORAL T>100.5 09/10/18 17:49 10/10/18 17:48 Albuterol/ Ipratropium (Albuterol/ Ipratropium) 3 ml Q4H PRN HHN Shortness of Breath 09/10/18 17:50 09/15/18 17:49 Aspirin (Ecotrin) 81 mg DAILY ORAL 09/13/18 09:00 10/13/18 08:59 09/13/18 09:02 Atorvastatin Calcium (Lipitor) 40 mg BEDTIME NG 09/12/18 21:00 10/12/18 20:59 09/12/18 20:18 Ceftriaxone Sodium 1 gm/ Dextrose 55 ml @ 110 mls/hr DAILY IVPB 09/12/18 09:00 09/19/18 08:59 09/13/18 09:55 Donepezil HCl (Aricept) 5 mg BEDTIME ORAL 09/10/18 21:00 10/08/18 20:59 09/12/18 20:18 Heparin Sodium (Porcine) (Heparin 5000 units/ml) 5,000 units EVERY 12 HOURS SUBQ 09/10/18 21:00 10/08/18 20:59 09/13/18 21:49 Lorazepam (Ativan) 0.5 mg Q6H PRN ORAL For Anxiety 09/10/18 17:50 09/17/18 17:49 09/10/18 19:49 Morphine Sulfate (Morphine Sulfate) 2 mg Q4H PRN IVP PAIN 4-10 09/10/18 17:50 09/17/18 17:49 Nitroglycerin (Ntg) 0.4 mg Q5MIN X 3 DOSES PRN SL Prn Chest Pain 09/10/18 17:50 10/10/18 17:49 Ondansetron HCl (Zofran) 4 mg Q6H PRN IVP Nausea & Vomiting 09/10/18 17:50 10/10/18 17:49 Polyethylene Glycol (Miralax) 17 gm DAILYPRN PRN ORAL Constipation 09/10/18 17:50 10/10/18 17:49 Sodium Chloride 1,000 ml @ 50 mls/hr Q20H IV 09/13/18 17:45 10/13/18 17:44 09/13/18 17:36 Temazepam (Restoril) 15 mg HSPRN PRN ORAL Insomnia 09/10/18 17:50 09/17/18 17:49 Cherri Peterson NP September 14, 2018 08:26
[2018-09-14] MEDS: cefTRIAXone 1 GM in D5W 55 ML IVPB SCH (09:52)
[2018-09-14] MEDS: Aspirin EC 81mg tab ORAL SCH (09:52)
[2018-09-14] MEDS: Heparin 5000 units/ml inj SUBQ SCH (09:53)
--- NOTE | 2018-09-14 10:36 | Infectious Diseases Prog Note ---
Assessment/Plan Assessment/Plan Assessment: Sepsis; imrpovnig- likely 2ry to UTI -u/a wbc 20-30, nit +, leuk +3; ucx >100k K. pna (R amp; I nitro; otherwise S) , >100k GBS -CXR: Mildly increased perihilar interstitial markings. This is nonspecific but may suggest mild bronchitis or a mild interstitial pneumonitis. No focal consolidation. 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 Moderate generalized atrophy of the brain. R 2nd toe open wound w/ exposed bone- likely chronic OM -xray R foot: Very limited evaluation. No obvious plain film evidence for osteomyelitis or gas gangrene. Consider MRI. HTN CHF advanced Dementia TIA dysphagia/FTT s/p Gtube contracted multiple decubiti wounds [facility] resident Plan: -Cont Ceftriaxone #4 (abx d#11/06) for UTI -upon discharge can be transitioned to PO Keflex 500mg bid -09/11 SP IV Vancomycin #4 , Cefepime #4 -09/08 SP Ceftriaxone x1 -f/u cx -Monitor CBC/CMP, temperatures -wound care per surgical team -aspiration precautions Thank you for this consultation. Will continue to follow along with you. Discussed with RN. Subjective Allergies: Coded Allergies: No Known Allergies (Unverified , 10/09/12) Subjective afebrile no leuokocytosis Bcx Neg discharge planning Objective Vital Signs Last 24 Hour Vital Signs Date Time Temp Pulse Resp B/P (MAP) Pulse Ox O2 Delivery O2 Flow Rate FiO2 09/14/18 08:34 88 18 Room Air 21 09/14/18 08:00 98.2 83 18 142/75 (97) 95 09/14/18 04:00 97.4 75 18 132/76 (94) 98 09/14/18 00:00 97.3 80 18 133/71 (91) 98 09/13/18 23:11 78 20 Room Air 21 09/13/18 21:00 Room Air 09/13/18 20:00 98.2 81 18 122/65 (84) 96 09/13/18 16:00 97.8 85 18 125/72 (89) 95 09/13/18 12:00 98.0 82 18 120/65 (83) 95 Height (Feet): 5 Height (Inches): 2.00 Weight (Pounds): 122 Objective GENERAL: Lethargic in bed, not responding to questions. CARDIOVASCULAR: No murmur. LUNGS: Poor air exchange. ABDOMEN: Bowel sounds distant. EXTREMITIES: No cyanosis, clubbing, or edema. NEUROLOGIC: The patient is flaccid in bed, not really follow directions. Current Medications Medications (Trade) Dose Ordered Sig/Khoa Route PRN Reason Start Time Stop Time Status Last Admin Dose Admin Acetaminophen (Tylenol) 650 mg Q4H PRN ORAL T>100.5 09/10/18 17:49 10/10/18 17:48 Albuterol/ Ipratropium (Albuterol/ Ipratropium) 3 ml Q4H PRN HHN Shortness of Breath 09/10/18 17:50 09/15/18 17:49 Aspirin (Ecotrin) 81 mg DAILY ORAL 09/13/18 09:00 10/13/18 08:59 09/14/18 09:52 Atorvastatin Calcium (Lipitor) 40 mg BEDTIME NG 09/12/18 21:00 10/12/18 20:59 09/12/18 20:18 Ceftriaxone Sodium 1 gm/ Dextrose 55 ml @ 110 mls/hr DAILY IVPB 09/12/18 09:00 09/19/18 08:59 09/14/18 09:52 Donepezil HCl (Aricept) 5 mg BEDTIME ORAL 09/10/18 21:00 10/08/18 20:59 09/12/18 20:18 Heparin Sodium (Porcine) (Heparin 5000 units/ml) 5,000 units EVERY 12 HOURS SUBQ 09/10/18 21:00 10/08/18 20:59 09/14/18 09:53 Lorazepam (Ativan) 0.5 mg Q6H PRN ORAL For Anxiety 09/10/18 17:50 09/17/18 17:49 09/10/18 19:49 Morphine Sulfate (Morphine Sulfate) 2 mg Q4H PRN IVP PAIN 4-10 09/10/18 17:50 09/17/18 17:49 Nitroglycerin (Ntg) 0.4 mg Q5MIN X 3 DOSES PRN SL Prn Chest Pain 09/10/18 17:50 10/10/18 17:49 Ondansetron HCl (Zofran) 4 mg Q6H PRN IVP Nausea & Vomiting 09/10/18 17:50 10/10/18 17:49 Polyethylene Glycol (Miralax) 17 gm DAILYPRN PRN ORAL Constipation 09/10/18 17:50 10/10/18 17:49 Sodium Chloride 1,000 ml @ 50 mls/hr Q20H IV 09/13/18 17:45 10/13/18 17:44 09/13/18 17:36 Temazepam (Restoril) 15 mg HSPRN PRN ORAL Insomnia 09/10/18 17:50 09/17/18 17:49 Salud Atwood M.D. September 14, 2018 10:36
[2018-09-14] MEDS ORDERED: CEPHALEXIN500 MG GT (10:39)
--- NOTE | 2018-09-14 11:21 | Surgery Progress Note ---
Surgery Progress Note Subjective Additional Comments no acute events. comfortable. micro noted. Objective Last 24 Hour Vital Signs Date Time Temp Pulse Resp B/P (MAP) Pulse Ox O2 Delivery O2 Flow Rate FiO2 09/14/18 09:00 Room Air 09/14/18 08:34 88 18 Room Air 21 09/14/18 08:00 98.2 83 18 142/75 (97) 95 09/14/18 04:00 97.4 75 18 132/76 (94) 98 09/14/18 00:00 97.3 80 18 133/71 (91) 98 09/13/18 23:11 78 20 Room Air 21 09/13/18 21:00 Room Air 09/13/18 20:00 98.2 81 18 122/65 (84) 96 09/13/18 16:00 97.8 85 18 125/72 (89) 95 09/13/18 12:00 98.0 82 18 120/65 (83) 95 I&O Intake and Output 09/13/18 09/14/18 19:00 07:00 Intake Total 450 ml 400 ml Output Total 550 ml Balance 450 ml -150 ml Intake Free Water 90 ml IV Total 400 ml Tube Feeding 360 ml Output Urine Total 550 ml # Voids 4 Dressing: saturated Wound: other Drains: other Cardiovascular: RSR Respiratory: clear Abdomen: soft, non-tender, non-distended Extremities: no tenderness, no cyanosis Plan Problems: (1) Sepsis Assessment & Plan: on IV Abx labs improved AM labs ordered (2) Anemia (3) Dementia (4) Diverticulosis (5) Failure to thrive Assessment & Plan: DAILY ESTIMATED NEEDS: Needs based on Sepsis, wounds 54.5kg 25-35 kcals/kg 5289-2795 total kcals 1.25-2 g protein/kg 68-109 g total protein 25-30 mL/kg 5879-5618 total fluid mLs NUTRITION DIAGNOSIS: 1) Increased kcal and pro needs r/t wound healing as evidenced by pt w/ open R toe wound, bone exposed, sacral / buttock erythema, and BL heel boggy. 2) Swallowing difficulty r/t dysphagia as evidenced by pt is GT dep. ENTERAL NUTRITION RECOMMENDATIONS: Maintain Jevity 1.2 @60ml/hr x24 hrs as tolerated to provide 1440ml, 1728 kcal, 80g pro, 1163ml free H2O - As tolerated advance TF 10ml/hr q4-6 hrs to goal - Flush per MD/ HOB over 30 degrees ------- ADDITIONAL RECOMMENDATIONS: 1) Obtain a CALIBRATED bed scale wt 2) TF recs as above 3) Monitor lytes daily, replete as needed 4) Monitor BG, need for carb control formula 5) Wound care: add STEPHANIE BID via GT + Vit C 250mg daily (6) Hyponatremia (7) UTI (urinary tract infection) (8) Cellulitis and abscess of foot Assessment & Plan: right foot second ray with distal open wound with exposed bone, periwound erythema and cellulitis. -plain films ordered - Very limited evaluation. No obvious plain film evidence for osteomyelitis or gas gangrene. Hyperpigmentation without erythema noted to sacrum . Wound R 2nd metatarsal moist -viable,(+) maceration along edges . Small amt non- odorous serous exudate noted. Dark discoloration periwound. R and L heels resolved -both heels are boggy but blanchable.Pt did not exhibit any distress when R or L heel palpated. Tx.Plan: Cleanse R 2nd metatarsal with Saline. Apply Silvasorb Gel.Apply Calcium Alginate.Cover with Optifoam drsg. Change every 3 days and prn. (9) Decubitus skin ulcer Assessment & Plan: patient presented from group home with multiple wounds sacral / buttock erythema identified right second ray with open wound and cellulitis right and left heel boggy and soft Tx plan: apply skin protectant to sacral / buttock area, cover with foam dressing, change q3days Xeroform dressing and gauze followed by kerlix wrap to right toe heel protectors off load heels with pillow turn q2 air mattress Pb Ojeda September 14, 2018 11:21
[2018-09-14] MEDS ORDERED: Albuterol/Ipratropium 3ml neb HHN PRN (11:30)
--- NOTE | 2018-09-14 11:30 | Neurology Progress Note ---
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 Interim History No new events or changes in MS or exam. Now alert and following commands. Objective Physical Exam Last Vital Signs Date Time Temp Pulse Resp B/P (MAP) Pulse Ox O2 Delivery O2 Flow Rate FiO2 09/14/18 09:00 Room Air 09/14/18 08:34 88 18 21 09/14/18 08:00 98.2 142/75 (97) 95 Neurologic Exam Mental Status: other Speech: other Language: other Cranial Nerve II: no papilledema, other Cranial Nerves III, IV, : PERRLA Cranial Nerve VII: no facial asymmetry Cranial Nerve VIII: normal hearing Cranial Nerve IX: normal palate elevation Cranial Nerve XI: SCM symmetric Cranial Nerve XII: tongue midline Motor System: other Sensory: other Objective She is no longer aphasic. Can follow most commands - She is contracted at baseline but showing partial strength without obvious focal weakness in both UEs. 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 Moderate generalized atrophy of the brain. Returned to baselin mentation with significant contracture prior to this CVA Stable for discharge from a neurological standpoint Cassandra Chang N.P. September 14, 2018 11:30
--- NOTE | 2018-09-14 11:55 | NUR ---
NURSE NOTES: Called Report to AUDREY High at [facility]
[2018-09-14 12:00] VITALS: BP 138/72
--- NOTE | 2018-09-14 12:45 | Consultation ---
DATE OF CONSULTATION: 09/14/2018 CONSULTING PHYSICIAN: Garo Christian M.D. CHIEF COMPLAINT: Malfunctioning G-tube. HISTORY OF PRESENT ILLNESS: Most of the history per chart. This is an 83-year-old [facility] patient with past medical history of dementia, dysphagia with a G-tube, was transferred to the hospital with multiple decubital ulcerations. G-tube was malfunctioning, so GI consult was requested for evaluation. PAST MEDICAL HISTORY: 1. History of dementia. 2. 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 3. Hypertension. 4. GERD. 5. Anemia. 6. Anxiety. 7. Decubital ulcerations. ALLERGIES: No known allergies. MEDICATIONS: Please see medication reconciliation list. SOCIAL HISTORY: Currently lives in a [facility]pc. No history of tobacco, alcohol, or drug abuse. FAMILY HISTORY: Noncontributory. REVIEW OF SYSTEMS: Unable to obtain. PAST SURGICAL HISTORY: Unknown. PHYSICAL EXAMINATION: GENERAL: A well-developed female, in no acute distress. VITAL SIGNS: Temperature 97.4, pulse 75, respirations 18, blood pressure is 132/76. HEENT: Normocephalic and atraumatic. Sclerae anicteric. NECK: Supple. No evidence of lymphadenopathy. CARDIOVASCULAR: Regular rate and rhythm. Plus S1 and S2. LUNGS: Decreased breath sounds bilaterally based on supine exam. ABDOMEN: Soft and nontender. No rebound. No guarding. No peritoneal sign. EXTREMITIES: No cyanosis. No clubbing. BACK: There are multiple wounds. LABORATORY DATA: White count is 9.8, hemoglobin 11.4, hematocrit 34.9, platelet count is 346. Chem-7, sodium 137, potassium 5.0, BUN is 41, creatinine is 1.1, glucose is 119. ASSESSMENT AND PLAN: This is an 83-year-old female with numerous medical problems as dictated above. Currently, malfunctioning G-tube. There was an 18-Egyptian G-tube at the G-tube site. I removed that, cleaned the site, and put a 20-Egyptian balloon type of G-tube without any complication. The G-tube was flushed and was flushing really well, so we are going to go ahead and start feeding, start to using it for medication. Hep-Lock IV given the feeding is at the goal rate. The patient also having some mild anemia, we are going to order some anemia workup. I want to thank Dr. Guevara Lala, for this kind referral. Garo Christian M.D. DR: ARNULFO JOB#: [id number] CC: Guevara Lala D.O.
--- NOTE | 2018-09-14 14:30 | NUR ---
NURSE NOTES: Pt discharged back to [facility]. No belongings, nonverbal, accompanied by ambulance personnel, IV removed, G-tube clamped, pt stable for discharge.
--- NOTE | 2018-09-16 11:05 | Discharge Summary ---
Discharge Summary Discharge Summary _ DATE OF ADMISSION: 09/08/2018 DATE OF DISCHARGE: 09/14/2018 DISCHARGED BY: DR Lala REASON FOR ADMISSION: 83 years old female with past medical history of hypertension, congestive heart failure, advanced dementia, dysphagia, G-tube feeding, contractures, resident of [facility] facility, was brought for evaluation to emergency department due to fever. Patient was found to be febrile and with low blood pressure. Laboratory work-up revealed leukocytosis, hemoglobin 10.8, hematocrit 33.7. Lactic acid 1.4. BUN 46 , creatinine 1.4 . Stable LFT. Troponin minimally elevated 0.058 . Albumin 2.5. Urinalysis revealed evidence of urinary tract infection . EKG revealed sinus rhythm, no acute ischemic changes . Chest x-ray demonstrated mildly increased perihilar interstitial markings. Nonspecific but may suggest mild bronchitis or mild interstitial pneumonitis. No focal consolidation . Patient pancultured, started on the IV hydration and empiric antibiotic and admitted for further management. CONSULTANTS: neurologist Dr. Smith pulmonary Dr. Lam ID specialist Dr. Atwood GI specialist Dr. Christian surgery Dr. Ojeda [facility] COURSE: Patient admitted and started on the IV fluids and empiric antibiotics. ID specialist followed. Urine culture revealed Klebsiella pneumonia and Strep group B. Blood cultures were negative. Per ID specialist, patient has sepsis likely secondary to UTI. Upon discharge, ID specialist recommended, transition to oral Keflex to complete the course. Patient noted to have right second toe open wound with exposed bone, likely chronic osteomyelitis. X-ray of the right foot revealed no obvious evidence for osteomyelitis or gas gangrene. Leukocytosis and fever resolved. Supplemental oxygen provided as needed to keep pulse oximetry above 92%. Prior to discharge pulse oximetry was stable on room air. Echocardiogram revealed preserved ejection fraction of 65% , no evidence of wall motion abnormality. Right ventricular systolic pressure of 21. Repeated troponin was negative, ECG revealed no acute ischemic changes. No signs of respiratory distress. Minimally elevated troponin was insignificant in this setting, possibly due to acute kidney injury initially versus small acute CVA due to demand ischemia. Lipid panel was stable. Patient was continued on antiplatelet therapy with aspirin and statin. DVT prophylaxis provided. Neurologist consulted , since patient demonstrated alteration in mentation. Patient undergone MRI of the brain , which revealed 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 Patient was already on antiplatelet therapy with aspirin and statin. Carotid duplex revealed evidence of moderate stenosis in the internal carotid arteries bilaterally. Patient was closely observed with frequent neuro- checks. Physical therapist was working with the patient. Patient returned to baseline mentation. Neurologist cleared patient for discharge to the facility. Patient was on gentle IV hydration. Renal parameters and electrolytes were closely monitored , and electrolytes further corrected as needed. Acute kidney injury resolved. Prior to discharge BUN from 46 down to 41 and creatinine from 1.4 down to 1.1. Aricept was continued. Protein supplements implemented in plan of care as per registered public surveyor recommendation . Strict aspiration precautions were maintained. G-tube feeding continued with close monitoring of tolerance and G-tube site care. Surgeon followed . Wound care provided as per surgeon recommendation . Continue wound care at the facility as recommended by surgeon. GI specialist was consulted for malfunctioning NG tube. Subsequently 18 Belizean G-tube was removed at the bedside and the new 20 [place]an balloon type G-tube was inserted without any complication. Patient started on tube feeding with aspiration precautions, as tolerated. Hemoglobin and hematocrit were closely monitored with goal to keep hemoglobin above 7. Hemoglobin and hematocrit remained at baseline. Prior to discharge hemoglobin 11.4 . hematocrit 34.9. Patient clinically stabilized and was ready for transfer [facility] to [facility] for continuation of care. 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 DISCHARGE INSTRUCTIONS: Patient was discharged to the [facility] facility. Follow up with medical doctor at the facility. Cherri Peterson NP September 16, 2018 11:05
--- NOTE | 2018-09-16 19:55 | Cardiology Report ---
APPROVED REPORT EKG Measurement Heart [id number] Normal sinus rhythm Left axis deviation Anteroseptal infarct, age undetermined T wave abnormality, consider lateral ischemia Abnormal ECG
--- NOTE | 2018-09-16 20:27 | Cardiology Report ---
APPROVED REPORT EXAM: Two-dimensional and M-mode echocardiogram with Doppler and color Doppler. INDICATION CVA M-Mode DIMENSIONS IVSd1.3 (0.7-1.1cm)Left Atrium (MM)3.1 (1.6-4.0cm) LVDd3.4 (3.5-5.6cm)Aortic Root1.7 (2.0-3.7cm) PWd1.0 (0.7-1.1cm)Aortic Cusp Exc.1.0 (1.5-2.0cm) LVDs1.7 (2.5-4.0cm) PWs1.1 cm Technically difficult study due to combative patient. Study quality precludes accurate assessment of regional wall motion. Normal left ventricular chamber size, systolic function and wall motion. Left ventricular ejection fraction estimated to be 65 %. Mild left ventricular hypertrophy. Anterior Echo-free space, may be due to pericardial fat or effusion. All other cardiac chamber sizes are within normal limits. Severe aortic valve calcification with decreased cusp excursion. Mildly thickened mitral valve leaflets with normal excursion. Mild mitral annulus and aortic root calcification. Pulmonic valve not well visualized. Normal tricuspid valve structure. Subcostal views not obtainable due to GI tube. A color flow and spectral Doppler study was performed and revealed: Trace aortic insufficiency. Peak aortic valve gradient of 65 mmHg and a mean of 36 mmHg. Severe aortic stenosis with aortic valve area at 0.8 cm2 calculated by continuity equation. Trace mitral regurgitation. Mitral diastolic velocities suggest mild left ventricular diastolic dysfunction (Grade I). Trace tricuspid regurgitation. Tricuspid systolic velocities suggests peak right ventricular systolic pressure of 21 mmHg. No pulmonic regurgitation present.
--- NOTE | 2018-09-26 19:50 | Diagnostic Imaging Report ---
APPROVED REPORT CPT Code: 56259 Vascular Symptoms CVA/TIA: Doppler Spectral Velocity Analysis RightLeft RIGHT SIDE: CCA - Imaging reveals no significant plaque in the common carotid artery. ICA arteries. The Doppler signal indicates the degree of stenosis is moderate (50-60%) in the internal carotid, and in the external carotid arteries. VERTEBRAL/SUBCLAVIAN- The vertebral and subclavian arteries are within normal limits. LEFT SIDE: CCA - Imaging reveals no significant plaque in the common carotid artery. ICA arteries. The Doppler signal indicates the degree of stenosis is moderate (50-60%) in the internal carotid, and in the external carotid arteries. VERTEBRAL/SUBCLAVIAN- The vertebral and subclavian arteries are within normal limits.
== END 2018-09-14 14:30 | DRG 871 ==
LOC: EDBD 08:02 → EDUNIT# 08:02 → EMR 08:35 → 2W 09:11 → EDBEDREQ 09:28 → 4E 09-10 18:39
DX: A41.9 Sepsis, unspecified organism (principal); N17.0 Acute kidney failure with tubular necrosis; I63.9 Cerebral infarction, unspecified; E43 Unspecified severe protein-calorie malnutrition; R53.2 Functional quadriplegia; N39.0 Urinary tract infection, site not specified; E87.1 Hypo-osmolality and hyponatremia; M86.671 Other chronic osteomyelitis, right ankle and foot; G93.40 Encephalopathy, unspecified; K94.23 Gastrostomy malfunction; L03.115 Cellulitis of right lower limb; S91.301A Unspecified open wound, right foot, initial encounter; F03.90 Unspecified dementia, unspecified severity, without behavioral disturbance, psychotic disturbance, mood disturbance, and anxiety; L89.151 Pressure ulcer of sacral region, stage 1; B96.1 Klebsiella pneumoniae [K. pneumoniae] as the cause of diseases classified elsewhere; X58.XXXA Exposure to other specified factors, initial encounter; B95.1 Streptococcus, group B, as the cause of diseases classified elsewhere; R13.10 Dysphagia, unspecified; I65.29 Occlusion and stenosis of unspecified carotid artery; M24.50 Contracture, unspecified joint; Y83.3 Surgical operation with formation of external stoma as the cause of abnormal reaction of the patient, or of later complication, without mention of misadventure at the time of the procedure; K57.90 Diverticulosis of intestine, part unspecified, without perforation or abscess without bleeding; Z86.73 Personal history of transient ischemic attack (TIA), and cerebral infarction without residual deficits; I11.0 Hypertensive heart disease with heart failure; K21.9 Gastro-esophageal reflux disease without esophagitis; D64.9 Anemia, unspecified; F41.9 Anxiety disorder, unspecified; E86.0 Dehydration; R62.7 Adult failure to thrive
CPT/HCPCS: 36415; 70551; 71045; 80048; 80053; 80061; 80202; 81003; 82550; 82553; 83036; 83605; 84443; 84484; 85025; 85651; 86140; 87040; 87081; 87086; 87181; 93005; 93306; 93880; 94664; 96361; 96365; 97803; 99285

== ENCOUNTER 2018-11-12 05:11 | Inpatient (IN) | payer MEDICARE, MEDICAID ==
[~2018-11-12] VITALS: Ht 157.5 cm; Wt 49.6 kg
[~2018-11-12 05:11] MED LIST changes: +ACETAMINOPHEN325 M1 GT; +AMLODIPINE BESYL5 MG GT; +CEPHALEXIN500 MG GT; +DONEPEZIL HCL10 MG GT; +FERROUS SU220 MG/53 GT; +METOPROLOL TART50 M1 GT
[2018-11-12 05:30] VITALS: BP 117/58
--- NOTE | 2018-11-12 05:30 | NUR ---
ED Nurse Note: PATIENT WAS ASIF FIGUEREDO RA34 FROM [facility] C/O MOANING X 0000. AAOX0, VSS AT THIS TIME. PER FACILITY STUFF SHE STARTED MOANINNG AT 0000 TODAY, AND THEY WEREN'T ABLE T ASSESS HER. PATIENT WAS CLEANED, ALL LABS WERE COLLECTED SENT TO THE LAB.
[2018-11-12 05:56] LABS: EOSINOPHILS % (AUTO) 9.8 % (0.0-3.0); HEMATOCRIT 38.5 % (37.0-47.0); HEMOGLOBIN 12.4 G/DL (12.0-16.0); LYMPHOCYTES % (AUTO) 22.6 % (20.0-45.0); MEAN CORPUSCULAR VOLUME 88 FL (80-99); MONOCYTES % (AUTO) 10.5 % (1.0-10.0); NEUTROPHILS % (AUTO) 56.1 % (45.0-75.0); PLATELET COUNT 191 K/UL (150-450); RED BLOOD COUNT 4.36 M/UL (4.20-5.40); RED CELL DISTRIBUTION WIDTH 16.3 % (11.6-14.8); WHITE BLOOD COUNT 6.1 K/UL (4.8-10.8)
[2018-11-12 06:04] LABS: APPEARANCE,URINE CLEAR; BILIRUBIN, URINE NEGATIVE (NEGATIVE); COLOR,URINE PALE YELLOW; GLUCOSE, URINE (UA) NEGATIVE (NEGATIVE); KETONES,URINE NEGATIVE (NEGATIVE); LEUKOCYTE ESTERASE ,URINE 1+ (NEGATIVE); NITRITE,URINE NEGATIVE (NEGATIVE); PH,URINE 8 (4.5-8.0); PROTEIN,URINE NEGATIVE (NEGATIVE); UROBILINOGEN,URINE NORMAL MG/DL (0.0-1.0)
[2018-11-12 06:10] LABS: ANION GAP 7 mmol/L (5-15); BLOOD UREA NITROGEN 50 mg/dL (7-18); CALCIUM 8.8 MG/DL (8.5-10.1); CARBON DIOXIDE 27 MMOL/L (21-32); CHLORIDE 102 MMOL/L (98-107); CREATININE 1.1 MG/DL (0.55-1.30); POTASSIUM 4.5 MMOL/L (3.5-5.1); SODIUM 136 MMOL/L (136-145)
--- NOTE | 2018-11-12 06:13 | Emergency Room Report ---
History of Present Illness General Chief Complaint: General Complaint Source: EMS (Sam Levine MD) Present Illness HPI 83-year-old female presents ED for evaluation. Brought in by EMS from half-way facility. Per EMS nursing staff stated that patient has been moaning since midnight. Patient is nonverbal at baseline and does moan but according to nursing it is more frequent now. Unclear whether patient is having pain. No reported fevers or chills. No reported nausea or vomiting. Unable to provide any additional history at this time. No other aggravating relieving factors. Denies any other associated symptoms (Sam Levine MD) Allergies: Coded Allergies: No Known Allergies (Unverified , 10/09/12) Patient History Past Medical History: HTN, CVA/TIA, dementia Pertinent Family History: none Social History: Denies: smoking, alcohol use, drug use Now: No Immunizations: UTD Reviewed Nursing Documentation: PMH: Agreed; PSxH: Agreed (Sam Levine MD) Nursing Documentation-PMH Past Medical History: No History, Except For Hx Cardiac Problems: Yes Hx Hypertension: Yes Hx Pacemaker: No Hx COPD: No - chf Hx Cancer: No Hx Gastrointestinal Problems: Yes - failure to thrive with GI Tube Hx Dialysis: Yes - KIDNEY PROBLEM Hx Neurological Problems: Yes Hx Transient Ischemic Attacks: Yes Hx Dementia: Yes Hx Alzheimer's Disease: No Hx Parkinson's Disease: No Hx Meningitis: No Hx Encephalitis: No Hx Seizures: No Hx Epilepsy: No Hx Multiple Sclerosis: No Hx Cerebral Palsy: No Hx Amyotrophic Lat Sclerosis: No Hx Guillian-Mesa Syndrome: No Hx Paralysis: No Hx Peripheral Neuropathy: No Hx Spinal Cord Injury: No Hx Head Trauma: No Hx Traumatic Brain Injury: No Hx Memory Loss: Yes Hx Concentration Difficulty: No Hx Speech Problem: No Hx Tremors: No Hx Vertigo: No Hx Dizziness: No Hx Syncope: Yes Hx Headaches: No Hx Aphasia: No Hx Dysphasia: No Hx Numbness: No Hx Weakness: No Hx Fatigue: No Hx Neurologic Surgery: No Hx Brain Shunt: No (Sam Lveine MD) Review of Systems All Other Systems: limited (Sam Levine MD) Physical Exam Vital Signs Date Time Temp Pulse Resp B/P (MAP) Pulse Ox O2 Delivery O2 Flow Rate FiO2 11/12/18 05:15 98.4 93 14 117/58 (77) 99 Room Air Sp02 EP Interpretation: reviewed, normal General Appearance: cachetic, lethargic Head: normocephalic Eyes: bilateral eye normal inspection, bilateral eye PERRL ENT: normal ENT inspection Neck: normal inspection Respiratory: chest non-tender, lungs clear, normal breath sounds, speaking full sentences Cardiovascular #1: regular rate, rhythm, no edema Gastrointestinal: normal bowel sounds, non tender, soft, non-distended, no guarding, no rebound, other - Gtube Rectal: deferred Genitourinary: no CVA tenderness Musculoskeletal: normal inspection Neurologic: other - nonverbal Psychiatric: other - nonverbal Skin: normal color Lymphatic: normal inspection (Sam Levine MD) Medical Decision Making Diagnostic Impression: Primary Impression: Acute encephalopathy Additional Impressions: CVA (cerebral vascular accident) Severe protein-calorie malnutrition ER Course See this patient in signout pending CT scans, labs, work-up have been unremarkable, CT head and CT abdomen pelvis revealed no acute abnormalities other than compression fracture of L2 and fecal distention, patient is demented , is not in obvious distress right now, will be admitted to Dr. Guevara Lala on Med Surgery for constipation and compression fx. (FABIÁN DE PAZ EKG Diagnostic Results Rate: normal Rhythm: NSR ST Segments: other - twave inversions in lateral leads (Sam Levine MD) Rhythm Strip Diag. Results EP Interpretation: yes Rhythm: NSR, no PVC's, no ectopy (Sam Levine MD) Rhythm Strip Time: 08:32 EP Interpretation: yes Rate: 68 Rhythm: NSR, no PVC's, no ectopy (FABIÁN DE PAZ Chest X-Ray Diagnostic Results Chest X-Ray Diagnostic Results : Chest X-Ray Ordered: Yes # of Views/Limited/Complete: 1 View Indication: Other EP Interpretation: Yes Interpretation: no consolidation, no effusion, no pneumothorax, no acute cardiopulmonary disease Impression: No acute disease Electronically Signed by: Electronically signed by Sam Levine MD (Sam Levine MD) Last Vital Signs Date Time Temp Pulse Resp B/P (MAP) Pulse Ox O2 Delivery O2 Flow Rate FiO2 11/12/18 05:15 98.4 93 14 117/58 (77 99 Room Air Status: improved (Sam Levine MD) Disposition: ADMITTED INPATIENT Condition: Stable Referrals: Guevara Lala DO (PCP) Sam Levine MD Nov 12, 2018 06:13 FABIÁN DE APZ M.D Nov 12, 2018 08:32
[2018-11-12 06:28] LABS: ALANINE AMINOTRANSFERASE 18 U/L (12-78); ALBUMIN 3.3 G/DL (3.4-5.0); ALBUMIN/GLOBULIN RATIO 0.9 (1.0-2.7); ALKALINE PHOSPHATASE 115 U/L (46-116); ASPARTATE AMINO TRANSFERASE 29 U/L (15-37); BILIRUBIN,TOTAL 0.4 MG/DL (0.2-1.0); CKMB 2.3 NG/ML (0.0-3.6); CREATINE KINASE 94 U/L (26-308)
[2018-11-12] MEDS ORDERED: Isovue-300 100ml vial INJ PRN (06:30)
--- NOTE | 2018-11-12 06:30 | NUR ---
ED Nurse Note: PATIENT PRESENTED WITH PRESSURE ULCER ON HER SACRAL AREA, AND SMALL NECROTIC AREA UNKNOWN ETIOLOGY ON HER RIGHT PINKY. PICTURES WERE TAKEN AND UPLOADED.
--- NOTE | 2018-11-12 07:15 | NUR ---
HAND-OFF: Report given to MARCELINA Mendoza.
--- NOTE | 2018-11-12 08:20 | NUR ---
ED Nurse Note: checked with Dr. Valenzuela if it's ok to send the patient up, Dr. Valenzuela is checking CT result
--- NOTE | 2018-11-12 08:33 | Diagnostic Imaging Report ---
Indications: Altered mental status Technique: Spiral acquisitions obtained through the brain. Angled axial and coronal 5 x 5 mm slices were reconstructed. Total dose length product 1365.53 mGycm. CTDI vol(s) 70.38 mGy. Dose reduction achieved using automated exposure control Comparison: 10/28/2013 Findings: Again demonstrated is age-related enlargement of ventricles and extra-axial CSF spaces. There is considerable periventricular deep white matter low-attenuation consistent with chronic microvascular ischemic change. No acute intracranial hemorrhage or edema, mass effect, nor midline shift. Otherwise normal melo-white differentiation. Visualized orbits and sinuses are unremarkable. The calvarium is intact. No significant interim change Impression: Chronic and age-related changes Negative for acute intracranial bleed or mass effect This agrees with the preliminary interpretation provided overnight by [employer] teleradiology service. The CT scanner at [facility] is accredited by the [employer] and the scans are performed using protocols designed to limit radiation exposure to as low as reasonably achievable to attain images of sufficient resolution adequate for diagnostic evaluation.
--- NOTE | 2018-11-12 08:39 | NUR ---
ED Nurse Note: called 4E and attempted to talk to júnior RN. at this time the nurse is busy, will call back
--- NOTE | 2018-11-12 08:50 | NUR ---
ED Nurse Note: report given to Nataliia HEWITT, endorsed all plan of care to Nataliia HEWITT Patient transferred via gurney with PHOTOENGRAVER in stable condition
--- NOTE | 2018-11-12 08:51 | Diagnostic Imaging Report ---
Clinical Indication: Abdominal pain for one day Technique: No oral contrast utilized, per emergency room physician request IV administration nonionic contrast. Venous phase spiral acquisition obtained through the abdomen and pelvis. Multiplanar reconstructions were generated. Total dose length product 1009 mGycm. CTDIvol(s) 19 mGy. Dose reduction achieved using automated exposure control Comparison: none Findings: There is a gastrostomy tube in good position. The stomach and duodenum are otherwise unremarkable. The rectum is mildly distended with feces, measures up to 7.65 cm transverse diameter. There is fairly extensive colonic diverticulosis. No evidence of diverticulitis. The appendix is normal. No small bowel distention. There is broad-based diastasis of the rectus abdominis tendon. No free or loculated intraperitoneal gas or fluid is evident. The liver, gallbladder, bile ducts are unremarkable. The pancreas is atrophic. The spleen demonstrates multiple calcifications. The right kidney demonstrates a subcentimeter low-attenuation lesion which is too small to characterize. The left kidney demonstrates mild fullness to the collecting system. No stones or ureteral dilatation. No pelvic mass or adenopathy. No retroperitoneal or mesenteric mass or adenopathy. There are degenerative changes of the lumbar spine noted. There is transitional lumbosacral anatomy with 6 nonrib-bearing lumbar-type vertebral bodies. The third from cephalad demonstrates a wedge/burst compression fracture deformity with approximately 50% height loss. The included lung bases demonstrate considerable opacification of both lower lobes and the inferior posterior left upper lobe. The heart is enlarged. Impression: Evidence of mild rectal fecal impaction Bilateral lower lobe pulmonary parenchymal infiltrates versus edema Age indeterminate vertebral body compression fracture. Consider MRI for better characterization if clinically indicated Colonic diverticulosis. No evidence of diverticulitis Cardiomegaly Subcentimeter right lobe lower pole renal lesion, too small to characterize, Other findings as noted, including diastasis of the rectus abdominis tendon, atrophic pancreas, old granulomatous calcifications within the spleen, transitional lumbosacral anatomy This essentially agrees with the preliminary interpretation provided overnight by [employer] teleradiology service. The CT scanner at [facility] is accredited by the [employer] [place] and the scans are performed using protocols designed to limit radiation exposure to as low as reasonably achievable to attain images of sufficient resolution adequate for diagnostic evaluation.
[2018-11-12] MEDS ORDERED: Zolpidem 5mg tab GT PRN (10:15)
--- NOTE | 2018-11-12 10:45 | NUR ---
NURSE NOTES: received report from MARCELINA Mendoza,ER. patient will be admitted to [facility] under Dr. Lala.
--- NOTE | 2018-11-12 10:46 | NUR ---
NURSE NOTES: patient admitted to [facility] Lala. patient alert. disoriented. non verbal. no respiratory distress noted. no facial grimacing during care. IV on RFA 18g intact. bed in the lowest position. call light within reach. alarm on. will continue to provide plan of care and admission orders
[2018-11-12 12:00] VITALS: BP 110/72
--- NOTE | 2018-11-12 13:10 | Diagnostic Imaging Report ---
Indication: Shortness of breath for 2 hours Technique: One view of the chest Comparison: 09/09/2018 Findings: Patient is rotated to the left. There is equivocal mild interstitial congestion, not evident previously if real. Lungs and pleural spaces are otherwise clear. The heart is borderline enlarged. Impression: Equivocal mild interstitial congestion Borderline cardiomegaly
--- NOTE | 2018-11-12 13:34 | Consultation ---
History of Present Illness General Date patient seen: Nov 12, 2018 Chief Complaint: General Complaint Present Illness HPI 83-year-old female with hx of HTN, CVA/TIA, dementia, [facility] resident presented to ED for evaluation of ALOC. Apparently she was moaning since midnight. No reported fevers or chills. No reported nausea or vomiting. Unable to provide any additional history at this time. Pt is admitted for ALOC. Allergies: Coded Allergies: No Known Allergies (Unverified , 10/09/12) Medication History Scheduled Acetaminophen* (Acetaminophen 325MG Tablet*), 650 MG GT Q6HR, (Reported) Ascorbic Acid* (Ascorbic Acid*), 500 MG GT DAILY, (Reported) Cephalexin* (Keflex*), 500 MG GT EVERY 12 HOURS, (Reported) Cranberry Fruit Concentrate (Cranberry), 450 MG GT DAILY, (Reported) Docusate Sodium* (Colace*), 100 MG GT TWICE A DAY, (Reported) Donepezil Hcl* (Donepezil Hcl*), 10 MG GT BEDTIME, (Reported) Esomeprazole Magnesium (Nexium), 40 MG ORAL DAILY, (Reported) Ferrous Sulfate (Ferrous Sulfate), 220 MG GT BIDPC, (Reported) Magnesium Hydroxide* (Milk Of Magnesia*), 30 ML GT DAILY, (Reported) Patient History Healthcare decision maker Lisa Chow/FELIPE Resuscitation status Full Code Advanced Directive on File No Past Medical/Surgical History Past Medical/Surgical History: (1) Dementia (2) History of hypertension (3) Feeding by G-tube (4) Limited mobility in bed (5) Severe protein-calorie malnutrition (6) CVA (cerebral vascular accident) Review of Systems All Other Systems: negative except mentioned in HPI Physical Exam General Appearance: cachetic, thin Lines, tubes and drains: peripheral HEENT: normocephalic, atraumatic Neck: non-tender, normal alignment Respiratory/Chest: chest wall non-tender, lungs clear, normal breath sounds, decreased breath sounds Cardiovascular/Chest: normal peripheral pulses, normal rate Abdomen: normal bowel sounds, non tender, hyperactive bowel sounds Genitourinary/Rectal: normal genital exam Extremities: normal range of motion Skin Exam: normal pigmentation, cyanotic Lymphatic: anterior cervical Last 24 Hour Vital Signs Date Time Temp Pulse Resp B/P (MAP) Pulse Ox O2 Delivery O2 Flow Rate FiO2 7/16/19 10:59 Room Air 11/12/18 10:42 Room Air 11/12/18 08:51 98.4 14 117/58 99 Room Air 11/12/18 05:30 93 14 Room Air 11/12/18 05:30 98.4 14 117/58 99 Room Air 11/12/18 05:15 98.4 93 14 117/58 (77) 99 Room Air Intake and Output 11/11/18 11/12/18 19:00 07:00 Output Total 20 ml Balance -20 ml Output Urine Total 20 ml Laboratory Tests Test 11/12/18 05:25 11/12/18 05:45 White Blood Count 6.1 K/UL (4.8-10.8) Red Blood Count 4.36 M/UL (4.20-5.40) Hemoglobin 12.4 G/DL (12.0-16.0) Hematocrit 38.5 % (37.0-47.0) Mean Corpuscular Volume 88 FL (80-99) Mean Corpuscular Hemoglobin 28.4 PG (27.0-31.0) Mean Corpuscular Hemoglobin Concent 32.2 G/DL (32.0-36.0) Red Cell Distribution Width 16.3 % (11.6-14.8) H Platelet Count 191 K/UL (150-450) Mean Platelet Volume 7.2 FL (6.5-10.1) Neutrophils (%) (Auto) 56.1 % (45.0-75.0) Lymphocytes (%) (Auto) 22.6 % (20.0-45.0) Monocytes (%) (Auto) 10.5 % (1.0-10.0) H Eosinophils (%) (Auto) 9.8 % (0.0-3.0) H Basophils (%) (Auto) 1.0 % (0.0-2.0) Sodium Level 136 MMOL/L (136-145) Potassium Level 4.5 MMOL/L (3.5-5.1) Chloride Level 102 MMOL/L (98-107) Carbon Dioxide Level 27 MMOL/L (21-32) Anion Gap 7 mmol/L (5-15) Blood Urea Nitrogen 50 mg/dL (7-18) H Creatinine 1.1 MG/DL (0.55-1.30) Estimat Glomerular Filtration Rate mL/min (>60) Glucose Level 104 MG/DL (74-106) Lactic Acid Level 1.40 mmol/L (0.4-2.0) Calcium Level 8.8 MG/DL (8.5-10.1) Total Bilirubin 0.4 MG/DL (0.2-1.0) Aspartate Amino Transf (AST/SGOT) 29 U/L (15-37) Alanine Aminotransferase (ALT/SGPT) 18 U/L (12-78) Alkaline Phosphatase 115 U/L (46-116) Total Creatine Kinase 94 U/L (26-308) Creatine Kinase MB 2.3 NG/ML (0.0-3.6) Creatine Kinase MB Relative Index 2.4 Troponin I 0.016 ng/mL (0.000-0.056) Pro-B-Type Natriuretic Peptide 1739 pg/mL (0-125) H Total Protein 7.1 G/DL (6.4-8.2) Albumin 3.3 G/DL (3.4-5.0) L Globulin 3.8 g/dL Albumin/Globulin Ratio 0.9 (1.0-2.7) L Urine Color Pale yellow Urine Appearance Clear Urine pH 8 (4.5-8.0) Urine Specific [place] 1.010 (1.005-1.035) Urine Protein Negative (NEGATIVE) Urine Glucose (UA) Negative (NEGATIVE) Urine Ketones Negative (NEGATIVE) Urine Blood 2+ (NEGATIVE) H Urine Nitrite Negative (NEGATIVE) Urine Bilirubin Negative (NEGATIVE) Urine Urobilinogen Normal MG/DL (0.0-1.0) Urine Leukocyte Esterase 1+ (NEGATIVE) H Urine RBC 5-10 /HPF (0 - 2) H Urine WBC 0-2 /HPF (0 - 2) Urine Squamous Epithelial Cells Few /LPF (NONE/OCC) Urine Bacteria None /HPF (NONE) Microbiology Date/Time Source Procedure Growth Status 11/12/18 05:45 Rectum Received Height (Feet): 5 Height (Inches): 2.00 Weight (Pounds): 110 Medications Current Medications Medications (Trade) Dose Ordered Sig/Khoa Route PRN Reason Start Time Stop Time Status Last Admin Dose Admin Acetaminophen (Tylenol) 650 mg Q4H PRN GT fever 11/12/18 10:15 12/12/18 10:14 Donepezil HCl (Aricept) 10 mg BEDTIME GT 11/12/18 21:00 12/12/18 20:59 Heparin Sodium (Porcine) (Heparin 5000 units/ml) 5,000 units EVERY 12 HOURS SUBQ 11/12/18 21:00 12/12/18 20:59 Iopamidol (Isovue-300 100ml) 100 ml NOW PRN INJ Radiology Procedure 11/12/18 06:30 Ondansetron HCl (Zofran) 4 mg Q6H PRN IVP Nausea & Vomiting 11/12/18 10:15 12/12/18 10:14 Zolpidem Tartrate (Ambien) 5 mg HSPRN PRN GT Insomnia 11/12/18 10:15 11/19/18 10:14 Assessment/Plan Problem List: (1) ATN (acute tubular necrosis) ICD Codes: N17.0 - Acute kidney failure with tubular necrosis SNOMED: 30134890 (2) Acute encephalopathy ICD Codes: G93.40 - Encephalopathy, unspecified SNOMED: 52200058, 493671831 (3) Severe protein-calorie malnutrition ICD Codes: E43 - Unspecified severe protein-calorie malnutrition SNOMED: 240882606, 577654951, 082944853 (4) Limited mobility in bed SNOMED: 863426190 (5) Feeding by G-tube ICD Codes: Z93.1 - Gastrostomy status SNOMED: 646357624, 461174791, 258970675 (6) Dementia ICD Codes: F03.90 - Dementia SNOMED: 87191636 Assessment/Plan: iv fluids check cultures wound care resume gtube feeding dvt propylaxis consider DNR, and comfort care Dajuan Lam MD Nov 12, 2018 13:34
[2018-11-12] MEDS: D5 1/2NS w/KCL 10meq 1,000 ML IV SCH (14:44)
[2018-11-12 16:00] VITALS: BP 128/76
--- NOTE | 2018-11-12 17:15 | History and Physical Report ---
DATE OF ADMISSION: 11/12/2018 TIME SEEN: 2 p.m. CONSULTANTS: 1. Dajuan Lam M.D. 2. Garo Christian M.D. 3. Bj Plummer M.D. CHIEF COMPLAINT: Weakness, constipation, chronic general pain. BRIEF HISTORY: This is 83-year-old female from nursing facility, presented with above-mentioned diagnoses. The patient was admitted to medical floor for further treatment. Currently, confused in bed, which is her baseline. The patient not talking much. REVIEW OF SYSTEMS: Unavailable. PAST MEDICAL HISTORY: Includes hypertension, dementia, decubitus, ATN, malnutrition, CVA, encephalopathy. PAST SURGICAL HISTORY: G-tube, right knee. MEDICATIONS: Include , heparin, Tylenol, Zofran, Ambien. ALLERGIES: Denies. SOCIAL HISTORY: No smoking. No alcohol. No intravenous drug abuse. FAMILY HISTORY: Noncontributory. PHYSICAL EXAMINATION: GENERAL: Calm in bed, nonverbal. VITAL SIGNS: Temperature 98, pulse 93, respiratory rate 14, blood pressure 117/58. CARDIOVASCULAR: No murmur. LUNGS: Distant and clear. ABDOMEN: Positive bowel sounds. Nontender. Nondistended. EXTREMITIES: No cyanosis or edema. NEUROLOGIC: The patient flaccid in bed, not following directions. LABORATORY AND DIAGNOSTIC DATA: CBC is normal. BMP shows BUN 50, otherwise normal. Troponin 0.016. BNP is 1739. Albumin 3.3. Urinalysis show 1+ leukocyte esterase. ASSESSMENT: 1. Constipation. 2. Weakness. 3. General pain. 4. Lumbar spine fracture history. 5. Hypertension. 6. Dementia. 7. Decubitus ulcer. 8. ATN. 9. Malnutrition. 10. CVA. 11. Encephalopathy. PLAN: PT/OT, dietary followup, blood pressure and pain control. Resume home medications. IV fluids. We will continue to follow the patient. Dr. Delatorre and Dr. Ferraro consult as well. Guevara Lala D.O. DR: Luiz JOB#: [id number] CC:
--- NOTE | 2018-11-12 17:51 | Consultation ---
History of Present Illness General Date patient seen: Nov 12, 2018 Chief Complaint: General Complaint Present Illness HPI 83 y/o F with hx of HTN, CVA/TIA, CHF, lumbar spine fracture, FTT s/p GT, dementia, non-verbal, NH resident presented to ED on 11/12 with ALOC and moaning. No reports of fevers/chills, n/v Allergies: Coded Allergies: No Known Allergies (Unverified , 10/09/12) Medication History Scheduled Acetaminophen* (Acetaminophen 325MG Tablet*), 650 MG GT Q6HR, (Reported) Ascorbic Acid* (Ascorbic Acid*), 500 MG GT DAILY, (Reported) Cephalexin* (Keflex*), 500 MG GT EVERY 12 HOURS, (Reported) Cranberry Fruit Concentrate (Cranberry), 450 MG GT DAILY, (Reported) Docusate Sodium* (Colace*), 100 MG GT TWICE A DAY, (Reported) Donepezil Hcl* (Donepezil Hcl*), 10 MG GT BEDTIME, (Reported) Esomeprazole Magnesium (Nexium), 40 MG ORAL DAILY, (Reported) Ferrous Sulfate (Ferrous Sulfate), 220 MG GT BIDPC, (Reported) Magnesium Hydroxide* (Milk Of Magnesia*), 30 ML GT DAILY, (Reported) Patient History Healthcare decision maker Lisa Chow/FELIPE Resuscitation status Full Code Advanced Directive on File No Patient History Narrative Pmhx: as above Shx: reviewed Fhx: non contributory Physical Exam Physical Exam Narrative GENERAL: Calm in bed, nonverbal. CARDIOVASCULAR: No murmur. LUNGS: Distant and clear. ABDOMEN: Positive bowel sounds. Nontender. Nondistended. EXTREMITIES: No cyanosis or edema. NEUROLOGIC: The patient flaccid in bed, not following directions. Last 24 Hour Vital Signs Date Time Temp Pulse Resp B/P (MAP) Pulse Ox O2 Delivery O2 Flow Rate FiO2 11/12/18 16:00 97.7 79 20 128/76 (93) 97 11/12/18 12:00 97.2 73 20 110/72 (85) 98 11/12/18 10:59 Room Air 11/12/18 10:42 Room Air 11/12/18 08:51 98.4 14 117/58 99 Room Air 11/12/18 05:30 93 14 Room Air 11/12/18 05:30 98.4 14 117/58 99 Room Air 11/12/18 05:15 98.4 93 14 117/58 (77) 99 Room Air Intake and Output 11/11/18 11/12/18 18:59 06:59 Output Total 20 ml Balance -20 ml Output Urine Total 20 ml Laboratory Tests Test 11/12/18 05:25 11/12/18 05:45 White Blood Count 6.1 K/UL (4.8-10.8) Red Blood Count 4.36 M/UL (4.20-5.40) Hemoglobin 12.4 G/DL (12.0-16.0) Hematocrit 38.5 % (37.0-47.0) Mean Corpuscular Volume 88 FL (80-99) Mean Corpuscular Hemoglobin 28.4 PG (27.0-31.0) Mean Corpuscular Hemoglobin Concent 32.2 G/DL (32.0-36.0) Red Cell Distribution Width 16.3 % (11.6-14.8) H Platelet Count 191 K/UL (150-450) Mean Platelet Volume 7.2 FL (6.5-10.1) Neutrophils (%) (Auto) 56.1 % (45.0-75.0) Lymphocytes (%) (Auto) 22.6 % (20.0-45.0) Monocytes (%) (Auto) 10.5 % (1.0-10.0) H Eosinophils (%) (Auto) 9.8 % (0.0-3.0) H Basophils (%) (Auto) 1.0 % (0.0-2.0) Sodium Level 136 MMOL/L (136-145) Potassium Level 4.5 MMOL/L (3.5-5.1) Chloride Level 102 MMOL/L (98-107) Carbon Dioxide Level 27 MMOL/L (21-32) Anion Gap 7 mmol/L (5-15) Blood Urea Nitrogen 50 mg/dL (7-18) H Creatinine 1.1 MG/DL (0.55-1.30) Estimat Glomerular Filtration Rate mL/min (>60) Glucose Level 104 MG/DL (74-106) Lactic Acid Level 1.40 mmol/L (0.4-2.0) Calcium Level 8.8 MG/DL (8.5-10.1) Total Bilirubin 0.4 MG/DL (0.2-1.0) Aspartate Amino Transf (AST/SGOT) 29 U/L (15-37) Alanine Aminotransferase (ALT/SGPT) 18 U/L (12-78) Alkaline Phosphatase 115 U/L (46-116) Total Creatine Kinase 94 U/L (26-308) Creatine Kinase MB 2.3 NG/ML (0.0-3.6) Creatine Kinase MB Relative Index 2.4 Troponin I 0.016 ng/mL (0.000-0.056) Pro-B-Type Natriuretic Peptide 1739 pg/mL (0-125) H Total Protein 7.1 G/DL (6.4-8.2) Albumin 3.3 G/DL (3.4-5.0) L Globulin 3.8 g/dL Albumin/Globulin Ratio 0.9 (1.0-2.7) L Urine Color Pale yellow Urine Appearance Clear Urine pH 8 (4.5-8.0) Urine Specific [place] 1.010 (1.005-1.035) Urine Protein Negative (NEGATIVE) Urine Glucose (UA) Negative (NEGATIVE) Urine Ketones Negative (NEGATIVE) Urine Blood 2+ (NEGATIVE) H Urine Nitrite Negative (NEGATIVE) Urine Bilirubin Negative (NEGATIVE) Urine Urobilinogen Normal MG/DL (0.0-1.0) Urine Leukocyte Esterase 1+ (NEGATIVE) H Urine RBC 5-10 /HPF (0 - 2) H Urine WBC 0-2 /HPF (0 - 2) Urine Squamous Epithelial Cells Few /LPF (NONE/OCC) Urine Bacteria None /HPF (NONE) Microbiology Date/Time Source Procedure Growth Status 11/12/18 05:45 Rectum Received Height (Feet): 5 Height (Inches): 2.00 Weight (Pounds): 110 Medications Current Medications Medications (Trade) Dose Ordered Sig/Khoa Route PRN Reason Start Time Stop Time Status Last Admin Dose Admin Acetaminophen (Tylenol) 650 mg Q4H PRN GT fever 11/12/18 10:15 12/12/18 10:14 Dextrose/ Electrolytes 1,000 ml @ 75 mls/hr [id number] IV 11/12/18 14:00 12/12/18 13:59 11/12/18 14:44 Donepezil HCl (Aricept) 10 mg BEDTIME GT 11/12/18 21:00 8/15/19 20:59 Heparin Sodium (Porcine) (Heparin 5000 units/ml) 5,000 units EVERY 12 HOURS SUBQ 11/12/18 21:00 12/12/18 20:59 Iopamidol (Isovue-300 100ml) 100 ml NOW PRN INJ Radiology Procedure 11/12/18 06:30 Ondansetron HCl (Zofran) 4 mg Q6H PRN IVP Nausea & Vomiting 11/12/18 10:15 12/12/18 10:14 Zolpidem Tartrate (Ambien) 5 mg HSPRN PRN GT Insomnia 11/12/18 10:15 11/19/18 10:14 Assessment/Plan Assessment/Plan: Abx: None Assessment: Acute on chronic encephalopathy -u/a neg -CXR: Equivocal mild interstitial congestion. Borderline cardiomegaly -Head CT: Chronic and age-related changes. Negative for acute intracranial bleed or mass effect -CT abd/p: Evidence of mild rectal fecal impaction. Bilateral lower lobe pulmonary parenchymal infiltrates versus edema. Age indeterminate vertebral body compression fracture. Consider MRI for better characterization if clinically indicated. Colonic diverticulosis. No evidence of diverticulitis. Cardiomegaly. Subcentimeter right lobe lower pole renal lesion, too small to characterize, Afebrile No leukocytosis HTN CVA/TIA CHF hx of lumbar spine fracture FTT s/p GT dementia non-verbal NH resident Plan: -Continue to monitor off abx -f/u cx -Monitor CBC/CMP, temperatures -aspiration precautions Thank you for this consultation. Will continue to follow along with you. Discussed with MARCELINA. Salud Atwood M.D. Nov 12, 2018 17:51
--- NOTE | 2018-11-12 18:49 | Cardiology Report ---
APPROVED REPORT EKG Measurement Heart [id number] Normal sinus rhythm Left axis deviation Anteroseptal infarct, age undetermined T wave abnormality, consider lateral ischemia Abnormal ECG
--- NOTE | 2018-11-12 19:32 | NUR ---
NURSE NOTES:Patient received in bed asleep patient non verbal..no s/s Distress noted . RFA g# 18 D5 1/2 ns with kcl 10 meq infusing well .GT Oon jevity1:2 at 60 cc/hr infusing well .Safety/ fall precaution . HOB elevated for comfort.call light within reach . bed in low position at all times bed alarm on .will continue to monitor.
--- NOTE | 2018-11-12 19:32 | NUR ---
HAND-OFF: Report given to AUDREY Yost.
[2018-11-12 20:00] VITALS: BP 129/59
[2018-11-12] MEDS: Donepezil 10mg tab GT SCH (21:38)
[2018-11-12] MEDS: Heparin 5000 units/ml inj SUBQ SCH (21:39)
[2018-11-13] VITALS: BP 124/62
[2018-11-13] MEDS: D5 1/2NS w/KCL 10meq 1,000 ML IV SCH ×2 (03:28→17:00)
[2018-11-13 04:00] VITALS: BP 117/54
[2018-11-13 06:50] LABS: ANION GAP 9 mmol/L (5-15); BLOOD UREA NITROGEN 31 mg/dL (7-18); CALCIUM 8.9 MG/DL (8.5-10.1); CARBON DIOXIDE 23 MMOL/L (21-32); CHLORIDE 103 MMOL/L (98-107); CREATININE 1.1 MG/DL (0.55-1.30); POTASSIUM 4.9 MMOL/L (3.5-5.1); SODIUM 135 MMOL/L (136-145)
[2018-11-13 06:58] LABS: BASOPHILS % (AUTO) 0.6 % (0.0-2.0); EOSINOPHILS % (AUTO) 1.4 % (0.0-3.0); HEMATOCRIT 36.4 % (37.0-47.0); HEMOGLOBIN 11.8 G/DL (12.0-16.0); LYMPHOCYTES % (AUTO) 8.5 % (20.0-45.0); MEAN CORPUSCULAR VOLUME 88 FL (80-99); MONOCYTES % (AUTO) 7.2 % (1.0-10.0); NEUTROPHILS % (AUTO) 82.3 % (45.0-75.0); PLATELET COUNT 185 K/UL (150-450); RED BLOOD COUNT 4.13 M/UL (4.20-5.40); RED CELL DISTRIBUTION WIDTH 16.1 % (11.6-14.8); WHITE BLOOD COUNT 7.2 K/UL (4.8-10.8)
--- NOTE | 2018-11-13 06:58 | General Progress Note ---
Assessment/Plan Problem List: (1) Constipation ICD Codes: K59.00 - Constipation, unspecified SNOMED: 70491321 (2) Weak ICD Codes: R53.1 - Weakness SNOMED: 19584621 (3) Dementia ICD Codes: F03.90 - Dementia SNOMED: 30196494 (4) ATN (acute tubular necrosis) ICD Codes: N17.0 - Acute kidney failure with tubular necrosis SNOMED: 35927461 (5) Severe protein-calorie malnutrition ICD Codes: E43 - Unspecified severe protein-calorie malnutrition SNOMED: 877914156, 937469744, 622310983 (6) CVA (cerebral vascular accident) ICD Codes: I63.9 - Cerebral infarction, unspecified SNOMED: 209783681 (7) Acute encephalopathy ICD Codes: G93.40 - Encephalopathy, unspecified SNOMED: 71698071, 572573971 (8) History of hypertension ICD Codes: Z86.79 - Personal history of other diseases of the circulatory system SNOMED: 005095432 Status: stable, progressing Assessment/Plan: pt ot diet abx bp pain control cbc bmp am Subjective Constitutional: Reports: weakness Allergies: Coded Allergies: No Known Allergies (Unverified , 10/09/12) All Systems: reviewed and negative except above Subjective sleepy calm Objective Last 24 Hour Vital Signs Date Time Temp Pulse Resp B/P (MAP) Pulse Ox O2 Delivery O2 Flow Rate FiO2 11/13/18 00:00 98.4 67 20 124/62 (82) 97 11/12/18 21:00 Room Air 11/12/18 20:00 98.4 93 20 129/59 (82) 97 11/12/18 16:00 97.7 79 20 128/76 (93) 97 11/12/18 12:00 97.2 73 20 110/72 (85) 98 11/12/18 10:59 Room Air 11/12/18 10:42 Room Air 11/12/18 08:51 98.4 14 117/58 99 Room Air Intake and Output 11/12/18 11/13/18 19:00 07:00 Intake Total 900 ml 1095 ml Balance 900 ml 1095 ml Intake Free Water 300 ml 300 ml IV Total 300 ml 675 ml Tube Feeding 300 ml 120 ml # Voids 2 4 Laboratory Tests 11/13/18 05:00: White Blood Count [Pending], Red Blood Count [Pending], Hemoglobin [Pending], Hematocrit [Pending], Mean Corpuscular Volume [Pending], Mean Corpuscular Hemoglobin [Pending], Mean Corpuscular Hemoglobin Concent [Pending], Red Cell Distribution Width [Pending], Platelet Count [Pending], Mean Platelet Volume [ Pending], Neutrophils (%) (Auto) [Pending], Lymphocytes (%) (Auto) [Pending], Monocytes (%) (Auto) [Pending], Eosinophils (%) (Auto) [Pending], Basophils (%) (Auto) [Pending], Sodium Level [Pending], Potassium Level [Pending], Chloride Level [Pending], Carbon Dioxide Level [Pending], Blood Urea Nitrogen [Pending], Creatinine [Pending], Estimat Glomerular Filtration Rate [Pending], Glucose Level [Pending], Calcium Level [Pending] Height (Feet): 5 Height (Inches): 2.00 Weight (Pounds): 110 General Appearance: lethargic EENT: normal ENT inspection Neck: normal alignment Cardiovascular: normal peripheral pulses, normal rate, regular rhythm Respiratory/Chest: chest wall non-tender, lungs clear, normal breath sounds Abdomen: normal bowel sounds, non tender, soft Extremities: normal inspection Edema: no edema noted Arm (L), no edema noted Arm (R), no edema noted Leg (L), no edema noted Leg (R), no edema noted Pedal (L), no edema noted Pedal (R), no edema noted Generalized Neurologic: motor weakness Skin: normal pigmentation, warm/dry Guevara Lala DO Nov 13, 2018 06:58
--- NOTE | 2018-11-13 07:15 | NUR ---
HAND-OFF: Report given to Nataliia Galdamez
[2018-11-13 08:00] VITALS: BP 140/85
--- NOTE | 2018-11-13 08:03 | NUR ---
NURSE NOTES: received report from AUDREY Yost. patient in bed. sleeping. no respiratory distress noted. breathing even and unlabored. GTF jevity 1.2 running @60. gt site intact. no s/sx of infection. IV [id number] running 1/2NS [id number] 75/hr. 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 PPE at all times. p200 mattress for wound management. bed in the lowest position. call light within reach. alarm on. will continue to provide plan of care.
[2018-11-13] MEDS: Heparin 5000 units/ml inj SUBQ SCH ×2 (08:53→20:01)
--- NOTE | 2018-11-13 09:59 | NUR ---
P.T Note: P.T evaluation completed . Pt is alert, non verbal and essentially not able to follow simple commands. Pt not able to engage in functional mobilities. Pt is at baseline dependent/total assist. in all areas of ADL/functional mobilities and not a candidate for skilled P.T services. Recommend DC to prior living arrangement to receive total care. D/C P.T services. Thank you for this referral.
--- NOTE | 2018-11-13 10:55 | NUR ---
NURSE NOTES: received call from Micro lab. blood culture with gram positive cocci in clusters in [address] Atwood and received order start IV vancomycin per pharmacy dose and two sets of blood culture. order noted and carried out.
[2018-11-13 12:00] VITALS: BP 122/73
--- NOTE | 2018-11-13 12:21 | Pulmonology Progress Note ---
Assessment/Plan Problems: (1) ATN (acute tubular necrosis) (2) Acute encephalopathy (3) Severe protein-calorie malnutrition (4) Limited mobility in bed (5) Feeding by G-tube (6) Dementia Assessment/Plan iv fluids check electrolytes tolerating feeding check cultures dvt prophylaxis Subjective ROS Limited/Unobtainable: Yes Interval Events: comfortable, not agitated Allergies: Coded Allergies: No Known Allergies (Unverified , 10/09/12) Objective Last 24 Hour Vital Signs Date Time Temp Pulse Resp B/P (MAP) Pulse Ox O2 Delivery O2 Flow Rate FiO2 11/13/18 12:00 98.1 96 18 122/73 (89) 97 11/13/18 09:00 Room Air 11/13/18 08:00 97.5 91 19 140/85 (103) 95 11/13/18 04:00 98.0 95 20 117/54 (75) 98 11/13/18 00:00 98.4 67 20 124/62 (82) 97 11/12/18 21:00 Room Air 11/12/18 20:00 98.4 93 20 129/59 (82) 97 11/12/18 16:00 97.7 79 20 128/76 (93) 97 Intake and Output 11/12/18 11/13/18 19:00 07:00 Intake Total 960 ml 2825 ml Balance 960 ml 2825 ml Intake Free Water 300 ml 1100 ml IV Total 300 ml 825 ml Tube Feeding 360 ml 900 ml # Voids 3 9 # Bowel Movements 2 General Appearance: cachetic HEENT: normocephalic, atraumatic Respiratory/Chest: chest wall non-tender, lungs clear Breasts: no masses Cardiovascular: normal peripheral pulses, normal rate Abdomen: normal bowel sounds, soft, non tender Genitourinary: normal external genitalia Extremities: no cyanosis Neurologic/Psychiatric: 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 II-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4, Basophils (%) (Auto) 0.6, Sodium Level 135L, Potassium Level 4.9, Chloride Level 103, Carbon Dioxide Level 23, Anion Gap 9, Blood Urea Nitrogen 31H, Creatinine 1.1, Estimat Glomerular Filtration Rate , Glucose Level 114H, Calcium Level 8.9 Current Medications Medications (Trade) Dose Ordered Sig/Khoa Route PRN Reason Start Time Stop Time Status Last Admin Dose Admin Acetaminophen (Tylenol) 650 mg Q4H PRN GT fever 11/12/18 10:15 12/12/18 10:14 Dextrose/ Electrolytes 1,000 ml @ 75 mls/hr [id number] IV 11/12/18 14:00 12/12/18 13:59 11/13/18 03:28 Donepezil HCl (Aricept) 10 mg BEDTIME GT 11/12/18 21:00 12/12/18 20:59 11/12/18 21:38 Heparin Sodium (Porcine) (Heparin 5000 units/ml) 5,000 units EVERY 12 HOURS SUBQ 11/12/18 21:00 12/12/18 20:59 11/13/18 08:53 Iopamidol (Isovue-300 100ml) 100 ml NOW PRN INJ Radiology Procedure 11/12/18 06:30 Ondansetron HCl (Zofran) 4 mg Q6H PRN IVP Nausea & Vomiting 11/12/18 10:15 12/12/18 10:14 Vancomycin HCl (Vanco rx to dose) 1 ea DAILY PRN MISC Per rx protocol 11/13/18 11:00 12/13/18 10:59 Vancomycin HCl 500 mg/Dextrose 110 ml @ 110 mls/hr Q24H IVPB 11/13/18 14:00 11/18/18 13:59 Zolpidem Tartrate (Ambien) 5 mg HSPRN PRN GT Insomnia 11/12/18 10:15 11/19/18 10:14 Dajuan Lam MD Nov 13, 2018 12:21
[2018-11-13] MEDS: Vancomycin 500mg/D5W 110ml IVPB SCH ×2 (13:08)
--- NOTE | 2018-11-13 13:20 | NUR ---
RD ASSESSMENT & RECOMMENDATIONS SEE CARE ACTIVITY FOR COMPLETE ASSESSMENT DAILY ESTIMATED NEEDS: Needs based on Wounds/ 53kg 25-30 kcals/kg 8516-7319 total kcals 1.25-1.5 g protein/kg 66-79 g total protein 25-30 mL/kg 5503-9226 total fluid mLs NUTRITION DIAGNOSIS: 1) Increased kcal and pro needs r/t wound healing as evidenced by pt w/ DTPI at rt heel, stage 2 at sacrum, necrotic ulcers R 2nd, 3rd, 4th toes 2) Swallowing difficulty r/t dysphagia as evidenced by pt is GT dep. CURRENT TF: Jevity 1.2 @60ml x 20hrs ENTERAL NUTRITION RECOMMENDATIONS: Jevity 1.2 @60ml/hr x 20 hrs + Prosource 1pkt QD to provide 1200ml, 1440kcal, 66g +11g prot, 968ml free water - Maintain current TF - Add Prosource 1pkt QD to better meet protein needs (Additional 11g prot) - Flush per MD/ HOB over 30 degrees ADDITIONAL RECOMMENDATIONS: 1) Obtain a CALIBRATED bed scale wt, monitor wt trend - Per SNF record: pt is 59", 116lbs 2) Monitor lytes daily, replete as needed 3) Wound healing: add Vit C 250mg QD, ZnSO4 220mg QD x 10 days : Silvano 1pkt BID . Addendum: 11/13/18 at [address] Pt also w/ stage 3 wound @ rt sacrum per WC specialist.
--- NOTE | 2018-11-13 13:40 | Infectious Diseases Prog Note ---
Assessment/Plan Assessment/Plan Abx: None Assessment: Gram positive bacteremia- real vs contaminant -11/12 BCx 1/2 GPC clusters Acute on chronic encephalopathy -u/a neg -CXR: Equivocal mild interstitial congestion. Borderline cardiomegaly -Head CT: Chronic and age-related changes. Negative for acute intracranial bleed or mass effect -CT abd/p: Evidence of mild rectal fecal impaction. Bilateral lower lobe pulmonary parenchymal infiltrates versus edema. Age indeterminate vertebral body compression fracture. Consider MRI for better characterization if clinically indicated. Colonic diverticulosis. No evidence of diverticulitis. Cardiomegaly. Subcentimeter right lobe lower pole renal lesion, too small to characterize, Afebrile No leukocytosis HTN CVA/TIA CHF hx of lumbar spine fracture FTT s/p GT dementia non-verbal NH resident Plan: -Start empiric IV Vancomycin pending BCx -f/u cx -Monitor CBC/CMP, temperatures -aspiration precautions -Bcx x2 Thank you for this consultation. Will continue to follow along with you. Discussed with RN. Subjective Allergies: Coded Allergies: No Known Allergies (Unverified , 10/09/12) Subjective afebrile no leukocytosis Objective Vital Signs Last 24 Hour Vital Signs Date Time Temp Pulse Resp B/P (MAP) Pulse Ox O2 Delivery O2 Flow Rate FiO2 11/13/18 12:00 98.1 96 18 122/73 (89) 97 11/13/18 09:00 Room Air 11/13/18 08:00 97.5 91 19 140/85 (103) 95 11/13/18 04:00 98.0 95 20 117/54 (75) 98 11/13/18 00:00 98.4 67 20 124/62 (82) 97 11/12/18 21:00 Room Air 11/12/18 20:00 98.4 93 20 129/59 (82) 97 11/12/18 16:00 97.7 79 20 128/76 (93) 97 Height (Feet): 5 Height (Inches): 2.00 Weight (Pounds): 109 Objective GENERAL: Calm in bed, nonverbal. CARDIOVASCULAR: No murmur. LUNGS: Distant and clear. ABDOMEN: Positive bowel sounds. Nontender. Nondistended. EXTREMITIES: No cyanosis or edema. NEUROLOGIC: The patient flaccid in bed, not following directions. Microbiology Date/Time Source Procedure Growth Status 11/12/18 05:25 Blood Blood Culture - Preliminary Resulted 11/12/18 05:45 Rectum Received Laboratory Tests Test 11/13/18 05:00 White Blood Count 7.2 K/UL (4.8-10.8) Red Blood Count 4.13 M/UL (4.20-5.40) L Hemoglobin 11.8 G/DL (12.0-16.0) L Hematocrit 36.4 % (37.0-47.0) L Mean Corpuscular Volume 88 FL (80-99) Mean Corpuscular Hemoglobin 28.6 PG (27.0-31.0) Mean Corpuscular Hemoglobin Concent 32.5 G/DL (32.0-36.0) Red Cell Distribution Width 16.1 % (11.6-14.8) H Platelet Count 185 K/UL (150-450) Mean Platelet Volume 7.7 FL (6.5-10.1) Neutrophils (%) (Auto) 82.3 % (45.0-75.0) H Lymphocytes (%) (Auto) 8.5 % (20.0-45.0) L Monocytes (%) (Auto) 7.2 % (1.0-10.0) Eosinophils (%) (Auto) 1.4 % (0.0-3.0) Basophils (%) (Auto) 0.6 % (0.0-2.0) Sodium Level 135 MMOL/L (136-145) L Potassium Level 4.9 MMOL/L (3.5-5.1) Chloride Level 103 MMOL/L (98-107) Carbon Dioxide Level 23 MMOL/L (21-32) Anion Gap 9 mmol/L (5-15) Blood Urea Nitrogen 31 mg/dL (7-18) H Creatinine 1.1 MG/DL (0.55-1.30) Estimat Glomerular Filtration Rate mL/min (>60) Glucose Level 114 MG/DL (74-106) H Calcium Level 8.9 MG/DL (8.5-10.1) Current Medications Medications (Trade) Dose Ordered Sig/Khoa Route PRN Reason Start Time Stop Time Status Last Admin Dose Admin Acetaminophen (Tylenol) 650 mg Q4H PRN GT fever 11/12/18 10:15 12/12/18 10:14 Dextrose/ Electrolytes 1,000 ml @ 75 mls/hr [id number] IV 11/12/18 14:00 12/12/18 13:59 11/13/18 03:28 Donepezil HCl (Aricept) 10 mg BEDTIME GT 11/12/18 21:00 12/12/18 20:59 11/12/18 21:38 Heparin Sodium (Porcine) (Heparin 5000 units/ml) 5,000 units EVERY 12 HOURS SUBQ 11/12/18 21:00 12/12/18 20:59 11/13/18 08:53 Iopamidol (Isovue-300 100ml) 100 ml NOW PRN INJ Radiology Procedure 11/12/18 06:30 Ondansetron HCl (Zofran) 4 mg Q6H PRN IVP Nausea & Vomiting 11/12/18 10:15 12/12/18 10:14 Vancomycin HCl (Vanco rx to dose) 1 ea DAILY PRN MISC Per rx protocol 11/13/18 11:00 12/13/18 10:59 Vancomycin HCl 500 mg/Dextrose 110 ml @ 110 mls/hr Q24H IVPB 11/13/18 14:00 11/18/18 13:59 11/13/18 13:08 Zolpidem Tartrate (Ambien) 5 mg HSPRN PRN GT Insomnia 11/12/18 10:15 11/19/18 10:14 Salud Atwood M.D. Nov 13, 2018 13:40
[2018-11-13] MEDS ORDERED: LORazepam 0.5mg tab GT PRN (14:15)
--- NOTE | 2018-11-13 14:32 | NUR ---
NURSE NOTES:WOUND CARE NOTES:Pt presented on admission with multiple pressure injuries and necrotic ulcers toes R foot. Full thickness pressure injury R Sacrum .Base of wound with small amt slough centrally with surrounding pink granulation (L)0.8cm x (W)0.5cm x (D)0.2cm. Edges adherent to base of wound. Non-blanchable erythema periwound. Partial thickness pressure injury L sacrum (L)2.5cm x (W)1cm. Base of wound is viable and moist. Non-blanchable erythema without induration/fluctuance periwound. DTPI R heel. Base of wound maroon in colour with fluctuance (L)5cm x (W)6cm. Pt verbalized tenderness when R heel minimally palpated. Non-blanching erythema with fluctuance L heel. Non-tender when miniamlly palpated. Clubbing of toes noted to both feet. Stable dry eschar noted to dorsal aspects of R 2nd, R 3rd, and R 4th metatarsals. Tx.Plan: Apply Triad Paste to wounds R and L sacrum. Cover with Optifoam drsg. Change every 3 days and prn. Swab R 2nd ,R 3rd and R 4th metatarsals with Betadine Daily. Apply Cavilon Skin Barrier to R and L heels. Cover each heel with Optifoam drsg. Change every 7 days and prn. Reposition at least every 2hours or as tolerated. Off-load heels with pillow.
[2018-11-13 16:00] VITALS: BP 118/63
--- NOTE | 2018-11-13 16:33 | NUR ---
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 SEVERE MALNUTRITION VS: BP 117/58, P 93, T 98.4, RR 14, SpO2 99 BUN 50 CXR: Equivocal mild interstitial congestion. Borderline cardiomegaly. IS:EKG TRACING XRAY CHEST CULTURE BLOOD ADMITTED TO MED/SURG DCP: RETURN TO [facility]
--- NOTE | 2018-11-13 18:00 | NUR ---
NURSE NOTES: patient has pressure injury on rt and lt sacral st 3. DTI on rt heel. abrasions on rt 2,3,4th toe. notifed Dr. ibrahim and received order of wound consult with Dr. Ojeda. order noted and carried out.
--- NOTE | 2018-11-13 18:06 | Consultation ---
History of Present Illness General Date patient seen: Nov 13, 2018 Chief Complaint: General Complaint Present Illness HPI 83 year old female with multiple medical comorbidities who is a intermediate resident presented with altered mental status and admitted for care. on admission noted to have multiple wounds requiring care. surgery called to evaluate and assist with care. patient seen, chart reviewed, patient examined. labs noted. exam as below Allergies: Coded Allergies: No Known Allergies (Unverified , 10/09/12) Medication History Scheduled Acetaminophen* (Acetaminophen 325MG Tablet*), 650 MG GT Q6HR, (Reported) Ascorbic Acid* (Ascorbic Acid*), 500 MG GT DAILY, (Reported) Cephalexin* (Keflex*), 500 MG GT EVERY 12 HOURS, (Reported) Cranberry Fruit Concentrate (Cranberry), 450 MG GT DAILY, (Reported) Docusate Sodium* (Colace*), 100 MG GT TWICE A DAY, (Reported) Donepezil Hcl* (Donepezil Hcl*), 10 MG GT BEDTIME, (Reported) Esomeprazole Magnesium (Nexium), 40 MG ORAL DAILY, (Reported) Ferrous Sulfate (Ferrous Sulfate), 220 MG GT BIDPC, (Reported) Magnesium Hydroxide* (Milk Of Magnesia*), 30 ML GT DAILY, (Reported) Patient History Limited by: medical condition History Provided By: Medical Record, PMD Healthcare decision maker Lisa Chow/FELIPE Resuscitation status Full Code Advanced Directive on File No Past Medical/Surgical History Past Medical/Surgical History: (1) Constipation (2) Weak (3) Sepsis (4) Anemia (5) Dementia (6) Hyponatremia (7) UTI (urinary tract infection) (8) Decubitus skin ulcer (9) Cellulitis and abscess of foot (10) History of hypertension (11) Feeding by G-tube (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 (13) Limited mobility in bed (14) ATN (acute tubular necrosis) (15) Shock (16) Severe protein-calorie malnutrition (17) CVA (cerebral vascular accident) (18) Acute encephalopathy Review of Systems ROS Narrative cannot obtain given medical condition Physical Exam General Appearance: no apparent distress Lines, tubes and drains: peripheral HEENT: mucous membranes moist Neck: normal inspection Respiratory/Chest: no respiratory distress, decreased breath sounds Cardiovascular/Chest: regular rhythm Abdomen: soft, no organomegaly, no mass Extremities: non-tender Skin Exam: warm/dry Neurologic: other Last 24 Hour Vital Signs Date Time Temp Pulse Resp B/P (MAP) Pulse Ox O2 Delivery O2 Flow Rate FiO2 11/13/18 16:00 98.2 85 18 118/63 (81) 97 11/13/18 12:00 98.1 96 18 122/73 (89) 97 11/13/18 09:00 Room Air 11/13/18 08:00 97.5 91 19 140/85 (103) 95 11/13/18 04:00 98.0 95 20 117/54 (75) 98 11/13/18 00:00 98.4 67 20 124/62 (82) 97 11/12/18 21:00 Room Air 11/12/18 20:00 98.4 93 20 129/59 (82) 97 Intake and Output 11/12/18 11/13/18 18:59 06:59 Intake Total 840 ml 2525 ml Balance 840 ml 2525 ml Intake Free Water 300 ml 800 ml IV Total 300 ml 825 ml Tube Feeding 240 ml 900 ml # Voids 12 # Bowel Movements 2 Laboratory Tests Test 11/13/18 05:00 White Blood Count 7.2 K/UL (4.8-10.8) Red Blood Count 4.13 M/UL (4.20-5.40) L Hemoglobin 11.8 G/DL (12.0-16.0) L Hematocrit 36.4 % (37.0-47.0) L Mean Corpuscular Volume 88 FL (80-99) Mean Corpuscular Hemoglobin 28.6 PG (27.0-31.0) Mean Corpuscular Hemoglobin Concent 32.5 G/DL (32.0-36.0) Red Cell Distribution Width 16.1 % (11.6-14.8) H Platelet Count 185 K/UL (150-450) Mean Platelet Volume 7.7 FL (6.5-10.1) Neutrophils (%) (Auto) 82.3 % (45.0-75.0) H Lymphocytes (%) (Auto) 8.5 % (20.0-45.0) L Monocytes (%) (Auto) 7.2 % (1.0-10.0) Eosinophils (%) (Auto) 1.4 % (0.0-3.0) Basophils (%) (Auto) 0.6 % (0.0-2.0) Sodium Level 135 MMOL/L (136-145) L Potassium Level 4.9 MMOL/L (3.5-5.1) Chloride Level 103 MMOL/L (98-107) Carbon Dioxide Level 23 MMOL/L (21-32) Anion Gap 9 mmol/L (5-15) Blood Urea Nitrogen 31 mg/dL (7-18) H Creatinine 1.1 MG/DL (0.55-1.30) Estimat Glomerular Filtration Rate mL/min (>60) Glucose Level 114 MG/DL (74-106) H Calcium Level 8.9 MG/DL (8.5-10.1) Height (Feet): 5 Height (Inches): 2.00 Weight (Pounds): 109 Medications Current Medications Medications (Trade) Dose Ordered Sig/Khoa Route PRN Reason Start Time Stop Time Status Last Admin Dose Admin Acetaminophen (Tylenol) 650 mg Q4H PRN GT fever 11/12/18 10:15 12/12/18 10:14 Dextrose/ Electrolytes 1,000 ml @ 75 mls/hr [id number] IV 11/12/18 14:00 12/12/18 13:59 11/13/18 17:00 Donepezil HCl (Aricept) 10 mg BEDTIME GT 11/12/18 21:00 12/12/18 20:59 11/12/18 21:38 Heparin Sodium (Porcine) (Heparin 5000 units/ml) 5,000 units EVERY 12 HOURS SUBQ 11/12/18 21:00 12/12/18 20:59 11/13/18 08:53 Iopamidol (Isovue-300 100ml) 100 ml NOW PRN INJ Radiology Procedure 11/12/18 06:30 Lorazepam (Ativan) 0.5 mg Q6H PRN GT For Anxiety 11/13/18 14:15 11/20/18 14:14 Ondansetron HCl (Zofran) 4 mg Q6H PRN IVP Nausea & Vomiting 11/12/18 10:15 12/12/18 10:14 Vancomycin HCl (Vanco rx to dose) 1 ea DAILY PRN MISC Per rx protocol 11/13/18 11:00 12/13/18 10:59 Vancomycin HCl 500 mg/Dextrose 110 ml @ 110 mls/hr Q24H IVPB 11/13/18 14:00 11/18/18 13:59 11/13/18 13:08 Zolpidem Tartrate (Ambien) 5 mg HSPRN PRN GT Insomnia 11/12/18 10:15 11/19/18 10:14 Assessment/Plan Problem List: (1) Constipation Assessment & Plan: bowel regimen ordered cont diet as tolerated ICD Codes: K59.00 - Constipation, unspecified SNOMED: 37037814 (2) Decubitus skin ulcer Assessment & Plan: Pt presented on admission with multiple pressure injuries and necrotic ulcers toes R foot. Full thickness pressure injury R Sacrum .Base of wound with small amt slough centrally with surrounding pink granulation (L)0.8cm x (W)0.5cm x (D)0.2cm. Edges adherent to base of wound. Non-blanchable erythema periwound. Partial thickness pressure injury L sacrum (L)2.5cm x (W)1cm. Base of wound is viable and moist. Non-blanchable erythema without induration/fluctuance periwound. DTPI R heel. Base of wound maroon in colour with fluctuance (L)5cm x (W)6cm. Pt verbalized tenderness when R heel minimally palpated. Non-blanching erythema with fluctuance L heel. Non-tender when miniamlly palpated. Clubbing of toes noted to both feet. Stable dry eschar noted to dorsal aspects of R 2nd, R 3rd, and R 4th metatarsals. Tx.Plan: Apply Triad Paste to wounds R and L sacrum. Cover with Optifoam drsg. Change every 3 days and prn. Swab R 2nd ,R 3rd and R 4th metatarsals with Betadine Daily. Apply Cavilon Skin Barrier to R and L heels. Cover each heel with Optifoam drsg. Change every 7 days and prn. Reposition at least every 2hours or as tolerated. Off-load heels with pillow. ICD Codes: L89.90 - Pressure ulcer of unspecified site, unspecified stage SNOMED: 450820200 (3) Severe protein-calorie malnutrition Assessment & Plan: DAILY ESTIMATED NEEDS: Needs based on Wounds/ 53kg 25-30 kcals/kg [id number] total kcals 1.25-1.5 g protein/kg 66-79 g total protein 25-30 mL/kg [id number] total fluid mLs NUTRITION DIAGNOSIS: 1) Increased kcal and pro needs r/t wound healing as evidenced by pt w/ DTPI at rt heel, stage 2 at sacrum, necrotic ulcers R 2nd, 3rd, 4th toes 2) Swallowing difficulty r/t dysphagia as evidenced by pt is GT dep. CURRENT TF: Jevity 1.2 @60ml x 20hrs ENTERAL NUTRITION RECOMMENDATIONS: Jevity 1.2 @60ml/hr x 20 hrs + Prosource 1pkt QD to provide 1200ml, 1440kcal, 66g +11g prot, 968ml free water - Maintain current TF - Add Prosource 1pkt QD to better meet protein needs (Additional 11g prot) - Flush per MD/ HOB over 30 degrees ADDITIONAL RECOMMENDATIONS: 1) Obtain a CALIBRATED bed scale wt, monitor wt trend - Per SNF record: pt is 59", 116lbs 2) Monitor lytes daily, replete as needed 3) Wound healing: add Vit C 250mg QD, ZnSO4 220mg QD x 10 days : Silvano 1pkt BID ICD Codes: E43 - Unspecified severe protein-calorie malnutrition SNOMED: [id number], [id number], [id number] Pb Ojeda Nov 13, 2018 18:06
--- NOTE | 2018-11-13 18:10 | NUR ---
NURSE NOTES: seen by Dr. Ojeda for wound consult. patient has pressure injury on rt and lt sacral st 3. DTI on rt heel. abrasions on rt 2,3,4th toe. received clarification orders for wounds. order noted and carried out.
--- NOTE | 2018-11-13 19:23 | NUR ---
HAND-OFF: Report given to MARCELINA Wynn.
[2018-11-13 20:00] VITALS: BP 135/82
[2018-11-13] MEDS: Donepezil 10mg tab GT SCH (20:00)
[2018-11-13] MEDS: Acetaminophen 650mg/20.3ml GT PRN (20:00)
--- NOTE | 2018-11-13 20:00 | NUR ---
NURSE NOTES: Patient received in bed, asleep, easily arousable. IV was already out and leaking. New IV access obtained, resumed IVF. Noted with fever, cooling measures and tylenol given. Will monitor.
[2018-11-14] VITALS: BP 98/47
--- NOTE | 2018-11-14 01:30 | Consultation ---
DATE OF CONSULTATION: 11/13/2018 HISTORY OF PRESENT ILLNESS: This is an 83-year-old female patient with encephalopathy. She is very confused and disorganized. She is actually transferred from [facility] with infection at the facility and then she had to be transferred to the acute hospital for that reason, and in doing so, she developed increased altered mental status and confusion and that is why her attending has requested daily psychiatric consultation. I saw the patient at bedside. She is confused and disorganized. She does have some mood lability and decline in cognition below baseline. That is why her attending has requested daily consultation. PAST MEDICAL HISTORY: The patient had a history of sepsis and encephalopathy. She has generalized weakness and altered mental status. ALLERGY HISTORY: She has no known drug allergies at this time. PSYCHOTROPIC MEDICATIONS: On admission, Aricept 10 mg p.o. at bedtime. SUBSTANCE ABUSE HISTORY: Denies. PAIN ASSESSMENT: A 0/10. DEVELOPMENTAL PROBLEMS: Denies. SOCIAL HISTORY: She lives in [facility]. She is financially supported by [employer] and Medicare. PSYCHIATRIC HISTORY: She has major depressive disorder, mild, recurrent with psychotic features, rule out dementia with psychosis. STRENGTHS: She is motivated to get better and she has a place to live. WEAKNESSES: She is impulsive. She has no support system. MENTAL STATUS EXAMINATION: An 83-year-old female. Her appearance is disheveled. Her attitude is irritable and agitated. Affect, guarded and restricted. Intellect is poor because she does not know the current President or the last four Presidents. Mood is depressed and anxious. Motor activity, psychomotor agitation. Attention span is poor because she cannot do serial sevens or spell world backwards. Orientation x1. She is only oriented to person and not time, place, and situation. Speech is mostly nonverbal. Thought process, disorganized and illogical. Thought content, she has auditory hallucinations and paranoid delusions. Perception is poor because of paranoid delusions. Insight and judgment is poor. She does not understand proverbs nor has cognitive thinking. Insight is poor. She has a decline in cognition, but judgment is poor and she is unable to make any medical decisions for herself. DIAGNOSES: Major depressive disorder, mild and recurrent with psychotic features, rule out dementia with psychosis secondary to medical encephalopathy, generalized weakness, altered mental status. Psychosocial stressors, financial. Function impairment is severe. PLAN: Plan for this patient is to treat her with a medication regimen consisting of Aricept 10 mg at bedtime, Ativan 0.5 mg every 6 hours p.r.n. anxiety and agitation. Also, 20 minutes of behavioral management provided. I also spoke to her granddaughter, who is at bedside explaining her history and getting the collateral information. Chart reviewed. Discussed with staff. The patient is seen and assessed at the bedside. I would like to thank Dr. Guevara Lala for this interesting psychiatric consultation. Bj Plummer M.D. DR: BRISEYDA JOB#: [id number] CC:
[2018-11-14 03:55] VITALS: BP 110/56
[2018-11-14] MEDS: D5 1/2NS w/KCL 10meq 1,000 ML IV SCH ×2 (06:00→17:21)
[2018-11-14 06:26] LABS: BASOPHILS % (AUTO) 1.1 % (0.0-2.0); EOSINOPHILS % (AUTO) 1.9 % (0.0-3.0); HEMATOCRIT 36.4 % (37.0-47.0); HEMOGLOBIN 11.7 G/DL (12.0-16.0); LYMPHOCYTES % (AUTO) 8.9 % (20.0-45.0); MEAN CORPUSCULAR VOLUME 89 FL (80-99); MONOCYTES % (AUTO) 10.7 % (1.0-10.0); NEUTROPHILS % (AUTO) 77.4 % (45.0-75.0); PLATELET COUNT 161 K/UL (150-450); RED BLOOD COUNT 4.09 M/UL (4.20-5.40); RED CELL DISTRIBUTION WIDTH 16.5 % (11.6-14.8); WHITE BLOOD COUNT 5.7 K/UL (4.8-10.8)
[2018-11-14 07:17] LABS: ANION GAP 10 mmol/L (5-15); BLOOD UREA NITROGEN 26 mg/dL (7-18); CALCIUM 8.4 MG/DL (8.5-10.1); CARBON DIOXIDE 22 MMOL/L (21-32); CHLORIDE 102 MMOL/L (98-107); CREATININE 1.1 MG/DL (0.55-1.30); POTASSIUM 4.5 MMOL/L (3.5-5.1); SODIUM 134 MMOL/L (136-145)
--- NOTE | 2018-11-14 07:25 | NUR ---
HAND-OFF: Report given to Aaron HEWITT.
[2018-11-14 08:00] VITALS: BP 114/59
[2018-11-14] MEDS: Zinc Sulfate 220mg cap ORAL SCH (08:40)
[2018-11-14] MEDS: Docusate 100mg cap ORAL SCH ×2 (08:40→17:21)
[2018-11-14] MEDS: Ascorbic Acid 500mg tab ORAL SCH ×2 (08:40→17:21)
[2018-11-14] MEDS: Acetaminophen 650mg/20.3ml GT PRN (08:41)
[2018-11-14] MEDS: Heparin 5000 units/ml inj SUBQ SCH ×2 (08:48→20:13)
--- NOTE | 2018-11-14 10:56 | NUR ---
NURSE NOTES: PT WAS GIVEN PRN TYLENOL FOR TEMPERATURE 10.1.1 AND ICE PACKS. UPON REASSESSMENT, TEMPERATURE 99.5 DEGREES FAHRENHEIT. RN REPLACED ICE PACKS. IN NO APPARENT DISTRESS AT THIS TIME. JEVITY 1.2 RUNNING AT 60CC/H, HELD FOR 1000HRS. IN HIGH-GARCIA'S POSITION WITH HOB ELEVATED FOR ASPIRATION PRECAUTIONS. WILL CONTINUE TO MONITOR.
[2018-11-14 12:00] VITALS: BP 108/54
--- NOTE | 2018-11-14 12:54 | Infectious Diseases Prog Note ---
Assessment/Plan Assessment/Plan Assessment: Gram positive bacteremia- real vs contaminant -11/12 BCx 1/2 GPC clusters; 11/13 Bcx p Acute on chronic encephalopathy -u/a neg -CXR: Equivocal mild interstitial congestion. Borderline cardiomegaly -Head CT: Chronic and age-related changes. Negative for acute intracranial bleed or mass effect -CT abd/p: Evidence of mild rectal fecal impaction. Bilateral lower lobe pulmonary parenchymal infiltrates versus edema. Age indeterminate vertebral body compression fracture. Consider MRI for better characterization if clinically indicated. Colonic diverticulosis. No evidence of diverticulitis. Cardiomegaly. Subcentimeter right lobe lower pole renal lesion, too small to characterize, Fever No leukocytosis HTN CVA/TIA CHF hx of lumbar spine fracture FTT s/p GT dementia non-verbal NH resident Plan: -Cont empiric IV Vancomycin #2 pending BCx -f/u cx -Monitor CBC/CMP, temperatures -aspiration precautions -f/u repeat Bcx x2 -2d Echo Thank you for this consultation. Will continue to follow along with you. Discussed with RN. Subjective Allergies: Coded Allergies: No Known Allergies (Unverified , 10/09/12) Subjective Tm 101.7 repeat Bcx p no leukocytosis Objective Vital Signs Last 24 Hour Vital Signs Date Time Temp Pulse Resp B/P (MAP) Pulse Ox O2 Delivery O2 Flow Rate FiO2 11/14/18 12:00 98.6 84 20 108/54 (72) 99 11/14/18 10:08 99.5 11/14/18 09:11 99.5 11/14/18 09:00 Room Air 11/14/18 08:00 101.1 93 20 114/59 (77) 99 11/14/18 03:55 98.8 72 20 110/56 (74) 99 11/14/18 00:00 99.1 69 20 98/47 (64) 96 11/13/18 21:00 Room Air 11/13/18 20:00 100.4 90 20 135/82 (99) 98 11/13/18 16:00 98.2 85 18 118/63 (81) 97 Height (Feet): 5 Height (Inches): 2.00 Weight (Pounds): 109 Objective GENERAL: Calm in bed, nonverbal. CARDIOVASCULAR: No murmur. LUNGS: Distant and clear. ABDOMEN: Positive bowel sounds. Nontender. Nondistended. EXTREMITIES: No cyanosis or edema. NEUROLOGIC: The patient flaccid in bed, not following directions. Microbiology Date/Time Source Procedure Growth Status 11/12/18 05:25 Blood Blood Culture - Preliminary Gram Positive Cocci Resulted 11/12/18 05:10 Blood Blood Culture - Preliminary NO GROWTH AFTER 24 HOURS Resulted 11/12/18 05:45 Nose MRSA Culture - Final Staphylococcus Aureus - Mrsa Complete 11/12/18 05:45 Rectum - Final NO CARBAPENEM-RESISTANT ENTEROBACTERI... Complete 11/12/18 05:45 Rectum VRE Culture - Final NO VANCOMYCIN RESISTANT ENTEROCOCCUS ... Complete Laboratory Tests Test 11/14/18 05:27 White Blood Count 5.7 K/UL (4.8-10.8) Red Blood Count 4.09 M/UL (4.20-5.40) L Hemoglobin 11.7 G/DL (12.0-16.0) L Hematocrit 36.4 % (37.0-47.0) L Mean Corpuscular Volume 89 FL (80-99) Mean Corpuscular Hemoglobin 28.5 PG (27.0-31.0) Mean Corpuscular Hemoglobin Concent 32.1 G/DL (32.0-36.0) Red Cell Distribution Width 16.5 % (11.6-14.8) H Platelet Count 161 K/UL (150-450) Mean Platelet Volume 7.3 FL (6.5-10.1) Neutrophils (%) (Auto) 77.4 % (45.0-75.0) H Lymphocytes (%) (Auto) 8.9 % (20.0-45.0) L Monocytes (%) (Auto) 10.7 % (1.0-10.0) H Eosinophils (%) (Auto) 1.9 % (0.0-3.0) Basophils (%) (Auto) 1.1 % (0.0-2.0) Sodium Level 134 MMOL/L (136-145) L Potassium Level 4.5 MMOL/L (3.5-5.1) Chloride Level 102 MMOL/L (98-107) Carbon Dioxide Level 22 MMOL/L (21-32) Anion Gap 10 mmol/L (5-15) Blood Urea Nitrogen 26 mg/dL (7-18) H Creatinine 1.1 MG/DL (0.55-1.30) Estimat Glomerular Filtration Rate mL/min (>60) Glucose Level 124 MG/DL (74-106) H Calcium Level 8.4 MG/DL (8.5-10.1) L Current Medications Medications (Trade) Dose Ordered Sig/Khoa Route PRN Reason Start Time Stop Time Status Last Admin Dose Admin Acetaminophen (Tylenol) 650 mg Q4H PRN GT fever 11/12/18 10:15 12/12/18 10:14 11/14/18 08:41 Ascorbic Acid (Vitamin C) 250 mg TWICE A DAY ORAL 11/14/18 09:00 12/14/18 08:59 11/14/18 08:40 Dextrose/ Electrolytes 1,000 ml @ 75 mls/hr [id number] IV 11/12/18 14:00 12/12/18 13:59 11/14/18 06:00 Docusate Sodium (Colace) 100 mg TWICE A DAY ORAL 11/14/18 09:00 12/14/18 08:59 11/14/18 08:40 Donepezil HCl (Aricept) 10 mg BEDTIME GT 11/12/18 21:00 12/12/18 20:59 11/13/18 20:00 Heparin Sodium (Porcine) (Heparin 5000 units/ml) 5,000 units EVERY 12 HOURS SUBQ 11/12/18 21:00 12/12/18 20:59 11/14/18 08:48 Iopamidol (Isovue-300 100ml) 100 ml NOW PRN INJ Radiology Procedure 11/12/18 06:30 Lorazepam (Ativan) 0.5 mg Q6H PRN GT For Anxiety 11/13/18 14:15 11/20/18 14:14 Ondansetron HCl (Zofran) 4 mg Q6H PRN IVP Nausea & Vomiting 11/12/18 10:15 12/12/18 10:14 Vancomycin HCl (Vanco rx to dose) 1 ea DAILY PRN MISC Per rx protocol 11/13/18 11:00 12/13/18 10:59 Vancomycin HCl 500 mg/Dextrose 110 ml @ 110 mls/hr Q24H IVPB 11/13/18 14:00 11/18/18 13:59 11/13/18 13:08 Zinc Sulfate (Zinc Sulfate) 220 mg DAILY ORAL 11/14/18 09:00 11/24/18 08:59 11/14/18 08:40 Zolpidem Tartrate (Ambien) 5 mg HSPRN PRN GT Insomnia 11/12/18 10:15 11/19/18 10:14 Salud Atwood M.D. Nov 14, 2018 12:54
[2018-11-14] MEDS: Vancomycin 500mg/D5W 110ml IVPB SCH ×2 (13:42)
--- NOTE | 2018-11-14 14:25 | General Progress Note ---
Assessment/Plan Problem List: (1) Constipation ICD Codes: K59.00 - Constipation, unspecified SNOMED: 88308422 (2) Weak ICD Codes: R53.1 - Weakness SNOMED: 23422227 (3) Dementia ICD Codes: F03.90 - Dementia SNOMED: 48452249 (4) ATN (acute tubular necrosis) ICD Codes: N17.0 - Acute kidney failure with tubular necrosis SNOMED: 27903778 (5) Severe protein-calorie malnutrition ICD Codes: E43 - Unspecified severe protein-calorie malnutrition SNOMED: 661981021, 300133369, 127149916 (6) CVA (cerebral vascular accident) ICD Codes: I63.9 - Cerebral infarction, unspecified SNOMED: 707373898 (7) Acute encephalopathy ICD Codes: G93.40 - Encephalopathy, unspecified SNOMED: 30357480, 991171672 (8) History of hypertension ICD Codes: Z86.79 - Personal history of other diseases of the circulatory system SNOMED: 474720008 Status: stable, progressing Assessment/Plan: pt ot diet abx bp pain control cbc bmp am dc plan Subjective Constitutional: Reports: weakness Allergies: Coded Allergies: No Known Allergies (Unverified , 10/09/12) All Systems: reviewed and negative except above Subjective sleepy calm Objective Last 24 Hour Vital Signs Date Time Temp Pulse Resp B/P (MAP) Pulse Ox O2 Delivery O2 Flow Rate FiO2 11/14/18 12:00 98.6 84 20 108/54 (72) 99 11/14/18 10:08 99.5 11/14/18 09:11 99.5 11/14/18 09:00 Room Air 11/14/18 08:00 101.1 93 20 114/59 (77) 99 11/14/18 03:55 98.8 72 20 110/56 (74) 99 11/14/18 00:00 99.1 69 20 98/47 (64) 96 11/13/18 21:00 Room Air 11/13/18 20:00 100.4 90 20 135/82 (99) 98 11/13/18 16:00 98.2 85 18 118/63 (81) 97 Intake and Output 11/13/18 11/14/18 19:00 07:00 Intake Total 2000 ml 2280 ml Balance 2000 ml 2280 ml Intake Free Water 600 ml 660 ml IV Total 860 ml 900 ml Tube Feeding 540 ml 720 ml # Voids 2 Laboratory Tests 11/14/18 05:27: White Blood Count 5.7, Red Blood Count 4.09L, Hemoglobin 11.7L, Hematocrit 36.4L , Mean Corpuscular Volume 89, Mean Corpuscular Hemoglobin 28.5, Mean Corpuscular Hemoglobin Concent 32.1, Red Cell Distribution Width 16.5H, Platelet Count 161, Mean Platelet Volume 7.3, Neutrophils (%) (Auto) 77.4H, Lymphocytes (%) (Auto) 8.9L, Monocytes (%) (Auto) 10.7H, Eosinophils (%) (Auto) 1.9, Basophils (%) (Auto) 1.1, Sodium Level 134L, Potassium Level 4.5, Chloride Level 102, Carbon Dioxide Level 22, Anion Gap 10, Blood Urea Nitrogen 26H, Creatinine 1.1, Estimat Glomerular Filtration Rate , Glucose Level 124H, Calcium Level 8.4L Height (Feet): 5 Height (Inches): 2.00 Weight (Pounds): 109 General Appearance: lethargic EENT: normal ENT inspection Neck: normal alignment Cardiovascular: normal peripheral pulses, normal rate, regular rhythm Respiratory/Chest: chest wall non-tender, lungs clear, normal breath sounds Abdomen: normal bowel sounds, non tender, soft Extremities: normal inspection Edema: no edema noted Arm (L), no edema noted Arm (R), no edema noted Leg (L), no edema noted Leg (R), no edema noted Pedal (L), no edema noted Pedal (R), no edema noted Generalized Neurologic: responsive, motor weakness Skin: normal pigmentation, warm/dry Guevara Lala DO Nov 14, 2018 14:25
--- NOTE | 2018-11-14 15:56 | Surgery Progress Note ---
Surgery Progress Note Subjective Symptoms: improved, tolerating diet, voiding well, passing flatus Objective Last 24 Hour Vital Signs Date Time Temp Pulse Resp B/P (MAP) Pulse Ox O2 Delivery O2 Flow Rate FiO2 11/14/18 12:00 98.6 84 20 108/54 (72) 99 11/14/18 10:08 99.5 11/14/18 09:11 99.5 11/14/18 09:00 Room Air 11/14/18 08:00 101.1 93 20 114/59 (77) 99 11/14/18 03:55 98.8 72 20 110/56 (74) 99 11/14/18 00:00 99.1 69 20 98/47 (64) 96 11/13/18 21:00 Room Air 11/13/18 20:00 100.4 90 20 135/82 (99) 98 11/13/18 16:00 98.2 85 18 118/63 (81) 97 I&O Intake and Output 11/13/18 11/14/18 19:00 07:00 Intake Total 2000 ml 2280 ml Balance 2000 ml 2280 ml Intake Free Water 600 ml 660 ml IV Total 860 ml 900 ml Tube Feeding 540 ml 720 ml # Voids 2 Dressing: saturated Wound: clean Cardiovascular: RSR Respiratory: clear Abdomen: soft, flat, present bowel sounds, non-distended Extremities: no tenderness, other Laboratory Tests Test 11/14/18 05:27 White Blood Count 5.7 K/UL (4.8-10.8) Red Blood Count 4.09 M/UL (4.20-5.40) L Hemoglobin 11.7 G/DL (12.0-16.0) L Hematocrit 36.4 % (37.0-47.0) L Mean Corpuscular Volume 89 FL (80-99) Mean Corpuscular Hemoglobin 28.5 PG (27.0-31.0) Mean Corpuscular Hemoglobin Concent 32.1 G/DL (32.0-36.0) Red Cell Distribution Width 16.5 % (11.6-14.8) H Platelet Count 161 K/UL (150-450) Mean Platelet Volume 7.3 FL (6.5-10.1) Neutrophils (%) (Auto) 77.4 % (45.0-75.0) H Lymphocytes (%) (Auto) 8.9 % (20.0-45.0) L Monocytes (%) (Auto) 10.7 % (1.0-10.0) H Eosinophils (%) (Auto) 1.9 % (0.0-3.0) Basophils (%) (Auto) 1.1 % (0.0-2.0) Sodium Level 134 MMOL/L (136-145) L Potassium Level 4.5 MMOL/L (3.5-5.1) Chloride Level 102 MMOL/L (98-107) Carbon Dioxide Level 22 MMOL/L (21-32) Anion Gap 10 mmol/L (5-15) Blood Urea Nitrogen 26 mg/dL (7-18) H Creatinine 1.1 MG/DL (0.55-1.30) Estimat Glomerular Filtration Rate mL/min (>60) Glucose Level 124 MG/DL (74-106) H Calcium Level 8.4 MG/DL (8.5-10.1) L Plan Problems: (1) Constipation Assessment & Plan: bowel regimen ordered cont diet as tolerated (2) Decubitus skin ulcer Assessment & Plan: Pt presented on admission with multiple pressure injuries and necrotic ulcers toes R foot. Full thickness pressure injury R Sacrum .Base of wound with small amt slough centrally with surrounding pink granulation (L)0.8cm x (W)0.5cm x (D)0.2cm. Edges adherent to base of wound. Non-blanchable erythema periwound. Partial thickness pressure injury L sacrum (L)2.5cm x (W)1cm. Base of wound is viable and moist. Non-blanchable erythema without induration/fluctuance periwound. DTPI R heel. Base of wound maroon in colour with fluctuance (L)5cm x (W)6cm. Pt verbalized tenderness when R heel minimally palpated. Non-blanching erythema with fluctuance L heel. Non-tender when miniamlly palpated. Clubbing of toes noted to both feet. Stable dry eschar noted to dorsal aspects of R 2nd, R 3rd, and R 4th metatarsals. Tx.Plan: Apply Triad Paste to wounds R and L sacrum. Cover with Optifoam drsg. Change every 3 days and prn. Swab R 2nd ,R 3rd and R 4th metatarsals with Betadine Daily. Apply Cavilon Skin Barrier to R and L heels. Cover each heel with Optifoam drsg. Change every 7 days and prn. Reposition at least every 2hours or as tolerated. Off-load heels with pillow. (3) Severe protein-calorie malnutrition Assessment & Plan: DAILY ESTIMATED NEEDS: Needs based on Wounds/ 53kg 25-30 kcals/kg 4706-4034 total kcals 1.25-1.5 g protein/kg 66-79 g total protein 25-30 mL/kg 5447-5810 total fluid mLs NUTRITION DIAGNOSIS: 1) Increased kcal and pro needs r/t wound healing as evidenced by pt w/ DTPI at rt heel, stage 2 at sacrum, necrotic ulcers R 2nd, 3rd, 4th toes 2) Swallowing difficulty r/t dysphagia as evidenced by pt is GT dep. CURRENT TF: Jevity 1.2 @60ml x 20hrs ENTERAL NUTRITION RECOMMENDATIONS: Jevity 1.2 @60ml/hr x 20 hrs + Prosource 1pkt QD to provide 1200ml, 1440kcal, 66g +11g prot, 968ml free water - Maintain current TF - Add Prosource 1pkt QD to better meet protein needs (Additional 11g prot) - Flush per MD/ HOB over 30 degrees ADDITIONAL RECOMMENDATIONS: 1) Obtain a CALIBRATED bed scale wt, monitor wt trend - Per SNF record: pt is 59", 116lbs 2) Monitor lytes daily, replete as needed 3) Wound healing: add Vit C 250mg QD, ZnSO4 220mg QD x 10 days : Silvano 1pkt BID Pb Ojeda Nov 14, 2018 15:56
[2018-11-14 16:00] VITALS: BP 133/96
--- NOTE | 2018-11-14 16:13 | NUR ---
NURSE NOTES: PT IN NO APPARENT DISTRESS AT THIS TIME. TEMPERATURE WITHIN NORMAL LIMITS. GTUBE FEEDING WAS RESUMED AT 1400HRS. WILL CONTINUE TO MONITOR.
--- NOTE | 2018-11-14 16:15 | Progress Note ---
DATE: 11/14/2018 SUBJECTIVE: This is an 83-year-old female patient. She has encephalopathy. She also has altered mental status and generalized weakness, so she is very confused and disorganized. MENTAL STATUS EXAMINATION: This is an 83-year-old female. Appearance is disheveled. Attitude, irritable and agitated. Affect, flat. Intellect, poor. Mood, depressed and anxious. Motor activity, psychomotor agitation. Insight and judgment is poor. DIAGNOSIS: Major depressive disorder, mild, recurrent with psychotic features, rule out dementia with psychosis. PLAN: Treat her with Aricept 10 mg at bedtime to prevent any further decline in cognition and Ativan 0.5 mg every 6 hours p.r.n. anxiety and agitation. Provided with 20 minutes of reality-based supportive psychotherapy. 20 minutes of behavioral management provided. Chart reviewed. Discussed with staff. Seen and assessed at bedside. Bj Plummer M.D. DR: SHELBI JOB#: [id number] CC:
--- NOTE | 2018-11-14 16:53 | Pulmonology Progress Note ---
Assessment/Plan Problems: (1) ATN (acute tubular necrosis) (2) Acute encephalopathy (3) Severe protein-calorie malnutrition (4) Limited mobility in bed (5) Feeding by G-tube (6) Dementia Assessment/Plan iv fluids check electrolytes tolerating feeding check cultures dvt prophylaxis Subjective ROS Limited/Unobtainable: Yes Allergies: Coded Allergies: No Known Allergies (Unverified , 10/09/12) Objective Last 24 Hour Vital Signs Date Time Temp Pulse Resp B/P (MAP) Pulse Ox O2 Delivery O2 Flow Rate FiO2 11/14/18 16:00 98.4 81 20 133/96 (108) 99 11/14/18 12:00 98.6 84 20 108/54 (72) 99 11/14/18 10:08 99.5 11/14/18 09:11 99.5 11/14/18 09:00 Room Air 11/14/18 08:00 101.1 93 20 114/59 (77) 99 11/14/18 03:55 98.8 72 20 110/56 (74) 99 11/14/18 00:00 99.1 69 20 98/47 (64) 96 11/13/18 21:00 Room Air 11/13/18 20:00 100.4 90 20 135/82 (99) 98 Intake and Output 11/13/18 11/14/18 19:00 07:00 Intake Total 2000 ml 2280 ml Balance 2000 ml 2280 ml Intake Free Water 600 ml 660 ml IV Total 860 ml 900 ml Tube Feeding 540 ml 720 ml # Voids 2 Objective General Appearance: WD/WN HEENT: normocephalic, atraumatic Respiratory/Chest: chest wall non-tender, lungs clear, normal breath sounds Breasts: no masses Cardiovascular: normal peripheral pulses, normal rate Abdomen: normal bowel sounds, soft, non tender Genitourinary: normal external genitalia Extremities: no cyanosis Microbiology Date/Time Source Procedure Growth Status 11/12/18 05:25 Blood Blood Culture - Preliminary Gram Positive Cocci Resulted 11/12/18 05:10 Blood Blood Culture - Preliminary NO GROWTH AFTER 24 HOURS Resulted 11/12/18 05:45 Nose MRSA Culture - Final Staphylococcus Aureus - Mrsa Complete 11/12/18 05:45 Rectum - Final NO CARBAPENEM-RESISTANT ENTEROBACTERI... Complete 11/12/18 05:45 Rectum VRE Culture - Final NO VANCOMYCIN RESISTANT ENTEROCOCCUS ... Complete Laboratory Tests 11/14/18 05:27: White Blood Count 5.7, Red Blood Count 4.09L, Hemoglobin 11.7L, Hematocrit 36.4L , Mean Corpuscular Volume 89, Mean Corpuscular Hemoglobin 28.5, Mean Corpuscular Hemoglobin Concent 32.1, Red Cell Distribution Width 16.5H, Platelet Count 161, Mean Platelet Volume 7.3, Neutrophils (%) (Auto) 77.4H, Lymphocytes (%) (Auto) 8.9L, Monocytes (%) (Auto) 10.7H, Eosinophils (%) (Auto) 1.9, Basophils (%) (Auto) 1.1, Sodium Level 134L, Potassium Level 4.5, Chloride Level 102, Carbon Dioxide Level 22, Anion Gap 10, Blood Urea Nitrogen 26H, Creatinine 1.1, Estimat Glomerular Filtration Rate , Glucose Level 124H, Calcium Level 8.4L Current Medications Medications (Trade) Dose Ordered Sig/Khoa Route PRN Reason Start Time Stop Time Status Last Admin Dose Admin Acetaminophen (Tylenol) 650 mg Q4H PRN GT fever 11/12/18 10:15 12/12/18 10:14 11/14/18 08:41 Ascorbic Acid (Vitamin C) 250 mg TWICE A DAY ORAL 11/14/18 09:00 12/14/18 08:59 11/14/18 08:40 Dextrose/ Electrolytes 1,000 ml @ 75 mls/hr [id number] IV 11/12/18 14:00 12/12/18 13:59 11/14/18 06:00 Docusate Sodium (Colace) 100 mg TWICE A DAY ORAL 11/14/18 09:00 12/14/18 08:59 11/14/18 08:40 Donepezil HCl (Aricept) 10 mg BEDTIME GT 11/12/18 21:00 12/12/18 20:59 11/13/18 20:00 Heparin Sodium (Porcine) (Heparin 5000 units/ml) 5,000 units EVERY 12 HOURS SUBQ 11/12/18 21:00 12/12/18 20:59 11/14/18 08:48 Iopamidol (Isovue-300 100ml) 100 ml NOW PRN INJ Radiology Procedure 11/12/18 06:30 Lorazepam (Ativan) 0.5 mg Q6H PRN GT For Anxiety 11/13/18 14:15 11/20/18 14:14 Ondansetron HCl (Zofran) 4 mg Q6H PRN IVP Nausea & Vomiting 11/12/18 10:15 12/12/18 10:14 Vancomycin HCl (Vanco rx to dose) 1 ea DAILY PRN MISC Per rx protocol 11/13/18 11:00 12/13/18 10:59 Vancomycin HCl 500 mg/Dextrose 110 ml @ 110 mls/hr Q24H IVPB 11/13/18 14:00 11/18/18 13:59 11/14/18 13:42 Zinc Sulfate (Zinc Sulfate) 220 mg DAILY ORAL 11/14/18 09:00 11/24/18 08:59 11/14/18 08:40 Zolpidem Tartrate (Ambien) 5 mg HSPRN PRN GT Insomnia 11/12/18 10:15 11/19/18 10:14 Dajuan Lam MD Nov 14, 2018 16:53
--- NOTE | 2018-11-14 18:45 | Consultation ---
DATE OF CONSULTATION: 11/13/2018 NOTE: POOR AUDIO HISTORY OF PRESENT ILLNESS: The patient is an 83-year-old female patient . The patient was brought into the hospital for weakness, constipation, general pain, . She has been confused . For these reasons, she was referred for psychotherapeutic services. The patient . The patient becomes very anxious and irritable at times when she becomes confused and with family members. She is less irritable. The patient is very confused and unable to provide any viable information even after the patient is very confused. Her mood fluctuates, confused, and restless. However, there is no indication of suicidal or homicidal thoughts of ideation for this patient. PAST MEDICAL HISTORY: Includes a history of hypertension, malnutrition, CVA, and encephalopathy. ALLERGIES: The patient has no known drug allergies. SUBSTANCE ABUSE HISTORY: There is no indication of alcohol use, illicit substances, or cigarettes. PSYCHIATRIC HISTORY: There is no indication of mental illness for this patient. SOCIAL HISTORY: The patient is an 83-year-old female patient. She is lives in [facility]. Financially sustained through [employer]. MENTAL STATUS EXAMINATION: She is alert and oriented to person. Mood is affect is blunted. Thought process, disorganized. She has poor attention and concentration. Poor insight, judgment, and impulse control. DIAGNOSIS: Rule out with behavioral disturbance, rule out major depressive disorder, recurrent without psychotic features and moderate. PLAN: Provide the patient with: 1. Reality orientation, which is focused on improving cognitive functioning. The patient is very confused and disoriented. Oriented to person, place, time, and situation. 2. Provide the patient with supportive psychotherapy, which helps the patient . The patient at this time is very confused and disorganized and disoriented. Plan is to maintain medication compliance positive coping skills and . This clinician has reviewed the patient's chart and discussed the treatment with treatment team. Psychotherapy provided 45 minutes review of records. The patient is a poor historian. Taz Dennis PsyD. DR: TASHA JOB#: [id number] CC:
--- NOTE | 2018-11-14 19:20 | NUR ---
HAND-OFF: Report given to Nany ARROYO RN.
[2018-11-14 20:00] VITALS: BP 93/58
--- NOTE | 2018-11-14 20:00 | NUR ---
NURSE NOTES: Patient received in bed, awake, calm but guarded. No acute distress noted at this time. Dressings are intact. IV is intact and patent. GT feeding tolerating well, no residual. HOB >45 degrees, aspiration precautions. Bed alarm on, will continue to monitor.
[2018-11-14] MEDS: Donepezil 10mg tab GT SCH (20:12)
[2018-11-15] VITALS: BP 114/55
--- NOTE | 2018-11-15 00:10 | NUR ---
NURSE NOTES: Bilateral buttock wound dressing changed.
[2018-11-15 04:00] VITALS: BP 108/92
[2018-11-15 04:47] LABS: BASOPHILS % (AUTO) 0.8 % (0.0-2.0); EOSINOPHILS % (AUTO) 2.9 % (0.0-3.0); HEMATOCRIT 36.9 % (37.0-47.0); HEMOGLOBIN 11.9 G/DL (12.0-16.0); LYMPHOCYTES % (AUTO) 23.1 % (20.0-45.0); MEAN CORPUSCULAR VOLUME 88 FL (80-99); MONOCYTES % (AUTO) 13.1 % (1.0-10.0); PLATELET COUNT 157 K/UL (150-450); RED BLOOD COUNT 4.22 M/UL (4.20-5.40); RED CELL DISTRIBUTION WIDTH 15.8 % (11.6-14.8); WHITE BLOOD COUNT 4.7 K/UL (4.8-10.8)
[2018-11-15 05:03] LABS: ANION GAP 10 mmol/L (5-15); BLOOD UREA NITROGEN 24 mg/dL (7-18); CARBON DIOXIDE 22 MMOL/L (21-32); CHLORIDE 100 MMOL/L (98-107); POTASSIUM 4.5 MMOL/L (3.5-5.1); SODIUM 132 MMOL/L (136-145)
--- NOTE | 2018-11-15 07:20 | NUR ---
HAND-OFF: Report given to Aaron HEWITT.
[2018-11-15 08:00] VITALS: BP 119/60
[2018-11-15] MEDS: Ascorbic Acid 500mg tab ORAL SCH ×2 (08:13→17:16)
[2018-11-15] MEDS: Zinc Sulfate 220mg cap ORAL SCH (08:13)
[2018-11-15] MEDS: Docusate 100mg cap ORAL SCH ×2 (08:13→17:15)
[2018-11-15] MEDS: D5 1/2NS w/KCL 10meq 1,000 ML IV SCH (08:16)
[2018-11-15] MEDS: Heparin 5000 units/ml inj SUBQ SCH ×2 (08:16→21:17)
--- NOTE | 2018-11-15 08:23 | General Progress Note ---
Assessment/Plan Problem List: (1) Constipation ICD Codes: K59.00 - Constipation, unspecified SNOMED: 22864001 (2) Weak ICD Codes: R53.1 - Weakness SNOMED: 24345510 (3) Dementia ICD Codes: F03.90 - Dementia SNOMED: 57298971 (4) ATN (acute tubular necrosis) ICD Codes: N17.0 - Acute kidney failure with tubular necrosis SNOMED: 96178977 (5) Severe protein-calorie malnutrition ICD Codes: E43 - Unspecified severe protein-calorie malnutrition SNOMED: 463698161, 910380295, 874514388 (6) CVA (cerebral vascular accident) ICD Codes: I63.9 - Cerebral infarction, unspecified SNOMED: 877971460 (7) Acute encephalopathy ICD Codes: G93.40 - Encephalopathy, unspecified SNOMED: 73732058, 462122584 (8) History of hypertension ICD Codes: Z86.79 - Personal history of other diseases of the circulatory system SNOMED: 672663839 Status: stable, progressing Assessment/Plan: pt ot diet abx bp pain control cbc bmp am dc if all clear Subjective Constitutional: Reports: weakness Allergies: Coded Allergies: No Known Allergies (Unverified , 10/09/12) All Systems: reviewed and negative except above Subjective sleepy calm Objective Last 24 Hour Vital Signs Date Time Temp Pulse Resp B/P (MAP) Pulse Ox O2 Delivery O2 Flow Rate FiO2 11/15/18 04:00 98.0 90 19 108/92 (97) 100 11/15/18 00:00 99.9 80 17 114/55 (74) 99 11/14/18 21:00 Room Air 11/14/18 20:00 99.1 79 17 93/58 (70) 93 11/14/18 16:00 98.4 81 20 133/96 (108) 99 11/14/18 12:00 98.6 84 20 108/54 (72) 99 11/14/18 10:08 99.5 11/14/18 09:11 99.5 11/14/18 09:00 Room Air Intake and Output 11/14/18 11/15/18 19:00 07:00 Intake Total 1615 ml 2160 ml Output Total 4 ml Balance 1615 ml 2156 ml Intake Free Water 50 ml 0 ml IV Total 785 ml 900 ml Tube Feeding 480 ml 660 ml Blood Product 300 ml 600 ml Output Urine Total 4 ml # Bowel Movements 1 Laboratory Tests 11/15/18 04:20: White Blood Count 4.7L, Red Blood Count 4.22, Hemoglobin 11.9L, Hematocrit 36.9L , Mean Corpuscular Volume 88, Mean Corpuscular Hemoglobin 28.2, Mean Corpuscular Hemoglobin Concent 32.2, Red Cell Distribution Width 15.8H, Platelet Count 157, Mean Platelet Volume 8.0, Neutrophils (%) (Auto) 60.0, Lymphocytes (%) (Auto) 23.1, Monocytes (%) (Auto) 13.1H, Eosinophils (%) (Auto) 2.9, Basophils (%) (Auto) 0.8, Sodium Level 132L, Potassium Level 4.5, Chloride Level 100, Carbon Dioxide Level 22, Anion Gap 10, Blood Urea Nitrogen 24H, Creatinine 1.0, Estimat Glomerular Filtration Rate , Glucose Level 120H, Calcium Level 9.0 Height (Feet): 5 Height (Inches): 2.00 Weight (Pounds): 109 General Appearance: lethargic EENT: normal ENT inspection Neck: normal alignment Cardiovascular: normal peripheral pulses, normal rate, regular rhythm Respiratory/Chest: chest wall non-tender, lungs clear, normal breath sounds Abdomen: normal bowel sounds, non tender, soft Extremities: normal inspection Edema: no edema noted Arm (L), no edema noted Arm (R), no edema noted Leg (L), no edema noted Leg (R), no edema noted Pedal (L), no edema noted Pedal (R), no edema noted Generalized Neurologic: motor weakness Skin: normal pigmentation, warm/dry Guevara Lala DO Nov 15, 2018 08:23
--- NOTE | 2018-11-15 09:00 | NUR ---
NURSE NOTES: PT TOLERATING GTUBE FEEDING WELL. NO RESIDUALS. GTUBE DRESSING CHANGED. NO SKIN ISSUES NOTED. PT IN HIGH-GARCIA'S POSITION WITH HOB ELEVATED. BED IN LOWEST POSITION WITH BEDSIDE RAILS X2 RAISED. WILL CONTINUE TO MONITOR.
[2018-11-15 12:00] VITALS: BP 139/69
[2018-11-15] MEDS: Vancomycin 500mg/D5W 110ml IVPB SCH ×2 (13:24)
--- NOTE | 2018-11-15 14:03 | Pulmonology Progress Note ---
Assessment/Plan Problems: (1) ATN (acute tubular necrosis) (2) Acute encephalopathy (3) Severe protein-calorie malnutrition (4) Limited mobility in bed (5) Feeding by G-tube (6) Dementia Assessment/Plan improving iv fluids check electrolytes tolerating feeding check cultures dvt prophylaxis Subjective ROS Limited/Unobtainable: No Constitutional: Reports: no symptoms HEENT: Repors: no symptoms Respiratory: Reports: no symptoms Allergies: Coded Allergies: No Known Allergies (Unverified , 10/09/12) Objective Last 24 Hour Vital Signs Date Time Temp Pulse Resp B/P (MAP) Pulse Ox O2 Delivery O2 Flow Rate FiO2 11/15/18 12:00 98.9 83 19 139/69 (92) 98 11/15/18 09:00 Room Air 11/15/18 08:00 98.9 82 19 119/60 (79) 96 11/15/18 04:00 98.0 90 19 108/92 (97) 100 11/15/18 00:00 99.9 80 17 114/55 (74) 99 11/14/18 21:00 Room Air 11/14/18 20:00 99.1 79 17 93/58 (70) 93 11/14/18 16:00 98.4 81 20 133/96 (108) 99 Intake and Output 11/14/18 11/15/18 19:00 07:00 Intake Total 1615 ml 2220 ml Output Total 4 ml Balance 1615 ml 2216 ml Intake Free Water 50 ml 0 ml IV Total 785 ml 900 ml Tube Feeding 480 ml 720 ml Blood Product 300 ml 600 ml Output Urine Total 4 ml # Bowel Movements 1 Objective General Appearance: WD/WN HEENT: normocephalic, atraumatic Respiratory/Chest: chest wall non-tender, lungs clear, normal breath sounds Breasts: no masses Cardiovascular: normal peripheral pulses, normal rate Abdomen: normal bowel sounds, soft, non tender Genitourinary: normal external genitalia Extremities: no cyanosis Microbiology Date/Time Source Procedure Growth Status 11/13/18 11:25 Blood Blood Culture - Preliminary NO GROWTH AFTER 24 HOURS Resulted 11/13/18 11:15 Blood Blood Culture - Preliminary NO GROWTH AFTER 24 HOURS Resulted Laboratory Tests 11/15/18 04:20: White Blood Count 4.7L, Red Blood Count 4.22, Hemoglobin 11.9L, Hematocrit 36.9L , Mean Corpuscular Volume 88, Mean Corpuscular Hemoglobin 28.2, Mean Corpuscular Hemoglobin Concent 32.2, Red Cell Distribution Width 15.8H, Platelet Count 157, Mean Platelet Volume 8.0, Neutrophils (%) (Auto) 60.0, Lymphocytes (%) (Auto) 23.1, Monocytes (%) (Auto) 13.1H, Eosinophils (%) (Auto) 2.9, Basophils (%) (Auto) 0.8, Sodium Level 132L, Potassium Level 4.5, Chloride Level 100, Carbon Dioxide Level 22, Anion Gap 10, Blood Urea Nitrogen 24H, Creatinine 1.0, Estimat Glomerular Filtration Rate , Glucose Level 120H, Calcium Level 9.0 11/15/18 12:55: Vancomycin Level Trough 7.1 Current Medications Medications (Trade) Dose Ordered Sig/Khoa Route PRN Reason Start Time Stop Time Status Last Admin Dose Admin Acetaminophen (Tylenol) 650 mg Q4H PRN GT fever 11/12/18 10:15 12/12/18 10:14 11/14/18 08:41 Ascorbic Acid (Vitamin C) 250 mg TWICE A DAY ORAL 11/14/18 09:00 12/14/18 08:59 11/15/18 08:13 Dextrose/ Electrolytes 1,000 ml @ 75 mls/hr [id number] IV 11/12/18 14:00 12/12/18 13:59 11/15/18 08:16 Docusate Sodium (Colace) 100 mg TWICE A DAY ORAL 11/14/18 09:00 12/14/18 08:59 11/15/18 08:13 Donepezil HCl (Aricept) 10 mg BEDTIME GT 11/12/18 21:00 12/12/18 20:59 11/14/18 20:12 Heparin Sodium (Porcine) (Heparin 5000 units/ml) 5,000 units EVERY 12 HOURS SUBQ 11/12/18 21:00 12/12/18 20:59 11/15/18 08:16 Iopamidol (Isovue-300 100ml) 100 ml NOW PRN INJ Radiology Procedure 11/12/18 06:30 Lorazepam (Ativan) 0.5 mg Q6H PRN GT For Anxiety 11/13/18 14:15 11/20/18 14:14 11/14/18 17:21 Ondansetron HCl (Zofran) 4 mg Q6H PRN IVP Nausea & Vomiting 11/12/18 10:15 12/12/18 10:14 Vancomycin HCl (Vanco rx to dose) 1 ea DAILY PRN MISC Per rx protocol 11/13/18 11:00 12/13/18 10:59 Vancomycin HCl 500 mg/Dextrose 110 ml @ 110 mls/hr Q12HR@0200,1400 IVPB 11/16/18 02:00 11/21/18 01:59 Zinc Sulfate (Zinc Sulfate) 220 mg DAILY ORAL 11/14/18 09:00 11/24/18 08:59 11/15/18 08:13 Zolpidem Tartrate (Ambien) 5 mg HSPRN PRN GT Insomnia 11/12/18 10:15 11/19/18 10:14 Dajuan Lam MD Nov 15, 2018 14:03
--- NOTE | 2018-11-15 14:30 | NUR ---
[facility] NOTES NOT CLEARED FOR DC FROM [facility]. [facility]ERRAL [facility] ARE ABLE TO ACCEPT PATIENT IF PT DOESN'T REQUIRE IV MEDICATIONS BECAUSE IT ISN'T COVERED UNDER HER INSURANCE SO THEY WERE UNABLE TO PROVIDE A BED NUMBER UNTIL IT WAS CLARIFIED IF PT. WOULD DC ON PO VS IV ABX.
--- NOTE | 2018-11-15 15:12 | Surgery Progress Note ---
Surgery Progress Note Subjective Additional Comments no acute events labs stable overall stable Objective Last 24 Hour Vital Signs Date Time Temp Pulse Resp B/P (MAP) Pulse Ox O2 Delivery O2 Flow Rate FiO2 11/15/18 12:00 98.9 83 19 139/69 (92) 98 11/15/18 09:00 Room Air 11/15/18 08:00 98.9 82 19 119/60 (79) 96 11/15/18 04:00 98.0 90 19 108/92 (97) 100 11/15/18 00:00 99.9 80 17 114/55 (74) 99 11/14/18 21:00 Room Air 11/14/18 20:00 99.1 79 17 93/58 (70) 93 11/14/18 16:00 98.4 81 20 133/96 (108) 99 I&O Intake and Output 11/14/18 11/15/18 19:00 07:00 Intake Total 1615 ml 2220 ml Output Total 4 ml Balance 1615 ml 2216 ml Intake Free Water 50 ml 0 ml IV Total 785 ml 900 ml Tube Feeding 480 ml 720 ml Blood Product 300 ml 600 ml Output Urine Total 4 ml # Bowel Movements 1 Dressing: saturated Wound: other Drains: other Cardiovascular: RSR Respiratory: decreased breath sounds Abdomen: soft, present bowel sounds Extremities: no cyanosis, other Laboratory Tests Test 11/15/18 04:20 11/15/18 12:55 White Blood Count 4.7 K/UL (4.8-10.8) L Red Blood Count 4.22 M/UL (4.20-5.40) Hemoglobin 11.9 G/DL (12.0-16.0) L Hematocrit 36.9 % (37.0-47.0) L Mean Corpuscular Volume 88 FL (80-99) Mean Corpuscular Hemoglobin 28.2 PG (27.0-31.0) Mean Corpuscular Hemoglobin Concent 32.2 G/DL (32.0-36.0) Red Cell Distribution Width 15.8 % (11.6-14.8) H Platelet Count 157 K/UL (150-450) Mean Platelet Volume 8.0 FL (6.5-10.1) Neutrophils (%) (Auto) 60.0 % (45.0-75.0) Lymphocytes (%) (Auto) 23.1 % (20.0-45.0) Monocytes (%) (Auto) 13.1 % (1.0-10.0) H Eosinophils (%) (Auto) 2.9 % (0.0-3.0) Basophils (%) (Auto) 0.8 % (0.0-2.0) Sodium Level 132 MMOL/L (136-145) L Potassium Level 4.5 MMOL/L (3.5-5.1) Chloride Level 100 MMOL/L (98-107) Carbon Dioxide Level 22 MMOL/L (21-32) Anion Gap 10 mmol/L (5-15) Blood Urea Nitrogen 24 mg/dL (7-18) H Creatinine 1.0 MG/DL (0.55-1.30) Estimat Glomerular Filtration Rate mL/min (>60) Glucose Level 120 MG/DL (74-106) H Calcium Level 9.0 MG/DL (8.5-10.1) Vancomycin Level Trough 7.1 ug/mL (5.0-12.0) Plan Problems: (1) Constipation Assessment & Plan: bowel regimen ordered cont diet as tolerated (2) Decubitus skin ulcer Assessment & Plan: Pt presented on admission with multiple pressure injuries and necrotic ulcers toes R foot. Full thickness pressure injury R Sacrum .Base of wound with small amt slough centrally with surrounding pink granulation (L)0.8cm x (W)0.5cm x (D)0.2cm. Edges adherent to base of wound. Non-blanchable erythema periwound. Partial thickness pressure injury L sacrum (L)2.5cm x (W)1cm. Base of wound is viable and moist. Non-blanchable erythema without induration/fluctuance periwound. DTPI R heel. Base of wound maroon in colour with fluctuance (L)5cm x (W)6cm. Pt verbalized tenderness when R heel minimally palpated. Non-blanching erythema with fluctuance L heel. Non-tender when miniamlly palpated. Clubbing of toes noted to both feet. Stable dry eschar noted to dorsal aspects of R 2nd, R 3rd, and R 4th metatarsals. Tx.Plan: Apply Triad Paste to wounds R and L sacrum. Cover with Optifoam drsg. Change every 3 days and prn. Swab R 2nd ,R 3rd and R 4th metatarsals with Betadine Daily. Apply Cavilon Skin Barrier to R and L heels. Cover each heel with Optifoam drsg. Change every 7 days and prn. Reposition at least every 2hours or as tolerated. Off-load heels with pillow. (3) Severe protein-calorie malnutrition Assessment & Plan: DAILY ESTIMATED NEEDS: Needs based on Wounds/ 53kg 25-30 kcals/kg 1349-2262 total kcals 1.25-1.5 g protein/kg 66-79 g total protein 25-30 mL/kg 6875-1458 total fluid mLs NUTRITION DIAGNOSIS: 1) Increased kcal and pro needs r/t wound healing as evidenced by pt w/ DTPI at rt heel, stage 2 at sacrum, necrotic ulcers R 2nd, 3rd, 4th toes 2) Swallowing difficulty r/t dysphagia as evidenced by pt is GT dep. CURRENT TF: Jevity 1.2 @60ml x 20hrs ENTERAL NUTRITION RECOMMENDATIONS: Jevity 1.2 @60ml/hr x 20 hrs + Prosource 1pkt QD to provide 1200ml, 1440kcal, 66g +11g prot, 968ml free water - Maintain current TF - Add Prosource 1pkt QD to better meet protein needs (Additional 11g prot) - Flush per MD/ HOB over 30 degrees ADDITIONAL RECOMMENDATIONS: 1) Obtain a CALIBRATED bed scale wt, monitor wt trend - Per SNF record: pt is 59", 116lbs 2) Monitor lytes daily, replete as needed 3) Wound healing: add Vit C 250mg QD, ZnSO4 220mg QD x 10 days : Silvano 1pkt BID Pb Ojeda Nov 15, 2018 15:12
--- NOTE | 2018-11-15 15:28 | Infectious Diseases Prog Note ---
Assessment/Plan Assessment/Plan Assessment: Gram positive bacteremia- likely contaminant -11/12 BCx 1/4 S. epi; 11/13 Bcx NTD -2d Echo: no vegetations Acute on chronic encephalopathy -u/a neg -CXR: Equivocal mild interstitial congestion. Borderline cardiomegaly -Head CT: Chronic and age-related changes. Negative for acute intracranial bleed or mass effect -CT abd/p: Evidence of mild rectal fecal impaction. Bilateral lower lobe pulmonary parenchymal infiltrates versus edema. Age indeterminate vertebral body compression fracture. Consider MRI for better characterization if clinically indicated. Colonic diverticulosis. No evidence of diverticulitis. Cardiomegaly. Subcentimeter right lobe lower pole renal lesion, too small to characterize, Fever x1 No leukocytosis HTN CVA/TIA CHF hx of lumbar spine fracture FTT s/p GT dementia non-verbal NH resident Plan: -D/c empiric IV Vancomycin #3 and monitor off abx for now -f/u cx -Monitor CBC/CMP, temperatures -aspiration precautions -f/u repeat Bcx x2 Thank you for this consultation. Will continue to follow along with you. Discussed with RN. Subjective Allergies: Coded Allergies: No Known Allergies (Unverified , 10/09/12) Subjective afebrile >24hrs repeat Bcx NTD no leukocytosis Objective Vital Signs Last 24 Hour Vital Signs Date Time Temp Pulse Resp B/P (MAP) Pulse Ox O2 Delivery O2 Flow Rate FiO2 11/15/18 12:00 98.9 83 19 139/69 (92) 98 11/15/18 09:00 Room Air 11/15/18 08:00 98.9 82 19 119/60 (79) 96 11/15/18 04:00 98.0 90 19 108/92 (97) 100 11/15/18 00:00 99.9 80 17 114/55 (74) 99 11/14/18 21:00 Room Air 11/14/18 20:00 99.1 79 17 93/58 (70) 93 11/14/18 16:00 98.4 81 20 133/96 (108) 99 Height (Feet): 5 Height (Inches): 2.00 Weight (Pounds): 109 Objective GENERAL: Calm in bed, nonverbal. CARDIOVASCULAR: No murmur. LUNGS: Distant and clear. ABDOMEN: Positive bowel sounds. Nontender. Nondistended. EXTREMITIES: No cyanosis or edema. NEUROLOGIC: The patient flaccid in bed, not following directions. Microbiology Date/Time Source Procedure Growth Status 11/13/18 11:25 Blood Blood Culture - Preliminary NO GROWTH AFTER 24 HOURS Resulted 11/13/18 11:15 Blood Blood Culture - Preliminary NO GROWTH AFTER 24 HOURS Resulted Laboratory Tests Test 11/15/18 04:20 11/15/18 12:55 White Blood Count 4.7 K/UL (4.8-10.8) L Red Blood Count 4.22 M/UL (4.20-5.40) Hemoglobin 11.9 G/DL (12.0-16.0) L Hematocrit 36.9 % (37.0-47.0) L Mean Corpuscular Volume 88 FL (80-99) Mean Corpuscular Hemoglobin 28.2 PG (27.0-31.0) Mean Corpuscular Hemoglobin Concent 32.2 G/DL (32.0-36.0) Red Cell Distribution Width 15.8 % (11.6-14.8) H Platelet Count 157 K/UL (150-450) Mean Platelet Volume 8.0 FL (6.5-10.1) Neutrophils (%) (Auto) 60.0 % (45.0-75.0) Lymphocytes (%) (Auto) 23.1 % (20.0-45.0) Monocytes (%) (Auto) 13.1 % (1.0-10.0) H Eosinophils (%) (Auto) 2.9 % (0.0-3.0) Basophils (%) (Auto) 0.8 % (0.0-2.0) Sodium Level 132 MMOL/L (136-145) L Potassium Level 4.5 MMOL/L (3.5-5.1) Chloride Level 100 MMOL/L (98-107) Carbon Dioxide Level 22 MMOL/L (21-32) Anion Gap 10 mmol/L (5-15) Blood Urea Nitrogen 24 mg/dL (7-18) H Creatinine 1.0 MG/DL (0.55-1.30) Estimat Glomerular Filtration Rate mL/min (>60) Glucose Level 120 MG/DL (74-106) H Calcium Level 9.0 MG/DL (8.5-10.1) Vancomycin Level Trough 7.1 ug/mL (5.0-12.0) Current Medications Medications (Trade) Dose Ordered Sig/Khoa Route PRN Reason Start Time Stop Time Status Last Admin Dose Admin Acetaminophen (Tylenol) 650 mg Q4H PRN GT fever 11/12/18 10:15 12/12/18 10:14 11/14/18 08:41 Ascorbic Acid (Vitamin C) 250 mg TWICE A DAY ORAL 11/14/18 09:00 12/14/18 08:59 11/15/18 08:13 Docusate Sodium (Colace) 100 mg TWICE A DAY ORAL 11/14/18 09:00 12/14/18 08:59 11/15/18 08:13 Donepezil HCl (Aricept) 10 mg BEDTIME GT 11/12/18 21:00 12/12/18 20:59 11/14/18 20:12 Heparin Sodium (Porcine) (Heparin 5000 units/ml) 5,000 units EVERY 12 HOURS SUBQ 11/12/18 21:00 12/12/18 20:59 11/15/18 08:16 Iopamidol (Isovue-300 100ml) 100 ml NOW PRN INJ Radiology Procedure 11/12/18 06:30 Lorazepam (Ativan) 0.5 mg Q6H PRN GT For Anxiety 11/13/18 14:15 11/20/18 14:14 11/14/18 17:21 Ondansetron HCl (Zofran) 4 mg Q6H PRN IVP Nausea & Vomiting 11/12/18 10:15 12/12/18 10:14 Potassium Chloride 10 meq/ Dextrose/Sodium Chloride 1,005 ml @ 75 mls/hr [id number] IV 11/15/18 16:00 12/15/18 15:59 Vancomycin HCl (Vanco rx to dose) 1 ea DAILY PRN MISC Per rx protocol 11/13/18 11:00 12/13/18 10:59 Vancomycin HCl 500 mg/Dextrose 110 ml @ 110 mls/hr Q12HR@0200,1400 IVPB 11/16/18 02:00 11/21/18 01:59 Zinc Sulfate (Zinc Sulfate) 220 mg DAILY ORAL 11/14/18 09:00 11/24/18 08:59 11/15/18 08:13 Zolpidem Tartrate (Ambien) 5 mg HSPRN PRN GT Insomnia 11/12/18 10:15 11/19/18 10:14 Salud Atwood M.D. Nov 15, 2018 15:28
--- NOTE | 2018-11-15 15:52 | NUR ---
NURSE NOTES: RN RECEIVED DISCHARGE ORDER. OK TO DISCHARGE WITH HOSPITAL MEDS IF CLEARED BY ALL CONSULTS. DR ALCOCER AND DR GOLDSTEIN CLEARED PT FOR DISCHARGE. PER DR KEVIN, SHE WANTS TO FOLLOW UP WITH BLOOD CULTURES AND 2D ECHO RESULTS.
[2018-11-15 16:00] VITALS: BP 125/64
--- NOTE | 2018-11-15 16:00 | Progress Note ---
DATE: 11/15/2018 SUBJECTIVE: This is an 83-year-old female patient with encephalopathy. She is confused, disorganized. She has got mood lability. She has got no logical plan for her own self-care. She has altered mental status, confusion, and disorganized thought process. MENTAL STATUS EXAMINATION: This is an 83-year-old female. Appearance is disheveled. Attitude, irritable and agitated. Affect, guarded and restricted. Intellect poor. Mood, depressed and anxious. Motor activity, psychomotor agitation. Attention span is poor. Orientation x2. Speech is low volume, slurred. Thought process, disorganized and illogical. Insight and judgment is poor. DIAGNOSIS: Major depressive disorder, mild, recurrent with psychotic features, rule out dementia with psychosis. PLAN: Treat her with Aricept 10 mg at bedtime and Ativan 0.5 mg IV every 6 hours p.r.n. anxiety and agitation. . Chart reviewed. Discussed with staff. Seen and assessed in her room. Bj Plummer M.D. DR: SULMA JOB#: [id number] CC:
--- NOTE | 2018-11-15 19:26 | NUR ---
HAND-OFF: Report given to Haylee THOMPSON RN.
--- NOTE | 2018-11-15 19:54 | NUR ---
NURSE NOTES: Received patient awake,confused,resting in bed comfortably,tolerating her g-tube feeding well.
[2018-11-15 20:06] VITALS: BP 147/67
[2018-11-15] MEDS: Donepezil 10mg tab GT SCH (21:16)
[2018-11-16 00:09] VITALS: BP 121/62
[2018-11-16] MEDS ORDERED: Vancomycin 500mg/D5W 110ml IVPB SCH ×2 (02:00)
[2018-11-16 04:00] VITALS: BP 99/58
[2018-11-16 06:26] LABS: BASOPHILS % (AUTO) 1.4 % (0.0-2.0); EOSINOPHILS % (AUTO) 2.6 % (0.0-3.0); HEMATOCRIT 38.7 % (37.0-47.0); HEMOGLOBIN 12.7 G/DL (12.0-16.0); LYMPHOCYTES % (AUTO) 24.5 % (20.0-45.0); MEAN CORPUSCULAR VOLUME 87 FL (80-99); MONOCYTES % (AUTO) 12.3 % (1.0-10.0); NEUTROPHILS % (AUTO) 59.3 % (45.0-75.0); PLATELET COUNT 175 K/UL (150-450); RED BLOOD COUNT 4.47 M/UL (4.20-5.40); RED CELL DISTRIBUTION WIDTH 15.5 % (11.6-14.8)
[2018-11-16 07:07] LABS: ANION GAP 11 mmol/L (5-15); BLOOD UREA NITROGEN 20 mg/dL (7-18); CARBON DIOXIDE 21 MMOL/L (21-32); CHLORIDE 99 MMOL/L (98-107); CREATININE 0.9 MG/DL (0.55-1.30); POTASSIUM 4.6 MMOL/L (3.5-5.1); SODIUM 131 MMOL/L (136-145)
--- NOTE | 2018-11-16 07:30 | NUR ---
NURSE NOTES: Received pt from MARCELINA SALDANA. Pt is nonverbal. pt is in RA, no SOB or acute respiratory distress noted. pt has intact iv access RH 22G is running well. Pt has g tube in place is running well. All needs attended, bed is locked and is in the lowest position. call light within easy reach. will continue to monitor.
[2018-11-16 08:00] VITALS: BP 102/57
--- NOTE | 2018-11-16 08:04 | NUR ---
HAND-OFF: Report given to Reece Leach RN.
[2018-11-16] MEDS: Docusate 100mg cap ORAL SCH ×2 (08:56→17:34)
[2018-11-16] MEDS: Zinc Sulfate 220mg cap ORAL SCH (08:56)
[2018-11-16] MEDS: Ascorbic Acid 500mg tab ORAL SCH ×2 (08:56→17:34)
[2018-11-16] MEDS: Heparin 5000 units/ml inj SUBQ SCH ×2 (08:59→22:50)
--- NOTE | 2018-11-16 11:15 | Progress Note ---
DATE: 11/16/2018 SUBJECTIVE: This is an 83-year-old female patient with encephalopathy. She has some confusion, some disorganized thought process, and decline in cognition below baseline. MENTAL STATUS EXAMINATION: This is an 83-year-old female. Appearance is disheveled. Attitude, irritable and agitated. Affect, guarded and restricted. Intellect poor. Mood, depressed and anxious. Motor activity, psychomotor agitation. Insight and judgment are poor. DIAGNOSIS: Major depressive disorder, mild, recurrent with psychotic features, rule out dementia with psychosis. PLAN: Treat her with a medication regimen consisting of Aricept 10 mg nightly, Ativan 0.5 every 6 hours p.r.n. anxiety and agitation. Provided with 20 minutes of insight-oriented psychotherapy to help her regain insight into cognitive and medical condition better impulse control and better behavior on the unit and improve her cognition overall, 20 minutes of insight-oriented psychotherapy. Chart was reviewed. Discussed with staff. Seen and assessed at bedside. Bj Plummer M.D. DR: SULMA JOB#: [id number] CC:
[2018-11-16 12:00] VITALS: BP 104/50
--- NOTE | 2018-11-16 12:18 | General Progress Note ---
Assessment/Plan Problem List: (1) Constipation ICD Codes: K59.00 - Constipation, unspecified SNOMED: 47560193 (2) Weak ICD Codes: R53.1 - Weakness SNOMED: 21700536 (3) Dementia ICD Codes: F03.90 - Dementia SNOMED: 80177357 (4) ATN (acute tubular necrosis) ICD Codes: N17.0 - Acute kidney failure with tubular necrosis SNOMED: 54253501 (5) Severe protein-calorie malnutrition ICD Codes: E43 - Unspecified severe protein-calorie malnutrition SNOMED: 136041994, 720654364, 831578322 (6) CVA (cerebral vascular accident) ICD Codes: I63.9 - Cerebral infarction, unspecified SNOMED: 197568110 (7) Acute encephalopathy ICD Codes: G93.40 - Encephalopathy, unspecified SNOMED: 78370514, 359148378 (8) History of hypertension ICD Codes: Z86.79 - Personal history of other diseases of the circulatory system SNOMED: 642206985 Status: stable, progressing Assessment/Plan: pt ot diet abx bp pain control cbc bmp am dc if all clear Subjective Constitutional: Reports: weakness Allergies: Coded Allergies: No Known Allergies (Unverified , 10/09/12) All Systems: reviewed and negative except above Subjective sleepy calm Objective Last 24 Hour Vital Signs Date Time Temp Pulse Resp B/P (MAP) Pulse Ox O2 Delivery O2 Flow Rate FiO2 11/16/18 09:00 Room Air 11/16/18 08:00 97.9 75 18 102/57 (72) 97 11/16/18 04:00 98.6 69 21 99/58 (72) 96 11/16/18 00:09 98.8 91 20 121/62 (81) 96 11/15/18 21:00 Room Air 11/15/18 20:06 97.7 85 20 147/67 (93) 95 11/15/18 16:00 98.8 72 20 125/64 (84) 98 Intake and Output 11/15/18 11/16/18 19:00 07:00 Intake Total 2780 ml 1920 ml Balance 2780 ml 1920 ml Intake Free Water 1130 ml 300 ml IV Total 750 ml 900 ml Tube Feeding 900 ml 720 ml # Voids 3 # Bowel Movements 2 Laboratory Tests 11/15/18 12:55: Vancomycin Level Trough 7.1 7/20/19 05:42: White Blood Count 5.0, Red Blood Count 4.47, Hemoglobin 12.7, Hematocrit 38.7, Mean Corpuscular Volume 87, Mean Corpuscular Hemoglobin 28.4, Mean Corpuscular Hemoglobin Concent 32.8, Red Cell Distribution Width 15.5H, Platelet Count 175, Mean Platelet Volume 7.8, Neutrophils (%) (Auto) 59.3, Lymphocytes (%) (Auto) 24.5, Monocytes (%) (Auto) 12.3H, Eosinophils (%) (Auto) 2.6, Basophils (%) ( Auto) 1.4, Sodium Level 131L, Potassium Level 4.6, Chloride Level 99, Carbon Dioxide Level 21, Anion Gap 11, Blood Urea Nitrogen 20H, Creatinine 0.9, Estimat Glomerular Filtration Rate , Glucose Level 102, Calcium Level 9.0 Height (Feet): 5 Height (Inches): 2.00 Weight (Pounds): 109 General Appearance: lethargic EENT: normal ENT inspection Neck: normal alignment Cardiovascular: normal peripheral pulses, normal rate, regular rhythm Respiratory/Chest: chest wall non-tender, lungs clear, normal breath sounds Abdomen: normal bowel sounds, non tender, soft Extremities: normal inspection Edema: no edema noted Arm (L), no edema noted Arm (R), no edema noted Leg (L), no edema noted Leg (R), no edema noted Pedal (L), no edema noted Pedal (R), no edema noted Generalized Neurologic: motor weakness Skin: normal pigmentation, warm/dry Guevara Lala DO Nov 16, 2018 12:17
--- NOTE | 2018-11-16 12:38 | Pulmonology Progress Note ---
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 PLAN OF CARE MS floor Status post IV fluids Echocardiogram with pEF 60-65 %, mild to moderate MR, aortic stenosis Monitor BP DVT prophylaxis Renal parameters improved, monitor renal parameters, electrolytes, correct electrolytes as needed, avoid nephrotoxic Strict aspiration precaution, G-tube feeding, monitor tolerance Protein supplements implemented in plan of care as per obstetrics nurse recommendation GP bacteremia likely contaminant, repeated BCX negative Echocardiogram with no evidence of vegetation status post abx ID recommended to observe patient off abx CT of the head no acute intracranial pathology CT of the abdomen pelvis noted Bowel regimen Wound care as per surgeon recommendation supportive care dc plan case discussed and evaluated by supervising physician Subjective Allergies: Coded Allergies: No Known Allergies (Unverified , 10/09/12) Subjective no fevers no signs of resp distress , pulse ox stable on RA BUN down to normal Objective Last 24 Hour Vital Signs Date Time Temp Pulse Resp B/P (MAP) Pulse Ox O2 Delivery O2 Flow Rate FiO2 11/16/18 09:00 Room Air 11/16/18 08:00 97.9 75 18 102/57 (72) 97 11/16/18 04:00 98.6 69 21 99/58 (72) 96 11/16/18 00:09 98.8 91 20 121/62 (81) 96 11/15/18 21:00 Room Air 11/15/18 20:06 97.7 85 20 147/67 (93) 95 11/15/18 16:00 98.8 72 20 125/64 (84) 98 Intake and Output 11/15/18 11/16/18 19:00 07:00 Intake Total 2780 ml 1920 ml Balance 2780 ml 1920 ml Intake Free Water 1130 ml 300 ml IV Total 750 ml 900 ml Tube Feeding 900 ml 720 ml # Voids 3 # Bowel Movements 2 General Appearance: cachetic, other - thin, frail, elderly AA female in NAD HEENT: normocephalic, atraumatic, anicteric Respiratory/Chest: lungs clear - with moderate air exchange , no respiratory distress Cardiovascular: normal rate Abdomen: normal bowel sounds, soft, non tender Extremities: no edema, pedal pulses normal Neurologic/Psychiatric: abnormal gait, other - awake, Musculoskeletal: atrophy - BLE Laboratory Tests 11/15/18 12:55: Vancomycin Level Trough 7.1 11/16/18 05:42: White Blood Count 5.0, Red Blood Count 4.47, Hemoglobin 12.7, Hematocrit 38.7, Mean Corpuscular Volume 87, Mean Corpuscular Hemoglobin 28.4, Mean Corpuscular Hemoglobin Concent 32.8, Red Cell Distribution Width 15.5H, Platelet Count 175, Mean Platelet Volume 7.8, Neutrophils (%) (Auto) 59.3, Lymphocytes (%) (Auto) 24.5, Monocytes (%) (Auto) 12.3H, Eosinophils (%) (Auto) 2.6, Basophils (%) ( Auto) 1.4, Sodium Level 131L, Potassium Level 4.6, Chloride Level 99, Carbon Dioxide Level 21, Anion Gap 11, Blood Urea Nitrogen 20H, Creatinine 0.9, Estimat Glomerular Filtration Rate , Glucose Level 102, Calcium Level 9.0 Current Medications Medications (Trade) Dose Ordered Sig/Khoa Route PRN Reason Start Time Stop Time Status Last Admin Dose Admin Acetaminophen (Tylenol) 650 mg Q4H PRN GT fever 11/12/18 10:15 12/12/18 10:14 11/14/18 08:41 Ascorbic Acid (Vitamin C) 250 mg TWICE A DAY ORAL 11/14/18 09:00 12/14/18 08:59 11/16/18 08:56 Docusate Sodium (Colace) 100 mg TWICE A DAY ORAL 11/14/18 09:00 12/14/18 08:59 11/16/18 08:56 Donepezil HCl (Aricept) 10 mg BEDTIME GT 11/12/18 21:00 12/12/18 20:59 11/15/18 21:16 Heparin Sodium (Porcine) (Heparin 5000 units/ml) 5,000 units EVERY 12 HOURS SUBQ 11/12/18 21:00 12/12/18 20:59 11/16/18 08:59 Iopamidol (Isovue-300 100ml) 100 ml NOW PRN INJ Radiology Procedure 11/12/18 06:30 Lorazepam (Ativan) 0.5 mg Q6H PRN GT For Anxiety 11/13/18 14:15 7/24/19 14:14 11/14/18 17:21 Ondansetron HCl (Zofran) 4 mg Q6H PRN IVP Nausea & Vomiting 11/12/18 10:15 12/12/18 10:14 Potassium Chloride 10 meq/ Dextrose/Sodium Chloride 1,005 ml @ 75 mls/hr [id number] IV 11/15/18 16:00 12/15/18 15:59 11/16/18 05:55 Zinc Sulfate (Zinc Sulfate) 220 mg DAILY ORAL 11/14/18 09:00 11/24/18 08:59 11/16/18 08:56 Zolpidem Tartrate (Ambien) 5 mg HSPRN PRN GT Insomnia 11/12/18 10:15 11/19/18 10:14 Cherri Peterson NP Nov 16, 2018 12:38
--- NOTE | 2018-11-16 12:47 | NUR ---
RD ASSESSMENT & RECOMMENDATIONS SEE CARE ACTIVITY FOR COMPLETE ASSESSMENT DAILY ESTIMATED NEEDS: Needs based on Wounds/ 53kg 25-30 kcals/kg 0135-6671 total kcals 1.25-1.5 g protein/kg 66-79 g total protein 25-30 mL/kg 2517-7523 total fluid mLs NUTRITION DIAGNOSIS: 1) Increased kcal and pro needs r/t wound healing as evidenced by pt w/ DTPI at rt heel, stage 2 at sacrum, stage 3 @ rt sacrum, necrotic ulcers R 2nd, 3rd, 4th toes 2) Swallowing difficulty r/t dysphagia as evidenced by pt is GT dep. CURRENT TF: Jevity 1.2 @60ml x 20hrs ENTERAL NUTRITION RECOMMENDATIONS: Jevity 1.2 @60ml/hr x 20 hrs + Prosource 1pkt QD to provide 1200ml, 1440kcal, 66g +11g prot, 968ml free water - Maintain current TF - Add Prosource 1pkt QD to better meet protein needs (Additional 11g prot) - Flush per MD/ HOB over 30 degrees ADDITIONAL RECOMMENDATIONS: 1) Obtain a CALIBRATED bed scale wt, monitor wt trend - Per SNF record: pt is 59", 116lbs 2) Monitor lytes daily, replete as needed 3) Wound healing: Continue Vit C 250mg QD, ZnSO4 220mg QD x 10 days : Silvano 1pkt BID 4) Consider change D5NS -> NS IVF: hyponatremia
--- NOTE | 2018-11-16 15:00 | Surgery Progress Note ---
Surgery Progress Note Subjective Additional Comments no acute events stable labs noted Objective Last 24 Hour Vital Signs Date Time Temp Pulse Resp B/P (MAP) Pulse Ox O2 Delivery O2 Flow Rate FiO2 11/16/18 12:00 98.0 73 20 104/50 (68) 99 11/16/18 09:00 Room Air 11/16/18 08:00 97.9 75 18 102/57 (72) 97 11/16/18 04:00 98.6 69 21 99/58 (72) 96 11/16/18 00:09 98.8 91 20 121/62 (81) 96 11/15/18 21:00 Room Air 11/15/18 20:06 97.7 85 20 147/67 (93) 95 11/15/18 16:00 98.8 72 20 125/64 (84) 98 I&O Intake and Output 11/15/18 11/16/18 19:00 07:00 Intake Total 2780 ml 1920 ml Balance 2780 ml 1920 ml Intake Free Water 1130 ml 300 ml IV Total 750 ml 900 ml Tube Feeding 900 ml 720 ml # Voids 3 # Bowel Movements 2 Dressing: other Wound: other Drains: other Cardiovascular: RSR Respiratory: decreased breath sounds Abdomen: soft, present bowel sounds Extremities: no cyanosis, other Laboratory Tests Test 11/16/18 05:42 White Blood Count 5.0 K/UL (4.8-10.8) Red Blood Count 4.47 M/UL (4.20-5.40) Hemoglobin 12.7 G/DL (12.0-16.0) Hematocrit 38.7 % (37.0-47.0) Mean Corpuscular Volume 87 FL (80-99) Mean Corpuscular Hemoglobin 28.4 PG (27.0-31.0) Mean Corpuscular Hemoglobin Concent 32.8 G/DL (32.0-36.0) Red Cell Distribution Width 15.5 % (11.6-14.8) H Platelet Count 175 K/UL (150-450) Mean Platelet Volume 7.8 FL (6.5-10.1) Neutrophils (%) (Auto) 59.3 % (45.0-75.0) Lymphocytes (%) (Auto) 24.5 % (20.0-45.0) Monocytes (%) (Auto) 12.3 % (1.0-10.0) H Eosinophils (%) (Auto) 2.6 % (0.0-3.0) Basophils (%) (Auto) 1.4 % (0.0-2.0) Sodium Level 131 MMOL/L (136-145) L Potassium Level 4.6 MMOL/L (3.5-5.1) Chloride Level 99 MMOL/L (98-107) Carbon Dioxide Level 21 MMOL/L (21-32) Anion Gap 11 mmol/L (5-15) Blood Urea Nitrogen 20 mg/dL (7-18) H Creatinine 0.9 MG/DL (0.55-1.30) Estimat Glomerular Filtration Rate mL/min (>60) Glucose Level 102 MG/DL (74-106) Calcium Level 9.0 MG/DL (8.5-10.1) Plan Problems: (1) Constipation Assessment & Plan: bowel regimen ordered cont diet as tolerated (2) Decubitus skin ulcer Assessment & Plan: Pt presented on admission with multiple pressure injuries and necrotic ulcers toes R foot. Full thickness pressure injury R Sacrum .Base of wound with small amt slough centrally with surrounding pink granulation (L)0.8cm x (W)0.5cm x (D)0.2cm. Edges adherent to base of wound. Non-blanchable erythema periwound. Partial thickness pressure injury L sacrum (L)2.5cm x (W)1cm. Base of wound is viable and moist. Non-blanchable erythema without induration/fluctuance periwound. DTPI R heel. Base of wound maroon in colour with fluctuance (L)5cm x (W)6cm. Pt verbalized tenderness when R heel minimally palpated. Non-blanching erythema with fluctuance L heel. Non-tender when miniamlly palpated. Clubbing of toes noted to both feet. Stable dry eschar noted to dorsal aspects of R 2nd, R 3rd, and R 4th metatarsals. Tx.Plan: Apply Triad Paste to wounds R and L sacrum. Cover with Optifoam drsg. Change every 3 days and prn. Swab R 2nd ,R 3rd and R 4th metatarsals with Betadine Daily. Apply Cavilon Skin Barrier to R and L heels. Cover each heel with Optifoam drsg. Change every 7 days and prn. Reposition at least every 2hours or as tolerated. Off-load heels with pillow. (3) Severe protein-calorie malnutrition Assessment & Plan: DAILY ESTIMATED NEEDS: Needs based on Wounds/ 53kg 25-30 kcals/kg 1193-7122 total kcals 1.25-1.5 g protein/kg 66-79 g total protein 25-30 mL/kg 8250-6056 total fluid mLs NUTRITION DIAGNOSIS: 1) Increased kcal and pro needs r/t wound healing as evidenced by pt w/ DTPI at rt heel, stage 2 at sacrum, necrotic ulcers R 2nd, 3rd, 4th toes 2) Swallowing difficulty r/t dysphagia as evidenced by pt is GT dep. CURRENT TF: Jevity 1.2 @60ml x 20hrs ENTERAL NUTRITION RECOMMENDATIONS: Jevity 1.2 @60ml/hr x 20 hrs + Prosource 1pkt QD to provide 1200ml, 1440kcal, 66g +11g prot, 968ml free water - Maintain current TF - Add Prosource 1pkt QD to better meet protein needs (Additional 11g prot) - Flush per MD/ HOB over 30 degrees ADDITIONAL RECOMMENDATIONS: 1) Obtain a CALIBRATED bed scale wt, monitor wt trend - Per SNF record: pt is 59", 116lbs 2) Monitor lytes daily, replete as needed 3) Wound healing: add Vit C 250mg QD, ZnSO4 220mg QD x 10 days : Silvano 1pkt BID Pb Ojeda Nov 16, 2018 15:00
[2018-11-16 16:00] VITALS: BP 121/54
--- NOTE | 2018-11-16 19:30 | NUR ---
NURSE NOTES: Received report from MARCELINA Newell. Patient in bed awake, confused, nonverbal. Patient is in room air with no signs of distress or SOB. Bed is locked and in the lowest position. IV intact and running fluids. Bed rails up for patient protection. Gtube is intact and running well. Will continue to monitor.
--- NOTE | 2018-11-16 19:44 | NUR ---
HAND-OFF: Report given to MARCELINA HERRON.
[2018-11-16 20:00] VITALS: BP 119/67
--- NOTE | 2018-11-16 22:17 | Infectious Diseases Prog Note ---
Assessment/Plan Assessment/Plan Assessment: Gram positive bacteremia- likely contaminant -11/12 BCx 1/4 S. epi; 11/13 Bcx NTD -2d Echo: no vegetations Acute on chronic encephalopathy -u/a neg -CXR: Equivocal mild interstitial congestion. Borderline cardiomegaly -Head CT: Chronic and age-related changes. Negative for acute intracranial bleed or mass effect -CT abd/p: Evidence of mild rectal fecal impaction. Bilateral lower lobe pulmonary parenchymal infiltrates versus edema. Age indeterminate vertebral body compression fracture. Consider MRI for better characterization if clinically indicated. Colonic diverticulosis. No evidence of diverticulitis. Cardiomegaly. Subcentimeter right lobe lower pole renal lesion, too small to characterize, Fever x1 No leukocytosis HTN CVA/TIA CHF hx of lumbar spine fracture FTT s/p GT dementia non-verbal NH resident Plan: -Continue to monitor off abx for now -11/15 SP IV Vancomycin #3 -f/u cx -Monitor CBC/CMP, temperatures -aspiration precautions -f/u repeat Bcx x2 Thank you for this consultation. Will continue to follow along with you. Discussed with RN. Subjective Allergies: Coded Allergies: No Known Allergies (Unverified , 10/09/12) Subjective afebrile >48hrs repeat Bcx NTD no leukocytosis Objective Vital Signs Last 24 Hour Vital Signs Date Time Temp Pulse Resp B/P (MAP) Pulse Ox O2 Delivery O2 Flow Rate FiO2 11/16/18 16:00 97.9 76 16 121/54 (76) 99 11/16/18 12:00 98.0 73 20 104/50 (68) 99 11/16/18 09:00 Room Air 11/16/18 08:00 97.9 75 18 102/57 (72) 97 11/16/18 04:00 98.6 69 21 99/58 (72) 96 11/16/18 00:09 98.8 91 20 121/62 (81) 96 Height (Feet): 5 Height (Inches): 2.00 Weight (Pounds): 109 Objective GENERAL: Calm in bed, nonverbal. CARDIOVASCULAR: No murmur. LUNGS: Distant and clear. ABDOMEN: Positive bowel sounds. Nontender. Nondistended. EXTREMITIES: No cyanosis or edema. NEUROLOGIC: The patient flaccid in bed, not following directions. Laboratory Tests Test 11/16/18 05:42 White Blood Count 5.0 K/UL (4.8-10.8) Red Blood Count 4.47 M/UL (4.20-5.40) Hemoglobin 12.7 G/DL (12.0-16.0) Hematocrit 38.7 % (37.0-47.0) Mean Corpuscular Volume 87 FL (80-99) Mean Corpuscular Hemoglobin 28.4 PG (27.0-31.0) Mean Corpuscular Hemoglobin Concent 32.8 G/DL (32.0-36.0) Red Cell Distribution Width 15.5 % (11.6-14.8) H Platelet Count 175 K/UL (150-450) Mean Platelet Volume 7.8 FL (6.5-10.1) Neutrophils (%) (Auto) 59.3 % (45.0-75.0) Lymphocytes (%) (Auto) 24.5 % (20.0-45.0) Monocytes (%) (Auto) 12.3 % (1.0-10.0) H Eosinophils (%) (Auto) 2.6 % (0.0-3.0) Basophils (%) (Auto) 1.4 % (0.0-2.0) Sodium Level 131 MMOL/L (136-145) L Potassium Level 4.6 MMOL/L (3.5-5.1) Chloride Level 99 MMOL/L (98-107) Carbon Dioxide Level 21 MMOL/L (21-32) Anion Gap 11 mmol/L (5-15) Blood Urea Nitrogen 20 mg/dL (7-18) H Creatinine 0.9 MG/DL (0.55-1.30) Estimat Glomerular Filtration Rate mL/min (>60) Glucose Level 102 MG/DL (74-106) Calcium Level 9.0 MG/DL (8.5-10.1) Current Medications Medications (Trade) Dose Ordered Sig/Khoa Route PRN Reason Start Time Stop Time Status Last Admin Dose Admin Acetaminophen (Tylenol) 650 mg Q4H PRN GT fever 11/12/18 10:15 12/12/18 10:14 11/14/18 08:41 Ascorbic Acid (Vitamin C) 250 mg TWICE A DAY ORAL 11/14/18 09:00 12/14/18 08:59 11/16/18 17:34 Docusate Sodium (Colace) 100 mg TWICE A DAY ORAL 11/14/18 09:00 12/14/18 08:59 11/16/18 17:34 Donepezil HCl (Aricept) 10 mg BEDTIME GT 11/12/18 21:00 12/12/18 20:59 11/15/18 21:16 Heparin Sodium (Porcine) (Heparin 5000 units/ml) 5,000 units EVERY 12 HOURS SUBQ 11/12/18 21:00 12/12/18 20:59 11/16/18 08:59 Iopamidol (Isovue-300 100ml) 100 ml NOW PRN INJ Radiology Procedure 11/12/18 06:30 Lorazepam (Ativan) 0.5 mg Q6H PRN GT For Anxiety 11/13/18 14:15 11/20/18 14:14 11/14/18 17:21 Ondansetron HCl (Zofran) 4 mg Q6H PRN IVP Nausea & Vomiting 11/12/18 10:15 12/12/18 10:14 Potassium Chloride 10 meq/ Dextrose/Sodium Chloride 1,005 ml @ 50 mls/hr Q20H6M IV 11/16/18 13:30 12/15/18 13:29 11/16/18 14:16 Zinc Sulfate (Zinc Sulfate) 220 mg DAILY ORAL 11/14/18 09:00 11/24/18 08:59 11/16/18 08:56 Zolpidem Tartrate (Ambien) 5 mg HSPRN PRN GT Insomnia 11/12/18 10:15 11/19/18 10:14 Salud Atwood M.D. Nov 16, 2018 22:17
[2018-11-16] MEDS: Donepezil 10mg tab GT SCH (22:36)
--- NOTE | 2018-11-16 23:35 | NUR ---
NURSE NOTES: Right hand IV removed by patient. New left forearm 24g IV started.
[2018-11-17] VITALS: BP 123/71
--- NOTE | 2018-11-17 00:35 | NUR ---
HAND-OFF: Report given to MARCELINA Mckeon.
--- NOTE | 2018-11-17 00:36 | NUR ---
NURSE NOTES: Received patient in bed. A&OX1 with confusion. IV site patent and intact. G-tube in place, running Jevity 1.2 60cc/hr, 0cc residual noted, flushed, elevated HOB. Bed in lowest position. Call light within reach. Will continue to monitor.
[2018-11-17 04:00] VITALS: BP 121/70
--- NOTE | 2018-11-17 04:57 | NUR ---
NURSE NOTES: Dressing changed on sacral area and bilateral heels. Picture taken.
[2018-11-17 06:21] LABS: BASOPHILS % (AUTO) 0.7 % (0.0-2.0); EOSINOPHILS % (AUTO) 3.3 % (0.0-3.0); HEMATOCRIT 37.9 % (37.0-47.0); HEMOGLOBIN 12.2 G/DL (12.0-16.0); LYMPHOCYTES % (AUTO) 25.2 % (20.0-45.0); MEAN CORPUSCULAR VOLUME 88 FL (80-99); MONOCYTES % (AUTO) 13.1 % (1.0-10.0); NEUTROPHILS % (AUTO) 57.6 % (45.0-75.0); PLATELET COUNT 177 K/UL (150-450); RED BLOOD COUNT 4.29 M/UL (4.20-5.40); RED CELL DISTRIBUTION WIDTH 16.3 % (11.6-14.8); WHITE BLOOD COUNT 5.9 K/UL (4.8-10.8)
[2018-11-17 07:07] LABS: ANION GAP 11 mmol/L (5-15); BLOOD UREA NITROGEN 27 mg/dL (7-18); CALCIUM 9.2 MG/DL (8.5-10.1); CARBON DIOXIDE 23 MMOL/L (21-32); CHLORIDE 100 MMOL/L (98-107); CREATININE 0.9 MG/DL (0.55-1.30); POTASSIUM 4.7 MMOL/L (3.5-5.1); SODIUM 134 MMOL/L (136-145)
--- NOTE | 2018-11-17 07:30 | NUR ---
nurse notes received patient in bed awake, confused, nonverbal. RA no signs of distress or SOB. on G tube feeding on going tolerating well, IVF patent and on going,on fall and aspiration precaution ,HOB elevated at 45 degree, Bed is locked and in the lowest position. Will continue to monitor patient condition sidney rodriguez
--- NOTE | 2018-11-17 07:40 | NUR ---
HAND-OFF: Report given to Melissa HEWITT.
[2018-11-17 08:00] VITALS: BP 132/95
--- NOTE | 2018-11-17 08:03 | Pulmonology Progress Note ---
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 PLAN OF CARE MS floor Status post IV fluids Echocardiogram with pEF 60-65 %, mild to moderate MR, aortic stenosis Monitor BP DVT prophylaxis Renal parameters improved, monitor renal parameters, electrolytes, correct electrolytes as needed, avoid nephrotoxic Strict aspiration precaution, G-tube feeding, monitor tolerance Protein supplements implemented in plan of care as per acute dialysis registered nurse recommendation GP bacteremia likely contaminant, repeated BCX negative Echocardiogram with no evidence of vegetation status post abx ID recommended to observe patient off abx CT of the head no acute intracranial pathology CT of the abdomen pelvis noted Bowel regimen Wound care as per surgeon recommendation supportive care public information relations manager recs implemented in POC dc plan case discussed and evaluated by supervising physician Subjective Allergies: Coded Allergies: No Known Allergies (Unverified , 10/09/12) Subjective no fevers no signs of resp distress , pulse ox stable on RA BUN down Objective Last 24 Hour Vital Signs Date Time Temp Pulse Resp B/P (MAP) Pulse Ox O2 Delivery O2 Flow Rate FiO2 11/17/18 04:00 97.5 74 18 121/70 (87) 100 11/17/18 00:00 98.4 80 18 123/71 (88) 100 11/16/18 21:00 Room Air 11/16/18 20:00 98.0 82 16 119/67 (84) 100 11/16/18 16:00 97.9 76 16 121/54 (76) 99 11/16/18 12:00 98.0 73 20 104/50 (68) 99 11/16/18 09:00 Room Air Intake and Output 11/16/18 11/17/18 18:59 06:59 Intake Total 1670 ml 830 ml Balance 1670 ml 830 ml Intake Free Water 300 ml 300 ml IV Total 650 ml 50 ml Tube Feeding 720 ml 480 ml # Voids 6 Objective General Appearance: cachetic, thin, frail, elderly AA female in NAD HEENT: normocephalic, atraumatic, anicteric Respiratory/Chest: lungs clear - with moderate air exchange , no respiratory distress Cardiovascular: normal rate Abdomen: normal bowel sounds, soft, non tender Extremities: no edema, pedal pulses normal Neurologic/Psychiatric: abnormal gait, awake, Musculoskeletal: atrophy - BLE Laboratory Tests 11/17/18 00:55: Vancomycin Level Trough 7.4 11/17/18 04:30: White Blood Count 5.9, Red Blood Count 4.29, Hemoglobin 12.2, Hematocrit 37.9, Mean Corpuscular Volume 88, Mean Corpuscular Hemoglobin 28.5, Mean Corpuscular Hemoglobin Concent 32.3, Red Cell Distribution Width 16.3H, Platelet Count 177, Mean Platelet Volume 6.3L, Neutrophils (%) (Auto) 57.6, Lymphocytes (%) (Auto) 25.2, Monocytes (%) (Auto) 13.1H, Eosinophils (%) (Auto) 3.3H, Basophils (%) ( Auto) 0.7, Sodium Level 134L, Potassium Level 4.7, Chloride Level 100, Carbon Dioxide Level 23, Anion Gap 11, Blood Urea Nitrogen 27H, Creatinine 0.9, Estimat Glomerular Filtration Rate , Glucose Level 80, Calcium Level 9.2 Current Medications Medications (Trade) Dose Ordered Sig/Khoa Route PRN Reason Start Time Stop Time Status Last Admin Dose Admin Acetaminophen (Tylenol) 650 mg Q4H PRN GT fever 11/12/18 10:15 12/12/18 10:14 11/14/18 08:41 Ascorbic Acid (Vitamin C) 250 mg TWICE A DAY ORAL 11/14/18 09:00 12/14/18 08:59 11/16/18 17:34 Docusate Sodium (Colace) 100 mg TWICE A DAY ORAL 11/14/18 09:00 12/14/18 08:59 11/16/18 17:34 Donepezil HCl (Aricept) 10 mg BEDTIME GT 11/12/18 21:00 12/12/18 20:59 11/16/18 22:36 Heparin Sodium (Porcine) (Heparin 5000 units/ml) 5,000 units EVERY 12 HOURS SUBQ 11/12/18 21:00 12/12/18 20:59 11/16/18 22:50 Iopamidol (Isovue-300 100ml) 100 ml NOW PRN INJ Radiology Procedure 11/12/18 06:30 Lorazepam (Ativan) 0.5 mg Q6H PRN GT For Anxiety 11/13/18 14:15 11/20/18 14:14 11/14/18 17:21 Ondansetron HCl (Zofran) 4 mg Q6H PRN IVP Nausea & Vomiting 11/12/18 10:15 12/12/18 10:14 Potassium Chloride 10 meq/ Dextrose/Sodium Chloride 1,005 ml @ 50 mls/hr Q20H6M IV 11/16/18 13:30 12/15/18 13:29 11/16/18 14:16 Zinc Sulfate (Zinc Sulfate) 220 mg DAILY ORAL 11/14/18 09:00 11/24/18 08:59 11/16/18 08:56 Zolpidem Tartrate (Ambien) 5 mg HSPRN PRN GT Insomnia 11/12/18 10:15 11/19/18 10:14 Cherri Peterson CASING IN LINE SETTER Nov 17, 2018 08:03
[2018-11-17] MEDS: Docusate 100mg cap ORAL SCH ×2 (08:21→17:22)
[2018-11-17] MEDS: Zinc Sulfate 220mg cap ORAL SCH (08:21)
[2018-11-17] MEDS: Ascorbic Acid 500mg tab ORAL SCH ×2 (08:21→17:20)
[2018-11-17] MEDS: Heparin 5000 units/ml inj SUBQ SCH ×2 (08:22→21:54)
--- NOTE | 2018-11-17 09:11 | General Progress Note ---
Assessment/Plan Problem List: (1) Constipation ICD Codes: K59.00 - Constipation, unspecified SNOMED: 64357868 (2) Weak ICD Codes: R53.1 - Weakness SNOMED: 75634146 (3) Dementia ICD Codes: F03.90 - Dementia SNOMED: 51915220 (4) ATN (acute tubular necrosis) ICD Codes: N17.0 - Acute kidney failure with tubular necrosis SNOMED: 66212998 (5) Severe protein-calorie malnutrition ICD Codes: E43 - Unspecified severe protein-calorie malnutrition SNOMED: 337669215, 932258055, 168530544 (6) CVA (cerebral vascular accident) ICD Codes: I63.9 - Cerebral infarction, unspecified SNOMED: 279937839 (7) Acute encephalopathy ICD Codes: G93.40 - Encephalopathy, unspecified SNOMED: 43081483, 291365347 (8) History of hypertension ICD Codes: Z86.79 - Personal history of other diseases of the circulatory system SNOMED: 997451359 Status: stable, progressing Assessment/Plan: pt ot diet abx bp pain control cbc bmp am dc if all clear Subjective Constitutional: Reports: weakness Allergies: Coded Allergies: No Known Allergies (Unverified , 10/09/12) All Systems: reviewed and negative except above Subjective sleepy calm Objective Last 24 Hour Vital Signs Date Time Temp Pulse Resp B/P (MAP) Pulse Ox O2 Delivery O2 Flow Rate FiO2 11/17/18 08:00 97.8 64 18 132/95 (107) 98 11/17/18 04:00 97.5 74 18 121/70 (87) 100 11/17/18 00:00 98.4 80 18 123/71 (88) 100 11/16/18 21:00 Room Air 11/16/18 20:00 98.0 82 16 119/67 (84) 100 11/16/18 16:00 97.9 76 16 121/54 (76) 99 11/16/18 12:00 98.0 73 20 104/50 (68) 99 Intake and Output 11/16/18 11/17/18 18:59 06:59 Intake Total 1670 ml 830 ml Balance 1670 ml 830 ml Intake Free Water 300 ml 300 ml IV Total 650 ml 50 ml Tube Feeding 720 ml 480 ml # Voids 6 Laboratory Tests 11/17/18 00:55: Vancomycin Level Trough 7.4 11/17/18 04:30: White Blood Count 5.9, Red Blood Count 4.29, Hemoglobin 12.2, Hematocrit 37.9, Mean Corpuscular Volume 88, Mean Corpuscular Hemoglobin 28.5, Mean Corpuscular Hemoglobin Concent 32.3, Red Cell Distribution Width 16.3H, Platelet Count 177, Mean Platelet Volume 6.3L, Neutrophils (%) (Auto) 57.6, Lymphocytes (%) (Auto) 25.2, Monocytes (%) (Auto) 13.1H, Eosinophils (%) (Auto) 3.3H, Basophils (%) ( Auto) 0.7, Sodium Level 134L, Potassium Level 4.7, Chloride Level 100, Carbon Dioxide Level 23, Anion Gap 11, Blood Urea Nitrogen 27H, Creatinine 0.9, Estimat Glomerular Filtration Rate , Glucose Level 80, Calcium Level 9.2 Height (Feet): 5 Height (Inches): 2.00 Weight (Pounds): 109 General Appearance: lethargic EENT: normal ENT inspection Neck: normal alignment Cardiovascular: normal peripheral pulses, normal rate, regular rhythm Respiratory/Chest: chest wall non-tender, lungs clear, normal breath sounds Abdomen: normal bowel sounds, non tender, soft Extremities: normal inspection Edema: no edema noted Arm (L), no edema noted Arm (R), no edema noted Leg (L), no edema noted Leg (R), no edema noted Pedal (L), no edema noted Pedal (R), no edema noted Generalized Neurologic: motor weakness Skin: normal pigmentation, warm/dry Guevara Lala DO Nov 17, 2018 09:11
--- NOTE | 2018-11-17 10:15 | Progress Note ---
DATE: 11/17/2018 SUBJECTIVE: This is an 83-year-old female patient. She still has some confusion, some disorganized thought process, mood lability, and decline in cognition below her baseline. That is why her attending has requested daily inpatient consultation, but this patient still has altered mental status, confusion and decline in cognition below her baseline. She has weakness and altered mental status as well. DIAGNOSIS: Major depressive disorder, mild, recurrent with psychotic features. PLAN: Treat her with Aricept 10 mg nightly and Ativan 0.5 mg every 6 hours p.r.n. anxiety and agitation. A 20 minutes of cognitive behavioral therapy to help her identify automatic negative thoughts and help convert those negative thoughts to more positive thoughts to reduce depression, anxiety, and mood lability. Chart reviewed. Discussed with staff. Seen and assessed at bedside. Bj Plummer M.D. DR: SHELBI JOB#: [id number] CC:
[2018-11-17 12:06] VITALS: BP 99/64
[2018-11-17 16:00] VITALS: BP 151/77
--- NOTE | 2018-11-17 19:29 | NUR ---
HAND-OFF: Report given to MARCELINA Merchant Resting comfortably in bed, patient stable, comfortable and free from injury marcelina rodriguez.
--- NOTE | 2018-11-17 19:41 | NUR ---
NURSE NOTES: Received report from MARCELINA Arciniega. Patient is currently in bed, awake, confused and nonverbal. Iv is intact and running fluids. Patient's gtube is intact and Jevity 1.2 running at 60 mls/hr. Bed is locked and in the lowest position with call light in reach. Patient is on fall precautions and aspiration precautions and HOB is elevated. Will continue to monitor.
[2018-11-17 20:00] VITALS: BP 117/65
[2018-11-17] MEDS: Donepezil 10mg tab GT SCH (21:42)
[2018-11-18] VITALS: BP 159/78
[2018-11-18 04:00] VITALS: BP 116/77
[2018-11-18 06:41] LABS: EOSINOPHILS % (AUTO) 3.9 % (0.0-3.0); HEMATOCRIT 41.4 % (37.0-47.0); HEMOGLOBIN 13.2 G/DL (12.0-16.0); MEAN CORPUSCULAR VOLUME 88 FL (80-99); MONOCYTES % (AUTO) 11.5 % (1.0-10.0); NEUTROPHILS % (AUTO) 55.6 % (45.0-75.0); PLATELET COUNT 216 K/UL (150-450); RED BLOOD COUNT 4.72 M/UL (4.20-5.40); RED CELL DISTRIBUTION WIDTH 15.3 % (11.6-14.8); WHITE BLOOD COUNT 6.3 K/UL (4.8-10.8)
[2018-11-18 07:00] LABS: ANION GAP 9 mmol/L (5-15); BLOOD UREA NITROGEN 24 mg/dL (7-18); CALCIUM 9.4 MG/DL (8.5-10.1); CARBON DIOXIDE 24 MMOL/L (21-32); CHLORIDE 99 MMOL/L (98-107); SODIUM 132 MMOL/L (136-145)
--- NOTE | 2018-11-18 07:50 | NUR ---
HAND-OFF: Report given to MARCELINA Zaragoza.
--- NOTE | 2018-11-18 07:59 | NUR ---
NURSE NOTES: Patient received sleeping in bed, breathing unlabored on room air. Patient is non-verbal and not alert. Receiving G-tube feeding Jevity 1.2 at 60cc/hr. G-tube line is patent and intact. HOB elevated for aspiration precautions. Bed locked. Call light at bedside. Will continue to monitor.
[2018-11-18 08:00] VITALS: BP 122/73
[2018-11-18 08:44] VITALS: BP 120/89
--- NOTE | 2018-11-18 09:23 | General Progress Note ---
Assessment/Plan Problem List: (1) Constipation ICD Codes: K59.00 - Constipation, unspecified SNOMED: 44054484 (2) Weak ICD Codes: R53.1 - Weakness SNOMED: 86430683 (3) Dementia ICD Codes: F03.90 - Dementia SNOMED: 86780193 (4) ATN (acute tubular necrosis) ICD Codes: N17.0 - Acute kidney failure with tubular necrosis SNOMED: 12194522 (5) Severe protein-calorie malnutrition ICD Codes: E43 - Unspecified severe protein-calorie malnutrition SNOMED: 923464591, 588306761, 422964825 (6) CVA (cerebral vascular accident) ICD Codes: I63.9 - Cerebral infarction, unspecified SNOMED: 467222988 (7) Acute encephalopathy ICD Codes: G93.40 - Encephalopathy, unspecified SNOMED: 39399374, 035411654 (8) History of hypertension ICD Codes: Z86.79 - Personal history of other diseases of the circulatory system SNOMED: 244670433 Status: stable, progressing Assessment/Plan: pt ot diet abx bp pain control cbc bmp am dc if all clear Subjective Constitutional: Reports: weakness Allergies: Coded Allergies: No Known Allergies (Unverified , 10/09/12) All Systems: reviewed and negative except above Subjective sleepy calm Objective Last 24 Hour Vital Signs Date Time Temp Pulse Resp B/P (MAP) Pulse Ox O2 Delivery O2 Flow Rate FiO2 11/18/18 08:44 97.7 79 18 120/89 (99) 94 11/18/18 08:00 97.2 79 18 122/73 (89) 98 11/18/18 04:00 97.0 80 20 116/77 (90) 96 11/18/18 00:00 97.0 85 21 159/78 (105) 96 11/17/18 21:00 Room Air 11/17/18 20:00 98.2 81 21 117/65 (82) 100 11/17/18 16:00 97.1 90 20 151/77 (101) 96 11/17/18 12:06 98.1 92 18 99/64 (76) 93 Intake and Output 11/17/18 11/18/18 19:00 07:00 Intake Total 1630 ml 1920 ml Balance 1630 ml 1920 ml Intake Free Water 600 ml 600 ml IV Total 550 ml 600 ml Tube Feeding 480 ml 720 ml # Voids 4 # Bowel Movements 1 Laboratory Tests 11/18/18 06:05: White Blood Count 6.3, Red Blood Count 4.72, Hemoglobin 13.2, Hematocrit 41.4, Mean Corpuscular Volume 88, Mean Corpuscular Hemoglobin 28.0, Mean Corpuscular Hemoglobin Concent 31.9L, Red Cell Distribution Width 15.3H, Platelet Count 216 , Mean Platelet Volume 7.5, Neutrophils (%) (Auto) 55.6, Lymphocytes (%) (Auto) 28.0, Monocytes (%) (Auto) 11.5H, Eosinophils (%) (Auto) 3.9H, Basophils (%) ( Auto) 1.0, Sodium Level 132L, Potassium Level 5.0, Chloride Level 99, Carbon Dioxide Level 24, Anion Gap 9, Blood Urea Nitrogen 24H, Creatinine 1.0, Estimat Glomerular Filtration Rate , Glucose Level 98, Calcium Level 9.4 Height (Feet): 5 Height (Inches): 2.00 Weight (Pounds): 109 General Appearance: lethargic EENT: normal ENT inspection Neck: normal alignment Cardiovascular: normal peripheral pulses, normal rate, regular rhythm Respiratory/Chest: chest wall non-tender, lungs clear, normal breath sounds Abdomen: normal bowel sounds, non tender, soft Extremities: normal inspection Edema: no edema noted Arm (L), no edema noted Arm (R), no edema noted Leg (L), no edema noted Leg (R), no edema noted Pedal (L), no edema noted Pedal (R), no edema noted Generalized Neurologic: motor weakness Skin: normal pigmentation, warm/dry Guevara Lala DO Nov 18, 2018 09:23
[2018-11-18] MEDS: Zinc Sulfate 220mg cap ORAL SCH (09:43)
[2018-11-18] MEDS: Docusate 100mg cap ORAL SCH (09:43)
[2018-11-18] MEDS: Ascorbic Acid 500mg tab ORAL SCH (09:43)
[2018-11-18] MEDS: Heparin 5000 units/ml inj SUBQ SCH (09:55)
[2018-11-18 12:00] VITALS: BP 129/69
--- NOTE | 2018-11-18 12:02 | Infectious Diseases Prog Note ---
Assessment/Plan Assessment/Plan Assessment: Gram positive bacteremia- likely contaminant -11/12 BCx 1/4 S. epi; 11/13 Bcx NTD -2d Echo: no vegetations Acute on chronic encephalopathy -u/a neg -CXR: Equivocal mild interstitial congestion. Borderline cardiomegaly -Head CT: Chronic and age-related changes. Negative for acute intracranial bleed or mass effect -CT abd/p: Evidence of mild rectal fecal impaction. Bilateral lower lobe pulmonary parenchymal infiltrates versus edema. Age indeterminate vertebral body compression fracture. Consider MRI for better characterization if clinically indicated. Colonic diverticulosis. No evidence of diverticulitis. Cardiomegaly. Subcentimeter right lobe lower pole renal lesion, too small to characterize, Fever x1 No leukocytosis HTN CVA/TIA CHF hx of lumbar spine fracture FTT s/p GT dementia non-verbal NH resident Plan: -Continue to monitor off abx for now -11/15 SP IV Vancomycin #3 -f/u cx -Monitor CBC/CMP, temperatures -aspiration precautions -f/u repeat Bcx x2 Thank you for this consultation. Will continue to follow along with you. Discussed with RN. Subjective Allergies: Coded Allergies: No Known Allergies (Unverified , 10/09/12) Subjective afebrile >72hrs repeat Bcx NTD no leukocytosis Objective Vital Signs Last 24 Hour Vital Signs Date Time Temp Pulse Resp B/P (MAP) Pulse Ox O2 Delivery O2 Flow Rate FiO2 11/18/18 09:00 Room Air 11/18/18 08:44 97.7 79 18 120/89 (99) 94 11/18/18 08:00 97.2 79 18 122/73 (89) 98 11/18/18 04:00 97.0 80 20 116/77 (90) 96 11/18/18 00:00 97.0 85 21 159/78 (105) 96 11/17/18 21:00 Room Air 11/17/18 20:00 98.2 81 21 117/65 (82) 100 11/17/18 16:00 97.1 90 20 151/77 (101) 96 11/17/18 12:06 98.1 92 18 99/64 (76) 93 Height (Feet): 5 Height (Inches): 2.00 Weight (Pounds): 109 Objective GENERAL: Calm in bed, nonverbal. CARDIOVASCULAR: No murmur. LUNGS: Distant and clear. ABDOMEN: Positive bowel sounds. Nontender. Nondistended. EXTREMITIES: No cyanosis or edema. NEUROLOGIC: The patient flaccid in bed, not following directions. Laboratory Tests Test 11/18/18 06:05 White Blood Count 6.3 K/UL (4.8-10.8) Red Blood Count 4.72 M/UL (4.20-5.40) Hemoglobin 13.2 G/DL (12.0-16.0) Hematocrit 41.4 % (37.0-47.0) Mean Corpuscular Volume 88 FL (80-99) Mean Corpuscular Hemoglobin 28.0 PG (27.0-31.0) Mean Corpuscular Hemoglobin Concent 31.9 G/DL (32.0-36.0) L Red Cell Distribution Width 15.3 % (11.6-14.8) H Platelet Count 216 K/UL (150-450) Mean Platelet Volume 7.5 FL (6.5-10.1) Neutrophils (%) (Auto) 55.6 % (45.0-75.0) Lymphocytes (%) (Auto) 28.0 % (20.0-45.0) Monocytes (%) (Auto) 11.5 % (1.0-10.0) H Eosinophils (%) (Auto) 3.9 % (0.0-3.0) H Basophils (%) (Auto) 1.0 % (0.0-2.0) Sodium Level 132 MMOL/L (136-145) L Potassium Level 5.0 MMOL/L (3.5-5.1) Chloride Level 99 MMOL/L (98-107) Carbon Dioxide Level 24 MMOL/L (21-32) Anion Gap 9 mmol/L (5-15) Blood Urea Nitrogen 24 mg/dL (7-18) H Creatinine 1.0 MG/DL (0.55-1.30) Estimat Glomerular Filtration Rate mL/min (>60) Glucose Level 98 MG/DL (74-106) Calcium Level 9.4 MG/DL (8.5-10.1) Current Medications Medications (Trade) Dose Ordered Sig/Khoa Route PRN Reason Start Time Stop Time Status Last Admin Dose Admin Acetaminophen (Tylenol) 650 mg Q4H PRN GT fever 11/12/18 10:15 12/12/18 10:14 11/14/18 08:41 Ascorbic Acid (Vitamin C) 250 mg TWICE A DAY ORAL 11/14/18 09:00 12/14/18 08:59 11/18/18 09:43 Docusate Sodium (Colace) 100 mg TWICE A DAY ORAL 11/14/18 09:00 12/14/18 08:59 11/18/18 09:43 Donepezil HCl (Aricept) 10 mg BEDTIME GT 11/12/18 21:00 12/12/18 20:59 11/17/18 21:42 Heparin Sodium (Porcine) (Heparin 5000 units/ml) 5,000 units EVERY 12 HOURS SUBQ 11/12/18 21:00 12/12/18 20:59 11/18/18 09:55 Iopamidol (Isovue-300 100ml) 100 ml NOW PRN INJ Radiology Procedure 11/12/18 06:30 Lorazepam (Ativan) 0.5 mg Q6H PRN GT For Anxiety 11/13/18 14:15 11/20/18 14:14 11/14/18 17:21 Ondansetron HCl (Zofran) 4 mg Q6H PRN IVP Nausea & Vomiting 11/12/18 10:15 12/12/18 10:14 Potassium Chloride 10 meq/ Dextrose/Sodium Chloride 1,005 ml @ 50 mls/hr Q20H6M IV 11/16/18 13:30 12/15/18 13:29 11/17/18 13:49 Zinc Sulfate (Zinc Sulfate) 220 mg DAILY ORAL 11/14/18 09:00 11/24/18 08:59 11/18/18 09:43 Zolpidem Tartrate (Ambien) 5 mg HSPRN PRN GT Insomnia 11/12/18 10:15 11/19/18 10:14 Salud Atwood M.D. Nov 18, 2018 12:02
--- NOTE | 2018-11-18 14:02 | Surgery Progress Note ---
Surgery Progress Note Subjective Additional Comments no acute events resting comfortable labs okay exam unchanged. Objective Last 24 Hour Vital Signs Date Time Temp Pulse Resp B/P (MAP) Pulse Ox O2 Delivery O2 Flow Rate FiO2 11/18/18 12:00 97.2 79 18 129/69 (89) 99 11/18/18 09:00 Room Air 11/18/18 08:44 97.7 79 18 120/89 (99) 94 11/18/18 08:00 97.2 79 18 122/73 (89) 98 11/18/18 04:00 97.0 80 20 116/77 (90) 96 11/18/18 00:00 97.0 85 21 159/78 (105) 96 11/17/18 21:00 Room Air 11/17/18 20:00 98.2 81 21 117/65 (82) 100 11/17/18 16:00 97.1 90 20 151/77 (101) 96 I&O Intake and Output 11/17/18 11/18/18 19:00 07:00 Intake Total 1630 ml 1920 ml Balance 1630 ml 1920 ml Intake Free Water 600 ml 600 ml IV Total 550 ml 600 ml Tube Feeding 480 ml 720 ml # Voids 4 # Bowel Movements 1 Dressing: saturated Wound: clean Cardiovascular: RSR Respiratory: clear Abdomen: soft, present bowel sounds Extremities: no cyanosis Laboratory Tests Test 11/18/18 06:05 White Blood Count 6.3 K/UL (4.8-10.8) Red Blood Count 4.72 M/UL (4.20-5.40) Hemoglobin 13.2 G/DL (12.0-16.0) Hematocrit 41.4 % (37.0-47.0) Mean Corpuscular Volume 88 FL (80-99) Mean Corpuscular Hemoglobin 28.0 PG (27.0-31.0) Mean Corpuscular Hemoglobin Concent 31.9 G/DL (32.0-36.0) L Red Cell Distribution Width 15.3 % (11.6-14.8) H Platelet Count 216 K/UL (150-450) Mean Platelet Volume 7.5 FL (6.5-10.1) Neutrophils (%) (Auto) 55.6 % (45.0-75.0) Lymphocytes (%) (Auto) 28.0 % (20.0-45.0) Monocytes (%) (Auto) 11.5 % (1.0-10.0) H Eosinophils (%) (Auto) 3.9 % (0.0-3.0) H Basophils (%) (Auto) 1.0 % (0.0-2.0) Sodium Level 132 MMOL/L (136-145) L Potassium Level 5.0 MMOL/L (3.5-5.1) Chloride Level 99 MMOL/L (98-107) Carbon Dioxide Level 24 MMOL/L (21-32) Anion Gap 9 mmol/L (5-15) Blood Urea Nitrogen 24 mg/dL (7-18) H Creatinine 1.0 MG/DL (0.55-1.30) Estimat Glomerular Filtration Rate mL/min (>60) Glucose Level 98 MG/DL (74-106) Calcium Level 9.4 MG/DL (8.5-10.1) Plan Problems: (1) Constipation Assessment & Plan: bowel regimen ordered cont diet as tolerated (2) Decubitus skin ulcer Assessment & Plan: Pt presented on admission with multiple pressure injuries and necrotic ulcers toes R foot. Full thickness pressure injury R Sacrum .Base of wound with small amt slough centrally with surrounding pink granulation (L)0.8cm x (W)0.5cm x (D)0.2cm. Edges adherent to base of wound. Non-blanchable erythema periwound. Partial thickness pressure injury L sacrum (L)2.5cm x (W)1cm. Base of wound is viable and moist. Non-blanchable erythema without induration/fluctuance periwound. DTPI R heel. Base of wound maroon in colour with fluctuance (L)5cm x (W)6cm. Pt verbalized tenderness when R heel minimally palpated. Non-blanching erythema with fluctuance L heel. Non-tender when miniamlly palpated. Clubbing of toes noted to both feet. Stable dry eschar noted to dorsal aspects of R 2nd, R 3rd, and R 4th metatarsals. Tx.Plan: Apply Triad Paste to wounds R and L sacrum. Cover with Optifoam drsg. Change every 3 days and prn. Swab R 2nd ,R 3rd and R 4th metatarsals with Betadine Daily. Apply Cavilon Skin Barrier to R and L heels. Cover each heel with Optifoam drsg. Change every 7 days and prn. Reposition at least every 2hours or as tolerated. Off-load heels with pillow. (3) Severe protein-calorie malnutrition Assessment & Plan: DAILY ESTIMATED NEEDS: Needs based on Wounds/ 53kg 25-30 kcals/kg 4942-7284 total kcals 1.25-1.5 g protein/kg 66-79 g total protein 25-30 mL/kg 0669-9190 total fluid mLs NUTRITION DIAGNOSIS: 1) Increased kcal and pro needs r/t wound healing as evidenced by pt w/ DTPI at rt heel, stage 2 at sacrum, necrotic ulcers R 2nd, 3rd, 4th toes 2) Swallowing difficulty r/t dysphagia as evidenced by pt is GT dep. CURRENT TF: Jevity 1.2 @60ml x 20hrs ENTERAL NUTRITION RECOMMENDATIONS: Jevity 1.2 @60ml/hr x 20 hrs + Prosource 1pkt QD to provide 1200ml, 1440kcal, 66g +11g prot, 968ml free water - Maintain current TF - Add Prosource 1pkt QD to better meet protein needs (Additional 11g prot) - Flush per MD/ HOB over 30 degrees ADDITIONAL RECOMMENDATIONS: 1) Obtain a CALIBRATED bed scale wt, monitor wt trend - Per SNF record: pt is 59", 116lbs 2) Monitor lytes daily, replete as needed 3) Wound healing: add Vit C 250mg QD, ZnSO4 220mg QD x 10 days : Silvano 1pkt BID Additional Comments okay to d/c from surgical standpoint cont above care upon discharge. Pb Ojeda Nov 18, 2018 14:02
--- NOTE | 2018-11-18 15:11 | Pulmonology Progress Note ---
Assessment/Plan Problems: (1) ATN (acute tubular necrosis) (2) Acute encephalopathy (3) Severe protein-calorie malnutrition (4) Limited mobility in bed (5) Feeding by G-tube (6) Dementia Assessment/Plan improving iv fluids check electrolytes tolerating feeding check cultures dvt prophylaxis Subjective ROS Limited/Unobtainable: No Constitutional: Reports: no symptoms HEENT: Repors: no symptoms Allergies: Coded Allergies: No Known Allergies (Unverified , 10/09/12) Objective Last 24 Hour Vital Signs Date Time Temp Pulse Resp B/P (MAP) Pulse Ox O2 Delivery O2 Flow Rate FiO2 11/18/18 12:00 97.2 79 18 129/69 (89) 99 11/18/18 09:00 Room Air 11/18/18 08:44 97.7 79 18 120/89 (99) 94 11/18/18 08:00 97.2 79 18 122/73 (89) 98 11/18/18 04:00 97.0 80 20 116/77 (90) 96 11/18/18 00:00 97.0 85 21 159/78 (105) 96 11/17/18 21:00 Room Air 11/17/18 20:00 98.2 81 21 117/65 (82) 100 11/17/18 16:00 97.1 90 20 151/77 (101) 96 Intake and Output 11/17/18 11/18/18 19:00 07:00 Intake Total 1630 ml 1920 ml Balance 1630 ml 1920 ml Intake Free Water 600 ml 600 ml IV Total 550 ml 600 ml Tube Feeding 480 ml 720 ml # Voids 4 # Bowel Movements 1 Objective General Appearance: WD/WN HEENT: normocephalic, atraumatic Respiratory/Chest: chest wall non-tender, lungs clear, normal breath sounds Breasts: no masses Cardiovascular: normal peripheral pulses, normal rate Abdomen: normal bowel sounds, soft, non tender Genitourinary: normal external genitalia Extremities: no cyanosis Laboratory Tests 11/18/18 06:05: White Blood Count 6.3, Red Blood Count 4.72, Hemoglobin 13.2, Hematocrit 41.4, Mean Corpuscular Volume 88, Mean Corpuscular Hemoglobin 28.0, Mean Corpuscular Hemoglobin Concent 31.9L, Red Cell Distribution Width 15.3H, Platelet Count 216 , Mean Platelet Volume 7.5, Neutrophils (%) (Auto) 55.6, Lymphocytes (%) (Auto) 28.0, Monocytes (%) (Auto) 11.5H, Eosinophils (%) (Auto) 3.9H, Basophils (%) ( Auto) 1.0, Sodium Level 132L, Potassium Level 5.0, Chloride Level 99, Carbon Dioxide Level 24, Anion Gap 9, Blood Urea Nitrogen 24H, Creatinine 1.0, Estimat Glomerular Filtration Rate , Glucose Level 98, Calcium Level 9.4 Current Medications Medications (Trade) Dose Ordered Sig/Khoa Route PRN Reason Start Time Stop Time Status Last Admin Dose Admin Acetaminophen (Tylenol) 650 mg Q4H PRN GT fever 11/12/18 10:15 12/12/18 10:14 11/14/18 08:41 Ascorbic Acid (Vitamin C) 250 mg TWICE A DAY ORAL 11/14/18 09:00 12/14/18 08:59 11/18/18 09:43 Docusate Sodium (Colace) 100 mg TWICE A DAY ORAL 11/14/18 09:00 12/14/18 08:59 11/18/18 09:43 Donepezil HCl (Aricept) 10 mg BEDTIME GT 11/12/18 21:00 12/12/18 20:59 11/17/18 21:42 Heparin Sodium (Porcine) (Heparin 5000 units/ml) 5,000 units EVERY 12 HOURS SUBQ 11/12/18 21:00 12/12/18 20:59 11/18/18 09:55 Iopamidol (Isovue-300 100ml) 100 ml NOW PRN INJ Radiology Procedure 11/12/18 06:30 Lorazepam (Ativan) 0.5 mg Q6H PRN GT For Anxiety 11/13/18 14:15 11/20/18 14:14 11/14/18 17:21 Ondansetron HCl (Zofran) 4 mg Q6H PRN IVP Nausea & Vomiting 11/12/18 10:15 12/12/18 10:14 Potassium Chloride 10 meq/ Dextrose/Sodium Chloride 1,005 ml @ 50 mls/hr Q20H6M IV 11/18/18 16:00 12/18/18 15:59 Zinc Sulfate (Zinc Sulfate) 220 mg DAILY ORAL 11/14/18 09:00 11/24/18 08:59 11/18/18 09:43 Zolpidem Tartrate (Ambien) 5 mg HSPRN PRN GT Insomnia 11/12/18 10:15 11/19/18 10:14 Dajuan Lam MD Nov 18, 2018 15:11
[2018-11-18 16:00] VITALS: BP 118/55
--- NOTE | 2018-11-18 17:56 | NUR ---
NURSE NOTES: Patient discharged back to [facility], granddaughter Lisa is aware. Patient's G-tube disconnected for transportation. No belongings. IV site safely removed, covered with gauze and tape. Report given to Daisy RN at [facility]. Patient observed to be in stable condition - no signs of respiratory distress or pain noted.
--- NOTE | 2018-11-18 20:10 | Cardiology Report ---
APPROVED REPORT EXAM: Two-dimensional and M-mode echocardiogram with Doppler and color Doppler. INDICATION Vegitation M-Mode DIMENSIONS IVSd1.2 (0.7-1.1cm)Left Atrium (MM)3.4 (1.6-4.0cm) LVDd4.9 (3.5-5.6cm)Aortic Root2.9 (2.0-3.7cm) PWd1.0 (0.7-1.1cm)Aortic Cusp Exc.1.0 (1.5-2.0cm) IVSs1.7 cm LVDs2.9 (2.5-4.0cm) PWs0.9 cm Technically difficult study due to pt's resistance . Normal left ventricular chamber size, systolic function and wall motion to extent visualized. Left ventricular ejection fraction estimated to be 60-65 %. Mild left ventricular hypertrophy . Anterior Echo-free space, may be due to pericardial fat or effusion. All other cardiac chamber sizes are within normal limits. Aortic valve calcification with decreased cusp excursion. Thickened mitral valve leaflets with normal excursion. Mitral annulus and aortic root calcification. Normal pulmonic valve structure. Normal tricuspid valve structure. IVC measured at 2.0 cm without physiologic collapse suggestive of increased RA pressure. A color flow and spectral Doppler study was performed and revealed: Trace aortic insufficiency. Peak aortic valve gradient of 45mm Hg and a mean of 25mmHg consistent with moderate aortic valve stenosis. Aortic valve area is calculated at 0.7 cm2 by continuity equation which does not correlate with the mean pressure across the aortic valve. Planimetry AV area data is not available, visually the valve appears to be moderately stenotic. Mild to moderate mitral regurgitation. Mitral diastolic velocities suggest reduced left ventricular relaxation c/w mild LV diastolic dysfunction (Grade I ). Trace tricuspid regurgitation. Tricuspid systolic velocities suggests peak right ventricular systolic pressure of 26 mmHg.
--- NOTE | 2018-11-19 03:15 | Progress Note ---
DATE: 11/18/2018 SUBJECTIVE: This is an 83-year-old female patient with encephalopathy. She continues to have some confusion, some disorganized thought process, and mood lability. She has got . She has got a decline in cognition below baseline. , altered mental status, confusion, disorganized thought process. So, her cognition is declined below baseline. That is why, her attending physician has requested daily psychiatric consultation at this time. MENTAL STATUS EXAMINATION: This is an 83-year-old female. Appearance is disheveled. Attitude, irritable and agitated. Affect, guarded and restricted. Intellect poor. Mood, depressed and anxious. Motor activity, psychomotor retardation. Attention span is poor. Orientation x1. Speech is low volume, slurred. Thought process, disorganized and illogical. Insight and judgment are poor. DIAGNOSIS: Major depressive disorder, mild, recurrent, without psychotic features, rule out dementia with psychosis. PLAN: Treat her with Aricept 10 mg nightly. A 20 minutes an insight-oriented psychotherapy to help her to have more insight into her decline in cognition and to help her to have better on the unit. Chart reviewed. Discussed with staff. A 20 minutes of insight-oriented psychotherapy provided. Bj Plummer M.D. DR: SULMA JOB#: [id number] CC:
--- NOTE | 2018-11-19 10:49 | Discharge Summary ---
Discharge Summary Discharge Summary _ DATE OF ADMISSION: 11/12/2018 DATE OF DISCHARGE: 11/18/2018 DISCHARGED BY: Dr Lala REASON FOR ADMISSION: 83 years old female with past medical history of hypertension, CVA, dementia, [facility] Per nursing staff, patient was moaning since midnight. Patient nonverbal at baseline and unable to provide information. Upon evaluation vital signs were stable. EKG revealed sinus rhythm with T wave waves inversion in lateral leads. Chest x-ray revealed no acute cardiopulmonary pathology. No leukocytosis, stable hemoglobin and hematocrit. BUN 50, creatinine 1.1. Troponin negative. pro BNP 1739. Albumin 3.3. CT of the head revealed no acute intracranial pathology. Chronic age-related changes noted. CT of the abdomen and pelvis demonstrated evidence of mild rectal fecal impaction. Bilateral lower lobe pulmonary parenchymal infiltrates versus edema. Cardiomegaly. Colonic diverticulosis without evidence of diverticulitis. Urinalysis revealed no evidence of urinary tract infection. Patient subsequently admitted to medical surgical floor for further evaluation and management. CONSULTANTS: pulmonary Dr. Lam ID specialist Dr. Atwood surgery Dr. Ojeda psychiatrist Dr. Plummer HOSPITAL COURSE: Patient admitted to medical surgical floor Patient started on the IV hydration. G-tube feeding provided with strict aspiration precaution. Tube feeding formula and protein supplements provided as per psychiatric registered nurse recommendation. Echocardiogram revealed preserved ejection fraction of 60 to 65% mild to moderate mitral regurgitation. Aortic stenosis. Volumes were closely monitored. Patient did not appear to be in decompensation. DVT prophylaxis provided. Blood pressure was closely monitored and remained stable. Supplemental oxygen was on board as needed to keep pulse oximetry above 92%. Pulse oximetry was stable on room air. Renal parameters and electrolytes were closely monitored, electrolytes corrected as needed, and nephrotoxins were avoided. BUN from 50 down to 24, creatinine remained stable. ID specialist followed. Initial blood culture revealed 1 out of 4 Staphylococci epidermidis . Repeated blood culture on 11/13 revealed no evidence of growth. Initial bacteremia was most likely contaminant, as per ID specialist. Patient received vancomycin for 3 days , which then stopped as per ID specialist advise . Patient was closely observed off antibiotics ; no leukocytosis, no fever ,no clinical evidence of infection. Patient received empiric antibiotic which stopped per ID specialist. Bowel regimen instituted. Surgeon followed for multiply pressure injuries and necrotic ulcer toes right foot present on admission. Patient also had a full-thickness pressure injury right sacrum. Wound care provided as per surgeon recommendation, continue wound care at the facility. Supportive care provided. Psychiatrist followed. Psychiatrist diagnosed patient with major depressive disorder, mild, recurrent without psychotic features. Patient started on Aricept. Psychotherapy provided. Patient clinically stabilized and was ready [facility] for [facility] of care. FINAL DIAGNOSES: Acute on chronic encephalopathy Severe protein calorie malnutrition Dysphagia, feeding by G-tube Congestive heart failure Aortic stenosis Acute kidney injury due to dehydration -resolved Functional quadriplegia Constipation Dementia Hypertension History of TIA/CVA Multiple pressure injuries, present on admission Depressive disorder, mild, recurrent, without psychotic features DISCHARGE MEDICATIONS: See Medication Reconciliation list. DISCHARGE INSTRUCTIONS: [facility] facility. Follow up with medical doctor at the facility. I have been assigned to dictate discharge summary for this account. I was not involved in the patient's management. Cherri Peterson NP Nov 19, 2018 10:49
== END 2018-11-18 18:00 | DRG 70 ==
LOC: EDUNIT# 05:11 → EDBD 05:11 → EMR 05:30 → 4E 05:42 → EDBEDREQ 07:41
DX: G93.40 Encephalopathy, unspecified (principal); E43 Unspecified severe protein-calorie malnutrition; R53.2 Functional quadriplegia; N17.0 Acute kidney failure with tubular necrosis; I96 Gangrene, not elsewhere classified; F33.0 Major depressive disorder, recurrent, mild; I10 Essential (primary) hypertension; Z86.73 Personal history of transient ischemic attack (TIA), and cerebral infarction without residual deficits; R13.10 Dysphagia, unspecified; I11.0 Hypertensive heart disease with heart failure; I50.9 Heart failure, unspecified; I35.0 Nonrheumatic aortic (valve) stenosis; E86.0 Dehydration; L89.90 Pressure ulcer of unspecified site, unspecified stage; K57.90 Diverticulosis of intestine, part unspecified, without perforation or abscess without bleeding; K59.00 Constipation, unspecified; L89.899 Pressure ulcer of other site, unspecified stage; L89.159 Pressure ulcer of sacral region, unspecified stage; L89.610 Pressure ulcer of right heel, unstageable; F03.90 Unspecified dementia, unspecified severity, without behavioral disturbance, psychotic disturbance, mood disturbance, and anxiety; F29 Unspecified psychosis not due to a substance or known physiological condition
CPT/HCPCS: 36415; 70450; 71045; 74177; 80048; 80053; 80202; 81003; 82550; 82553; 83605; 83880; 84484; 85025; 87040; 87081; 87181; 93005; 93306; 97803; 99285

== ENCOUNTER → 2019-02-07 | Emergency (ER) | payer MEDICARE, MEDICAID ==
[~2019-02-07] VITALS: Ht 157.5 cm; Wt 49.9 kg
[~2019-02-07] MED LIST changes: +Gastrograffin 30ml ORAL ONE
[2019-02-07 14:45] VITALS: BP 139/69
--- NOTE | 2019-02-07 14:58 | Emergency Room Report ---
History of Present Illness General Chief Complaint: G-tube dislodged Source: Medical Record, EMS Present Illness HPI Disclaimer: Please note that this report is being documented using DRAGON technology. This can lead to erroneous entry secondary to incorrect interpretation by the dictating instrument. HPI: 83-year-old female presents first from nursing facility for evaluation of G -tube dislodgment. According to EMS and facility staff who we reached by telephone she accidentally ripped out her G-tube approximately 9:30 AM. No bleeding reported. No other symptoms at this time. The patient cannot provide any significant history given her dementia. PMH: See chart PSH: G-tube Allergies: None listed in medical history Social Hx: See chart Allergies: Coded Allergies: No Known Allergies (Unverified , 10/09/12) Nursing Documentation-PMH Hx Cardiac Problems: Yes Hx Hypertension: Yes Hx Pacemaker: No Hx COPD: No - chf Hx Cancer: No Hx Gastrointestinal Problems: Yes - failure to thrive with GI Tube Hx Dialysis: Yes - KIDNEY PROBLEM Hx Neurological Problems: Yes Hx Transient Ischemic Attacks: Yes Hx Dementia: Yes Hx Alzheimer's Disease: No Hx Parkinson's Disease: No Hx Meningitis: No Hx Encephalitis: No Hx Seizures: No Hx Epilepsy: No Hx Multiple Sclerosis: No Hx Cerebral Palsy: No Hx Amyotrophic Lat Sclerosis: No Hx Guillian-Burns Syndrome: No Hx Paralysis: No Hx Peripheral Neuropathy: No Hx Spinal Cord Injury: No Hx Head Trauma: No Hx Traumatic Brain Injury: No Hx Memory Loss: Yes Hx Concentration Difficulty: No Hx Speech Problem: No Hx Tremors: No Hx Vertigo: No Hx Dizziness: No Hx Syncope: Yes Hx Headaches: No Hx Aphasia: No Hx Dysphasia: No Hx Numbness: No Hx Weakness: No Hx Fatigue: No Hx Neurologic Surgery: No Hx Brain Shunt: No Review of Systems All Other Systems: limited - Could not obtain from patient due to dementia Physical Exam General: Awake, nonverbal, frail and cachectic HEENT: NC/AT. EOMI. edentulous Resp: Normal work of breathing. Abdomen: Abdomen is soft, nondistended. Nontender. Ostomy appears healthy, no surrounding erythema, warmth, no drainage, no bleeding, no skin breakdown MSK: Decreased muscle tone and bulk diffusely, cachectic. No obvious deformity. Neuro: Awake. Severe dementia. Nonverbal. Procedures Additional Procedure Procedure Narrative G-tube replacement: A 14 Persian G-tube was inserted into the ostomy without difficulty. Balloon was inflated to 5 cc with sterile water. Retracted back until resistance and secured at 4 cm. Aspirated gastric contents with a Jyoti syringe. Patient will be sent for confirmatory x-rays with Gastrografin. Tolerated procedure well. No complications. Performed by nd, Dr. Homer Zhang Medical Decision Making Diagnostic Impression: Primary Impression: Malfunction of gastrostomy tube ER Course Patient presents for evaluation of dislodged G-tube. Unknown what size the patient prior to presented to the emergency department today as the nursing facility had no records nor do our previous hospital records show size or type. I placed a 14 Persian G-tube without difficulty. Confirmatory x-rays are pending. If unremarkable she may be discharged back to her facility. No complications. Other X-Ray Diagnostic Results Other X-Ray Diagnostic Results : X-Ray ordered: KUB # of Views/Limited Vs Complete: 1 View Indication: Other - Tube check EP Interpretation: Yes Interpretation: other - Contrast in the stomach. Impression: Other - G-tube in appropriate position with contrast in stomach. Electronically Signed by: Electronically signed by Dr. Homer Zhang Reevaluation Time: 15:55 Reevaluation Impression G-tube in proper positioning. The patient can be returned to her nursing facility. I have updated her PMD, Dr. Lala Disposition: XFER SNF Condition: Improved Homer Zhang MD Feb 07, 2019 14:58
--- NOTE | 2019-02-07 15:01 | NUR ---
ED Nurse Note: daughter
--- NOTE | 2019-02-07 15:55 | Diagnostic Imaging Report ---
Indication: Gastrostomy check Comparison: None Single view of the abdomen obtained Findings: Gastrostomy balloon is in the body of the stomach in good position. There is contrast in the stomach and pylorus. IMPRESSION: Gastrostomy good position. No leak
== END ==
LOC: EDUNIT# 14:23 → EDBD 14:37 → EMR 16:10
DX: K94.29 Other complications of gastrostomy (principal); F03.90 Unspecified dementia, unspecified severity, without behavioral disturbance, psychotic disturbance, mood disturbance, and anxiety; I11.0 Hypertensive heart disease with heart failure; I50.9 Heart failure, unspecified; Z86.73 Personal history of transient ischemic attack (TIA), and cerebral infarction without residual deficits
CPT/HCPCS: 74018; 99283; Q9963